=== PATIENT | female | born 1930 | race Hispanic/Latino ===

== ENCOUNTER 2016-08-30 17:05 | Inpatient (IN) | payer MEDICARE, MEDICAID ==
[~2016-08-30] VITALS: Ht 154.9 cm; Wt 54.2 kg
[~2016-08-30 17:05] MED LIST: /AUGM875TA OR; /AUGM875TA PO; /CIPR75TA OR; /DULO30CA OR; /ESOM40CA PO; /INSU7030 SC; /IPRA3SP INH; /MOM400 PO; /NEPHROTA PO; /ONDA4TA PO; /WARF5TA OR; ACET-654 PO; ACET500C OR; ACET650S3 PO; ACET65TA PO; ALB2.5NEB INH; ALBUTEROL INH; ALLO100T PO; ALLO10TA PO; ALLO300T OR; AMLO10TA2 PO; AMLO10TAB OR; AMLO5TAB2 PO; ASPI81CH PO; ASPI81TA PO; ASPI81TA83 OR; ASPI81TA83 PO; ASPI81TA85 PO; ATEN25TA OR; BACITAB PO; BACITAB3 PO; BISAC5TA PO; BISO10TA2 PO; BUPROPION XL PO; CALTRATE 600 + D PO; CARD240T3 OR; CARV3.12 PO; CARV6.25 OR; CEFT250T OR; CIPR250T2 PO; CIPR25SS OR; CLOP75TA2 PO; COLA50CA OR; COLA50CA PO; COLA50CA3 PO; COUM1TAB OR; CRES20TA OR; CRES40TA OR; CYMBALTA PO; DARB100SYR IV; DELTASONE OR; DIOV320T OR; DIOV320T PO; DO NOT TAKE; DRIS1CAP PO; DRIS50002 PO; DUONSOL IN; EMLA2.5C EXT; EPLERENONE PO; FENO145T PO; FENO67CA2 PO; FLAG500T OR; FLAG500T PO; FLEEENE4 PR; FLEX; FLEXERIL; GLIPIZIDE/METFORMIN PO; GLUC10TA3 OR; GLUC1VL SC; GLUC4GMTAB PO; HEPA50VL SC; HYDR-727 PO; HYDR25TA6 OR; HYDR25TA7 OR; IMDU60TA OR; INSUDET SC; INSUH10VL INJ; INSULANT SC; LABE100T2 OR; LABE100T2 PO; LABE200T OR; LASI40TA OR; LEVO25TA2 OR; LEVO25TA2 PO; LEVO25TA5 PO; LEVO25TABR OR; LOVA1CAP16 PO; LOVA1CAP17 PO; LOVAZA PO; LUNESTA PO; Linezolid PO; MAGN500T2 OR; MAGN500T2 PO; MEGE400S9 PO; MIRA3350 PO; MIRALEX PO; MONISTAT; MONISTAT 3; MULTIVIT PO; NAFC2VLAD IV; NASONEX; NASONEX INH; NEBUMIS2 INH; NEPH1CAP4 PO; NEPHTAB PO; NEPRLIQ3 PO; NEUR100C PO; NEXI20CA OR; NORC5TAB PO; NOVOLOG100 MG/ML SC; ONDA1TAB16 PO; OSEL75CA PO; PANT40TA2 PO; PERC5TAB PO; PERC5TAB8 OR; PLAV75TA38 PO; POTA10CA PO; PRAV40TA PO; PRAV40TA2 PO; PRAV80TA2 PO; PRED10TA2 OR; PRED5TAB OR; SENO8.6T9 PO; SLOWTAB OR; TRAN100T OR; TRAZ50TA OR; TRAZ50TA4 PO; TRAZO50TA PO; TRIC145T PO; TRIC145T19 OR; TRIC145T19 PO; TRIGENTA PO; TYLE325T5 PO; VANC10005 INJ; VANC10IN IV; VANC1VLAD IV; VITA100066 PO; XANA0.25 OR; XANA0.25 PO; ZOFR4SOL PO; [UNRECOGNIZED DRUG - OTHER]; norvasc PO
[2016-08-30] MEDS ORDERED: ONDANSETRON 4 MG ORAL DISINTEGRATING TAB (S0181) PO ONE (18:45)
[2016-08-30] MEDS ORDERED: ACETAMINOPHEN TAB 650MG DOSE (2X325MG) PO ONE (18:45)
[2016-08-30 19:00] LABS: ALBUMIN 3.3 GM/DL (3.2-5.2); ALBUMIN/GLOBULIN RATIO 0.85 (1.00-1.93); ALKALINE PHOSPHATASE 55 U/L (45-117); ALT/SGPT 29 U/L (12-78); ANION GAP 11 MEQ/L (8-16); AST/SGOT 50 U/L (15-37); BILIRUBIN,DIRECT < 0.1 MG/DL (0.0-0.2); BILIRUBIN,TOTAL 0.4 MG/DL (0.2-1.0); BLOOD UREA NITROGEN 24 MG/DL (7-18); CALCIUM LEVEL 8.8 MG/DL (8.8-10.2); CARBON DIOXIDE LEVEL 27 MEQ/L (21-32); CHLORIDE LEVEL 103 MEQ/L (98-107); CREATININE FOR GFR 2.41 MG/DL (0.55-1.02); GLOMERULAR FILTRATION RATE 20.4 (>32); GLUCOSE, FASTING 189 MG/DL (83-110); POTASSIUM SERUM 4.4 MEQ/L (3.5-5.1); SODIUM LEVEL 141 MEQ/L (136-145); TOTAL PROTEIN 7.2 GM/DL (6.4-8.2)
[2016-08-30 19:03] LABS: BASO % 0.3 % (0.0-1.0); EOS # 0.1 K/mm3 (0.0-0.50); LARGE UNSTAINED CELL # 0.2 K/mm3 (0.0-0.4); LARGE UNSTAINED CELL % 1.6 % (0.0-4.0); LYMPH # 0.6 K/mm3 (1.5-4.5); LYMPH % 5.6 % (24.0-44.0); MEAN CORPUSCULAR HEMOGLOBIN 34.6 pg (27.0-33.0); MEAN CORPUSCULAR HGB CONC 35.1 g/dl (32.0-36.5); MEAN CORPUSCULAR VOLUME 98.6 fl (80.0-96.0); MONO # 0.5 K/mm3 (0.0-0.8); NEUTROPHILS % 86.5 % (36.0-66.0); PLATELET COUNT, AUTOMATED 211 k/mm3 (150-450); RED CELL DISTRIBUTION WIDTH 15.4 % (11.5-14.5); WHITE BLOOD COUNT 10.4 K/mm3 (4.0-10.0)
--- NOTE | 2016-08-30 19:30 | REPUSA ---
CLINICAL HISTORY: Headaches. TECHNIQUE: Multiple axial CT images were obtained through the brain without IV contrast material. COMMENTS: There is normal configuration of sella turcica. There are no intra or extra-axial collections. There is no mass effect or midline shift. There is no evidence of hematoma formation. No hydrocephalus is p resent. The ventricles are symmetrical. No abnormal calcifications are present. There is diffuse age-appropriate cerebellar and cerebral atrophy with proportionally dilated ventricl es and cortical sulci. There are bilateral confluent periventricular and subcortical white matter hypolucencies compatible w ith severe chronic microvascular disease. Otherwise, no significant focal abnormalities are seen either in the posterior fossa or supratentoria l compartment. IMPRESSION: 1. Severe cerebellar and cerebral atrophy. 2. Severe chronic microvascular disease. 3. No evidence of acute intracranial pathology. Thank you for your kind referral of this patient.
--- NOTE | 2016-08-30 19:33 | REP ---
PORTABLE CHEST: 08/30/2016: Comparison: 03/02/2016, 11/01/2015. Clinical history: Chest pain. Findings: There is an indwelling right jugular dialysis catheter. Tip is in the right atrium. This is unchanged. Lung crespo are adequately inflated without pleural effusion or acute infiltrate. Heart size not enlarged for portable AP technique and this degree of inflation. The aorta is mildly tortuous but normal for age. Airway intact. No acute bony finding. There is no free air under the diaphragm. Impression: 1. Indwelling right jugular dialysis catheter unchanged with cardiomediastinal silhouette, airway and aorta all stable. No edema, effusion or definite infiltrate. Signed by Aguilar Orona MD 08/30/2016 07:52 P
[2016-08-30] MEDS ORDERED: ACETAMINOPHEN 325 MG/10.15 ML UDC PO ONE (19:45)
[2016-08-30] MEDS ORDERED: CARV6.25 PO (20:43)
[2016-08-30] MEDS ORDERED: CICL8SOL3 TOP (20:43)
[2016-08-30] MEDS ORDERED: NYST100024 TOP (20:45)
[2016-08-30] MEDS ORDERED: INSULANT SC (20:46)
[2016-08-31] VITALS (7 sets, daily range): BP systolic 100–146; BP diastolic 50–71; PULSE 69
[2016-08-31] MEDS ORDERED: GLUCOSE 4 GM CHEW TABLET PO PRN (00:15)
[2016-08-31] MEDS ORDERED: GLUCAGON FOR INJ 1 MG VIAL (J1610) SC PRN (00:15)
[2016-08-31] MEDS ORDERED: MEROPENEM INJ 1 GM in D5W MINI-BAG PLUS 100 ML IV SCH (00:15)
[2016-08-31] MEDS ORDERED: ONDANSETRON 4MG/2ML VIAL (J2405) IV PRN (00:15)
[2016-08-31] MEDS ORDERED: VANCOMYCIN HCL 1,000 MG, VIAL MATE ADAPTER 1 EACH in D5W 250 ML IV ONE (00:15)
[2016-08-31] MEDS ORDERED: DEXTROSE 50% 50 ML SYRINGE IV PRN (00:15)
[2016-08-31] MEDS ORDERED: MEROPENEM INJ 500 MG in D5W MINI-BAG PLUS 100 ML IV SCH (01:00)
--- NOTE | 2016-08-31 01:31 | HPEPDOC ---
General Date of Admission Aug 30, 2016 at 22:47 Primary Care Physician: NEHEMIAS LONGORIA DO Attending Physician: FLAQUITA BURGESS MD Chief Complaint The patient is a 85-year-old female admitted with a reason for visit of FEVER. Source: Family, RN notes reviewed, Old records Exam Limitations: Language barrier Timing/Duration: This morning Severity: Moderate Associated Symptoms: Cough, Headaches, Syncope, Weakness History of Present Illness Ms. Tran is an 85-year-old Malagasy female who presents to [facility]'s emergency Department with syncope after dialysis. She is accompanied in the ED by her granddaughter. Patient is Bengali-speaking. Granddaughter provided much of the history. 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 Granddaughter states that patient went to hemodialysis this morning and while undergoing care had a syncopal event while in the chair. Patient did not fall or hit her head. Patient returned home after the conclusion of dialysis at 9 AM and according to the granddaughter was alert and oriented and eating snacks. Sometime later it was noted by a cousin and the patient's daughter that she was "acting different, pale, and didn't make sense". According to the granddaughter her mother had said that she had noted that the patient was breathing more deeply during this event. Granddaughter notes that the symptoms are similar to the symptoms she experienced when she had her stroke in 2013. Patient had an episode of nonbloody vomitus with an associated headache. She also complains of a cough, sore throat, and pain in her ears. She denies nausea, chest pain, visible lesions and/or rashes. Patient describes feeling weak and her granddaughter notes that she does not ambulate and a Carlito lift is used. Granddaughter also notes that patient's fluid intake has increased as well as her urinary output. She also notes that patient is wheezing. She states that her grandmother has also been complaining of left leg pain. Patient does have chronic right hand swelling secondary to residual effects of stroke. Review of systems besides those mentioned above or otherwise negative. Hospitalist service was consulted to admit patient for medical management. Home Medications Scheduled (Aspirin) 81 Mg Chw 81 MG PO DAILY (Reported) Allopurinol (Allopurinol) 100 Mg Tab 100 MG PO DAILY (Reported) Amlodipine Besylate (Amlodipine Besylate) 5 Mg Tab 5 MG PO DAILY (Reported) Carvedilol (Carvedilol) 6.25 Mg Tab 6.25 MG PO BID (Reported) Fenofibrate (Fenofibrate) 145 Mg Tab 145 MG PO QHS (Reported) Gabapentin (Neurontin) 100 Mg Cap 100 MG PO BID (Reported) Insulin Glargine (Lantus) 1 Units/0.01 Ml Susp 10 UNITS SC BID (Reported) Levothyroxine Sodium (Synthroid) 25 Mcg Tab 25 MCG PO QAM (Reported) Nystatin (Nystatin Powder) 100,000 Unit/Gm Pow 1 DOSE TOP DAILY (Reported) APPLY TO BED SORES ON LOWER BACK AND BUTTOCKS [place] 3 Polyunsat Fatty Acids (Lovaza 1 gm) 1 Cap Cap 2 CAP PO BID (Reported) Pantoprazole Sodium (Pantoprazole Sodium) 40 Mg Tab 40 MG PO DAILY (Reported) Pravastatin Sodium (Pravastatin Sodium) 80 Mg Tab 80 MG PO QHS (Reported) Vitamin D (Drisdol) 50,000 Unit Cap 50,000 UNIT PO QWEEK (Reported) THURSDAYS Scheduled PRN (Ciclopirox Nail Lacquer) 8 % Lesley 1 DOSE TOP DAILY PRN PRN NAIL FUNGUS (Reported ) APPLY TO AFFECTED NAIL Allergies Coded Allergies: Codeine (Verified Allergy, Intermediate, HIVES, 09/23/12) Gardners (Verified Allergy, Unknown, 09/23/12) Tetanus Toxoid (Verified Allergy, Unknown, 09/23/12) Past Medical History Medical History 1. End-stage renal disease receiving hemodialysis 2. Diastolic congestive heart failure with an ejection fraction of 65-70% 3. Cerebrovascular accident with persistent right-sided hemiparesis 4. Hypertension 5. Coronary artery disease 6. Diabetes mellitus 7. Dyslipidemia 8. MSSA septicemia secondary to arteriovenous graft infection 9. History of choledocholithiasis 10. Osteoarthritis 11. Depression 12. Gout 13. History of giant cell arteritis 14. 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 [place] No pets Denies environmental exposures Review of Symptoms Constitutional: Reports: Weakness, Denies: Chills, Fever (patient denies subjective fever), Night Sweats Eyes: Denies: Pain, Vision change ENT: Reports: Ear Pain, Head Aches (associated with episode of vomiting), Sore Throat Skin: Denies: Lesions, Rash Pulmonary: Reports: Cough Cardiovascular: Reports: Edema (right hand, chronic), Denies: Chest Pain, Palpitations Gastrointestinal: Reports: Vomiting, Denies: Abdominal Pain, Constipation, Diarrhea, Hematochezia, Melena, Nausea Genitourinary: Reports: Frequency, Denies: Hematuria Hematologic: Denies: Bruising Endocrine: Reports: Polydipsia Musculoskeletal: Reports: Leg Pain (left leg), Denies: Back Pain Neurological: Reports: Weakness Physical Examination General Exam: Positive: Other (patient is sleeping at time of exam) Eye Exam: Positive: Conjunctiva & lids normal, EOMI, PERRLA ENT Exam: Positive: Nares Patent Neck Exam: Positive: Supple, Negative: JVD, Lymphadenopathy, thyromegaly Chest Exam: Positive: Normal air movement, Other (coarse breath sounds throughout) Heart Exam: Positive: Murmurs (grade 2/6 systolic murmur), Tachycardic Telemetry: Positive: Tachycardia Abdomen Exam: Positive: Normal bowel sounds, Soft, Negative: Hepatospenomegaly, Tenderness Extremity Exam: Positive: Edema (right hand), Normal pulses, Negative: Cyanosis, Tenderness Skin Exam: Positive: Nl turgor and temperature, Negative: Lesion, Rash Vital Signs T 99.8 HR 103 RR 20 BP 160/74 O2 98% on 2 L nasal cannula Height (in): 61 Weight (kg): 51.71 BMI (kg): 21.5 Laboratory Data Labs 24H Laboratory Tests 2 08/30/16 18:18: Aspartate Amino Transf (AST/SGOT) 50H, Alanine Aminotransferase (ALT/SGPT) 29, Alkaline Phosphatase 55, Total Bilirubin 0.4, Direct Bilirubin < 0.1, Albumin 3.3, Albumin/Globulin Ratio 0.85L, Anion Gap 11, B-Type Natriuretic Peptide 1700H, White Blood Count 10.4H, Red Blood Count 3.31L, Hemoglobin 11.4L, Hematocrit 32.7L, Mean Corpuscular Volume 98.6H, Mean Corpuscular Hemoglobin 34.6H, Mean Corpuscular Hemoglobin Concent 35.1, Red Cell Distribution Width 15.4H, Platelet Count 211, Neutrophils (%) (Auto) 86.5H, Lymphocytes (%) (Auto) 5.6L, Monocytes (%) (Auto) 5.0, Eosinophils (%) (Auto) 1.0, Basophils (%) (Auto ) 0.3, Neutrophils # (Auto) 9.0H, Lymphocytes # (Auto) 0.6L, Monocytes # (Auto) 0.5, Eosinophils # (Auto) 0.1, Basophils # (Auto) 0.0, Calcium Level 8.8, Creatine Kinase MB 1.2, Creatine Kinase MB Relative Index 1.39, Glomerular Filtration Rate 20.4L, Lactic Acid (Sepsis) 0.8, Large Unclassified Cells # 0.2 , Large Unclassified Cells % 1.6, Lipase 108, Total Creatine Kinase 86, Total Protein 7.2, Troponin I 0.05 08/30/16 20:18: Urine Amorphous Sediment , Urine Appearance CLEAR, Urine Color YELLOW, Urine pH 7.0, Urine Specific [place] 1.013, Urine Protein 3+H, Urine Glucose (UA) 3+H, Urine Ketones NEGATIVE, Urine Urobilinogen 0.2, Urine Bilirubin NEGATIVE, Urine Leukocyte Esterase NEGATIVE, Urine Bacteria (Auto) NEGATIVE, Urine Blood NEGATIVE, Urine Calcium Carbonate Cryst(Auto) , Urine Calcium Oxalate Cryst ( Auto) , Urine Calcium Phosphate [place] (Auto) , Urine Cellular Casts , Urine Cystine Crystals , Urine Granular Casts (Auto) , Urine Hyaline Casts (Auto) 0, Urine Leucine Crystals , Urine Mucus (Auto) SMALL, Urine Nitrite NEGATIVE, Urine Oval Fat Bodies (Auto) , Urine RBC (Auto) 0, Urine Renal Epithelial Cells , Urine Sperm (Auto) , Urine Squamous Epithelial Cells 0, Urine Transitional Epithelial Cells , Urine Trichomonas (Auto) , Urine Triple Phosphate Cryst (Auto ) , Urine Tyrosine Crystals , Urine Uric Acid Crystals (Auto) , Urine WBC (Auto ) 1, Urine Waxy Casts (Auto) , Urine Yeast-Like Cells (Auto) 08/30/16 23:12: Troponin I 0.05 08/30/16 23:52: Bedside Glucose (Misc Panel) 168H CBC/BMP Laboratory Tests 08/30/16 18:18 Red Blood Count 3.31 L, Mean Corpuscular Volume 98.6 H, Mean Corpuscular Hemoglobin 34.6 H, Mean Corpuscular Hemoglobin Concent 35.1, Red Cell Distribution Width 15.4 H, Neutrophils (%) (Auto) 86.5 H, Lymphocytes (%) (Auto ) 5.6 L, Monocytes (%) (Auto) 5.0, Eosinophils (%) (Auto) 1.0, Basophils (%) ( Auto) 0.3, Neutrophils # (Auto) 9.0 H, Lymphocytes # (Auto) 0.6 L, Monocytes # ( Auto) 0.5, Eosinophils # (Auto) 0.1, Basophils # (Auto) 0.0 Microbiology Microbiology 08/30/16 Blood Culture, Received Pending 08/30/16 Blood Culture, Received Pending 08/30/16 Influenza Virus Type A Antigen - Final, Complete 08/30/16 Influenza Virus Type B Antigen - Final, Complete 08/30/16 Respiratory Virus Panel (PCR) (JACK) - Final, Complete 08/30/16 Urine Culture, Received Pending RAD Interpretation STUDY: CXR (right jugular dialysis catheter noted, no edema, effusion, infiltrate) Rad Actions: Report Reviewed, Other Rad Comments: (head CT: No acute intracranial pathology, severe atrophy, severe microvascular disease) Assessment/Plan 85-year-old Malagasy female who presented with syncope demonstrated to have fever, tachycardia, and leukocytosis on presentation. Question possible underlying infectious cause. Problems (1) Syncope Status: Acute Problem Text: Obtain orthostatic vital signs Obtain echocardiogram and EKG secondary to T-wave abnormalities noted on EKG in the ED Trend troponins Obtain MRI of the brain Perform neuro checks every 4 hours (2) Fever Status: Acute Problem Text: Blood and urine cultures are pending Empirically started one-time dose of vancomycin and meropenem Obtain respiratory culture Obtain strep screen (3) Anemia in chronic kidney disease Status: Acute Problem Specific Plan: Consult Specialist Problem Text: Hemoglobin and hematocrit are 11.4 and 32.7, respectively Will monitor with daily labs Nephrology consult Plan / VTE VTE Prophylaxis Ordered?: Yes (heparin) Plan Plan Syncope - Possible causes of syncope could be orthostatic hypotension so orthostatic vital signs will be obtained - Other causes include underlying cardiac problems for which an echo will be performed, troponins will be trended, and EKG will be obtained in the morning - Secondary to patient's history of CVA and MRI of the brain has been ordered and neurochecks will be performed every 4 hours Fever - Patient has been empirically started on one-time dose of vancomycin and meropenem that has been renally adjusted - Blood cultures and urine cultures are pending - Respiratory panel has been ordered secondary to patient's respiratory complaints - Strep screen has been ordered secondary to patient's respiratory complaints - Nephrology has been consulted Nausea and vomiting - Ordered Zofran Patient's chronic medical conditions will be medically managed while she remains hospitalized I have both independently examined this patient as well as reviewed the record. I have discussed in detail with the resident the findings and plan of treatment as documented in the resident's note and discussed with the patient. Disposition Admit to PCU Anticipated hospitalization: 2 nights Diet: Continue Current Activity: Continue Current Medications: Start Antibiotics Diagnostics: Check Labs, Repeat Labs in AM, Obtain Cultures, MRI (brain), EKG, TTE Anticipated Discharge: Home LEXII RIVAS Aug 31, 2016 01:30 FLAQUITA BURGESS MD Sep 15, 2016 13:26
[2016-08-31] MEDS ORDERED: VANCOMYCIN INTERMITTENT/PULSE DOSING BY CLINICAL PHARMACIST PER DOSING PROTOCOL XX SCH (02:00)
[2016-08-31] MEDS ORDERED: SLF 3 ML SYR IV PRN (02:00)
[2016-08-31] MEDS: PRAVASTATIN 20 MG TAB PO SCH ×2 (02:19→21:18)
[2016-08-31] MEDS: GABAPENTIN 100 MG CAP PO SCH ×3 (02:19→21:18)
[2016-08-31] MEDS: CARVedilol 6.25 MG TAB PO SCH ×3 (02:19→21:19)
[2016-08-31] MEDS: FENOFIBRATE 145 MG TAB (TRICOR) PO SCH ×2 (02:19→21:18)
--- NOTE | 2016-08-31 05:09 | PHACANCOPD ---
PHARMACY VANCOMYCIN DOSING Pt Demographics Demographics Patient Age:85 , Weight:51.71 , Gender: female Adjusted Body Weight Date: 08/31/16, Adjusted Body Weight: [49.2) Kg-ACTUAL WT Vancomycin Vancomycin indication: FEVER/SEPSIS Vancomycin Target Ranges: 10-20 mcg/ml Vancomycin Load Y/N: Yes Load Dose Date Time Vancomycin Load Dose: 1 GM Date: 08/31 Time: 0220 Vancomycin Dose Date: 08/31/16. Current Vancomycin Dose: Intermittent Dosing?: Yes Labs Labs Laboratory Tests 08/30/16 18:18 Red Blood Count 3.31 L, Mean Corpuscular Volume 98.6 H, Mean Corpuscular Hemoglobin 34.6 H, Mean Corpuscular Hemoglobin Concent 35.1, Red Cell Distribution Width 15.4 H, Neutrophils (%) (Auto) 86.5 H, Lymphocytes (%) (Auto ) 5.6 L, Monocytes (%) (Auto) 5.0, Eosinophils (%) (Auto) 1.0, Basophils (%) ( Auto) 0.3, Neutrophils # (Auto) 9.0 H, Lymphocytes # (Auto) 0.6 L, Monocytes # ( Auto) 0.5, Eosinophils # (Auto) 0.1, Basophils # (Auto) 0.0 Micro Microbiology 08/30/16 Blood Culture, Received Pending 08/30/16 Blood Culture, Received Pending 08/30/16 Influenza Virus Type A Antigen - Final, Complete 08/30/16 Influenza Virus Type B Antigen - Final, Complete 08/30/16 Respiratory Virus Panel (PCR) (JACK) - Final, Complete 08/30/16 Urine Culture, Received Pending Creatinine Clearance Date:08/31/16. Creatinine Clearance: [13.5]CALCULATED. Pending Labs RANDOM RODERED FOR 08/31 @1200 Assessment and Plan Maintaining Current Dose?: Yes Reason for dose change: No Dose Change Pharmacist Note Pharmacist Note Date: 08/31/16. Pharmacist note:85 YOF Admitted w/fever/possible infectious process : meropenem 500mg iv q12h + Vancomycin per consult: allergies= codeine, strawberries,tetanus toxoid:received vanco 1 gm iv@0220 08/31 w/randm ordered for 1200 today-will dose per intermittent protocol: will continue to follow SCR and levels MAX JOSHI PHARMACY Aug 31, 2016 05:08
[2016-08-31] MEDS: SLF 3 ML SYR IV SCH ×3 (05:36→21:21)
[2016-08-31] MEDS: HEPARIN SOD (PORCINE) 5000 UNITS/ML VIAL SC SCH ×3 (05:36→21:19)
[2016-08-31] MEDS: LEVOTHYROXINE 0.025 MG TAB (25 MCG) PO SCH (05:36)
[2016-08-31 06:27] LABS: CREATININE FOR GFR 2.98 MG/DL (0.55-1.02); GLOMERULAR FILTRATION RATE 15.9 (>32); POTASSIUM SERUM 4.5 MEQ/L (3.5-5.1)
[2016-08-31 06:51] LABS: BASO % 0.3 % (0.0-1.0); EOS # 0.1 K/mm3 (0.0-0.50); EOS % 1.3 % (0.0-3.0); LARGE UNSTAINED CELL # 0.2 K/mm3 (0.0-0.4); LARGE UNSTAINED CELL % 1.7 % (0.0-4.0); LYMPH # 1.1 K/mm3 (1.5-4.5); LYMPH % 10.3 % (24.0-44.0); MEAN CORPUSCULAR HEMOGLOBIN 32.9 pg (27.0-33.0); MEAN CORPUSCULAR HGB CONC 32.4 g/dl (32.0-36.5); MEAN CORPUSCULAR VOLUME 101.5 fl (80.0-96.0); MONO # 0.5 K/mm3 (0.0-0.8); NEUTROPHILS # 8.9 K/mm3 (1.8-7.7); NEUTROPHILS % 81.4 % (36.0-66.0); PLATELET COUNT, AUTOMATED 172 k/mm3 (150-450); RED CELL DISTRIBUTION WIDTH 15.6 % (11.5-14.5); WHITE BLOOD COUNT 10.9 K/mm3 (4.0-10.0)
--- NOTE | 2016-08-31 07:52 | ECGEPIP ---
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
[2016-08-31] MEDS: ALLOPURINOL 100 MG TAB PO SCH (08:36)
[2016-08-31] MEDS: ASPIRIN 81 MG CHEW TABLET PO SCH (08:36)
[2016-08-31] MEDS: PANTOPRAZOLE 40MG TAB (PROTONIX) PO SCH (08:36)
[2016-08-31] MEDS: amLODIPine 5 MG TAB PO SCH (08:37)
[2016-08-31] MEDS: LEVEMIR (INSULIN DETEMIR) 1 UNITS/0.01ML SC SCH ×2 (08:38→21:19)
[2016-08-31] MEDS: HumaLOG INSULIN (NovoLOG) PER UNIT SC SCH ×4 (08:38→20:36)
[2016-08-31 08:44] LABS: ALBUMIN 2.7 GM/DL (3.2-5.2); PHOSPHORUS LEVEL 4.1 MG/DL (2.5-4.9)
[2016-08-31] MEDS: NYSTATIN 100,000 UNITS/GM TOPICAL PWD 15 GM TOP SCH (09:00)
[2016-08-31] MEDS ORDERED: VANCOMYCIN HCL 750 MG, VIAL MATE ADAPTER 1 EACH in D5W 250 ML IV SCH (13:30)
[2016-08-31] MEDS: CHECK TO SEE IF PATIENT IS RECEIVING DIALYSIS TODAY AND REFER TO THE VANCOMYCIN ORDER XX SCH (15:52)
--- NOTE | 2016-08-31 16:14 | REP ---
MR BRAIN WITHOUT CONTRAST: HISTORY: Syncope. COMPARISON: MR 10/18/[address] 08/30/2016. Areas of increased signal intensity on T2 weighted images are present in the left basal ganglia, centrum semiovale, and thalamus. These represent old lacunar infarctions. Areas of increased signal intensity on T2 weighted images are present in the periventricular and subcortical white matter and meena. This represents small vessel ishemic disease. There is no intraparenchymal hemorrhage, acute infarct, mass or midline shift. The ventricular system and cortical sulci are dilated consistent with moderate volume loss. There is no extracerebral collection. The sinuses are clear. IMPRESSION: 1. Old left basal ganglia, centrum semiovale, and thalamic lacunar infarctions. 2. Small vessel ischemic disease. 3. Moderate volume loss. Signed by Wyatt Saunders MD 08/31/2016 04:15 P
--- NOTE | 2016-08-31 16:24 | IPN ---
DATE: 08/31/2016 Overnight she has had a low grade temperature of 100.7 at 1738 hours on 08/30/2016. This morning, patient has no new complaints. Patient's son at the bedside, translating into Malawian. She currently denies nausea, vomiting, fever, or chills, dysuria, urgency, frequency, shortness of breath, chest pain, pressure or tightness. Temperature 97.3, maximum temperature (Tmax) 100.7, pulse 69, respiratory rate 20, blood pressure 134/59, 97% on two liters nasal cannula. Generally, patient is awake, alert, oriented to person, place, and time. She is no respiratory distress. Lungs are diminished with coarse rhonchi. Heart S1, S2, sinus rhythm, tachycardic, 2/6 systolic ejection murmur. Abdomen is soft, nontender, nondistended. Positive bowel sounds. Right central catheter is noted. Extremities chronic bruising, ecchymosis bilateral upper extremities, right hand edema which is chronic, and pitting edema, trace to 1+, in the lower extremities. LABORATORY DATA: White count 10.9, hemoglobin 9.6, hematocrit 29.6, platelet count 172. Sodium 140, potassium 4.5, chloride 102, bicarbonate 29, BUN 31, creatinine 2.98, glucose of 270, lactic acid 0.8, calcium 8, albumin 2.7. Influenza A and B are both negative. Urine culture is pending. Respiratory panel is negative. Blood cultures are pending. IMAGING STUDIES: Chest xray shows indwelling right jugular dialysis catheter, unchanged, no edema, infiltrate, or effusion. ASSESSMENT AND PLAN: This is an 85-year-old female with history of methicillin-sensitive Staphylococcus aureus (MSSA) infection via infected arterial graft, end-stage renal disease on maintenance hemodialysis, diastolic heart failure, ejection fraction (EF) of 65-70%, CVA with right-sided hemiparesis, hypertension, coronary artery disease (CAD), diabetes, dyslipidemia, history of choledocholithiasis, osteoarthritis, depression, gout, giant cell arteritis, iron deficiency anemia, presents to the emergency room, brought in with syncopal episode after dialysis, patient was accompanied by her granddaughter, is Malawian speaking only. CURRENT ISSUES: 1. Syncope. Patient is Carlito lift. Obtain echo. EKG showed nonspecific T wave abnormalities. Cycle cardiac markers. Neurologic checks every 4 hours as needed. 2. Fever. Urine and blood cultures are pending. She has history of methicillin-resistant Staphylococcus aureus (MSSA) bacteremia secondary to infected graft site, possibly Lyme sepsis. Continue on vancomycin and meropenem. Rest of her cultures negative. Chest xray is unremarkable. Await blood culture results and change antibiotics accordingly. 3. Anemia, secondary to chronic kidney disease. Defer to nephrology to transfuse at dialysis. 4. Chronic renal failure, on maintenance hemodialysis. Nephrology has been consulted to manage patient's dialysis needs. 5. Hypertension, stable on Norvasc and Coreg. 6. History of diastolic heart failure, appears to be compensated. Ejection fraction (EF) of 65-70%. 7. History of CVA with persistent right hemiparesis, stable. 8. History of coronary artery disease (CAD). Cycle cardiac markers. 9. Type 2 diabetes. On consistent carbohydrate, renal diet. 10. Dyslipidemia. On chronic fenofibrate.
--- NOTE | 2016-08-31 19:57 | CR ---
DATE OF CONSULTATION: 08/31/2016 REQUESTING PHYSICIAN: Dr. Julian ATTENDING PHYSICIAN: Dr. Nano Aleman REASON FOR CONSULTATION: Assistance in management of end-stage renal disease patient. CHIEF COMPLAINT: Fever and passing out at home. HISTORY OF THE PRESENT ILLNESS: Ms. Tran is an 85-year-old female with a past medical history of end-stage renal disease, on hemodialysis, methicillin-sensitive Staphylococcus aureus (MSSA) bacteremia from arteriovenous (AV) graft infection, cerebrovascular accident with residual right-sided weakness, coronary artery disease, hypertension, who was brought in to the emergency room (ER) last night due to episodes of confusion at home and passing out in dialysis. The patient is Bangladeshi speaking only and history is obtained mostly from her granddaughter. Per granddaughter, the patient underwent hemodialysis this morning with plan for 900 mL removed. However, after removing approximately 750 mL, she began to be more hypotensive. Initially, blood pressure was 170 and slowly dropped down to a systolic of 100. There was a question whether or not the patient had passed out. Because of her hypotension, she actually received 900 mL normal saline in total at dialysis center, and after fluid hydration, her condition reportedly improved. She then went home and was actually alert and oriented and eating without issues. However, some time later, the patient's mentation changed to the point that it was not making any sense to the family. She was more confused, and there was a complaint of headache. She had episode of vomiting as well. No chest pain, palpitations; however, she was noticed to have a fever on admission to the ER with highest 100.7. Per family, since admission, her condition has significantly improved. Nephrology consult is requested to assist with management on this patient with a history of end-stage renal disease, on hemodialysis. She was empirically started on meropenem and vancomycin for her fever. PAST MEDICAL HISTORY: End-stage renal disease, on hemodialysis Saturday, , Saturday. Insulin-dependent diabetes. Cerebrovascular accident with residual right-sided weakness. Coronary artery disease. Hypertension. Hyperlipidemia. MSSA septicemia secondary to AV graft infection. Anemia of chronic kidney disease. Recurrent urinary tract infection. Osteoarthritis. Depression. Hyperlipidemia. History of giant cell arteritis. Cholelithiasis. Diastolic heart failure with ejection fraction (EF) 65-70%. Gout. PAST SURGICAL HISTORY: Right internal jugular catheter placement. AV graft placement with resection due to infection. Cholecystectomy. Bilateral cataract surgery. Endoscopic retrograde cholangiopancreatography (ERCP). ALLERGIES: CODEINE - hives, STRAWBERRY and TETANUS TOXOID. HOME MEDICATIONS: - allopurinol 100 mg by mouth daily - Norvasc 5 mg by mouth daily - aspirin 81 mg by mouth daily - Coreg 6.25 mg by mouth twice a day - ciclopirox topical to nail fungus - fenofibrate 140 mg nightly - Neurontin 100 mg by mouth twice a day - Lantus 10 units subcu twice a day - Synthroid 25 mcg by mouth every morning - Nystatin powder to low back and buttocks - Lovaza two capsules twice a day - Protonix 40 mg daily - Pravachol 80 mg nightly - vitamin D 50,000 units weekly CURRENT INPATIENT MEDICATIONS: - allopurinol 100 mg by mouth daily - Norvasc 5 mg by mouth daily - aspirin 81 mg by mouth daily - Coreg 6.25 mg by mouth twice a day - Tricor 145 mg nightly - gabapentin 100 mg by mouth twice a day - Levemir 10 units twice a day - Synthroid 0.025 mg daily - Nystatin - Protonix by mouth daily - Pravachol - Zofran - heparin 5000 units every 8 hours - insulin sliding scale - meropenem 500 mg twice a day - vancomycin with hemodialysis SOCIAL HISTORY: The patient is an ex-smoker, quit 20 years ago, has a 40 pack-year history. No alcohol. No drug use. No sick contacts. No recent travel. 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 Originally from [place]. No pets at home. She is . No environmental exposure or tuberculosis family is aware of. FAMILY HISTORY: Noncontributory. REVIEW OF SYSTEMS: CONSTITUTIONAL: Positive for fever as mentioned above. No chills, night sweats. Although there is mention of her having more increased fluid intake at home, it is unknown if she gained weight. HEENT: There is report of headache last night. No difficulty with speech and swallow. No epistaxis. There is report of ear pain and sore throat. CARDIOVASCULAR: No chest pain, palpitations. She does have chronic right hand swelling and occasional lower extremity edema. PULMONARY: Positive for dry cough and one episode of shortness of breath last night. No hemoptysis. GASTROINTESTINAL: Positive for one episode of nonbloody emesis but no abdominal pain, constipation, diarrhea, hematochezia, melena. GENITOURINARY: The family reports increased urinary frequency. No hematuria or dysuria. HEMATOLOGY: Positive for anemia of chronic disease. No bruising. No known clotting disorders. ONCOLOGY:No history of malignancy. ENDOCRINE: Positive for diabetes, thyroid disease. NEUROLOGIC: Positive for history of cerebrovascular accident with residual right-sided weakness. PSYCHIATRY: There is a history of depression. MUSCULOSKELETAL: No bone, muscle, joint pain. LYMPHATICS: No lumps, bumps, or swelling anywhere in neck, axilla, or groin. PHYSICAL EXAMINATION: VITAL SIGNS: Blood pressure 125/62, heart rate 76, temperature 98.3. Maximum temperature (T max) last night was 100.7, respiratory rate 20, pulse oximetry 97 % on room air. Intake not documented last night. Output 400 mL. Weight is 51.7 kg. GENERAL: The patient is lying in bed approximately 30 degrees angle, comfortable , in no acute respiratory or psychiatric distress. Bangladeshi speaking only. Family at bedside. HEENT: Extraocular movements intact. Pupils equal and reactive to light. Moist oral mucosa. NECK: Supple. Trachea midline. No visible jugular venous distention (JVD) or lymphadenopathy. CHEST: Symmetric chest rise. No accessory muscle use. Breath sounds are diminished in the lung bases but no rhonchi or wheezing. HEART: Regular sounding. Normal S1 and S2, not tachycardic. Did not appreciate any murmurs, rubs, gallops. ABDOMEN: Soft, nontender, nondistended. Bowel sounds present. No guarding, no rebound. Could not appreciate organomegaly secondary to body habitus. EXTREMITIES: Pedal pulses diminished but present bilaterally. Fingers are not cyanotic. Trace pedal edema. PSYCHIATRIC: Good affect. NEUROLOGIC: Strength is diminished on her right lower extremity compared to left. LABORATORY DATA: WBC 10.9, hemoglobin 9.6, hematocrit 29.6. Decreased from yesterday 11.4. Platelets 172, neutrophils 81.4. Sodium 140, potassium 4.5, chloride 102, carbon dioxide 29, BUN 31, creatinine 2.98, yesterday it was 2.41, glucose 170, calcium 8, phosphorus 4.1. Troponin negative times three. Albumin 2.7. Vancomycin level was 17. UA: 3+ protein, 3+ glucose. Influenza antigen negative, RSV negative. Blood cultures are pending. Urine culture pending. Chest x-ray reports indwelling right jugular dialysis catheter unchanged with cardiomediastinal silhouette, airway and aorta stable. No edema, effusion or definite infiltrate. CT head: Severe cerebellar and cerebral atrophy, severe chronic microvascular disease. No evidence of acute pathology. IMPRESSION AND PLAN: Ms. Tran is an 85-year-old female, past medical history of end-stage renal disease, on hemodialysis, underwent hemodialysis yesterday had hypotension, confusion, later developed fever. 1. Fever. Etiology unclear. She has a history of methicillin-sensitive Staphylococcus aureus (MSSA) in the past from her AV graft infection. So far, viral cultures have been negative. Urinalysis did not show evidence of leukocyte esterase or nitrites. She is currently empirically being treated with vancomycin and meropenem. Blood culture and urine cultures are pending. Will follow up with results. Agree with continuing empiric antibiotic coverage. 2. End-stage renal disease, on hemodialysis. Had hemodialysis yesterday; unfortunately, because of her hypotension, she required 900 mL of fluid administration after 750 mL was removed. Currently, she does not appear to be fluid overloaded. Therefore, we will plan for dialysis again tomorrow, which is her regularly scheduled dialysis day. 3. Hypertension. Blood pressure is improving since admission. Currently is on Norvasc 5 mg by mouth daily, Coreg 6.25 mg by mouth twice a day. Recommend continuing the same for now without change. 4. Anemia in chronic kidney disease. Hemoglobin and hematocrit showed slight decrease compared to yesterday. Followup labs in the morning. No need for transfusion at this time. 5. Gout. Will continue allopurinol. Thank you for allowing us to participate in Ms. Tran' care. We will continue to follow her with you. My preceptor for this patient encounter was Dr. Aleman. The preceptor was physically present in the building during the encounter and was fully available. As needed, all aspects of the patient interview, examination, medical decision making process, and medical care plan development were reviewed and approved by the preceptor. The preceptor is aware and concurs with the plan as stated in the body of this note and will attest to such by his/her cosignature. DAV
[2016-09-01] VITALS: BP 138/61
[2016-09-01 04:00] VITALS: BP 114/57
[2016-09-01 05:44] LABS: MEAN CORPUSCULAR HEMOGLOBIN 34.2 pg (27.0-33.0); MEAN CORPUSCULAR HGB CONC 33.3 g/dl (32.0-36.5); MEAN CORPUSCULAR VOLUME 102.7 fl (80.0-96.0); RED CELL DISTRIBUTION WIDTH 15.6 % (11.5-14.5); WHITE BLOOD COUNT 7.1 K/mm3 (4.0-10.0)
[2016-09-01 05:55] LABS: ALBUMIN 2.4 GM/DL (3.2-5.2); CALCIUM LEVEL 7.7 MG/DL (8.8-10.2); CREATININE FOR GFR 4.12 MG/DL (0.55-1.02); PHOSPHORUS LEVEL 4.5 MG/DL (2.5-4.9); POTASSIUM SERUM 4.6 MEQ/L (3.5-5.1)
[2016-09-01] MEDS ORDERED: MEROPENEM INJ 500 MG in D5W MINI-BAG PLUS 100 ML IV SCH ×2 (06:00→09:00)
[2016-09-01] MEDS: SLF 3 ML SYR IV SCH ×3 (06:40→20:39)
[2016-09-01] MEDS: LEVOTHYROXINE 0.025 MG TAB (25 MCG) PO SCH (06:40)
[2016-09-01] MEDS: CARVedilol 6.25 MG TAB PO SCH ×2 (06:41→20:38)
[2016-09-01] MEDS: HEPARIN SOD (PORCINE) 5000 UNITS/ML VIAL SC SCH ×3 (06:41→20:38)
[2016-09-01] MEDS: ALLOPURINOL 100 MG TAB PO SCH (06:41)
[2016-09-01] MEDS: GABAPENTIN 100 MG CAP PO SCH ×2 (06:41→20:38)
[2016-09-01] MEDS: PANTOPRAZOLE 40MG TAB (PROTONIX) PO SCH (06:42)
[2016-09-01] MEDS: ASPIRIN 81 MG CHEW TABLET PO SCH (06:42)
[2016-09-01] MEDS: amLODIPine 5 MG TAB PO SCH (07:03)
[2016-09-01] MEDS: LEVEMIR (INSULIN DETEMIR) 1 UNITS/0.01ML SC SCH ×2 (07:33→20:39)
[2016-09-01] MEDS: HumaLOG INSULIN (NovoLOG) PER UNIT SC SCH ×4 (07:34→20:39)
[2016-09-01 08:00] VITALS: BP 133/58
--- NOTE | 2016-09-01 08:46 | ECGEPIP ---
Stationary ECG Study [facility] - ED Test Date: 2016-08-30 Pat Name: DONA ZAIDI Department: Room: [place] [address] Gender: F [employer] Par[employer]egal: dax : [phone] Requested By: Arthur Cardozo Order Number: [id number] Reading MD: Deb Dsouza Measurements Intervals [place] Rate: 105 P: 54 TX: 129 QRS: 14 QRSD: 75 T: 203 QT: 364 QTc: 482 Interpretive Statements SINUS TACHYCARDIA ST DEVIATION AND MARKED T-WAVE ABNORMALITY, CONSIDER ANTEROLATERAL ISCHEMIA ST DEVIATION AND MODERATE T-WAVE ABNORMALITY, CONSIDER INFERIOR ISCHEMIA CLINICAL CORRELATION COMPARED 03/02/16 FOR ACUTE ISCHEMIA Electronically Signed On 09-01-2016 8:46:18 EST by Deb Dsouza
[2016-09-01] MEDS: NYSTATIN 100,000 UNITS/GM TOPICAL PWD 15 GM TOP SCH (09:00)
[2016-09-01] MEDS ORDERED: DARBEPOETIN 100 MCG/0.5 ML *DIALYSIS* SYRINGE (J0882) IV SCH (11:15)
[2016-09-01] MEDS ORDERED: HEPARIN 1,000 UNITS/ML 10ML VIAL (FOR RADIOLOGY& DIALYSIS ONLY) IV ONE (11:45)
[2016-09-01 14:00] VITALS: BP 141/65
--- NOTE | 2016-09-01 14:32 | REP ---
REASON: Pyrexia Noncontrast enhanced examination markedly limits the exam. COMPARISON: 08/30/2015. Markedly limited evaluation of the mediastinum and pulmonary colin show no significant changes from the prior exam. Borderline mediastinal lymph nodes are present and hilar adenopathy cannot be ruled out by this limited noncontrast enhanced examination. The tip of a central venous catheter is seen breeching the right atrium. This is essentially unchanged from the prior exam. There are no pleural or pericardial effusions. The osseous structures show no acute changes from the prior exam. Evaluation of the lung crespo show patchy bilateral asymmetric opacities obscured by respiratory motion artifact and seen in a fashion essentially unchanged from the prior exam without definite evidence of a new abnormal opacity. Seen in the posterior segment of the right upper lobe, there is an 8 mm sized irregular nodule which represents a change from the prior exam. The aforementioned opacities could easily obscure other significant nodules. IMPRESSION: 1. New 8 mm sized right upper lobe nodule as described above. According to the revised Fleischner Society criteria, this nodule represents category 4B lesion for which PET/CT is recommended for further evaluation. 2. Chronic fibrotic changes which could obscure additional nodules as described above. 3. Other findings and limitations as described above. Signed by Korey Marshall DO 09/01/2016 04:48 P
--- NOTE | 2016-09-01 14:39 | REP ---
REASON FOR EXAM: Bacteremia and pyrexia. COMPARISON: 07/09/2015 also without contrast: The lack of intravenous contrast significantly decreases the sensitivity of the exam. Limited evaluation of the solid intra-abdominal organs show no gross abnormalities. Limited evaluation of the pancreas and adrenal glands show no gross abnormalities or significant changes from the prior exam. Limited evaluation of the kidneys again shows renovascular calcifications status quo. Heavy calcific atherosclerotic change is seen in the abdominal aorta and common iliac arteries status quo. Limited evaluation of the bowel loops and their mesenteries show no gross abnormalities. No free fluid or free air is seen in the abdomen or pelvis. There is no evidence of an intra-abdominal mass or adenopathy. CT PELVIS: Limited evaluation of the pelvic bowel loops and their mesenteries show no gross abnormalities or significant changes from the prior exam. There is no pelvic mass or adenopathy. There is no free pelvic fluid or air. A large amount of content is seen in the rectosigmoid vault. Bone window technique throughout the exam shows chronic osseous changes status quo. IMPRESSION: Chronic changes as described above without evidence of acute intra-abdominal or intrapelvic disease. Limitations as described above. There is a large amount of content in the rectosigmoid vault which needs to be correlated clinically. Signed by Korey Marshall DO 09/01/2016 04:48 P
[2016-09-01] MEDS: CHECK TO SEE IF PATIENT IS RECEIVING DIALYSIS TODAY AND REFER TO THE VANCOMYCIN ORDER XX SCH (16:39)
[2016-09-01] MEDS: MEROPENEM INJ 500 MG in D5W MINI-BAG PLUS 100 ML IV SCH (18:34)
[2016-09-01] MEDS: PRAVASTATIN 20 MG TAB PO SCH (20:38)
[2016-09-01] MEDS: FENOFIBRATE 145 MG TAB (TRICOR) PO SCH (20:38)
[2016-09-01 22:00] VITALS: BP 151/65
[2016-09-02 02:00] VITALS: BP 162/69
[2016-09-02] MEDS: LEVOTHYROXINE 0.025 MG TAB (25 MCG) PO SCH (05:48)
[2016-09-02] MEDS: HEPARIN SOD (PORCINE) 5000 UNITS/ML VIAL SC SCH ×3 (05:49→21:00)
[2016-09-02] MEDS: SLF 3 ML SYR IV SCH ×3 (05:49→21:02)
[2016-09-02 06:00] VITALS: BP 169/72
--- NOTE | 2016-09-02 07:18 | ECHO ---
DATE OF PROCEDURE: 08/31/2016 REFERRING PHYSICIAN: Dr. Pilar Ham INDICATION: Fever. HEIGHT: 155 cm WEIGHT: 52 kg. MEASUREMENTS: Ventricular septum - 1.15 cm Posterior wall - 1.10 cm Left ventricle diastole - 3.4 cm Left atrium - 3.0 cm LVOT - 1.8 cm Aortic root - 2.8 cm Superior vena cava - 1.1 cm DOPPLER MEASUREMENTS: Aortic valve velocity - 119 cm/s LVOT velocity - 82.7 cm/s LVOT VTI - 19.9 cm Mitral E velocity - 89.8 cm/s Mitral A velocity - 154 cm/s Mitral deceleration time - 211 ms Very mild tricuspid regurgitation. Estimated pulmonary venous systolic pressure 27 mmHg by pulmonary acceleration time method. MITRAL ANNULAR TISSUE DOPPLER: E prime septal - 3.5 cm/s E prime lateral - 3.7 cm/s DESCRIPTION: The rhythm was sinus. Image quality was good. No pericardial effusion. This is a 2D, M-mode, color flow Doppler and pulse wave Doppler examination including mitral annular tissue Doppler. CONCLUSIONS: 1. Normal left ventricle internal dimensions and wall thickness. No regional wall motion abnormalities. Normal LV systolic function. LVEF 60% by visual estimate. 2. Grade 1 LV diastolic dysfunction (impaired relaxation filling pattern). 3. Otherwise normal echocardiogram Doppler. 4. No vegetations identified on any of the cardiac valve.
[2016-09-02 07:28] LABS: MEAN CORPUSCULAR HEMOGLOBIN 33.9 pg (27.0-33.0); MEAN CORPUSCULAR HGB CONC 33.1 g/dl (32.0-36.5); MEAN CORPUSCULAR VOLUME 102.3 fl (80.0-96.0); RED CELL DISTRIBUTION WIDTH 15.6 % (11.5-14.5)
[2016-09-02 07:53] LABS: ALBUMIN 2.3 GM/DL (3.2-5.2); CALCIUM LEVEL 8.1 MG/DL (8.8-10.2); CREATININE FOR GFR 3.28 MG/DL (0.55-1.02); GLOMERULAR FILTRATION RATE 14.3 (>32); PHOSPHORUS LEVEL 4.1 MG/DL (2.5-4.9); POTASSIUM SERUM 4.7 MEQ/L (3.5-5.1)
[2016-09-02] MEDS: LEVEMIR (INSULIN DETEMIR) 1 UNITS/0.01ML SC SCH ×2 (08:47→21:00)
[2016-09-02] MEDS: NYSTATIN 100,000 UNITS/GM TOPICAL PWD 15 GM TOP SCH (08:47)
[2016-09-02] MEDS: ASPIRIN 81 MG CHEW TABLET PO SCH (08:47)
[2016-09-02] MEDS: GABAPENTIN 100 MG CAP PO SCH ×2 (08:47→21:01)
[2016-09-02] MEDS: HumaLOG INSULIN (NovoLOG) PER UNIT SC SCH ×4 (08:47→21:00)
[2016-09-02] MEDS: PANTOPRAZOLE 40MG TAB (PROTONIX) PO SCH (08:48)
[2016-09-02] MEDS: ALLOPURINOL 100 MG TAB PO SCH (08:48)
[2016-09-02] MEDS: amLODIPine 5 MG TAB PO SCH (08:48)
[2016-09-02] MEDS: CARVedilol 6.25 MG TAB PO SCH ×2 (08:48→21:01)
[2016-09-02 10:00] VITALS: BP 137/64
[2016-09-02] MEDS ORDERED: BISACODYL 5 MG TAB PO ONE (10:45)
[2016-09-02] MEDS ORDERED: SENNA 8.6 MG TAB (SENOKOT) PO PRN (11:00)
[2016-09-02] MEDS: ACETAMINOPHEN TAB 650MG DOSE (2X325MG) PO PRN ×2 (12:18→21:00)
--- NOTE | 2016-09-02 12:26 | IPN ---
DATE: 09/01/2016 The patient is seen and examined at the bedside. Chart has been reviewed. She is currently in hemodialysis. Has no complaints of nausea, vomiting, diarrhea, pain, chest pain, shortness of breath, palpitations, or dizziness. She is Cambodian speaking only. PHYSICAL EXAMINATION: VITAL SIGNS: Temperature 98.3, pulse 79, respiratory rate 20, blood pressure 133/58, 98% on 1 liter nasal cannula. GENERAL: The patient is awake, alert, oriented to person. Speaks Cambodian only. No jugular venous distention (JVD). Dry mucous membranes. LUNGS: Diminished with no wheezing, rales or rhonchi. HEART: S1, S2. Sinus rhythm. No tachycardia. ABDOMEN: Soft, nontender, nondistended. Positive bowel sounds. Dialysis catheter noted in right internal jugular vein. EXTREMITIES: Trace edema. LABORATORY DATA: White count 7, hemoglobin 8.6, hematocrit 25, platelet count 146. Sodium , potassium 4.6, chloride 103, bicarbonate 26, BUN 14, creatinine 4, glucose of 250. Microbiology: Urine culture, influenza, respiratory panel, blood cultures are all negative. Chest x-ray with no acute disease. ASSESSMENT AND PLAN: This is an 85-year-old female with a history of methicillin sensitive Staphylococcus aureus (MSSA) infection by infected arterial graft, end stage renal disease on maintenance hemodialysis, diastolic heart failure with ejection fraction of 65 to 70%, CVA with right sided hemiparesis, hypertension, coronary artery disease, diabetes, dyslipidemia, choledocholithiasis, osteoarthritis, depression, arteritis, iron deficiency anemia, who presented to the emergency room with syncopal episode after dialysis, was accompanied by her granddaughter as she is Cambodian speaking only. IMPRESSION: 1. Echo shows nonspecific T wave changes. Telemetry was unremarkable. Cycle cardiac markers, which were unremarkable. MRI of the brain shows chronic changes with small vessel ischemic disease and thalamic lacunar infarct and moderate volume loss. No acute abnormalities. 2. Fever. Urine and blood cultures are negative due to history of methicillin sensitive Staphylococcus aureus (MSSA) bacteremia due to infected graft site. The patient has been placed on broad spectrum antibiotics, vancomycin and meropenem. Chest x-ray is unremarkable. Await finalized cultures before discontinuation of all antibiotics. Monitor sedimentation rate and C-reactive protein every Saturday. 3. Chronic renal failure. Maintenance hemodialysis. Nephrology has been consulted to manage the patient's dialysis needs. 4. Anemia secondary to chronic kidney disease. Defer to nephrology to transfuse if hemoglobin is less than 8 at dialysis. 5. History of diastolic heart failure. Appears to be compensated. Ejection fraction of 65 to 70%. 6. History of CVA with persistent right hemiparesis. 7. History of coronary artery disease. Cycle cardiac markers. 8. Type 2 diabetes. Consistent carbohydrate and renal diet. 9. Dyslipidemia. On chronic fenofibrate.
--- NOTE | 2016-09-02 13:30 | IPN ---
DATE: 09/01/2016 Mrs. Tarn is seen this morning on her bedside during hemodialysis. She was admitted with generalized weakness and high-grade fever. She did have low grade fever again last night. Her granddaughter is present on the bedside and is acting as clinical pharmacy coordinator. The patient denies any chest pain, abdominal pain or shortness of breath. She has no nausea or vomiting. The patient's granddaughter reports that she had good breakfast this morning. PHYSICAL EXAMINATION: Temperature 98.3 degrees Fahrenheit, heart rate 78 per minute and respiratory rate 20 per minute. Blood pressure 133/58 mmHg and oxygen saturation 98%. Head is atraumatic. Ears, nose and throat are unremarkable. Neck is supple and without any jugular venous distention (JVD) or thyroid enlargement. Right-sided internal jugular vein hemodialysis catheter is intact without any signs of bleeding or infection. Heart sounds are regular and lungs clear to auscultation. Abdomen is soft and minimally tender. Bowel sounds are present. Extremities have no cyanosis or clubbing. Skin has no rash or ulcers. Neurologically, she is at her baseline mentation. Today's laboratories show WBC count 7.1, hemoglobin 8.6 and hematocrit 25.7. Platelets 146. Sodium was 139 and potassium 4.6. BUN 49 and creatinine 4.12. PROBLEMS: 1. End-stage renal disease. The patient is currently being dialyzed. This is her regular dialysis treatment, which she is tolerating well. We are not removing any fluid as her volume status is well-compensated. 2. Recurrent fever. The patient remains on meropenem and vancomycin. Her blood and urine cultures have been negative. We will get a CAT scan of her abdomen, pelvis and chest in order to look for a source of infection. 3. Hypertension. Blood pressure is well-controlled, and we will continue with current antihypertensive medications. 4. Anemia. Her anemia is getting worse. We will order Aranesp 100 mcg once a week during dialysis.
[2016-09-02 14:00] VITALS: BP 143/72
[2016-09-02] MEDS: CHECK TO SEE IF PATIENT IS RECEIVING DIALYSIS TODAY AND REFER TO THE VANCOMYCIN ORDER XX SCH (16:19)
[2016-09-02] MEDS: MIRALAX *UNIT DOSE* 17GM PACKET PO SCH (17:21)
[2016-09-02] MEDS: MEROPENEM INJ 500 MG in D5W MINI-BAG PLUS 100 ML IV SCH (17:21)
[2016-09-02] MEDS: PRAVASTATIN 20 MG TAB PO SCH (21:00)
[2016-09-02] MEDS: FENOFIBRATE 145 MG TAB (TRICOR) PO SCH (21:00)
[2016-09-02 22:00] VITALS: BP 166/70
[2016-09-03] MEDS: SLF 3 ML SYR IV SCH ×2 (05:03→14:00)
[2016-09-03] MEDS: HEPARIN SOD (PORCINE) 5000 UNITS/ML VIAL SC SCH ×2 (05:03→13:52)
[2016-09-03] MEDS: LEVOTHYROXINE 0.025 MG TAB (25 MCG) PO SCH (05:03)
[2016-09-03 06:00] VITALS: BP 126/57
[2016-09-03 07:16] LABS: MEAN CORPUSCULAR HEMOGLOBIN 34.3 pg (27.0-33.0); MEAN CORPUSCULAR HGB CONC 33.1 g/dl (32.0-36.5); MEAN CORPUSCULAR VOLUME 103.4 fl (80.0-96.0); RED CELL DISTRIBUTION WIDTH 15.4 % (11.5-14.5); WHITE BLOOD COUNT 4.1 K/mm3 (4.0-10.0)
[2016-09-03 07:27] LABS: ALBUMIN 2.3 GM/DL (3.2-5.2); CALCIUM LEVEL 8.6 MG/DL (8.8-10.2); CREATININE FOR GFR 4.35 MG/DL (0.55-1.02); GLOMERULAR FILTRATION RATE 10.3 (>32); PHOSPHORUS LEVEL 4.2 MG/DL (2.5-4.9); POTASSIUM SERUM 4.5 MEQ/L (3.5-5.1)
[2016-09-03] MEDS: MIRALAX *UNIT DOSE* 17GM PACKET PO SCH (08:53)
[2016-09-03 08:58] VITALS: BP 151/76
[2016-09-03] MEDS: amLODIPine 5 MG TAB PO SCH (08:58)
[2016-09-03] MEDS: ASPIRIN 81 MG CHEW TABLET PO SCH (08:58)
[2016-09-03] MEDS: CARVedilol 6.25 MG TAB PO SCH (08:58)
[2016-09-03] MEDS: GABAPENTIN 100 MG CAP PO SCH (08:59)
[2016-09-03] MEDS: PANTOPRAZOLE 40MG TAB (PROTONIX) PO SCH (08:59)
[2016-09-03] MEDS: LEVEMIR (INSULIN DETEMIR) 1 UNITS/0.01ML SC SCH (09:00)
[2016-09-03] MEDS: NYSTATIN 100,000 UNITS/GM TOPICAL PWD 15 GM TOP SCH (09:00)
[2016-09-03] MEDS: ALLOPURINOL 100 MG TAB PO SCH (09:00)
[2016-09-03] MEDS: HumaLOG INSULIN (NovoLOG) PER UNIT SC SCH ×3 (09:00→17:02)
[2016-09-03] MEDS: ACETAMINOPHEN TAB 650MG DOSE (2X325MG) PO PRN (10:09)
--- NOTE | 2016-09-03 10:33 | IPN ---
DATE: 09/02/2016 Patient is Grenadian speaking only. Family at the bedside is translating. Per nursing, patient has had no issues overnight. She has remained afebrile. No complaints of chills, dysuria, urgency, frequency, cough, shortness of breath. Temperature 97.5, pulse 66, respiratory rate 18, blood pressure 169/72, 92% on 2 liters nasal cannula. Generally, awake, alert, oriented to person and place. Grenadian speaking only. No jugular venous distention. No thyromegaly. No icterus, jaundice. No use of respiratory accessory muscles. Lungs: Diminished breath sounds with crackles bilaterally. Heart: S1, S2. Sinus rhythm. Abdomen: Soft, nontender, nondistended. Extremities: Trace edema. LABORATORY DATA: Pending. ASSESSMENT AND PLAN: This is an 85-year-old female with history of Methicillin-sensitive staphylococcus aureus (MSSA) infection via infected arterial graft, end stage renal disease on maintenance hemodialysis Saturday, , Saturday, diastolic heart failure ejection fraction 65-70%, cerebrovascular accident (CVA) with chronic right sided hemiparesis, hypertension, coronary artery disease (CAD), diabetes, dyslipidemia, choledocholithiasis, osteoarthritis, depression, arteritis, iron deficiency anemia, was brought into the emergency room after a syncopal episode after hemodialysis accompanied by granddaughter and is Grenadian speaking only. Patient with low grade temperature of 100.7 was placed on empiric antibiotics due to prior history of Methicillin-sensitive staphylococcus aureus (MSSA) via infected graft. She had no complaints of chest pain, pressure, tightness, shortness of breath, cough. Denies dysuria, urgency, frequency. Had minimal white count 10.9. Microbiology, urine blood culture, respiratory panel, influenza A and B were all negative. CT chest shows right upper lobe nodule, chronic fibrosis. CT abdomen showed no acute intra-abdominal or intrapelvic disease. EKG showed sinus rhythm with nonspecific ST-T wave changes which is diffuse. MRI of the brain was unremarkable. CURRENT ISSUES: 1. Syncope. Workup is negative so far. Telemetry was unremarkable. Will review echo from previous admission, determine of repeat echo is required. MRI of the brain is unremarkable. Cardiac markers were unremarkable. Neuro checks have been discontinued. 2. Fever, low grade 100.7. Patient has been placed on broad spectrum antibiotics. Cultures have been negative. CT chest and abdomen have been negative. She has been afebrile with minimal increase in white count. Defer to Dr. Candelario. We will continue in the morning regarding any other continuation of empiric antibiotics. 3. Anemia secondary to chronic kidney disease. Defer to nephrology. Transfuse at dialysis once hemoglobin is less than 8. 4. Chronic renal failure on maintenance hemodialysis Saturday, , Saturation. Nephrology has been consulted. 5. Hypertension, stable on Norvasc for Coreg. 6. History of diastolic heart failure. Ejection fraction (EF) 65-70% compensated. 7. History of cerebrovascular accident (CVA) versus right paraparesis, stable. 8. History of coronary artery disease (CAD). Negative troponin. 9. Type 2 diabetes on consistent carbohydrate renal diet. 10. Dyslipidemia on chronic fenofibrate.
--- NOTE | 2016-09-03 11:08 | IPN ---
DATE: 09/02/2016 Mrs. Tran is seen this morning on her bedside. She underwent hemodialysis yesterday which she tolerated reasonably well. She is eating breakfast at the time of my visit today and is feeling good. She has no more fever or chills. CT scan of chest, abdomen and pelvis was done yesterday which did show large amount of stool in her rectosigmoid and a 0.8 cm nodule in her upper lobe right side of chest. There was no other evidence for infection or fluid collection. PHYSICAL EXAMINATION: Temperature 97.5 degrees Fahrenheit, heart rate 66 per minute and respiratory rate 18 per minute. Blood pressure 162/72 mmHg and oxygen saturation 97% on 2 liters oxygen. Head is atraumatic. Ears, nose and throat are unremarkable. Pupils equal and reactive to light and sclera is anicteric. Neck is supple and without jugular venous distention (JVD) or thyroid enlargement. Dialysis catheter in right internal jugular vein is without any signs of infection. Heart sounds are regular and lungs clear to auscultation. Abdomen soft, slightly protuberant, but nontender. Bowel sounds are normal. Extremities have no cyanosis or clubbing. Skin has no rash or ulcers. Neurologically she has right-sided weakness due to prior stroke. She is awake, alert and oriented times three. Today's labs show WBC count 6.0, hemoglobin 8.0 and hematocrit 24.3. Platelets 168. Sodium 139 and potassium 4.7. BUN 31 and creatinine 3.28. Calcium 8.1 and phosphorus 4.0. Albumin 2.3. PROBLEMS: 1. End-stage renal disease. The patient underwent hemodialysis yesterday and her electrolytes are within normal range. Volume status is well-compensated. She will be scheduled for next hemodialysis on Saturday. 2. Recurrent fever and chills. No obvious source of infection so far. Blood and urine cultures have all been negative. She remains on meropenem and vancomycin. I will defer to infectious disease to make a decision about further antibiotic therapy. 3. Constipation. The patient has large amount of stool in her rectosigmoid. We will give her a dose of Dulcolax 5 mg today and repeat if indicated. I will also put her on a daily dose of Senokot. 4. Anemia. The patient was given Aranesp 100 mcg yesterday. We will continue to monitor her anemia. DISPOSITION: At present the patient is still undergoing further investigations and waiting for infectious disease evaluation. We will determine tomorrow about her discharge plans.
[2016-09-03 14:00] VITALS: BP 146/65
--- NOTE | 2016-09-04 05:32 | IPN ---
DATE: 09/03/2016 SUBJECTIVE: This is an 85-year-old female who was seen and examined in [address] [place]. Overnight, no reported acute events. She is anxious to go home. States that she feels fine. No further episodes of fevers. No chills, nausea, vomiting, chest pain, shortness of breath. Family reported one bowel movement, though this is not documented. OBJECTIVE: Vital signs: Blood pressure 151/67, heart rate 74, temperature 97.2, respiration rate 18, pulse oximetry 95% on room air. Intake in the last 24 hours, 1360, output not documented. General: Sitting in bed, comfortable, no acute distress. Ukrainian speaking. Head: Unremarkable. HEENT: Normocephalic, atraumatic. Moist oral mucosa. Neck: Supple. Trachea midline. No jugular venous distention (JVD). Dialysis catheter is in her right neck, clean and dry. Heart: Regular rate and rhythm. S1, S2 present. Lungs: No accessory muscle use, diminished bilaterally with occasional crackle in the bases. Abdomen is soft, nontender, nondistended. Bowel sounds present. No guarding. No rebound. Extremity: No pedal edema. Pedal pulses present bilaterally but diminished. Neurologically, she has chronic right-sided weakness due to prior CVA. Psychiatric: Normal affect. LABORATORY DATA: WBC 4.4, hemoglobin 8.8, hematocrit 26.5, increased from yesterday 8, platelets 170. ESR 128. Sodium 138, potassium 4.5, chloride 103, carbon dioxide 25, BUN 45, creatinine 4.35, CRP 7.51, glucose 214. UA on admission showed 3+ protein, 3+ blood. Group A streptococcus negative. Blood culture negative. CT chest reports a new 8 mm sized right upper lobe nodule, chronic fibrotic changes. CT abdomen and pelvis reports chronic changes without acute intraabdominal or intrapelvic disease. Large amount of content in rectosigmoid. IMPRESSION AND PLAN: Ms. Tran is an 85-year-old female with history of end-stage renal disease on hemodialysis, history of MSSA from AV graft admitted for confusion and fever. 1. Fever, resolved. Etiology unclear. Because of concern for her history of MSSA of her AV graft, she was started empirically with vancomycin and meropenem. So far workup for infectious etiology has been negative and her antibiotics have been discontinued. We also performed CT chest and abdomen and pelvis without evidence for infection. Agree withholding off antibiotic at this time. Currently, there is also plan for evaluation by Dr. Candelario as well. 2. End-stage renal disease on hemodialysis. Underwent dialysis Saturday without complications. Her regular days are Tuesdays, and Saturdays. 3. Hypertension. Blood pressure is reasonable this morning. Continue Norvasc 5 mg daily, Coreg 6.25 mg twice a day. 4. Anemia of chronic disease. Hemoglobin and hematocrit stable. Followup labs. No need for transfusion at this time. 5. Gout. Continue allopurinol. 6. Abnormal CT chest. CT finding from September 01, 2016 reported a new 8 mm nodule in the posterior segment of right upper lobe. She is asymptomatic. Will continue to monitor this for now. Because of her advanced age and comorbidities , she would not likely be a candidate for surgery or radiation, therefore, no further diagnostic testing will be pursued at this time. From a renal standpoint, the patient is amenable to be going home whenever cleared by primary team and Dr. Candelario. My preceptor for this patient encounter was Dr. Patricia Pineda. The preceptor was physically present in the building during the encounter and was fully available. As needed, all aspects of the patient interview, examination, medical decision making process, and medical care plan development were reviewed and approved by the preceptor. The preceptor is aware and concurs with the plan as stated in the body of this note and will attest to such by his/her co-signature. DAV
--- NOTE | 2016-09-04 10:09 | IPN ---
DATE: 09/03/2016 The patient has been afebrile. No complaints of nausea, vomiting, diarrhea, abdominal pain, chest pain, shortness of breath, palpitations, lightheadedness, or dizziness. The patient had no issues overnight, per nursing. Temperature 97.2, pulse 73, respiratory rate 18, blood pressure 126/57, 95% on room air. GENERAL: Awake, alert, oriented. Greenlandic speaking only. HEENT: Pupils are equally round and reactive to light and accommodation. No jugular venous distention (JVD) or thyromegaly. Right dialysis catheter is noted, clean and dry with no tenderness. No erythema around the site. LUNGS: Diminished but clear to auscultation. No wheezing, rales or rhonchi. HEART: S1, S2. Sinus rhythm. ABDOMEN: Soft, nontender, nondistended. Positive bowel sounds. EXTREMITIES: No pitting edema. LABORATORY DATA: White count 4.1, hemoglobin 8.8, hematocrit 26, platelet count 170. Sodium 138, potassium 4.5, chloride 103, bicarbonate 25, BUN 45, creatinine 4.35 , glucose of 214. Microbiology has been reviewed. 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 She is Greenlandic speaking only. She had a low grade temperature of 100.7 and was placed on empiric antibiotics due to prior history of MSSA by infected graft. At that time, the patient had no complaints of chest pain, pressure, tightness, shortness of breath, or cough. Denies dysuria, urgency, or frequency. Had minimal white count of 10.9. Microbiology of urine and blood, respiratory panel, influenza A and B, CT of the chest, abdomen and pelvis were all negative for acute infection. EKG with sinus rhythm with nonspecific ST-T changes. MRI of the brain was unremarkable. CURRENT ISSUES: 1. Syncope. Workup is negative so far. Telemetry is unremarkable. MRI of the brain is unremarkable. The patient's cardiac markers were unremarkable. Neuro checks have been discontinued. No repeat syncopal episodes. 2. Fever of low grade at 100.7. No source at this time. The patient has been on broad spectrum antibiotics, which were all discontinued as all cultures have been negative. CT of the chest, abdomen and pelvis has been unremarkable for acute infection. Consult Dr. Marlena Candealrio for any recommendations. 3. Pulmonary nodule. Outpatient followup with repeat scanning and pulmonary referral. 4. Anemia secondary to chronic renal failure, chronic kidney disease. Defer to nephrology to transfuse at dialysis. 5. Chronic renal failure. Maintenance dialysis. 6. End stage renal disease. Nephrology has been consulted for fluid management. 7. Hypertension. Currently on Norvasc. 8. History of diastolic failure. No decompensation. Managed by nephrology. 9. History of CVA with chronic right hemiparesis, chronic. Carlito lift at home. 10. History of coronary artery disease. Negative troponin. 11. Type 2 diabetes. Consistent carbohydrate and renal diet. Sliding scale with coverage. 12. Dyslipidemia. On chronic fenofibrate. DISPOSITION: The patient may be discharged home today if no other acute infectious process is apparent. Defer to Dr. Candelario regarding whether the patient should be discharged on antibiotic or further workup is required. DAV
--- NOTE | 2016-09-04 10:24 | CR ---
DATE OF CONSULTATION: 09/03/2016 Asked to consult by Dr. Julian for evaluation of fever in a patient who has been on broad-spectrum antibiotics since admission and whether she needs to continue on oral antibiotics upon discharge. HISTORY OF PRESENT ILLNESS: Ms. Tran is an 85-year-old [place] female with a history of end-stage renal disease on hemodialysis through a right hemodialysis catheter. She has had a previous history of MSSA infection of her AV graft on the left arm. The patient had done very well until the day of admission when she went to dialysis. According to her granddaughter, Joselito, she had a syncopal episode at dialysis which was felt to be due to dehydration. She was given some IV fluids and then sent home. At home when she was having dinner she was not feeling well and then she had another episode where she was not clear on her talking, she was confused, and pale. She was a little more tachypneic and she had a fever so the patient was brought to the emergency room. She had an episode of nonbloody vomiting associated with a headache, a cough, sore throat and pain in her ears. The patient currently denies any nausea, vomiting or diarrhea. She denies any chest pain or shortness of breath. No cough. She wants to go home. She is non-ambulatory. She is Carlito lifted at home since her stroke. REVIEW OF SYSTEMS: No cough. No nausea, vomiting, diarrhea. No headache. No chest pain or shortness of breath. She had right-sided hemiparesis, non-ambulatory. PAST MEDICAL HISTORY: End-stage renal disease on hemodialysis through right hemodialysis catheter, diastolic congestive heart failure with EF 65-70%, CVA with right hemiparesis, hypertension, coronary artery disease, diabetes mellitus, dyslipidemia, MSSA septicemia from AV graft infection of the left arm in October 2015, choledocholithiasis, osteoarthritis, depression, gout, giant-cell arteritis, iron deficiency anemia. SOCIAL HISTORY: She is a former smoker. She denies alcohol, drug use. She lives with her daughter. She is a . PHYSICAL EXAMINATION: She is a pleasant, healthy, elderly female, smiling, anxious to go home, in no acute distress. Temperature is 97.7, pulse 68, respirations 14, blood pressure 145/65, oxygen saturation 97% on room air, T-max was 100.7 on admission 08/30/2016, and she has not had a fever since then. Heart normal S1, S2 with a systolic ejection murmur 2/6. Lungs are clear. No wheezes, rales or rhonchi. Diminished at the bases. Abdomen is soft, nontender. No visceromegaly. Right hemodialysis catheter is slightly tender to touch but there is no erythema or purulence. Left AV fistula and graft has no tenderness, no redness. Extremities trace edema bilaterally. Right hemiparesis. Left lower extremity is also weak as well. ALLERGIES: CODEINE, strawberry, TETANUS TOXOID. MEDICATIONS: - Tylenol as needed - Senokot one tablet by mouth twice a day as needed - MiraLax one packet by mouth daily - meropenem 500 mg IV every 24 hours - vancomycin 750 mg IV with hemodialysis - allopurinol 100 mg by mouth daily - amlodipine 5 mg by mouth daily - aspirin 81 mg by mouth daily - Levemir 10 units twice a day - nystatin powder to sores both legs - insulin sliding scale - Zofran as needed - gabapentin 100 mg by mouth twice a day - fenofibrate 145 mg by mouth nightly - Coreg 6.25 mg by mouth twice a day - Pravachol 80 mg by mouth nightly LABORATORY DATA: On admission white count was up to 10.9, has come down to 4.1, hemoglobin 8.8, hematocrit 26.5, platelets 170, ESR is 178, sodium 138, potassium 4.5, chloride 103, bicarbonate 25, BUN 45, creatinine 4.3, glucose 214, calcium 8.6, phosphorus 4.2, CRP 7.51, albumin 2.3. Blood cultures two sets were done on 08/30/2016, no growth after 72 hours. Respiratory panel was negative. Influenza A and B was negative. IMAGING STUDIES; CT of the abdomen and pelvis done on 09/01/2016, showed chronic changes without evidence of acute intra-abdominal or intrapelvic disease. There is large amount of stool in the rectosigmoid. CT chest shows a new 8 mm right-sided right upper lobe nodule that needs to be followed up, but chronic fibrotic changes, no acute findings. IMPRESSION: This is an 85-year-old female who was admitted with fever, chills, headache, cough and what sounded like a syncopal episode during dialysis. The patient has not had anything on cultures, urine, blood, or chest x-ray to suggest any acute bacterial infection. She probably had a viral illness, possibly a gastrointestinal, that was associated with some vomiting but no diarrhea. Could have been an upper respiratory infection as well. At this point I do not see anymore indication to treat her with broad-spectrum antibiotics. PLAN: Discontinue vancomycin. Discontinue meropenem. There is no need to continue antibiotics as an outpatient. The patient could be discharged home today.
--- NOTE | 2016-09-17 07:45 | DSES ---
DATE OF ADMISSION: 08/30/2016 DATE OF DISCHARGE: 09/03/2016 CONSULTANTS: Dr. Marlena Candelario, infectious disease specialist. Grocery Clerk Selling, Dr. Patricia Pineda. PRIMARY DISCHARGE DIAGNOSES: Syncopal episode during hemodialysis most likely secondary to viral illness from gastrointestinal (GI) source and possible upper respiratory infection. End stage renal disease on maintenance hemodialysis. Pulmonary nodule secondary to chronic renal failure. Hypertension. History of diastolic heart failure, compensated. History of cerebrovascular accident (CVA) with chronic right hemiparesis and Carlito lifts at home. History of coronary artery disease (CAD). Type 2 diabetes. Dyslipidemia. DISCHARGE MEDICATIONS: - allopurinol 100 daily - Norvasc 5 daily - aspirin 81 daily - Coreg 6.25 twice daily - fenofibrate 145 daily at bedtime - gabapentin 100 twice daily - Lantus insulin 10 units twice daily - levothyroxine 25 mcg daily - Nystatin topically daily - Sandy 3 Lovaza two cups twice daily - Protonix 40 daily - pravastatin 80 daily at bedtime - vitamin D 50,000 units weekly HOSPITAL COURSE: This is an 85-year-old female, Gloria-Rican Lithuanian speaking only with prior history of Methicillin-sensitive staphylococcus aureus (MSSA) infection, AV graft on maintenance hemodialysis through right hemodialysis catheter, was well until the day of admission after dialysis had a syncopal episode thought to be secondary to dehydration, was given IV fluids and sent home. Patient had an episode of non-bloody vomiting, headaches and cough, sore throat and presented to the emergency room for further evaluation and admission. Due to prior history of Methicillin-sensitive staphylococcus aureus (MSSA) infection, patient was brought in and treated with broad spectrum antibiotics. Blood cultures were obtained which grew no organisms. Urine culture negative. Influenza A and B, respiratory panel were negative. Imaging study included MRI of the brain for syncopal episode which showed old thalamic lacunar infarct. Chest CT and CT abdomen and pelvis showed a new right upper lobe nodule. PET scan recommended for further evaluation. Chronic fibrosis. CT abdomen and pelvis shows chronic changes without evidence of acute intra-abdominal or intrapelvic pathology. Patient had no recurrent fevers. Highest T-max was 100.7 on the day of admission. She remained afebrile on broad spectrum antibiotics, meropenem and vancomycin. No signs of diarrhea. Dr. Marylene Andree was consulted after complete treatment of 5 days of broad spectrum antibiotics. She had no recommendations for outpatient antibiotics as cultures were negative and there were no signs of recurrent fevers. Patient was maintained on maintenance hemodialysis. She developed one episode of thrombocytopenia. Admission platelet count 211 with decrease to 146. HIT was negative. She had good control of her diabetes. Glucose level 151-215. LABS ON DISCHARGE: White count 4.1, hemoglobin 8.8, hematocrit 26.5, platelet count 170. Sodium 138, potassium 4.5, chloride 102, bicarbonate 25, BUN 45, creatinine 4.35, glucose 214. Microbiology: Strep screen was negative. Urine culture negative. Influenza A and B negative. Respiratory viral panel negative. Two sets of blood culture: No growth after [address] abdomen and pelvis: No acute intra-abdominal or pelvic pathology. Chest CT showed a pulmonary nodule 8 mm in the right upper lobe. FOLLOWUP ISSUES: 1. New 8 mm right upper lobe nodule requires PET scan or CT at discharge for further evaluation. TIME SPENT ON DISCHARGE: 30 minutes. DAV
== END 2016-09-03 17:35 | disposition home health service (06) | DRG 865 ==
LOC: M ED 19:14 → M ED INP 22:47 → M PCU 08-31 01:20 → M MS5PR 09-01 11:24
PROVIDERS: ADMIT Internal Medicine; ATTEND General Practice
DX: B34.9 Viral infection, unspecified (principal); N18.6 End stage renal disease; I50.32 Chronic diastolic (congestive) heart failure; I13.2 Hypertensive heart and chronic kidney disease with heart failure and with stage 5 chronic kidney disease, or end stage renal disease; I69.351 Hemiplegia and hemiparesis following cerebral infarction affecting right dominant side; J06.9 Acute upper respiratory infection, unspecified; R55 Syncope and collapse; R91.8 Other nonspecific abnormal finding of lung field; E78.5 Hyperlipidemia, unspecified; E11.9 Type 2 diabetes mellitus without complications; I25.10 Atherosclerotic heart disease of native coronary artery without angina pectoris; Z79.899 Other long term (current) drug therapy; Z79.82 Long term (current) use of aspirin; Z79.4 Long term (current) use of insulin; J84.10 Pulmonary fibrosis, unspecified; D69.6 Thrombocytopenia, unspecified; D63.1 Anemia in chronic kidney disease; M19.90 Unspecified osteoarthritis, unspecified site; Z87.891 Personal history of nicotine dependence; K59.00 Constipation, unspecified; Z88.5 Allergy status to narcotic agent; Z91.018 Allergy to other foods; Z91.040 Latex allergy status

== ENCOUNTER 2016-12-27 16:19 | Emergency (ER) | payer MEDICARE, MEDICAID ==
[~2016-12-27] VITALS: Ht 167.6 cm; Wt 54.0 kg
[~2016-12-27 16:19] MED LIST changes: -ACET-654 PO; +ACET1TAB17 PO; -BACITAB3 PO; +CARV6.25 PO; +CICL8SOL3 TOP; +NORC1TAB4 PO; -NORC5TAB PO; +NYST1POW9 TOP; -ONDA1TAB16 PO; +ONDA8TAB7 PO; +PLAV1TAB2 PO; -PLAV75TA38 PO; +TRAZ50TA11 PO; -TRAZ50TA4 PO; -TRIC145T PO; +TRIC145T22 PO
[2016-12-27] MEDS ORDERED: ASPIRIN 81 MG CHEW TABLET PO ONE (16:30)
[2016-12-27] MEDS ORDERED: LABETALOL HCL 100 MG/20 ML VIAL IV STA (16:39)
--- NOTE | 2016-12-27 16:52 | REP ---
Clinical: Chest pain. Comparison: 08/30/2016. Findings: Double-lumen central venous catheter in the right atrium. Mediastinum and cardiac silhouette are normal. Lung crespo demonstrate chronic interstitial changes without acute consolidation, effusion, or pneumothorax. Skeletal structures demonstrate age-related degenerative change. Impression: Chronic interstitial changes. No acute cardiopulmonary process. Signed by Jewel Patton MD 12/27/2016 04:42 P
[2016-12-27 16:59] VITALS: BP 211/90
[2016-12-27 17:21] LABS: INR 0.85
[2016-12-27 17:33] LABS: ALBUMIN 3.1 GM/DL (3.2-5.2); ALKALINE PHOSPHATASE 90 U/L (45-117); ANION GAP 8 MEQ/L (8-16); BILIRUBIN,DIRECT < 0.1 MG/DL (0.0-0.2); BILIRUBIN,TOTAL 0.4 MG/DL (0.2-1.0); CALCIUM LEVEL 8.4 MG/DL (8.8-10.2); CARBON DIOXIDE LEVEL 28 MEQ/L (21-32); CHLORIDE LEVEL 101 MEQ/L (98-107); CREATININE FOR GFR 2.19 MG/DL (0.55-1.02); GLOMERULAR FILTRATION RATE 22.7 (>32); POTASSIUM SERUM 4.2 MEQ/L (3.5-5.1); SODIUM LEVEL 137 MEQ/L (136-145)
[2016-12-27 17:44] LABS: BASO % 0.6 % (0.0-1.0); EOS # 0.3 K/mm3 (0.0-0.50); EOS % 4.7 % (0.0-3.0); LARGE UNSTAINED CELL # 0.1 K/mm3 (0.0-0.4); LARGE UNSTAINED CELL % 1.7 % (0.0-4.0); LYMPH # 1.8 K/mm3 (1.5-4.5); LYMPH % 24.3 % (24.0-44.0); MEAN CORPUSCULAR HEMOGLOBIN 34.1 pg (27.0-33.0); MEAN CORPUSCULAR HGB CONC 35.4 g/dl (32.0-36.5); MEAN CORPUSCULAR VOLUME 96.4 fl (80.0-96.0); MONO # 0.3 K/mm3 (0.0-0.8); NEUTROPHILS # 4.4 K/mm3 (1.8-7.7); NEUTROPHILS % 64.7 % (36.0-66.0); PLATELET COUNT, AUTOMATED 221 k/mm3 (150-450); RED CELL DISTRIBUTION WIDTH 15.1 % (11.5-14.5); WHITE BLOOD COUNT 6.8 K/mm3 (4.0-10.0)
[2016-12-27 18:18] LABS: ALBUMIN/GLOBULIN RATIO 0.74 (1.00-1.93); BLOOD UREA NITROGEN 26 MG/DL (7-18); TOTAL PROTEIN 7.3 GM/DL (6.4-8.2)
--- NOTE | 2016-12-27 18:22 | REP ---
REASON: Loss of consciousness. COMPARISON: 08/30/2016 There is no change from the prior exam. 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 There is no evidence of an acute intracranial hemorrhagic or nonhemorrhagic event. There is no skull fracture. The imaged paranasal sinuses and mastoid air cells are clear and unchanged. IMPRESSION: Stable chronic changes as described above. Signed by Korey Marshall DO 12/27/2016 07:21 P
[2016-12-27 18:39] LABS: ALT/SGPT 45 U/L (12-78); AST/SGOT 32 U/L (15-37)
[2016-12-27 18:40] LABS: GLUCOSE, FASTING 246 MG/DL (83-110)
[2016-12-27 22:02] VITALS: BP 154/76
--- NOTE | 2016-12-28 20:49 | ECGEPIP ---
Stationary ECG Study [facility] - ED Test Date: 2016-12-27 Pat Name: DONA ZAIDI Department: Room: - Gender: F Bowl Turner: : 1930 Requested By: BERTHA HAAS Order Number: [id number] Reading MD: Deb Dsouza Measurements Intervals [place] Rate: 74 P: 59 [place]: 150 QRS: 34 QRSD: 78 T: 148 QT: 391 QTc: 435 Interpretive Statements SINUS RHYTHM ST DEVIATION AND MODERATE T-WAVE ABNORMALITY, CONSIDER ANTEROLATERAL ISCHEMIA, LESS PRONOUNCED COMPARED 08/31/16 Electronically Signed On 12-28-2016 20:48:31 EDT by Deb Dsouza
== END 2016-12-27 22:14 | disposition home or self-care (01) ==
LOC: M ED 16:19 → EDBD 16:19 → M ED 22:14
DX: R07.89 Other chest pain (principal); F41.9 Anxiety disorder, unspecified; R53.83 Other fatigue; I10 Essential (primary) hypertension; E11.9 Type 2 diabetes mellitus without complications; E78.00 Pure hypercholesterolemia, unspecified; N28.9 Disorder of kidney and ureter, unspecified; Z79.82 Long term (current) use of aspirin; Z79.4 Long term (current) use of insulin; Z79.899 Other long term (current) drug therapy; Z88.5 Allergy status to narcotic agent; Z88.7 Allergy status to serum and vaccine; Z91.018 Allergy to other foods

== ENCOUNTER 2017-04-20 06:47 | Emergency (ER) | payer MEDICARE, MEDICAID ==
[~2017-04-20] VITALS: Ht 165.1 cm; Wt 54.0 kg
[2017-04-20] MEDS ORDERED: ONDANSETRON 4MG/2ML VIAL (J2405) IV ONE (07:15)
[2017-04-20] MEDS ORDERED: MORPHINE 2 MG/ML 1ML SYRINGE IV PRN (07:15)
--- NOTE | 2017-04-20 07:40 | REPUSA ---
CLINICAL HISTORY: Neck pain. TECHNIQUE: Multiple axial images were obtained through the cervical spine. Images were also reconstru cted in coronal and sagittal planes. The study was performed without IV contrast. COMMENTS: There are diffuse spondylotic changes. Findings are demonstrated by disc space narrowing, osteophyte formation and degenerative endplate changes. Facet joint arthropathy. No fracture or dislocation is s een. No aggressive bone lesion is noted. Moderate multilevel degenerative disc disease more prominent from C3-C7 levels. IMPRESSION: 1. No fracture or spondylolisthesis. 2. Straightening of cervical lordosis is seen, suggesting muscular spasm. 3. Multilevel spondylosis. Thank you for your kind referral of this patient.
--- NOTE | 2017-04-20 08:10 | REP ---
Right upper extremity duplex venous ultrasound: History: Pain Findings: The right internal jugular, axillary, brachial, and basilic veins are anechoic and compressible in the left upper extremity. The right distal subclavian and cephalic veins could not be visualized. Color flow imaging is homogeneous. Spectral Doppler interrogation is unremarkable. There is no evidence of right upper extremity venous thrombosis. Impression: Negative right upper extremity duplex venous ultrasound. No evidence of venous thrombosis. The distal subclavian and the right vein could not be visualized. No thrombus is visualized. Signed by Que Barba MD 04/20/2017 08:02 A
--- NOTE | 2017-04-20 08:12 | REP ---
Single view chest. History: Chest pain. Comparison study: December 27, 2016. Findings: There is a right-sided tunnel catheter in place with its tip in the expected location of the right atrium. There are surgical clips in the left axillary soft tissues. The lungs are symmetrically aerated and free of infiltrate. Pleural angles are sharp. Heart is somewhat enlarged. Pulmonary vasculature is not increased. Impression: No acute disease. Signed by Que Barba MD 04/20/2017 08:03 A
--- NOTE | 2017-04-20 08:12 | REP ---
Right shoulder series: Three views. History: Pain. Findings: The right glenohumeral and acromioclavicular joints are normally aligned. No fracture or subluxation is seen. Diffuse osteopenia is noted. Periarticular soft tissues are unremarkable. Impression: No acute abnormality. Signed by Que Barba MD 04/20/2017 08:04 A
--- NOTE | 2017-04-20 08:13 | REP ---
Right humerus: Two views. History: Pain. Findings: Two views of the right humerus demonstrate normal bones, joints, and soft tissues. There is some diffuse osteopenia. Impression: No acute abnormality. Signed by Que Barba MD 04/20/2017 08:04 A
--- NOTE | 2017-04-20 08:16 | REP ---
Right forearm: Two views. History: Pain. Findings: There is some vascular calcification in the radial and ulnar arteries. Two views of the right forearm show otherwise normal bones, joints, and soft tissues. No fracture or subluxation is seen. Impression: Vascular calcification. No acute bony abnormality. Signed by Que Barba MD 04/20/2017 08:08 A
[2017-04-20 08:51] LABS: BASO % 0.2 % (0.0-1.0); EOS # 0.1 10^3/uL (0.0-0.50); EOS % 1.5 % (0.0-3.0); IMMATURE GRANULOCYTE % 0.6 % (0-0); LYMPH # 0.8 10^3/uL (1.5-4.5); LYMPH % 9.5 % (24.0-44.0); MEAN CORPUSCULAR HEMOGLOBIN 32.8 pg (27.0-33.0); MEAN CORPUSCULAR HGB CONC 33.3 g/dl (32.0-36.5); MEAN CORPUSCULAR VOLUME 98.5 fl (80.0-96.0); MONO # 0.6 10^3/uL (0.0-0.8); MONO % 6.9 % (0.0-5.0); NEUTROPHILS # 6.7 10^3/uL (1.8-7.7); NEUTROPHILS % 81.3 % (36.0-66.0); PLATELET COUNT, AUTOMATED 143 10^3/uL (150-450); RED CELL DISTRIBUTION WIDTH 14.7 % (11.5-14.5); WHITE BLOOD COUNT 8.2 10^3/uL (4.0-10.0)
[2017-04-20 08:59] VITALS: BP 218/97
[2017-04-20] MEDS ORDERED: CARVedilol 6.25 MG TAB PO ONE (09:00)
[2017-04-20] MEDS ORDERED: PERCOCET 5MG/325MG TAB PO ONE (09:00)
[2017-04-20 09:18] LABS: ALBUMIN 3.1 GM/DL (3.2-5.2); ALBUMIN/GLOBULIN RATIO 0.84 (1.00-1.93); ALKALINE PHOSPHATASE 58 U/L (45-117); ALT/SGPT 34 U/L (12-78); ANION GAP 12 MEQ/L (8-16); AST/SGOT 40 U/L (7-37); BILIRUBIN,DIRECT 0.1 MG/DL (0.0-0.2); BILIRUBIN,TOTAL 0.3 MG/DL (0.2-1.0); BLOOD UREA NITROGEN 48 MG/DL (7-18); CALCIUM LEVEL 8.7 MG/DL (8.8-10.2); CARBON DIOXIDE LEVEL 23 MEQ/L (21-32); CHLORIDE LEVEL 105 MEQ/L (98-107); CREATININE FOR GFR 3.52 MG/DL (0.55-1.02); GLOMERULAR FILTRATION RATE 13.1 (>32); GLUCOSE, FASTING 188 MG/DL (83-110); POTASSIUM SERUM 4.6 MEQ/L (3.5-5.1); SODIUM LEVEL 140 MEQ/L (136-145); TOTAL PROTEIN 6.8 GM/DL (6.4-8.2)
[2017-04-20 09:29] LABS: INR 1.02
[2017-04-20] MEDS ORDERED: OXYC1TAB23 PO (12:37)
[2017-04-20] MEDS ORDERED: PERC5TAB12 PO (12:39)
[2017-04-20 13:04] VITALS: BP 159/69
--- NOTE | 2017-04-20 18:12 | ECGEPIP ---
Stationary ECG Study [facility] - ED Test Date: 2017-04-20 Pat Name: DONA ZAIDI Department: Room: - Gender: F Doctor'S Assistant: marco a : 1930 Requested By: Arthur Cardozo Order Number: [id number] Reading MD: Arthur Cardozo Measurements Intervals [place] Rate: 82 P: 67 [place]: 144 QRS: 19 QRSD: 82 T: 143 QT: 351 QTc: 412 Interpretive Statements SINUS RHYTHM MODERATE T-WAVE ABNORMALITY, CONSIDER ANTEROLATERAL ISCHEMIA 12/27/16 RATE INCREASED Electronically Signed On 04-20-2017 18:12:11 EDT by Arthur Cardozo
== END 2017-04-20 13:04 | disposition home or self-care (01) ==
LOC: M ED 06:47
DX: M25.511 Pain in right shoulder (principal); M79.601 Pain in right arm; E10.9 Type 1 diabetes mellitus without complications; I11.9 Hypertensive heart disease without heart failure; M06.9 Rheumatoid arthritis, unspecified; N18.6 End stage renal disease; Z99.2 Dependence on renal dialysis; M10.9 Gout, unspecified; Z86.73 Personal history of transient ischemic attack (TIA), and cerebral infarction without residual deficits; Z79.899 Other long term (current) drug therapy; Z79.82 Long term (current) use of aspirin; Z79.4 Long term (current) use of insulin; Z88.5 Allergy status to narcotic agent; Z88.7 Allergy status to serum and vaccine; Z91.018 Allergy to other foods

== ENCOUNTER 2017-12-28 06:40 | Inpatient (IN) | payer MEDICARE, MEDICAID ==
[2017-12-28] MEDS: ONDANSETRON 4MG/2ML VIAL (J2405) IV (07:36)
[2017-12-28] MEDS: MORPHINE 2 MG/ML 1ML SYRINGE (J2270) IV (07:36)
[2017-12-28 07:38] LABS: BASO % 0.3 % (0.0-1.0); EOS # 0.1 10^3/uL (0.0-0.50); EOS % 2.8 % (0.0-3.0); HEMATOCRIT 31.5 % (36.0-47.0); HEMOGLOBIN 10.2 g/dl (12.0-15.5); IMMATURE GRANULOCYTE % 1.4 % (0-3.0); LYMPH # 1.1 10^3/uL (1.5-4.5); LYMPH % 31.5 % (24.0-44.0); MEAN CORPUSCULAR HGB CONC 32.4 g/dl (32.0-36.5); MEAN CORPUSCULAR VOLUME 98.7 fl (80.0-96.0); MONO # 0.3 10^3/uL (0.0-0.8); PLATELET COUNT, AUTOMATED 113 10^3/uL (150-450); RED BLOOD COUNT 3.19 10^6/uL (4.00-5.40); RED CELL DISTRIBUTION WIDTH 16.2 % (11.5-14.5); WHITE BLOOD COUNT 3.6 10^3/uL (4.0-10.0)
[2017-12-28 07:58] LABS: ANION GAP 5 MEQ/L (8-16); BLOOD UREA NITROGEN 39 MG/DL (7-18); C REACTIVE PROTEIN QUANTITATIV 1.23 MG/DL (0.00-0.30); CALCIUM LEVEL 8.4 MG/DL (8.8-10.2); CARBON DIOXIDE LEVEL 27 MEQ/L (21-32); CHLORIDE LEVEL 109 MEQ/L (98-107); CREATININE FOR GFR 3.64 MG/DL (0.55-1.30); GLOMERULAR FILTRATION RATE 12.6 (>32); GLUCOSE, FASTING 153 MG/DL (70-100); POTASSIUM SERUM 4.4 MEQ/L (3.5-5.1); SODIUM LEVEL 141 MEQ/L (136-145)
[2017-12-28 08:02] LABS: ERYTHROCYTE SEDIMENTATION RATE 56 mm/hr (0-42)
[2017-12-28] MEDS: CARVedilol 6.25 MG TAB PO ×2 (09:00→16:43)
[2017-12-28] MEDS: GABAPENTIN 100 MG CAP PO ×2 (09:00→20:37)
[2017-12-28] MEDS: VANCOMYCIN HCL 1,000 MG, VIAL MATE ADAPTER 1 EACH in D5W 250 ML IV (09:10)
[2017-12-28] MEDS ORDERED: GLUCAGON FOR INJ 1 MG VIAL (J1610) SC (10:45)
[2017-12-28] MEDS ORDERED: DEXTROSE 50% 50 ML SYRINGE IV (10:45)
[2017-12-28] MEDS ORDERED: GLUCOSE 4 GM CHEW TABLET PO (10:45)
[2017-12-28] MEDS: HumaLOG INSULIN (NovoLOG) PER UNIT SC ×3 (12:00→20:37)
[2017-12-28] MEDS: NYSTATIN 100,000 UNITS/GM TOPICAL PWD 15 GM TOP (16:40)
[2017-12-28] MEDS: PANTOPRAZOLE 40MG TAB (PROTONIX) PO (16:40)
[2017-12-28] MEDS: ASPIRIN 81 MG CHEW TABLET PO (16:40)
[2017-12-28] MEDS: **hydrALAZINE** 10 MG TAB PO ×2 (16:43→23:17)
[2017-12-28 17:00] LABS: BEDSIDE GLUCOSE 161 MG/DL (83-110)
[2017-12-28] MEDS: MORPHINE 4 MG/ML 1ML VIAL/SYRINGE (J2270) IV (20:13)
[2017-12-28] MEDS: PRAVASTATIN 20 MG TAB PO (20:37)
[2017-12-28] MEDS: FENOFIBRATE 145 MG TAB (TRICOR) PO (20:37)
[2017-12-28 20:38] LABS: BEDSIDE GLUCOSE 183 MG/DL (83-110)
[2017-12-28] MEDS: LEVEMIR (INSULIN DETEMIR) 1 UNITS/0.01ML SC (20:38)
[2017-12-29] MEDS: FUROSEMIDE 40 MG/4 ML VIAL (J1940) IV (00:28)
[2017-12-29] MEDS: LEVOTHYROXINE 25MCG TABLET (0.025MG) PO (05:35)
[2017-12-29] MEDS: **hydrALAZINE** 10 MG TAB PO ×2 (05:35→11:44)
[2017-12-29 05:47] LABS: BASO % 0.4 % (0.0-1.0); EOS # 0.1 10^3/uL (0.0-0.50); EOS % 2.3 % (0.0-3.0); HEMATOCRIT 32.1 % (36.0-47.0); HEMOGLOBIN 10.1 g/dl (12.0-15.5); IMMATURE GRANULOCYTE % 1.1 % (0-3.0); LYMPH # 1.5 10^3/uL (1.5-4.5); LYMPH % 32.1 % (24.0-44.0); MEAN CORPUSCULAR HGB CONC 31.5 g/dl (32.0-36.5); MEAN CORPUSCULAR VOLUME 101.6 fl (80.0-96.0); MONO # 0.4 10^3/uL (0.0-0.8); MONO % 7.9 % (0.0-5.0); NEUTROPHILS # 2.6 10^3/uL (1.8-7.7); NEUTROPHILS % 56.2 % (36.0-66.0); PLATELET COUNT, AUTOMATED 109 10^3/uL (150-450); RED BLOOD COUNT 3.16 10^6/uL (4.00-5.40); RED CELL DISTRIBUTION WIDTH 16.4 % (11.5-14.5); WHITE BLOOD COUNT 4.7 10^3/uL (4.0-10.0)
[2017-12-29 06:00] LABS: ANION GAP 6 MEQ/L (8-16); BLOOD UREA NITROGEN 48 MG/DL (7-18); CALCIUM LEVEL 8.1 MG/DL (8.8-10.2); CARBON DIOXIDE LEVEL 27 MEQ/L (21-32); CHLORIDE LEVEL 111 MEQ/L (98-107); CREATININE FOR GFR 4.26 MG/DL (0.55-1.30); GLOMERULAR FILTRATION RATE 10.5 (>32); GLUCOSE, FASTING 135 MG/DL (70-100); PHOSPHORUS LEVEL 4.1 MG/DL (2.5-4.9); SODIUM LEVEL 144 MEQ/L (136-145)
[2017-12-29 06:03] LABS: POTASSIUM SERUM 5.2 MEQ/L (3.5-5.1)
[2017-12-29] MEDS: ASPIRIN 81 MG CHEW TABLET PO (08:58)
[2017-12-29] MEDS: CARVedilol 6.25 MG TAB PO (09:09)
[2017-12-29] MEDS: PANTOPRAZOLE 40MG TAB (PROTONIX) PO (09:09)
[2017-12-29] MEDS: HumaLOG INSULIN (NovoLOG) PER UNIT SC ×2 (09:09→13:22)
[2017-12-29] MEDS: GABAPENTIN 100 MG CAP PO (09:09)
[2017-12-29] MEDS: LEVEMIR (INSULIN DETEMIR) 1 UNITS/0.01ML SC (09:10)
[2017-12-29] MEDS: NYSTATIN 100,000 UNITS/GM TOPICAL PWD 15 GM TOP (09:11)
[2017-12-29] MEDS: SOD POLYSTYRENE SULFONATE SUSP 15 GM/60 ML UD PO (11:49)
[2017-12-29] MEDS: ALBUTEROL SULFATE 2.5 MG/0.5 ML INH NEB SOLN NEB (12:09)
[2017-12-29 20:11] LABS: BEDSIDE GLUCOSE 176 MG/DL (83-110)
== END 2017-12-29 14:57 | disposition home or self-care (01) | DRG 592 ==
LOC: M ED 06:40 → M ED INP 11:34 → M MSPAV 14:30
DX: L89.611 Pressure ulcer of right heel, stage 1 (principal); N18.6 End stage renal disease; I69.951 Hemiplegia and hemiparesis following unspecified cerebrovascular disease affecting right dominant side; I12.0 Hypertensive chronic kidney disease with stage 5 chronic kidney disease or end stage renal disease; E03.9 Hypothyroidism, unspecified; E78.5 Hyperlipidemia, unspecified; Z79.82 Long term (current) use of aspirin; Z79.899 Other long term (current) drug therapy; Z88.5 Allergy status to narcotic agent; Z88.7 Allergy status to serum and vaccine; Z91.018 Allergy to other foods; Z87.891 Personal history of nicotine dependence; E11.9 Type 2 diabetes mellitus without complications; K21.9 Gastro-esophageal reflux disease without esophagitis; D63.1 Anemia in chronic kidney disease

== ENCOUNTER 2018-03-29 06:10 | Emergency (ER) | payer MEDICARE, MEDICAID ==
[2018-03-29 06:23] LABS: BEDSIDE GLUCOSE 91 MG/DL (83-110)
== END 2018-03-29 07:15 | disposition home or self-care (01) ==
LOC: M ED 06:10
DX: E11.649 Type 2 diabetes mellitus with hypoglycemia without coma (principal); I12.9 Hypertensive chronic kidney disease with stage 1 through stage 4 chronic kidney disease, or unspecified chronic kidney disease; N18.9 Chronic kidney disease, unspecified; Z99.2 Dependence on renal dialysis; K21.9 Gastro-esophageal reflux disease without esophagitis; E78.5 Hyperlipidemia, unspecified; E03.9 Hypothyroidism, unspecified; Z90.49 Acquired absence of other specified parts of digestive tract; Z88.5 Allergy status to narcotic agent; Z88.7 Allergy status to serum and vaccine; Z91.048 Other nonmedicinal substance allergy status; Z79.890 Hormone replacement therapy; Z79.899 Other long term (current) drug therapy
CPT/HCPCS: 99284

== ENCOUNTER 2018-07-12 10:11 | Inpatient (IN) | payer MEDICARE ==
[~2018-07-12] VITALS: Ht 157.5 cm; Wt 51.1 kg
[~2018-07-12 10:11] MED LIST changes: -ACET1TAB17 PO; +ACET1TAB55 PO; -AMLO10TA2 PO; +AMLO10TA5 PO; -AMLO5TAB2 PO; +AMLO5TAB6 PO; +ASPI81CH40 PO; -ASPI81TA PO; -DRIS50002 PO; +DRIS50003 PO; -FENO145T PO; +FENO145T13 PO; +HYDR10TAB PO; +KLOR10TA76 PO; +OXYC1TAB23 PO; -PANT40TA2 PO; +PANT40TA3 PO; +PERC5TAB12 PO; -POTA10CA PO; +TRAZ-160 PO; -TRAZ50TA11 PO
[2018-07-12] MEDS ORDERED: NEPRLIQ3 PO (10:37)
[2018-07-12] MEDS ORDERED: POLY1POW38 PO (10:37)
[2018-07-12] MEDS ORDERED: STOO100C PO (10:37)
[2018-07-12] MEDS ORDERED: ACET1TAB55 PO (10:37)
[2018-07-12] MEDS ORDERED: SODI15SS PO (10:37)
[2018-07-12 11:23] LABS: BASO % 0.3 % (0.0-1.0); EOS # 0.1 10^3/uL (0.0-0.50); HEMATOCRIT 38.4 % (36.0-47.0); HEMOGLOBIN 12.7 g/dl (12.0-15.5); LYMPH # 0.8 10^3/uL (1.5-4.5); LYMPH % 22.1 % (24.0-44.0); MEAN CORPUSCULAR HEMOGLOBIN 30.6 pg (27.0-33.0); MEAN CORPUSCULAR HGB CONC 33.1 g/dl (32.0-36.5); MEAN CORPUSCULAR VOLUME 92.5 fl (80.0-96.0); MONO # 0.2 10^3/uL (0.0-0.8); MONO % 6.8 % (0.0-5.0); NEUTROPHILS # 2.4 10^3/uL (1.8-7.7); RED BLOOD COUNT 4.15 10^6/uL (4.00-5.40); WHITE BLOOD COUNT 3.5 10^3/uL (4.0-10.0)
[2018-07-12 11:25] LABS: INR 0.99; PROTHROMBIN TIME 13.2 SECONDS (12.1-14.4)
[2018-07-12 11:26] LABS: PARTIAL THROMBOPLASTIN TIME 56.1 SECONDS (25.4-37.6)
[2018-07-12 11:32] LABS: CALCIUM LEVEL 8.9 MG/DL (8.8-10.2); CREATININE FOR GFR 2.27 MG/DL (0.55-1.30); GLOMERULAR FILTRATION RATE 21.7 (>32); POTASSIUM SERUM 4.1 MEQ/L (3.5-5.1)
[2018-07-12 12:04] LABS: PLATELET COUNT, AUTOMATED 80 10^3/uL (150-450)
[2018-07-12] MEDS ORDERED: CARVedilol 6.25 MG TAB PO ONE (12:15)
[2018-07-12] MEDS ORDERED: MORPHINE 4 MG/ML 1ML VIAL/SYRINGE (J2270) IV ONE (13:00)
[2018-07-12] MEDS ORDERED: PERCOCET 5MG/325MG TAB PO ONE (13:15)
--- NOTE | 2018-07-12 13:26 | REP ---
RIGHT SHOULDER, COMPLETE: 07/12/2018. Clinical history: Shoulder pain. Comparison: Right shoulder and humerus 04/20/2017. Findings: AC joint shows narrowing some sclerosis with only minimal spurring. No fracture of the clavicle or acromion. Visualized ribs and scapula intact. Humerus shows no subluxation, dislocation from the glenoid. No fracture of the humeral head or avulsion. Some degenerative changes at the inferior aspect of the humeral joint. An indwelling jugular dialysis catheter is seen in part. Visualized ribs without fracture or destructive lesion. Some chronic changes in the lung crespo. Impression: 1. AC and glenohumeral joint with mild arthritic change without visible or displaced fracture, avulsion, subluxation or abnormal soft-tissue calcification. Electronically Signed by Aguilar Orona MD 07/12/2018 02:06 P
--- NOTE | 2018-07-12 13:28 | REP ---
LEFT FOREARM SERIES, COMPLETE: 07/12/2018. Comparison: 04/20/2017. Clinical history: Pain. Findings. Shafts of the radius and ulna are without acute finding. There is no fracture or destructive lesion. Distal radius and ulna and their proximal ends show no fracture, destructive lesion. There are vascular calcifications in the forearm throughout and most prominently in the radial artery. Degenerative changes in carpal and CMC joints. The bones appear osteoporotic. Impression: 1. There is no fracture or destructive lesion, periosteal reaction, abnormal soft-tissue calcification, endosteal scalloping or other acute bony finding. 2. Degenerative changes at the wrist and vascular calcifications in the radial artery. Electronically Signed by Aguilar Orona MD 07/12/2018 02:06 P
--- NOTE | 2018-07-12 13:39 | REP ---
RIGHT HUMERUS: 07/12/2018. Comparison: 04/20/2017. Clinical history: Pain right upper extremity. Findings: The two-view show the shaft of the humerus without fracture. Some scattered lucencies in the shaft of the humerus in its middle one-third region and may reflect some progressive osteoporosis but other possibilities may be considered. There is no fracture, periosteal reaction, endosteal erosion or abnormal soft-tissue calcification. Minor degenerative changes at the shoulder. Elbow grossly intact but limited evaluation. Impression: 1. Some scattered lucencies in the shaft of the humerus in its middle 1/3 that may reflect aggressive osteoporosis or other marrow replacement process. There is no fracture, endosteal scalloping, periosteal reaction or abnormal soft tissue calcifications visible. Electronically Signed by Aguilar Orona MD 07/12/2018 02:06 P
[2018-07-12] MEDS ORDERED: LABETALOL HCL 100 MG/20 ML VIAL IV STA (15:26)
[2018-07-12] MEDS ORDERED: hydrALAZINE INJ 20 MG/ML VIAL IV ONE (15:30)
[2018-07-12] MEDS ORDERED: NYST1POW9 TOP (16:11)
[2018-07-12] MEDS ORDERED: MIRA3350 PO (16:13)
[2018-07-12] MEDS ORDERED: PANT40TA3 PO (16:14)
[2018-07-12] MEDS ORDERED: DOCUSATE SODIUM 100 MG CAP PO PRN (17:45)
--- NOTE | 2018-07-12 18:03 | HPE ---
DATE OF ADMISSION: 07/12/2018 87-year-old female with past medical history of end-stage renal disease on hemodialysis Saturday, , and Saturday, last dialysis today, history of CVA with right hemiparesis, hypertension, diabetes, hypothyroidism, presents to the emergency room from dialysis due to right arm pain. In the emergency room (ER), she had a vascular ultrasound which showed no evidence of deep venous thrombosis (DVT) as well as x-rays of the radius, shoulder, and humerus which showed no evidence of fracture. However, she was noted to have a blood pressure of 245/107. She did complete her entire dialysis before coming to the ER and she did take her Coreg in the morning. In the ER, she was given Lopressor 10 IV push and was given her second Coreg earlier and her blood pressure now is 193/88. She has no chest pain, shortness of breath, no visual disturbance or tinnitus or headache, and she has been taking her medications as prescribed, so, she will be admitted for further management and blood pressure control. Again, past medical history of end-stage renal disease on hemodialysis Saturday, , Saturday, history of hypertension, diabetes, hypothyroidism, history of CVA with right hemiparesis. PAST SURGICAL HISTORY: Bladder surgery and tubal ligation. ALLERGIES: She has drug allergies to CODEINE and TETANUS TOXOID. FAMILY HISTORY: Noncontributory. SOCIAL HISTORY: Patient used to be a pack a day smoker for many years, quit in 1993. Denies alcohol or illicit drugs. MEDICATIONS: She takes at home are as follows: - Tylenol 650 by mouth every 6 hours as needed - aspirin 81 mg orally daily - Coreg 6.25 mg orally twice daily - Colace 100 mg orally twice daily - fenofibrate 145 mg orally at bedtime - gabapentin 100 mg orally twice daily - insulin glargine 24 units subcutaneous twice a day - Synthroid 25 mcg orally in the morning - Nepro with Carbsteady one can by mouth with meals - Lovaza 2 grams by mouth twice a day - pantoprazole 40 mg orally daily - MiraLAX as needed - pravastatin 80 mg orally at bedtime - sodium polystyrene 60 mL as needed - vitamin D 50,000 units orally weekly REVIEW OF SYSTEMS: Negative for all ten major systems except what is mentioned in history of present illness (HPI). Vital signs: Blood pressure 193/88, heart rate is 81, regular, respiratory rate is 20, temperature is 98.4, oxygen saturation is 100% on room air. Head is atraumatic, normocephalic. Neck supple, no jugular venous distention (JVD). Lungs are clear to auscultation. S1, S2 audible, no murmurs appreciated. Abdomen soft, positive bowel sounds. There is no pedal edema, skin intact. Neurologic: On examination, patient awake, alert, oriented times three. LABORATORY DATA: WBC 3.5, hemoglobin 12.7, hematocrit 38.4, platelets are 80,000, sodium 139, potassium 4.1, chloride 102, CO2 26, BUN 20, creatinine 2.27, glucose 154. IMPRESSION: 1. Hypertensive urgency. PLAN: Patient will be admitted to the intensive care unit (ICU). Will continue her Coreg at 6.25 by mouth twice a day and I am going to add IV hydralazine 10 mg every 8 hours. Will have nephrology consulted to help us in tighter control of her blood pressure management in the setting of end-stage renal disease and will continue her other previous medications.
[2018-07-12] MEDS ORDERED: FENOFIBRATE 145 MG TAB (TRICOR) PO SCH (21:00)
[2018-07-12 22:05] VITALS: BP 204/90
[2018-07-12] MEDS ORDERED: GLUCOSE 4 GM CHEW TABLET PO PRN (22:30)
[2018-07-12] MEDS ORDERED: GLUCAGON FOR INJ 1 MG VIAL (J1610) SC PRN (22:30)
[2018-07-12] MEDS: CARVedilol 6.25 MG TAB PO SCH (22:34)
[2018-07-12] MEDS: hydrALAZINE INJ 20 MG/ML VIAL IV PRN (22:35)
[2018-07-12] MEDS: GABAPENTIN 100 MG CAP PO SCH (22:35)
[2018-07-12] MEDS: PRAVASTATIN 20 MG TAB PO SCH (22:35)
[2018-07-12] MEDS: LEVEMIR (INSULIN DETEMIR) 1 UNITS/0.01ML SC SCH (22:52)
[2018-07-12 23:13] VITALS: BP 176/80
[2018-07-12] MEDS ORDERED: NS 500 ML IV ONE (23:45)
[2018-07-12] MEDS ORDERED: ISOVUE-370 76% 100ML VIAL (Q9967) As Ordered ONE (23:54)
[2018-07-13] VITALS (24 sets, daily range): BP systolic 148–192; BP diastolic 56–98; O2SAT 94–98
--- NOTE | 2018-07-13 00:44 | REPVR ---
EXAM: CT Head Without Contrast EXAM DATE/TIME: 07/12/2018 11:56 PM CLINICAL HISTORY: 87 years old, female; Signs and symptoms; Altered mental status/memory loss; Additional info: Neuro deficit, right tongue deviation. TECHNIQUE: Axial computed tomography images of the head/brain without contrast. All CT scans at this facility use at least one of these dose optimization techniques: automated exposure control; mA and/or kV adjustment per patient size (includes targeted exams where dose is matched to clinical indication); or iterative reconstruction. COMPARISON: CT Head without contrast 12/27/2016 5:07 PM FINDINGS: Brain: There is volume loss. There is extensive white matter lucency indicating chronic microvascular disease. There is an old left basal ganglia-martinez radiata infarct. There is no acute infarct. There is no hemorrhage. There are prominent frontal extra-axial fluid spaces probably chronic hygromas unchanged from prior scan. No extra-axial hematoma. Ventricles: Ventricular size is proportionate to cortical atrophy. Bones/joints: Normal. No acute fracture. Sinuses: Normal as visualized. No acute sinusitis. Mastoid air cells: Normal as visualized. No mastoid effusion. Soft tissues: Normal. Vasculature: There are carotid and vertebral artery calcifications. IMPRESSION: Atrophy and chronic microvascular disease with old left basal ganglia infarct. No acute lesion or injury and no change from prior scan. Electronically signed by: Uvaldo Cook On 07/13/2018 00:43:52 AM
[2018-07-13] MEDS ORDERED: ASPIRIN ENTERIC 325 MG TAB PO SCH (01:15)
[2018-07-13] MEDS ORDERED: NS 1,000 ML IV SCH (01:15)
--- NOTE | 2018-07-13 02:38 | REPVR ---
EXAM: CT Angiography Head With Contrast EXAM DATE/TIME: 07/12/2018 12:22 AM CLINICAL HISTORY: 87 years old, female; Signs and symptoms; Speech disturbance; Additional info: Unable to articulate and tongue deviation TECHNIQUE: Axial computed tomographic angiography images of the head with intravenous contrast using CT angiography protocol. All CT scans at this facility use at least one of these dose optimization techniques: automated exposure control; mA and/or kV adjustment per patient size (includes targeted exams where dose is matched to clinical indication); or iterative reconstruction. Coronal and sagittal reformatted images were created and reviewed. MIP reconstructed images were created and reviewed. CONTRAST: 100 ml of iso 370 administered intravenously. COMPARISON: CT Head without contrast 07/12/2018 11:46 PM FINDINGS: Right internal carotid artery: Atherosclerotic calcification of the right carotid siphon. Intracranial segment is patent with no significant stenosis. No aneurysm. Right anterior cerebral artery: Unremarkable. No occlusion or significant stenosis. No aneurysm. Right middle cerebral artery: Beaded appearance to the distal right M1 segment. No occlusion. Severe focal stenosis of the right M1 bifurcation. No aneurysm. Right posterior cerebral artery: Severe focal stenosis of the right P1/P2 junction. Right vertebral artery: Unremarkable. No occlusion or significant stenosis. No aneurysm. Left internal carotid artery: Atherosclerotic calcification of the left carotid siphon. Intracranial segment is patent with no significant stenosis. No aneurysm. Left anterior cerebral artery: Left A1 segment is hypoplastic. Left A2 segment is small in caliber but patent. Focal occlusion of the left A3 segment. Left middle cerebral artery: No occlusion. Left M1 segment is patent. Beaded appearance of the proximal left M2 segments. Left posterior cerebral artery: Unremarkable. No occlusion or significant stenosis. No aneurysm. Left vertebral artery: Moderate to severe stenoses in the distal left vertebral artery. Basilar artery: Unremarkable. No occlusion or significant stenosis. No aneurysm. IMPRESSION: Severe focal stenosis of the right M1 bifurcation. Beaded appearance of the distal right M1 segment and proximal left M2 segments. Suspect atherosclerotic disease. Focal occlusion of the left A3 segment. Moderate to severe stenoses in the distal left vertebral artery. See also recent CT head report. Electronically signed by: Arpit Maldonado On 07/13/2018 02:37:41 AM
--- NOTE | 2018-07-13 02:43 | REPVR ---
EXAM: CT Angiography Neck With Contrast EXAM DATE/TIME: 07/12/2018 12:22 AM CLINICAL HISTORY: 87 years old, female; Signs and symptoms; Speech disturbance; Additional info: Unable to articulate and tongue deviation TECHNIQUE: Axial computed tomographic angiography images of the neck with intravenous contrast using CT angiography protocol. All CT scans at this facility use at least one of these dose optimization techniques: automated exposure control; mA and/or kV adjustment per patient size (includes targeted exams where dose is matched to clinical indication); or iterative reconstruction. Coronal and sagittal reformatted images were created and reviewed. MIP reconstructed images were created and reviewed. CONTRAST: 100 ml of iso 370 administered intravenously. COMPARISON: No relevant prior studies available. FINDINGS: VASCULATURE: Right common carotid artery: Normal. No significant stenosis. No dissection or occlusion. Right internal carotid artery: Moderate atherosclerotic calcification at the origin of the right internal carotid artery. Right external carotid artery: Normal. No occlusion or significant stenosis. Right vertebral artery: Normal. No significant stenosis. No dissection or occlusion. Left common carotid artery: Normal. No significant stenosis. No dissection or occlusion. Left internal carotid artery: Moderate atherosclerotic calcification at the origin of the left internal carotid artery. Less than 50% focal stenosis of the origin of the left ICA. Left external carotid artery: Normal. No occlusion or significant stenosis. Left vertebral artery: Normal. No significant stenosis. No dissection or occlusion. Aorta: Moderate atherosclerotic disease. NECK: Thyroid: 10 mm circumscribed nodule in the left lobe of the thyroid. Bones/joints: Moderate degenerative spine. No acute fracture. Soft tissues: Normal. No significant soft tissue swelling. Lung apices: Groundglass opacities in the visualized lungs. Biapical fibrosis. Bronchial mucous plugging in the upper lobes. Diffuse septal thickening bilaterally. Dental: Patient is edentulous. Lymph node: No lymphadenopathy. Other: Right Port-A-Cath present. IMPRESSION: No stenosis in the right carotid artery. Less than 50% focal stenosis of the origin of the left ICA. Groundglass opacities in the visualized lungs. Pulmonary edema versus pneumonia. Bronchial mucous plugging in the upper lobes. Circumscribed nodule the left lobe of the thyroid. No followup is necessary. Additional findings as described. COMMENT: Consistent with the [employer]'s Incidental Findings Committee Report (J Am Bubba Radiol 2015): Unless the patient has clinical risk factors for thyroid cancer or has suspicious findings characterized in this report, for patients under 35 years old any thyroid nodule less than 1.0 cm, and for patients at least 35 years old any thyroid nodule less than 1.5 cm is highly likely to be benign and does not require follow-up imaging or biopsy. Patients with limited life expectancy and/or comorbidities do not require follow up imaging or biopsy for nodules of any size. Reference per NASCET criteria for degree of stenosis: Mild: <50% stenosis. Moderate: 50-69% stenosis. Severe: 70-94% stenosis. Near occlusion: 95-99% stenosis. Electronically signed by: Arpit Maldonado On 07/13/2018 02:43:02 AM
--- NOTE | 2018-07-13 02:52 | IPNPDOC ---
Date Seen The patient was seen on 07/13/18. Progress Note 0252:I was called at bedside at 10pm for the patient was experiencing aphasia which was witnessed by her granddaughter. The patient is Malay speaking and prior to the episode she was communicating well with her family with not problem. She was originally admitted for high blood pressure and earlier in the evening with a systolic of 204 and she was given hydralazine 10 mg IV. At the time of exam, patient had right tongue deviation, was not communicative but was about to follow command when asked in Malay. She does have the right side hemiparesis which is consistent with her history of CVA in the 2013. Her blood pressure at the time of exam was 176/80 HR: 89. 250 NS bolus was ordered, for we were unsure if the symptoms were exacerbated by the sudden drop in blood pressure and STAT CT head was ordered to rule out hemorrhagic stroke, which was negative. CT head and angio, and MRI brain without contrast were ordered as well but currently pending. Neurology, Dr. Valdivia, was consulted for recommendation. The patient has a absolute contraindication for tPA for her platelet count is <100. He recommended to get a MRI brain, start ASA 325 mg, maintain blood pressure systolic 140-180, continue with pravastatin 80mg qhs. If imaging is positive large vessel occlusion can consider calling [facility] to see if the patient is a candidate for Catheter-Directed Thrombolysis. He will also see the patient while admitted. Also because the patient is dialysis dependent and had to get emergent contrast for imaging will need to call nephrology, who is already consulted about possible dialysis in the AM. Stroke work was ordered: will get echo, cardiac risk profile, baseline coagu lation profile, Neuro check q4h and PT/OT/ST evaluation. Because the patient is having trouble swallowing she will be on NPO diet till speech evaluation and have placed her on 30ss/hr of NS x1L. 0426: CTA Neck Positive for Severe focal stenosis of the right M1 bifurcation. Beaded appearance of the distal right M1 segment and proximal left M2 segments.Suspect atherosclerotic disease. Focal occlusion of the left A3 segment. Moderate to severe stenoses in the distal left vertebral artery. MRI Brain was positive for small acute infarct in the medial left frontal lobe and right radiata. Possible tiny acute infarct in the medial superior left parietal lobe. Dr. Sarbjit Diallo was called to see if the patient was a candidate for Catheter-Directed Thrombolysis because of her Moderate to severe stenoses in the distal left vertebral artery. He recommends dual platelet therapy for 3 months then ASA. Also recommend High intensity statin such as Atorvastatin 80mg or Rosuvastatin 40mg daily. The family were informed for the results and plan. VS, I&O, 24H, Fishbone Vital Signs/I&O Vital Signs Date Time Temp Pulse Resp B/P (MAP) Pulse Ox O2 Delivery O2 Flow Rate FiO2 07/13/18 00:00 97.1 88 22 100 Room Air 07/12/18 22:35 204/90 I&O- Last 24 Hours up to 6 AM 07/13/18 06:00 Intake Total 0 ml Balance 0 ml Laboratory Data 24H LABS Laboratory Tests 2 07/12/18 10:54: Immature Granulocyte % (Auto) 0.8, White Blood Count 3.5L, Red Blood Count 4.15, Hemoglobin 12.7, Hematocrit 38.4, Mean Corpuscular Volume 92.5, Mean Corpuscular Hemoglobin 30.6, Mean Corpuscular Hemoglobin Concent 33.1, Red Cell Distribution Width 16.5H, Platelet Count 80L, Neutrophils (%) (Auto) 68.0H, Lymphocytes (%) (Auto) 22.1L, Monocytes (%) (Auto) 6.8H, Eosinophils (%) (Auto) 2.0, Basophils (%) (Auto) 0.3, Neutrophils # (Auto) 2.4, Lymphocytes # (Auto) 0.8L, Monocytes # (Auto) 0.2, Eosinophils # (Auto) 0.1, Basophils # (Auto) 0.0, Nucleated Red Blo od Cells % (auto) 0.0, Immature Platelet Fraction 8.2, Prothrombin Time 13.2, Prothromb Time International Ratio 0.99, Activated Partial Thromboplast Time 56.1H, Anion Gap 11, Glomerular Filtration Rate 21.7L, Blood Urea Nitrogen 20H, Creatinine 2.27H, Sodium Level 139, Potassium Level 4.1, Chloride Level 102, Carbon Dioxide Level 26, Calcium Level 8.9 07/12/18 22:43: Bedside Glucose (Misc Panel) 166H 07/13/18 00:01: Bedside Glucose (Misc Panel) 161H CBC/BMP Laboratory Tests 1/19/19 10:54 Red Blood Count 4.15, Mean Corpuscular Volume 92.5, Mean Corpuscular Hemoglobin 30.6, Mean Corpuscular Hemoglobin Concent 33.1, Red Cell Distribution Width 16.5 H, Neutrophils (%) (Auto) 68.0 H, Lymphocytes (%) (Auto) 22.1 L, Monocytes (%) (Auto) 6.8 H, Eosinophils (%) (Auto) 2.0, Basophils (%) (Auto) 0.3, Neutrophils # (Auto) 2.4, Lymphocytes # (Auto) 0.8 L, Monocytes # (Auto) 0.2, Eosinophils # (Auto) 0.1, Basophils # (Auto) 0.0, Calcium Level 8.9 GME ATTESTATION GME ATTESTATION My faculty preceptor for this patient encounter was physically present during the encounter and was fully available. All aspects of the patient interview, examination, medical decision making process, and medical care plan development were reviewed and approved by the faculty preceptor. The faculty preceptor is aware and concurs with the plan as stated in the body of this note and will attest to such by his/her cosignature. ALBERTO CISNEROS DO Jul 13, 2018 02:51
--- NOTE | 2018-07-13 03:40 | REPVR ---
EXAM: MR Head Without Contrast EXAM DATE/TIME: 07/13/2018 3:18 AM CLINICAL HISTORY: 87 years old, female; Signs and symptoms; Other: Acute aphasia with RT tongue deviation; Additional info: Acute aphasia with right tongue deviation TECHNIQUE: MR of the head without contrast. COMPARISON: MRI-Brain without Contrast 08/31/2016 2:05 PM FINDINGS: Limitations: Examination is limited by motion artifact. Brain: Small acute infarct in the right radiata. Small acute infarct in the medial left frontal lobe. Possible tiny acute infarct in the medial superior left parietal lobe. Series 301 image 176. Moderate T2-hyperintense changes in the deep white matter which are nonspecific but suspicious for chronic small vessel ischemic disease. Diffuse cerebral atrophy. Chronic infarct in the left martinez radiata. Chronic microhemorrhage in the right lentiform nucleus. Bifrontal hygromas measuring 10 mm thick. No acute intracranial hemorrhage. No acute mass effect. Ventricles: Ventricles are in proportion to the degree of atrophy. Bones/joints: Unremarkable. Soft tissues: Normal. Sinuses: Normal as visualized. No acute sinusitis. Mastoid air cells: Normal as visualized. No mastoid effusion. Orbits: Unremarkable. Other vasculature: Expected flow voids in the cerebral arteries. IMPRESSION: Limited by motion. Small acute infarct in the medial left frontal lobe. Small acute infarct in the right radiata. Possible tiny acute infarct in the medial superior left parietal lobe. Chronic white matter changes as described. Bifrontal hygromas. Unchanged from prior. COMMENT: Verbally reported to Nurse Albert at 07/13/2018 3:37 AM EST who will forward to ALBERTO Dorado Electronically signed by: Arpit Maldonado On 07/13/2018 03:39:49 AM
[2018-07-13] MEDS: hydrALAZINE INJ 20 MG/ML VIAL IV PRN (04:02)
[2018-07-13] MEDS: LEVOTHYROXINE 25MCG TABLET (0.025MG) PO SCH (06:00)
[2018-07-13 06:11] LABS: HEMATOCRIT 34.4 % (36.0-47.0); HEMOGLOBIN 11.3 g/dl (12.0-15.5); MEAN CORPUSCULAR HEMOGLOBIN 30.5 pg (27.0-33.0); MEAN CORPUSCULAR HGB CONC 32.8 g/dl (32.0-36.5); MEAN CORPUSCULAR VOLUME 92.7 fl (80.0-96.0); RED BLOOD COUNT 3.71 10^6/uL (4.00-5.40); WHITE BLOOD COUNT 4.5 10^3/uL (4.0-10.0)
[2018-07-13 06:18] LABS: PLATELET COUNT, AUTOMATED 75 10^3/uL (150-450)
[2018-07-13 06:27] LABS: INR 0.96; PROTHROMBIN TIME 12.9 SECONDS (12.1-14.4)
[2018-07-13 06:35] LABS: CHOLESTEROL RISK RATIO 4.548 (<5); CREATININE FOR GFR 3.14 MG/DL (0.55-1.30); GLOMERULAR FILTRATION RATE 14.9 (>32); MAGNESIUM LEVEL 1.7 MG/DL (1.8-2.4); POTASSIUM SERUM 4.5 MEQ/L (3.5-5.1)
--- NOTE | 2018-07-13 06:42 | REP ---
RIGHT UPPER EXTREMITY DOPPLER VENOUS ULTRASOUND: 07/12/2018. Comparison: 04/20/2017. Clinical history: Right arm pain, evaluate for DVT. Findings: Standard duplex techniques utilized. There is a port catheter seen in the jugular vein, but no thrombus. Bandage subclavian region over the dialysis port obscures observation of the subclavian vein is not visualized on this examination. The axillary and brachial veins show full compressibility, color flow throughout and respiratory variation with augmentation. The cephalic and basilic veins of the superficial venous system were also unremarkable. Impression: 1. No Doppler venous ultrasound evidence of DVT in the right upper extremity. Exam limited by the bandage over the right subclavian region with the subclavian vein not seen. 2. The right jugular vein shows a port catheter within it. 3. Visualized basilic and cephalic superficial veins were also unremarkable. Electronically Signed by Aguilar Orona MD 07/13/2018 09:46 A
[2018-07-13] MEDS: HumaLOG INSULIN (NovoLOG) PER UNIT SC SCH ×3 (07:30→16:33)
--- NOTE | 2018-07-13 07:54 | REP ---
AP PORTABLE CHEST: 07/12/2018. Comparison: 12/29/2017. Clinical history: Hypertension. Possible CHF. On dialysis. Lungs are hypoinflated as on the previous study. CP angles are sharply defined. There is no pleural effusion or lateral pleural thickening visible. Some minor apical scarring is suggested. No pneumothorax. A right jugular dialysis catheter is seen with tip in the right atrium. Heart size unchanged. There is no queenie edema. No abnormal widening the mediastinum. The aorta is tortuous at the arch but without gross aneurysm. Bones demineralized. No free air under the diaphragm. Impression: 1. Hypoinflated chest without gross cardiomegaly, queenie edema, definite effusion or acute infiltrate. 2. Right jugular dialysis catheter unchanged. Bones demineralized. Electronically Signed by Aguilar Orona MD 07/13/2018 09:54 A
[2018-07-13] MEDS: PANTOPRAZOLE 40MG TAB (PROTONIX) PO SCH (08:04)
[2018-07-13] MEDS: LEVEMIR (INSULIN DETEMIR) 1 UNITS/0.01ML SC SCH (08:04)
[2018-07-13] MEDS: GABAPENTIN 100 MG CAP PO SCH ×2 (08:05→21:00)
[2018-07-13] MEDS: HEPARIN SOD (PORCINE) 5000 UNITS/ML VIAL SQ SCH ×2 (08:40→21:33)
[2018-07-13] MEDS ORDERED: ASPIRIN 81 MG CHEW TABLET PO SCH (09:00)
[2018-07-13] MEDS: ASPIRIN 81 MG ENTERIC TAB PO SCH (09:00)
--- NOTE | 2018-07-13 09:25 | ECGEPIP ---
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
[2018-07-13] MEDS ORDERED: ACETAMINOPHEN TAB 650MG DOSE (2X325MG) PO PRN (11:45)
[2018-07-13] MEDS ORDERED: DEXTROSE 50% 50 ML SYRINGE As Ordered ONE (12:14)
[2018-07-13] MEDS ORDERED: DEXTROSE 50% 50 ML SYRINGE IV PRN (12:15)
[2018-07-13] MEDS ORDERED: D5W 1,000 ML IV SCH (12:15)
[2018-07-13] MEDS: CLOPIDOGREL 75 MG TAB PO SCH (13:00)
--- NOTE | 2018-07-13 16:18 | IPNPDOC ---
Text Note Date of Service The patient was seen on 07/13/18. NOTE Subjective: The patient is aphasic this morning. Follows simple commands. Has been having difficulty swallowing Objective: Vitals: (see below) General: No acute distress, laying comfortably in bed. HEENT: Moist mucous membranes. Neck: No JVD or lymphadenopathy Cardiac: RRR, No murmurs Pulm: Clear to auscultation b/l. No wheezing, rhonchi Abd: NT/ND + BS Ext: No edema or cyanosis Neuro: Unable to complete neuro exam as patient has global aphasia, and only following minimal commands. Patient occasionally will left her left upper extremity, however it is not against gravity. Labs (see below) Images: Assessment/Plan 1. 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 Has baseline right-sided hemiparesis status post prior stroke. Discussed with Dr. Martino- additional recommendations for dual antiplatelet therapy for 3 months and then aspirin only, as recommended by Dr. 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 Discussed thrombocytopenia, with recommendations for continuing dual antiplatelet as long as platelets are greater than 50. Patient has no bleeding at this time. Continue statin. Patient's also dysphagia. PT/OT/ST. Had an extensive conversation with the daughter as well as granddaughter given the patient's dismal prognosis, and I have answered all of their questions. 2. Hypertensive urgency secondary to acute CVA. Discussed with Dr. Martino, with recommendations for permissive hypertension for the next 48-72 hours. Goal systolic blood pressure 140-180. 3. End-stage renal disease on hemodialysis. Appreciate nephrology input. 4. Hypertension controlled. Permissive hypertension for now. 5. Diabetes mellitus patient an episode of hypoglycemia this morning. Hold Levemir for now. Sliding scale insulin. 6. Hypothyroidism on Synthroid DVT prophy: SCDs Overall prognosis guarded. Daughter and granddaughter aware. VS,Fishbone, I+O VS, Fishbone, I+O Laboratory Tests 07/13/18 04:30 Red Blood Count 3.71 L, Mean Corpuscular Volume 92.7, Mean Corpuscular Hemoglobin 30.5, Mean Corpuscular Hemoglobin Concent 32.8, Red Cell Distribution Width 16.7 H 07/13/18 05:07 Vital Signs Date Time Temp Pulse Resp B/P (MAP) Pulse Ox O2 Delivery O2 Flow Rate FiO2 07/13/18 12:55 97.8 76 22 158/80 (106) 99 Room Air I&O- Last 24 Hours up to 6 AM 07/13/18 06:00 Intake Total 250 ml Balance 250 ml JACKY LOMBARDO MD Jul 13, 2018 16:18
[2018-07-13] MEDS: DEXTROSE 50% 50 ML SYRINGE IV PRN (20:07)
[2018-07-13] MEDS ORDERED: HumaLOG INSULIN (NovoLOG) PER UNIT SC SCH (21:00)
[2018-07-13] MEDS: PRAVASTATIN 20 MG TAB PO SCH (21:00)
[2018-07-13] MEDS: D10W 1,000 ML IV SCH (22:37)
[2018-07-14] VITALS (27 sets, daily range): BP systolic 132–220; BP diastolic 48–80; O2SAT 96–100
[2018-07-14 05:35] LABS: HEMATOCRIT 31.6 % (36.0-47.0); HEMOGLOBIN 10.1 g/dl (12.0-15.5); MEAN CORPUSCULAR HEMOGLOBIN 30.6 pg (27.0-33.0); MEAN CORPUSCULAR VOLUME 95.8 fl (80.0-96.0); WHITE BLOOD COUNT 3.3 10^3/uL (4.0-10.0)
[2018-07-14 05:36] LABS: PLATELET COUNT, AUTOMATED 67 10^3/uL (150-450)
[2018-07-14 05:45] LABS: CALCIUM LEVEL 7.9 MG/DL (8.8-10.2); CREATININE FOR GFR 4.02 MG/DL (0.55-1.30); GLOMERULAR FILTRATION RATE 11.2 (>32); MAGNESIUM LEVEL 1.8 MG/DL (1.8-2.4); POTASSIUM SERUM 4.3 MEQ/L (3.5-5.1)
[2018-07-14] MEDS: LEVOTHYROXINE 25MCG TABLET (0.025MG) PO SCH (05:49)
[2018-07-14] MEDS: HumaLOG INSULIN (NovoLOG) PER UNIT SC SCH ×3 (06:00→17:52)
[2018-07-14] MEDS: CARVedilol 6.25 MG TAB PO SCH (09:00)
[2018-07-14] MEDS: CARVedilol 12.5 MG TAB PO SCH ×2 (09:00→20:27)
[2018-07-14] MEDS: ASPIRIN 81 MG ENTERIC TAB PO SCH (09:00)
[2018-07-14] MEDS: CLOPIDOGREL 75 MG TAB PO SCH (09:00)
[2018-07-14] MEDS: PANTOPRAZOLE 40MG TAB (PROTONIX) PO SCH (09:00)
[2018-07-14] MEDS: GABAPENTIN 100 MG CAP PO SCH ×2 (09:00→20:00)
--- NOTE | 2018-07-14 11:19 | ECHO ---
DATE OF PROCEDURE: 07/13/2018 REFERRING PHYSICIAN: Dr. Judson Henderson INDICATION: Acute stroke. HEIGHT: 157 cm WEIGHT: 49 kg 2D MEASUREMENTS: Left atrium: 2.6 cm Left atrial volume index: 23 Aortic root: 2.7 cm Ventricular septum: 1.01 cm Posterior wall: 1.24 cm Left ventricle diastole: 3.2 cm Aortic annulus: 1.9 cm Inferior vena cava: 1.4 cm DOPPLER MEASUREMENTS: Aortic valve velocity: 104 cm/s LVOT velocity: 99.0 cm/s LVOT VTI: 23.2 cm Mitral E velocity: 78.1 cm/s Mitral A velocity: 110 cm/s Mitral deceleration time: 356 ms Very mild tricuspid regurgitation. Estimated right ventricle systolic pressure: 29 mmHg assuming a right atrial pressure of 5 mmHg. Pulmonary artery systolic pressure: 25 mmHg. MITRAL ANNULAR TISSUE DOPPLER: E prime septal: 3.8 cm/s E prime lateral: 2.9 cm/s DESCRIPTION: Rhythm was sinus. Image quality was fair. No pericardial effusion. This was a 2D, M-mode, color flow Doppler and pulse wave Doppler examination and included mitral annular tissue Doppler. CONCLUSIONS: 1. Mild concentric left ventricular hypertrophy. Normal regional LV wall motion and wall thickening. Normal left ventricular systolic function. Left ventricle ejection fraction 65% by visual estimate. Grade 1 LV diastolic dysfunction, impaired relaxation filling pattern. 2. Moderate mitral annular calcification. No mitral regurgitation. No mitral stenosis. 3. Mild aortic valve sclerosis. No aortic regurgitation. 4. Otherwise normal appearing echocardiogram Doppler.
[2018-07-14] MEDS ORDERED: HEPARIN 1,000 UNITS/ML 10ML VIAL (FOR RADIOLOGY& DIALYSIS ONLY) XX ONE (12:30)
[2018-07-14] MEDS: hydrALAZINE INJ 20 MG/ML VIAL IV PRN (12:34)
--- NOTE | 2018-07-14 12:36 | CR ---
DATE OF CONSULTATION: 07/13/2018 REFERRING PROVIDER: Dr. Judson Henderson REASON FOR CONSULTATION: Acute stroke. Suha Tran is an 87-year-old female with past medical history significant for prior ischemic stroke resulting in right-sided hemiparesis limiting the patient to a wheelchair with inability to stand or ambulate. The patient has end-stage renal disease, was on hemodialysis. The patient on the evening of 07/12/2018 developed sudden onset of hypertension, which was treated with hydralazine. Soon after that the patient was noted to have difficulty with language function and inability to speak. CT angiogram of the head revealed severe stenosis of the right M1 segment. Radiologist felt that the beaded appearance of the right M1 and proximal left M2 segment were suspicious for atherosclerotic disease. Focal occlusion of the left A3 segment was also noted. Moderate to severe distal left vertebral artery stenosis was noted. The patient did have a head CT, which did not reveal any acute hemorrhage. Dr. Vivek Schaffer of [facility] Stroke Neurology was consulted. He had recommended to dual antiplatelet therapy. The patient overnight remained on aspirin 325 mg. The patient was prior to this new stroke taking only 81 mg daily. MRI of the brain revealed multiple areas of acute ischemic stroke involving the medial left frontal lobe, right martinez radiata, medial superior left parietal lobe. The patient has bifrontal hygromas, which are unchanged. The patient denies having any numbness at this time. She has difficulty with speech. She does completely understand what we are speaking and saying to her. She is able to follow all commands. She understands both [place] and [place]. The patient is mostly [place] speaking. Both her daughter, granddaughter and son-in-law were present at bedside to provide history and translate. The patient complains of mild headache. She has not noted to have any gross ataxia or dysmetria of the left upper or lower extremity. She has reasonable strength involving the left arm and left leg. She has significant weakness involving the right arm and right leg, which is at her baseline. She is unable to repeat. ALLERGIES: CODEINE, TETANUS TOXOID. REVIEW OF SYSTEMS: Unobtainable as the patient is unable to speak. Although, she does complain of headache based on review questions. All other questions, including chest pain, shortness of breath, body pain, numbness, dizziness, vertigo were asked and found to be negative. SOCIAL HISTORY: The patient is a former tobacco user, quit in 1993. She does not use any alcohol or illicit drugs. FAMILY HISTORY: Noncontributory. PAST SURGICAL HISTORY: Bladder surgery, tubal ligation. HOME MEDICATIONS: - Tylenol 650 mg - aspirin 81 mg - Coreg 6.25 mg by mouth twice a day - Colace 100 mg by mouth twice a day - fenofibrate 140 mg by mouth nightly - gabapentin 100 mg by mouth twice a day - insulin glargine 24 units subcu twice a day - Synthroid 25 mcg daily - Nepro and Carb Steady by mouth daily with meals - Lovaza 2 gram by mouth twice a day - pantoprazole 40 mg daily - MiraLAX by mouth as needed - pravastatin 80 mg by mouth nightly - sodium polystyrene 60 mL by mouth as needed - vitamin D 50,000 international units by mouth weekly PHYSICAL EXAMINATION: Blood pressure is 148/72, pulse rate 78, respiratory rate is 20, oxygenation 97% on room air. Temperature is 97.7 degrees Fahrenheit. The patient is oriented to her name and location based on yes and no questions. She cannot speak or repeat. The patient has a dense Broca's aphasia. She can completely understand and follow commands. Pupils are 1.5 mm both postsurgical from prior cataract surgeries. Sensation V1, V2-V3 is intact to light touch. Tongue appears to be midline. Extraocular movements appear to be intact in all directions. Hearing is subjectively equal to finger rub though decreased bilaterally. The patient cannot lift her right arm or right leg well into the air. She has bilateral foot drops due to inability to use her legs and ambulate over the last few years. She has reasonable strength in her left quadriceps, biceps, triceps and deltoid and handgrip. There does not appear to be any gross ataxia or dysmetria of the left upper extremity. Gait deferred. Right upper extremity ataxia, dysmetria could not be assessed. Sensory is intact to light touch in all four extremities. ASSESSMENT: 1. 87-year-old female with new-onset acute ischemic stroke involving multiple areas of the left cerebral hemisphere possible vessel to vessel phenomenon versus cardioembolic. Due to high-grade intracranial stenosis, recommend aspirin 81 mg, plus Plavix 75 mg daily. Continue Pravachol 80 mg daily. Continue with systolic blood pressure goal range 140-180 for the next 48-72 hours. Recommend physical therapy (PT), occupational therapy (OT) and speech evaluation. Due to low platelets, would recommend continued monitoring while on dual antiplatelet therapy. Plavix can lower platelet count further. If platelet count drops below 50,000, discontinue Plavix and continue with only aspirin 325 mg daily. PT, OT evaluation recommended. Continue telemetry monitoring. Obtain echocardiogram. The patient will need dialysis post IV contrast from CTA from prior night. The patient was not a tissue plasminogen activator (tPA) candidate due to having thrombocytopenia at time of acute stroke despite being 2-1/2 hours into the onset of symptoms. The patient was evaluated by Stroke Neurology, Dr. Vivek Schaffer and was deemed not a tPA candidate. Continue supportive care. History obtained from both the patient and the patient's daughter, granddaughter and son-in-law.
--- NOTE | 2018-07-14 15:06 | NUR ---
Pt seen for swallow evaluation d/t CVA/TIA. Pt presets with moderate oral phase dysphagia. Recommend: Puree solids and thin liquids. Upright as possible for all meals. Please be sure that dentures are in and seated well prior to any meal. Meds crushed in puree assist. Addendum: 07/14/18 at 1508 by LEXIE NERI SP Amended: Links added.
--- NOTE | 2018-07-14 16:40 | IPNPDOC ---
Text Note Date of Service The patient was seen on 07/14/18. NOTE Subjective: Pt's mentation and speech are improved today, although she still has dysarthria. Follows simple commands. Has been having difficulty swallowing, although cleared by PT for diet. Objective: Vitals: (see below) General: No acute distress, laying comfortably in bed. HEENT: Moist mucous membranes. Neck: No JVD or lymphadenopathy Cardiac: RRR, No murmurs Pulm: Clear to auscultation b/l. No wheezing, rhonchi Abd: NT/ND + BS Ext: No edema or cyanosis Neuro: Unable to complete neuro exam as patient has aphasia/dysarthria, although it is improving. Following minimal commands. Pt will move left side, although not against gravity. Labs (see below) Images: Assessment/Plan 1. 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 Has baseline right-sided hemiparesis status post prior stroke. Discussed with Dr. Martino- additional recommendations for dual antiplatelet therapy for 3 months and then aspirin only, as recommended by Dr. 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 Discussed thrombocytopenia, with recommendations for continuing dual antiplatelet as long as platelets are greater than 50. Patient has no bleeding at this time. Continue statin. Patient's also dysphagia. PT/OT/ST. Had an extensive conversation with the daughter as well as granddaughter given the patient's dismal prognosis, and I have answered all of their questions. 2. Hypertensive urgency secondary to acute CVA. Discussed with Dr. Martino, with recommendations for permissive hypertension for the next 48-72 hours. Goal systolic blood pressure 140-180. 3. End-stage renal disease on hemodialysis. Appreciate nephrology input. 4. Hypertension controlled. Permissive hypertension for now. 5. Diabetes mellitus. Hold Levemir for now. Sliding scale insulin. 6. Hypothyroidism on Synthroid DVT prophy: SCDs Overall prognosis guarded. Daughter aware - had an extensive conversation with her and answered all of her questions. DNR/DNI VS,Fishbone, I+O VS, Fishbone, I+O Laboratory Tests 07/14/18 05:06 Red Blood Count 3.30 L, Mean Corpuscular Volume 95.8, Mean Corpuscular Hemoglobin 30.6, Mean Corpuscular Hemoglobin Concent 32.0, Red Cell Distribution Width 16.9 H, Calcium Level 7.9 L Vital Signs Date Time Temp Pulse Resp B/P (MAP) Pulse Ox O2 Delivery O2 Flow Rate FiO2 07/14/18 13:48 168/78 (108) 07/14/18 12:00 98.7 78 18 99 Room Air I&O- Last 24 Hours up to 6 AM 07/14/18 06:00 Intake Total 800 ml Balance 800 ml JACKY LOMBARDO MD Jul 14, 2018 16:40
[2018-07-14] MEDS ORDERED: hydrALAZINE INJ 20 MG/ML VIAL IV PRN (16:45)
[2018-07-14] MEDS ORDERED: PILL CRUSHER/CUTTER 1 EACH XX PRN (16:45)
[2018-07-14] MEDS ORDERED: LABETALOL HCL 100 MG/20 ML VIAL IV PRN (18:30)
[2018-07-14] MEDS ORDERED: LABETALOL HCL 100 MG/20 ML VIAL IV ONE (18:30)
[2018-07-14] MEDS ORDERED: CARVedilol 12.5 MG TAB PO STA (19:41)
[2018-07-14] MEDS: NIFEdipine 30 MG XL TAB PO SCH (19:59)
[2018-07-14] MEDS: PRAVASTATIN 20 MG TAB PO SCH (20:00)
--- NOTE | 2018-07-14 20:23 | IPN ---
DATE: 07/14/2018 SUBJECTIVE: Suha is seen and examined this morning on hemodialysis receiving her maintenance treatment. She follows some simple commands, lifts her left arm, and she says a few words in [place]olan. She is still having difficulty with a diet and continues on a D10 infusion. VITAL SIGNS: Temperature 98.7, pulse 78, respiratory rate 18, blood pressure 168/78, saturating 99% on room air. Intake yesterday was 730, dialysis today removed 200 mL. Weight on the bed scale today is 49.4 kg. General: The patient is seen on dialysis receiving her maintenance treatment. She has had difficulty with speech but is able to say some words in [place]olan. She is following commands at the time of my visit. Tongue is midline. She makes eye contact. There is chronic right arm and right leg weakness and foot drop. Cardiac: S1, S2, regular rate and rhythm. Lungs: Symmetric air entry bilaterally. Abdomen is soft. She does not grimace to palpation. The extremities are negative for edema. LABORATORY: Glucose 139, sodium 137, potassium 4.3, lactic 0.8, hemoglobin 10.1. INPATIENT MEDICATIONS: She continues on D10W at 30 mL an hour. Her carvedilol was increased to 12.5 mg by mouth twice a day. She continues on aspirin, Plavix and statin and as needed hydralazine, and she is also noted to be started on Procardia XL 30 mg by mouth daily. PROBLEMS: 1. End-stage renal disease, on hemodialysis on Saturday, , Saturday schedule. Patient was dialyzed this morning as she did have a contrast procedure over the weekend, and she does have residual renal function. She typically does not have fluid removal with dialysis. Her electrolytes and volume status are acceptable, and she tolerated her treatment without issue. 2. Acute CVA involving multiple areas, possibly due to her intracranial stenoses versus of a cardioembolic nature. Patient had an echocardiogram done that showed grade 1 diastolic dysfunction but no comment of any vegetations or thrombus, nor patent foramen ovale (PFO). She is on aspirin, statin, and Plavix and neurology recommendations are noted. 3. Hypertension. Blood pressures are uncontrolled. Neurology has recommended keeping her blood pressure around 140 to 180 for the next 48 hours. Primary team is managing her antihypertensives, and I note that she has been started on beta nika and calcium channel nika, and continues on hydralazine as needed. 4. Hypoglycemia. Patient is having minimal oral intake. I do not want her to get fluid overloaded. I stopped the D5W and switched it to D10W at a lower rate of 30 mL per hour. She continues on frequent fingerstick monitoring and also received a dose of Glucagon. MTDD
[2018-07-14] MEDS: D10W 1,000 ML IV SCH (22:21)
[2018-07-15] VITALS (7 sets, daily range): BP systolic 117–178; BP diastolic 50–76; O2SAT 99
[2018-07-15] MEDS: HumaLOG INSULIN (NovoLOG) PER UNIT SC SCH ×4 (00:14→18:00)
--- NOTE | 2018-07-15 01:27 | CR ---
DATE OF CONSULTATION: 07/14/2018 REQUESTING PHYSICIAN: Dr. Judson Henderson REASON FOR CONSULTATION: Management of end-stage renal disease on hemodialysis in this lady admitted with acute stroke. HISTORY OF PRESENT ILLNESS: The history is obtained from chart review and discussion with family at bedside. The patient is unable to provide any history secondary to clinical condition. Suha is an 87-year-old female with a past medical history of end-stage renal disease on hemodialysis on a Saturday, , and Saturday schedule (her last dialysis treatment was on Saturday), history of a cerebrovascular accident (CVA) in the past with right hemiparesis, history of hypertension, diabetes, hypothyroidism and other comorbid conditions mentioned below. The patient presented to the emergency room (ER) with complaint of right arm pain and in the ER she was significantly hypertensive; blood pressure 245/107 at maximum reading. She was admitted for hypertensive urgency and her blood pressure was brought down from systolic in the 200s down to about 180s to 190s. The patient became aphasic and had some deviation of her tongue. She underwent CT head last night around midnight without any acute findings. She subsequently had a CT angiogram of the neck which demonstrated less than 50% stenosis of the origin of the left internal carotid and she had a brain MRI noncontrast that showed 2 to 3 small acute infarcts. The patient was nothing by mouth. She became hypoglycemic. She was started on a D5W drip. I saw the patient and examined her this morning at the bedside. She was aphasic. She had family present and her daughter has made her DO NOT RESUSCITATE/DO NOT INTUBATE. PAST MEDICAL HISTORY: As mentioned above: 1. End-stage renal disease on hemodialysis Saturday, , and Saturday. 2. A history of hypertension. 3. Diabetes. 4. Hypothyroidism. 5. A history of cerebrovascular accident (CVA) in the past with right hemiparesis. 6. Dyslipidemia. 7. Diabetic neuropathy. 8. Secondary hyperparathyroidism of renal origin. ALLERGIES: CODEINE, STRAWBERRIES, TETANUS TOXOIDS PAST SURGICAL HISTORY: 1. History of right internal jugular tunnel hemodialysis catheter. 2. A history of bladder surgery. 3. A history of tubal ligation. 4. Hx of failed AVF FAMILY HISTORY: No significant family history of end-stage renal disease on dialysis. Her brother has liver cancer. SOCIAL HISTORY: She lives at home. Her daughters take care of her. She is an ex-smoker, no illicit drug or alcohol abuse. REVIEW OF SYSTEMS: Unable to obtain from the patient secondary to clinical condition and aphasia; however, she shakes her head no when I ask her if she is short of breath or experiencing chest pain. HOME MEDICATIONS: - Tylenol as needed - aspirin 81 mg by mouth daily - Coreg 6.25 mg by mouth twice a day - docusate 100 mg by mouth twice a day as needed - fenofibrate 145 mg by mouth at bedtime - gabapentin 100 mg by mouth twice a day - Lantus - Synthroid 25 mcg by mouth every morning - Nepro - nystatin - Lovaza 2 grams by mouth twice a day - Protonix 40 mg by mouth daily - pravastatin 80 mg by mouth at bedtime - vitamin D 50,000 units once weekly PHYSICAL EXAMINATION: VITAL SIGNS: Temperature 97.5, pulse 71, respiratory rate 20, blood pressure 164/68, saturating 97% on room air. GENERAL: The patient is seen lying in bed. An elderly female, frail, but in no acute respiratory distress. Family is present at the bedside. She makes eye contact. NECK: No elevation of the jugular veins. There is a tunnel dialysis catheter present. CARDIAC: Heart sounds are regular, S1, S2. LUNGS: Clear to auscultation with an occasional rhonchus. She is seen on room air. ABDOMEN: The abdomen is soft and nontender. EXTREMITIES: Extremities are negative for edema. NEUROLOGIC: She lifts her left arm on command. LABORATORY DATA: White count 4.5, hemoglobin 11.3. Sodium 138, potassium 4.5, glucose 80. IMAGING: Brain MRI with a small acute infarct in the medial left frontal lobe, small acute infarct in the right radiata and possible small acute infarct in the medial superior left parietal lobe. INPATIENT MEDICATIONS: She is presently receiving: - D5W at 80. I am changing the D5W over to D10W at 40 mL/hr - aspirin 81 mg by mouth daily - Plavix 75 mg by mouth daily - I discontinued her fenofibrate - gabapentin 100 mg by mouth twice a day - heparin 5000 units subcutaneous twice a day - Synthroid 25 mg by mouth every morning - Protonix 40 mg by mouth daily - pravastatin 80 mg by mouth at bedtime PROBLEMS: 1. End-stage renal disease on hemodialysis on a Saturday, , and Saturday schedule. The patient's last dialysis was on Saturday. She had a contrast study last night. Her electrolytes are acceptable (with the exception of hypoglycemia) and her volume status is acceptable as well. She is saturating well on room air. We will dialyze her on Saturday morning. 2. Recurrent hypoglycemia. Blood sugar dipped down again to 40. Long acting insulin should be held. Primary team has her on sliding scale. She is nothing by mouth in view of the acute stroke. Given that she is a dialysis patient I would want to reduce the rate of intravenous (IV) fluid. At present she was ordered for D5W at 80 mL/hr to maintain euglycemia. I have changed that to D10W at 40 mL/hr and she will continue with frequent fingerstick monitoring and has also received a dose of glucagon. 3. Hypertensive urgency secondary to acute cerebrovascular accident (CVA). I recommend to keep her systolic somewhere around 160 at present. 4. Code status: I discussed code status with the daughter who elects to make Suha DO NOT RESUSCITATE/DO NOT INTUBATE at this time. Medical orders for life-sustaining treatment (MOLST) form has been updated. 5. Acute cerebrovascular accident (CVA). MRI noted 2 to 3 acute infarcts. She is aphasic. Presently on aspirin and Plavix and statin with dysphagia receiving dextrose-based intravenous (IV) fluids. MTDD
[2018-07-15] MEDS: LEVOTHYROXINE 25MCG TABLET (0.025MG) PO SCH (06:08)
[2018-07-15 06:16] LABS: HEMATOCRIT 30.6 % (36.0-47.0); HEMOGLOBIN 9.9 g/dl (12.0-15.5); MEAN CORPUSCULAR HEMOGLOBIN 30.9 pg (27.0-33.0); MEAN CORPUSCULAR HGB CONC 32.4 g/dl (32.0-36.5); MEAN CORPUSCULAR VOLUME 95.6 fl (80.0-96.0); WHITE BLOOD COUNT 3.2 10^3/uL (4.0-10.0)
[2018-07-15 06:21] LABS: PLATELET COUNT, AUTOMATED 74 10^3/uL (150-450)
[2018-07-15 06:31] LABS: CALCIUM LEVEL 8.1 MG/DL (8.8-10.2); CREATININE FOR GFR 2.98 MG/DL (0.55-1.30); GLOMERULAR FILTRATION RATE 15.9 (>32); MAGNESIUM LEVEL 1.9 MG/DL (1.8-2.4); POTASSIUM SERUM 4.2 MEQ/L (3.5-5.1)
[2018-07-15] MEDS: CLOPIDOGREL 75 MG TAB PO SCH (09:34)
[2018-07-15] MEDS: CARVedilol 12.5 MG TAB PO SCH ×2 (09:34→20:31)
[2018-07-15] MEDS: PANTOPRAZOLE 40MG TAB (PROTONIX) PO SCH (09:34)
[2018-07-15] MEDS: ASPIRIN 81 MG ENTERIC TAB PO SCH (09:35)
[2018-07-15] MEDS: GABAPENTIN 100 MG CAP PO SCH ×2 (09:35→20:31)
[2018-07-15] MEDS: NIFEdipine 30 MG XL TAB PO SCH (09:35)
--- NOTE | 2018-07-15 13:35 | IPNPDOC ---
Text Note Date of Service The patient was seen on 07/15/18. NOTE Subjective: Mentation improving, however still has expressive aphasia. Strength in the left upper extremity has improved, and now against gravity. Daughter notes that she has baseline weakness in her bilateral lower extremities, she has been bedbound after her last CVA, which left her with right-sided hemiparesis. Objective: Vitals: (see below) General: No acute distress, laying comfortably in bed. HEENT: Moist mucous membranes. Neck: No JVD or lymphadenopathy Cardiac: RRR, No murmurs Pulm: Clear to auscultation b/l. No wheezing, rhonchi Abd: NT/ND + BS Ext: No edema or cyanosis Neuro: Stated she would not like to complete the whole neurologic exam. Has a right facial droop. Left upper extremity 3-4/5. No tongue deviation noted. More alert today. Has dysarthria, and expressive aphasia. Unable to complete the entire neurologic exam. Labs (see below) Images: MRI brain on 07/13/18 IMPRESSION: Limited by motion. Small acute infarct in the medial left frontal lobe. Small acute infarct in the right radiata. Possible tiny acute infarct in the medial superior left parietal lobe. Chronic white matter changes as described. Bifrontal hygromas. Unchanged from prior. Echocardiogram on 07/13/18 CONCLUSIONS: 1. Mild concentric left ventricular hypertrophy. Normal regional LV wall motion and wall thickening. Normal left ventricular systolic function. Left ventricle ejection fraction 65% by visual estimate. Grade 1 LV diastolic dysfunction, impaired relaxation filling pattern. 2. Moderate mitral annular calcification. No mitral regurgitation. No mitral stenosis. 3. Mild aortic valve sclerosis. No aortic regurgitation. 4. Otherwise normal appearing echocardiogram Doppler. Assessment/Plan 1. 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 Has baseline right-sided hemiparesis status post prior stroke. Discussed with Dr. Martino- additional recommendations for dual antiplatelet therapy for 3 months and then aspirin only, as recommended by Dr. 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 Discussed thrombocytopenia, with recommendations for continuing dual antiplatelet as long as platelets are greater than 50. Patient has no bleeding at this time. Continue statin. Patient's also dysphagia. PT/OT/ST. Had an extensive conversation with the daughter as well as granddaughter given the patient's dismal prognosis, although she is starting to gain some strength in the left upper extremity, and is more alert today, and I have answered all of their questions. 2. Hypertensive urgency secondary to acute CVA. Discussed with Dr. Martino, with recommendations for permissive hypertension for the next 24 hours. Goal systolic blood pressure 140-180. 3. End-stage renal disease on hemodialysis. Appreciate nephrology input. 4. Hypertension controlled. Permissive hypertension for now. 5. Diabetes mellitus. Hold Levemir for now. Sliding scale insulin. 6. Hypothyroidism on Synthroid DVT prophy: SCDs Overall prognosis guarded. Daughter aware - had an extensive conversation with her and answered all of her questions. DNR/DNI VS,Fishbone, I+O VS, Fishbone, I+O Laboratory Tests 07/15/18 05:46 Red Blood Count 3.20 L, Mean Corpuscular Volume 95.6, Mean Corpuscular Hemoglobin 30.9, Mean Corpuscular Hemoglobin Concent 32.4, Red Cell Distribution Width 16.7 H, Calcium Level 8.1 L Vital Signs Date Time Temp Pulse Resp B/P (MAP) Pulse Ox O2 Delivery O2 Flow Rate FiO2 07/15/18 12:00 99.3 67 18 160/50 (86) 98 Room Air I&O- Last 24 Hours up to 6 AM 07/15/18 06:00 Intake Total 520 ml Output Total 200 ml Balance 320 ml JACKY LOMBARDO MD Jul 15, 2018 13:35
[2018-07-15] MEDS: PRAVASTATIN 20 MG TAB PO SCH (20:30)
[2018-07-15] MEDS: ACETAMINOPHEN TAB 650MG DOSE (2X325MG) PO PRN (20:31)
--- NOTE | 2018-07-15 21:54 | IPN ---
DATE: 07/15/2018 SUBJECTIVE: Suha is seen and examined this morning at the bedside. She has a lot of family present. She is now taking oral intake, had oatmeal for breakfast this morning, and family reports her speech is improving as well. VITAL SIGNS: Temperature 97.8, pulse 65, respiratory rate 20, blood pressure 164/56, saturating 98% on room air. Intake yesterday was 660, dialysis yesterday removed 200. Weight on the bed scale today is very different from prior and likely inaccurate. General: Elderly female, lying in bed, family present at the bedside. No acute distress. She says a few words in Hungarian. She follows commands and smiles and makes eye contact. She was unable to stick her tongue out for me today. There is chronic right-sided weakness and foot drop. Cardiac: S1, S2, regular rate and rhythm. Lungs: Symmetric coarse air entry bilaterally. Abdomen is soft. There is no tenderness to palpation. The lower extremities are negative for edema. There is a right internal jugular (IJ) tunneled hemodialysis catheter present. LABORATORY: White count 3.2, hemoglobin 9.9, platelets 74. Sodium 139, potassium 4.2, magnesium 1.9. INPATIENT MEDICATIONS: Reviewed by myself. She continues on D10W at 30 mL an hour. She continues on carvedilol, hydralazine, and nifedipine. Remainder of medications are unchanged from prior. PROBLEMS: 1. End-stage renal disease, on hemodialysis. Patient is off of her usual maintenance schedule of Saturday, , Saturday. She will be dialyzed tomorrow. Her volume status and electrolytes are acceptable, and we usually remove no fluid with dialysis for Suha. 2. Acute CVA involving multiple areas. Possibly due to intracranial stenosis versus of a cardioembolic nature. She continues on aspirin, statin, Plavix and neurology followup. Echo showed diastolic dysfunction but no comment on vegetations, thrombus, nor patent foramen ovale (PFO). She is symptomatically improving. Family tells me she had some oatmeal this morning, and she is able to speak a few words in Hungarian. 3. Hypertension. Permissive hypertension as per neurology, goal 140 to 180. Primary team is managing her antihypertensives, and I made no changes. She usually does not have significant fluctuation of blood pressure on hemodialysis as we do not remove any fluid off of her with hemodialysis. 4. Recurrent hypoglycemia. Oral intake is still poor. Continue D10W at 30 mL an hour. I note that the patient is getting short-acting insulin even for blood sugar of 130, and I request the primary team to hold short-acting insulin unless her blood sugar is greater than 180 because she is at risk for recurrent hypoglycemia, and we are continuing her on D10 infusion for that reason.
--- NOTE | 2018-07-15 23:54 | REPVR ---
EXAM: US Right Duplex Upper Extremity Veins, Limited EXAM DATE/TIME: 07/15/2018 11:47 PM CLINICAL HISTORY: 87 years old, female; Signs and symptoms; Edema, localized; Upper extremity, right; Additional info: Increasing swelling and redness R/O dvt TECHNIQUE: Real-time Duplex ultrasound of the Right Upper Extremity with 2-D castillo scale, color Doppler flow and spectral waveform analysis. Limited exam focused on the right upper extremity veins. COMPARISON: US DUPLEX EXT UPPER VEINS UNILATE 07/12/2018 1:50 PM FINDINGS: Right deep veins: The right subclavian vein is not seen due to overlying bandage. Right superficial veins: Unremarkable. Visualized cephalic and basilic veins are patent without thrombus. Soft tissues: Subcutaneous edema is noted in the distal arm. IMPRESSION: 1. Negative right upper extremity venous duplex exam without evidence of deep venous thrombosis. 2. The right subclavian vein is not seen due to an overlying bandage. Electronically signed by: Issa Stearns On 07/15/2018 23:54:14 PM
[2018-07-16] VITALS: BP 112/58
[2018-07-16 04:00] VITALS: BP 114/52
[2018-07-16] MEDS: HumaLOG INSULIN (NovoLOG) PER UNIT SC SCH ×4 (06:00→17:49)
[2018-07-16] MEDS: CLOPIDOGREL 75 MG TAB PO SCH (06:05)
[2018-07-16] MEDS: NIFEdipine 30 MG XL TAB PO SCH (06:07)
[2018-07-16] MEDS: LEVOTHYROXINE 25MCG TABLET (0.025MG) PO SCH (06:08)
[2018-07-16] MEDS: ASPIRIN 81 MG ENTERIC TAB PO SCH (06:08)
[2018-07-16] MEDS: PANTOPRAZOLE 40MG TAB (PROTONIX) PO SCH (06:08)
[2018-07-16] MEDS: GABAPENTIN 100 MG CAP PO SCH ×2 (06:08→20:34)
[2018-07-16] MEDS: CARVedilol 12.5 MG TAB PO SCH (06:09)
[2018-07-16 06:16] LABS: HEMATOCRIT 32.5 % (36.0-47.0); HEMOGLOBIN 10.5 g/dl (12.0-15.5); MEAN CORPUSCULAR HEMOGLOBIN 30.9 pg (27.0-33.0); MEAN CORPUSCULAR HGB CONC 32.3 g/dl (32.0-36.5); MEAN CORPUSCULAR VOLUME 95.6 fl (80.0-96.0); WHITE BLOOD COUNT 3.1 10^3/uL (4.0-10.0)
[2018-07-16 06:24] LABS: PLATELET COUNT, AUTOMATED 80 10^3/uL (150-450)
[2018-07-16 06:44] LABS: CALCIUM LEVEL 8.3 MG/DL (8.8-10.2); CREATININE FOR GFR 3.78 MG/DL (0.55-1.30); GLOMERULAR FILTRATION RATE 12.1 (>32); MAGNESIUM LEVEL 1.8 MG/DL (1.8-2.4); POTASSIUM SERUM 4.8 MEQ/L (3.5-5.1)
[2018-07-16] MEDS: D10W 1,000 ML IV SCH (08:01)
[2018-07-16 08:14] VITALS: BP 128/64
[2018-07-16 12:00] VITALS: BP 165/69
--- NOTE | 2018-07-16 13:20 | IPNPDOC ---
Text Note Date of Service The patient was seen on 07/16/18. NOTE Subjective: No acute changes overnight. Not eating very much. Objective: Vitals: (see below) General: No acute distress, laying comfortably in bed. HEENT: Moist mucous membranes. Neck: No JVD or lymphadenopathy Cardiac: RRR, No murmurs Pulm: Clear to auscultation b/l. No wheezing, rhonchi Abd: NT/ND + BS Ext: No edema or cyanosis Neuro: Stated she would not like to complete the whole neurologic exam. Has a right facial droop. Left upper extremity 3-4/5. No tongue deviation noted. More alert today. Has dysarthria, and expressive aphasia. Unable to complete the entire neurologic exam. Labs (see below) Images: MRI brain on 07/13/18 IMPRESSION: Limited by motion. Small acute infarct in the medial left frontal lobe. Small acute infarct in the right radiata. Possible tiny acute infarct in the medial superior left parietal lobe. Chronic white matter changes as described. Bifrontal hygromas. Unchanged from prior. Echocardiogram on 07/13/18 CONCLUSIONS: 1. Mild concentric left ventricular hypertrophy. Normal regional LV wall motion and wall thickening. Normal left ventricular systolic function. Left ventricle ejection fraction 65% by visual estimate. Grade 1 LV diastolic dysfunction, impaired relaxation filling pattern. 2. Moderate mitral annular calcification. No mitral regurgitation. No mitral stenosis. 3. Mild aortic valve sclerosis. No aortic regurgitation. 4. Otherwise normal appearing echocardiogram Doppler. Assessment/Plan 1. 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 Has baseline right-sided hemiparesis status post prior stroke. Discussed with Dr. Martino- additional recommendations for dual antiplatelet therapy for 3 months and then aspirin only, as recommended by Dr. 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 Discussed thrombocytopenia, with recommendations for continuing dual antiplatelet as long as platelets are greater than 50. Patient has no bleeding at this time. Continue statin. Patient's also dysphagia. PT/OT/ST. Had an extensive conversation with the daughter as well as granddaughter given the patient's dismal prognosis, although she is starting to gain some strength in the left upper extremity, and is more alert today, and I have answered all of their questions. 2. Hypertensive urgency secondary to acute CVA. Discussed with Dr. Martino, with recommendations for permissive hypertension for the next 24 hours. Goal systolic blood pressure 140-180. 3. End-stage renal disease on hemodialysis. Appreciate nephrology input. 4. Hypertension controlled. Permissive hypertension for now. 5. Diabetes mellitus. Hold Levemir for now. Sliding scale insulin. 6. Hypothyroidism on Synthroid 7. Protein-Calorie malnutrition - unable to advancing diet. Dr. Roger consulted for PEG Tube. DVT prophy: SCDs Overall prognosis guarded. Daughter aware - had an extensive conversation with her and answered all of her questions. DNR/DNI VS,Fishbone, I+O VS, Fishbone, I+O Laboratory Tests 07/16/18 05:37 Red Blood Count 3.40 L, Mean Corpuscular Volume 95.6, Mean Corpuscular H emoglobin 30.9, Mean Corpuscular Hemoglobin Concent 32.3, Red Cell Distribution Width 16.7 H, Calcium Level 8.3 L Vital Signs Date Time Temp Pulse Resp B/P (MAP) Pulse Ox O2 Delivery O2 Flow Rate FiO2 07/16/18 12:00 97.6 74 18 165/69 (101) 99 Room Air I&O- Last 24 Hours up to 6 AM 07/16/18 06:00 Intake Total 1020 ml Output Total 0 ml Balance 1020 ml JACKY LOMBARDO MD Jul 16, 2018 13:20
[2018-07-16 16:36] VITALS: BP 162/68
[2018-07-16 20:00] VITALS: BP 190/80
[2018-07-16] MEDS: PRAVASTATIN 20 MG TAB PO SCH (20:34)
[2018-07-16] MEDS: ACETAMINOPHEN TAB 650MG DOSE (2X325MG) PO PRN (20:35)
[2018-07-16] MEDS: CARVedilol 6.25 MG TAB PO SCH (20:35)
--- NOTE | 2018-07-16 22:30 | IPN ---
DATE: 07/16/2018 SUBJECTIVE: Suha is seen and examined this morning at the bedside. Family is present. She is able to say a few words in Iraqi. She has not been eating that well. Family has agreed for a feeding tube placement. She is pending evaluation by surgery. She continues on D10W infusions. She is for dialysis later this afternoon. VITAL SIGNS: Temperature 97.6, pulse 74, respiratory rate 18, blood pressure 165/69, saturating 99% on room air. Intake yesterday was 975, weight on the bed scale today is 67 kg. Her weights are all very different and likely inaccurate. PHYSICAL EXAMINATION: General: Patient is seen lying in bed. Awake, alert, makes eye contact. Comfortable. No acute distress. Tongue is dry. Neck is supple. There is a right IJ PermaCath. Cardiac: S1, S2, regular rate and rhythm. Lungs: Clear to auscultation but air movement is somewhat coarse. Abdomen is soft and nontender. The right upper extremity has some swelling where there is a peripheral IV. 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 The lower extremities are negative for edema. There is bilateral foot drop. There is weakness on the right upper and right lower extremity. LABORATORY: White count 3.1, hemoglobin 10.5, platelets 80. Sodium 134, potassium 4.8, glucose 143. INPATIENT MEDICATIONS: She continues on D10W, dose is reduced to 20 mL an hour. Coreg dose was cut to 6.25 every 12 hours per the primary team. Her insulin was adjusted per the primary team. The remainder of medications are unchanged from prior. PROBLEMS: 1. End-stage renal disease, on hemodialysis. Patient is off of her usual maintenance schedule of Saturday, , Saturday. She is going to be dialyzed this afternoon. She typically does not have any fluid removal with dialysis. 2. Acute CVA involving multiple areas with expressive aphasia and poor oral intake now. She continues on aspirin, statin and Plavix. Neurology followup. Blood pressure control as per neurology and primary team. There is a plan for feeding tube. 3. Recurrent hypoglycemia. Oral intake is still poor. Continue D10W at 20 mL an hour. Blood sugars are acceptable now and she is for eventual feeding tube placement.
[2018-07-17] VITALS (19 sets, daily range): BP systolic 118–178; BP diastolic 42–80
[2018-07-17] MEDS: LEVOTHYROXINE 25MCG TABLET (0.025MG) PO SCH (05:28)
[2018-07-17] MEDS: HumaLOG INSULIN (NovoLOG) PER UNIT SC SCH ×4 (06:00→17:45)
[2018-07-17 06:04] LABS: HEMATOCRIT 27.7 % (36.0-47.0); HEMOGLOBIN 9.3 g/dl (12.0-15.5); MEAN CORPUSCULAR HGB CONC 33.6 g/dl (32.0-36.5); MEAN CORPUSCULAR VOLUME 92.3 fl (80.0-96.0); WHITE BLOOD COUNT 2.7 10^3/uL (4.0-10.0)
[2018-07-17 06:06] LABS: PLATELET COUNT, AUTOMATED 62 10^3/uL (150-450)
[2018-07-17 06:32] LABS: CALCIUM LEVEL 7.8 MG/DL (8.8-10.2); CREATININE FOR GFR 2.59 MG/DL (0.55-1.30); GLOMERULAR FILTRATION RATE 18.7 (>32); MAGNESIUM LEVEL 1.8 MG/DL (1.8-2.4); POTASSIUM SERUM 3.9 MEQ/L (3.5-5.1)
--- NOTE | 2018-07-17 08:44 | IPNPDOC ---
Text Note Date of Service The patient was seen on 07/17/18. NOTE No acute events overnight. NPO since midnight. No changes to H+P. Consent is signed by the DPOA. Plan for EGD with PEG placement around noon today. Ozzie Roger DO VS,Mary, I+O VS, Mary, I+O Laboratory Tests 07/17/18 05:38 Red Blood Count 3.00 L, Mean Corpuscular Volume 92.3, Mean Corpuscular Hemoglobin 31.0, Mean Corpuscular Hemoglobin Concent 33.6, Red Cell Distribution Width 16.1 H, Calcium Level 7.8 L Vital Signs Date Time Temp Pulse Resp B/P (MAP) Pulse Ox O2 Delivery O2 Flow Rate FiO2 07/17/18 08:00 97.7 72 18 152/62 (92) 98 Room Air I&O- Last 24 Hours up to 6 AM 07/17/18 06:00 Intake Total 960 ml Output Total 0 ml Balance 960 ml MOY ROGER DO Jul 17, 2018 08:44
--- NOTE | 2018-07-17 09:51 | CR ---
DATE OF CONSULTATION: 07/17/2018 REASON FOR CONSULTATION: Is percutaneous endoscopic gastrostomy (PEG) tube placement. HISTORY OF PRESENT ILLNESS: The patient is an 87-year-old female with a history of cerebrovascular accident (CVA) in the past, as well as end-stage renal disease, hypertension, diabetes, hypothyroidism, who presented to the emergency room (ER) with hypertension. She was initially admitted for hypertensive urgency. However, during her hospital stay, she developed aphasia, as well as some tongue deviation. She initially had a CT scan that did not really reveal anything. However, a followup brain MRI on the 07/13/2018 did show that she has multiple scattered acute infarcts in the left frontal lobe right radiata and the left parietal lobe. She did have some hemiparesis from her previous stroke, but she was able to tolerate foods, however, with this current CVA, she now is having difficulty swallowing anything solid. She is able to take down some liquids very limited but no solid foods. Therefore, the patient and family have requested a feeding tube placement. Denies any upper abdominal trauma in the past. No upper abdominal surgeries. PAST MEDICAL HISTORY: End-stage renal disease, on hemodialysis Saturday, , Saturday. Hypertension. Diabetes. Hypothyroidism. A previous CVA. PAST SURGICAL HISTORY: Bladder surgery. Tubal ligation. ALLERGIES: CODEINE, TETANUS. FAMILY HISTORY: Noncontributory. SOCIAL HISTORY: Denies current drug, alcohol, tobacco abuse. MEDICATIONS: Please see medical record. REVIEW OF SYSTEMS: Pertinent positives and negatives as stated in the history of present illness (HPI). PHYSICAL EXAMINATION: General: Alert and oriented times three. In no acute distress. Vital signs: Temperature 97.6, pulse 69, respiration 18, blood pressure 136/67, pulse oximetry 97% on room air. HEENT: Pupils equally round and react to light and accommodation. Heart: S1, S2, regular rate and rhythm. Lungs: Clear to auscultation bilaterally. Abdomen: Soft, nontender, nondistended. Extremities: No clubbing, cyanosis, or edema. LABORATORIES: White count 2.7, hemoglobin 9.3, platelets 62. ASSESSMENT AND PLAN: The patient is an 87-year-old female with dysphagia secondary to recent CVA. The recommendation is to proceed with a PEG tube placement. Risks and benefits of the procedure not limited but including bleeding, infection, perforation, damage to surrounding structure, need for further surgery discussed in detail with the patient's family. Informed consent was obtained, and procedure will be planned for this afternoon.
[2018-07-17] MEDS ORDERED: PROPOFOL 200 MG/20 ML VIAL As Ordered ONE (10:57)
[2018-07-17] MEDS ORDERED: fentaNYL 100 MCG/2 ML INJECTION (J3010) As Ordered ONE ×2 (10:57→22:12)
[2018-07-17] MEDS ORDERED: ONDANSETRON 4MG/2ML VIAL (J2405) As Ordered ONE ×2 (12:09→22:12)
[2018-07-17] MEDS ORDERED: LIDOCAINE 2% INJ 100 MG/5 ML SDV (FOR ANES.) As Ordered ONE ×2 (12:09→22:12)
--- NOTE | 2018-07-17 13:07 | IPNPDOC ---
Text Note Date of Service The patient was seen on 07/17/18. NOTE Subjective: Patient plan for PEG tube today. Objective: Vitals: (see below) General: No acute distress, laying comfortably in bed. HEENT: Moist mucous membranes. Neck: No JVD or lymphadenopathy Cardiac: RRR, No murmurs Pulm: Clear to auscultation b/l. No wheezing, rhonchi Abd: NT/ND + BS Ext: No edema or cyanosis Neuro: Stated she would not like to complete the whole neurologic exam. Has a right facial droop. Left upper extremity 3-4/5. No tongue deviation noted. More alert today. Has dysarthria, and expressive aphasia. Unable to complete the entire neurologic exam. Labs (see below) Images: MRI brain on 07/13/18 IMPRESSION: Limited by motion. Small acute infarct in the medial left frontal lobe. Small acute infarct in the right radiata. Possible tiny acute infarct in the medial superior left parietal lobe. Chronic white matter changes as described. Bifrontal hygromas. Unchanged from prior. Echocardiogram on 07/13/18 CONCLUSIONS: 1. Mild concentric left ventricular hypertrophy. Normal regional LV wall motion and wall thickening. Normal left ventricular systolic function. Left ventricle ejection fraction 65% by visual estimate. Grade 1 LV diastolic dysfunction, impaired relaxation filling pattern. 2. Moderate mitral annular calcification. No mitral regurgitation. No mitral stenosis. 3. Mild aortic valve sclerosis. No aortic regurgitation. 4. Otherwise normal appearing echocardiogram Doppler. Assessment/Plan 1. 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 Has baseline right-sided hemiparesis status post prior stroke. Discussed with Dr. Maritno- additional recommendations for dual antiplatelet therapy for 3 months and then aspirin only, as recommended by Dr. 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 Discussed thrombocytopenia, with recommendations for continuing dual antiplatelet as long as platelets are greater than 50. Patient has no bleeding at this time. Continue statin. Patient's also dysphagia. PT/OT/ST. Had an extensive conversation with the daughter as well as granddaughter given the patient's dismal prognosis, although she is starting to gain some strength in the left upper extremity, and is more alert today, and I have answered all of their questions. 2. Hypertensive urgency secondary to acute CVA. Discussed with Dr. Martino, with recommendations for permissive hypertension for the next 24 hours. Goal systolic blood pressure 140-180. 3. End-stage renal disease on hemodialysis. Appreciate nephrology input. 4. Hypertension controlled. Permissive hypertension for now. 5. Diabetes mellitus. Hold Levemir for now. Sliding scale insulin. 6. Hypothyroidism on Synthroid 7. Protein-Calorie malnutrition - unable to advancing diet. Dr. Roger consulted for PEG Tube, scheduled for today. 8. Pancytopenia on a patient with end-stage renal disease. Peripheral smear with no acute findings. Will need close outpatient follow-up with PCP. DVT prophy: SCDs Overall prognosis guarded. Daughter aware - had an extensive conversation with her and answered all of her questions. DNR/DNI VS,Fishbone, I+O VS, Fishbone, I+O Laboratory Tests 07/17/18 05:38 Red Blood Count 3.00 L, Mean Corpuscular Volume 92.3, Mean Corpuscular Hemoglobin 31.0, Mean Corpuscular Hemoglobin Concent 33.6, Red Cell Distribution Width 16.1 H, Calcium Level 7.8 L Vital Signs Date Time Temp Pulse Resp B/P (MAP) Pulse Ox O2 Delivery O2 Flow Rate FiO2 07/17/18 12:48 76 18 170/72 (104) 99 Room Air 07/17/18 12:17 97.4 I&O- Last 24 Hours up to 6 AM 07/17/18 06:00 Intake Total 960 ml Output Total 0 ml Balance 960 ml JACKY LOMBARDO MD Jul 17, 2018 13:07
[2018-07-17] MEDS: D10W 1,000 ML IV SCH ×2 (13:36→21:52)
--- NOTE | 2018-07-17 13:46 | RO ---
DATE OF PROCEDURE: 07/17/2018 PREOPERATIVE DIAGNOSIS: Dysphagia. POSTOPERATIVE DIAGNOSIS: Dysphagia. PROCEDURE: Upper endoscopy with percutaneous endoscopic gastrostomy tube placement. SURGEON: Dr. Lucas Roger ASSOCIATE PROFESSOR OF MUSIC: None. ANESTHESIA: IV sedation with 5 mL of 1% lidocaine local. COMPLICATIONS: None. INDICATIONS FOR PROCEDURE: The patient is an 87-year-old female who presented with a CVA, currently having dysphagia and difficulty and trouble swallowing solid foods. Recommendation was for placement of a percutaneous endoscopic gastrostomy (PEG) tube. Her as well as her family have agreed to this after a discussion of the risks and benefits not limited to, but including bleeding, infection, perforation of the esophagus or the stomach, damage to surrounding structures, and need for further surgery. They signed consent and the procedure was planned. DESCRIPTION OF PROCEDURE: The patient brought back to OPP room 2 after sufficient sedation. The abdominal wall was sterilely prepped and draped with chlorhexidine. Next, the endoscope was passed down through to the stomach. Once the stomach was reached, it was insufflated. I was able to transilluminate and easily identify location of the abdominal wall for placement of the tube. With the tech holding the scope in place, I numbed up the skin and made a 5 mm incision was an 11 blade scalpel and inserted a needle through the abdominal wall into the stomach under direct visualization. The snare was passed through the endoscope, held over top of the needle. The guidewire was passed through the needle and then grabbed with the endoscope and brought out through the mouth. The needle was then removed. The 20-Italian feeding tube was passed over top of the guidewire and brought out through the abdominal wall to about the 2 cm regina. The tube was cut to length. A bumper was placed on the outside. The scope was passed back down through into the stomach to confirm proper positioning and there were no signs of any bleeding. The scope was then removed and dressing was applied to the feeding tube and port was placed on the end of the feeding tube, thus ending procedure. The patient was then awakened from anesthesia and sent to the recovery room in stable condition.
[2018-07-17] MEDS: CARVedilol 6.25 MG TAB PO SCH ×2 (13:47→21:00)
[2018-07-17] MEDS: PANTOPRAZOLE 40MG TAB (PROTONIX) PO SCH (13:47)
[2018-07-17] MEDS: CLOPIDOGREL 75 MG TAB PO SCH (13:47)
[2018-07-17] MEDS: ASPIRIN 81 MG ENTERIC TAB PO SCH (13:48)
[2018-07-17] MEDS: GABAPENTIN 100 MG CAP PO SCH ×2 (13:48→21:00)
[2018-07-17 20:08] LABS: BASO % 0.1 % (0.0-1.0); EOS # 0.1 10^3/uL (0.0-0.50); EOS % 1.6 % (0.0-3.0); HEMATOCRIT 24.5 % (36.0-47.0); HEMOGLOBIN 7.8 g/dl (12.0-15.5); LYMPH # 0.5 10^3/uL (1.5-4.5); LYMPH % 6.9 % (24.0-44.0); MEAN CORPUSCULAR HEMOGLOBIN 30.4 pg (27.0-33.0); MEAN CORPUSCULAR HGB CONC 31.8 g/dl (32.0-36.5); MEAN CORPUSCULAR VOLUME 95.3 fl (80.0-96.0); MONO # 0.5 10^3/uL (0.0-0.8); MONO % 6.5 % (0.0-5.0); NEUTROPHILS # 6.3 10^3/uL (1.8-7.7); NEUTROPHILS % 83.4 % (36.0-66.0); PLATELET COUNT, AUTOMATED 110 10^3/uL (150-450); RED BLOOD COUNT 2.57 10^6/uL (4.00-5.40); WHITE BLOOD COUNT 7.6 10^3/uL (4.0-10.0)
[2018-07-17 20:26] LABS: INR 1.38; PROTHROMBIN TIME 17.2 SECONDS (12.1-14.4)
[2018-07-17 20:29] LABS: CALCIUM LEVEL 7.7 MG/DL (8.8-10.2); CREATININE FOR GFR 3.25 MG/DL (0.55-1.30); GLOMERULAR FILTRATION RATE 14.4 (>32); POTASSIUM SERUM 4.9 MEQ/L (3.5-5.1)
[2018-07-17] MEDS ORDERED: EPINEPHrine 1MG/10ML SYRINGE 1.5IN As Ordered ONE (20:46)
[2018-07-17] MEDS: PRAVASTATIN 20 MG TAB PO SCH (21:00)
[2018-07-17 21:59] LABS: PARTIAL THROMBOPLASTIN TIME > 240.0 SECONDS (25.4-37.6)
[2018-07-17] MEDS ORDERED: ONDANSETRON 4MG/2ML VIAL (J2405) IV PRN (22:00)
[2018-07-17] MEDS ORDERED: LIDOCAINE W/EPINEPHRINE 1% 20ML VIAL As Ordered ONE (22:00)
[2018-07-17] MEDS ORDERED: LR 1,000 ML IV SCH (22:00)
[2018-07-17] MEDS ORDERED: dexameTHASONE 4 MG/ML 1ML VIAL (J1100) As Ordered ONE (22:12)
--- NOTE | 2018-07-17 22:31 | RO ---
DATE OF PROCEDURE: 07/17/2018 PREPROCEDURE DIAGNOSIS: Upper GI bleeding, status post Peg tube placement. POSTOPERATIVE DIAGNOSIS: Bleeding at G tube insertion site (intragastric). OPERATIVE PROCEDURE: Esophagogastroduodenoscopy (EGD). SURGEON: Moe Cox MD BEAD MAKER: ANESTHESIA: General endotracheal anesthesia ESTIMATED BLOOD LOSS: Minimal. FLUIDS: Crystalloid. BRIEF PROCEDURE SUMMARY: The patient had some bleeding at the G tube site externally, but more importantly had some hematemesis and this was at least 300 mL of hematemesis with additional drainage of 300+ mL of dark bloody fluid. This was irrigated copiously but really never cleared up on the floor. Was brought to the operating room and this was irrigated further and it cleared up better when she was down here. An upper scope was inserted down into the oropharynx, down to the esophagus where there was some petechial changes to the esophageal wall, probably from trauma from the G tube insertion, but overall no significant abnormality in the esophagus itself. Down in the stomach there was some minimal areas of gastritis, but these were not actively bleeding and right around the G-tube there was evidence of recent red bleeding. After pulling the G tube tighter up against the abdominal wall the area was irrigated copiously and revealed no active bleeding. Essentially the bleeding was coming around the G-tube site. It did not seem to stop earlier today when I had tightened up the tube. In any case, the stomach was desufflated at this time and after several minutes the area was rechecked and revealed no active bleeding. I placed lidocaine with epinephrine externally after prepping out the area around the G tube insertion site and placed it in the abdominal wall in this area in case some of bleeding was coming from the rectus muscle on this side. In any case there was no active bleeding. No other significant abnormality. The scope was removed in its entirety. The patient tolerated the procedure well was brought to the recovery room hemodynamically stable.
--- NOTE | 2018-07-17 23:08 | IPNPDOC ---
Date Seen The patient was seen on 07/17/18 at 7:20 PM. Progress Note Patient was said to have had copious hematemesis over 300 mils was suctioned from her mouth. Although at time of incidents vital signs were BP 178/75 with pulse 92, and saturation 98, room air. Physical exam: GENERAL APPEARANCE: Elderly woman, lying calmly in bed, not in any apparent distress. She does not appear pale, anicteric and afebrile VITALS: BP 158/62, saturation 99% on RA. HEENT: Atraumatic. Neck: Supple. LUNGS: Clear to auscultation bilaterally. CARDIOVASCULAR: S1 and 2 heard, no murmurs, rubs or gallops. ABDOMEN: Obese, PEG tube in situ, soft, non tender, not distended. MUSCULOSKELETAL: Apparently within normal limits. EXTREMITIES: No pedal edema. NEUROLOGICAL: Awake, alert, oriented 3. PSYCHIATRIC: Normal affect . PLAN -Continue vital signs monitoring. -Labs CBC, chemistry, PT, INR. Follow-up labs hemoglobin every 6 hours 5 times -2 units packed RBC. If hemoglobin is less than 7, I have obtained consent for blood transfusion from next of kin. -Surgery consult to Dr. Cox done. -Patient is being planned for urgent endoscopy by general surgery. -Further management to be per patient's clinical course/patient is DNR/DNI. VS, I&O, 24H, [facility] Vital Signs/I&O Vital Signs Date Time Temp Pulse Resp B/P (MAP) Pulse Ox O2 Delivery O2 Flow Rate FiO2 07/17/18 22:45 98.4 85 20 113/54 (73) 100 Nasal Cannula 3 I&O- Last 24 Hours up to 6 AM 07/17/18 06:00 Intake Total 960 ml Output Total 0 ml Balance 960 ml Laboratory Data 24H LABS Laboratory Tests 2 07/17/18 01:11: Bedside Glucose (Misc Panel) 148H 07/17/18 05:31: Differential Slide Review Report, Peripheral Blood Smear Path Consult PERIPHERAL SMEAR 07/17/18 05:38: Nucleated Red Blood Cells % (auto) 0.0, Immature Platelet Fraction 7.0, Anion Gap 8, Glomerular Filtration Rate 18.7L, Blood Urea Nitrogen 15, Creatinine 2.59H, Sodium Level 136, Potassium Level 3.9, Chloride Level 105, Carbon Dioxide Level 23, Calcium Level 7.8L, Magnesium Level 1.8 07/17/18 08:28: 07/17/18 10:16: Bedside Glucose (Misc Panel) 135H 07/17/18 13:50: Bedside Glucose (Misc Panel) 160H 07/17/18 17:02: Bedside Glucose (Misc Panel) 233H 07/17/18 19:36: Bedside Glucose (Misc Panel) 252H 07/17/18 19:59: Immature Granulocyte % (Auto) 1.5, White Blood Count 7.6, Red Blood Count 2.57L, Hemoglobin 7.8L, Hematocrit 24.5L, Mean Corpuscular Volume 95.3, Mean Corpuscular Hemoglobin 30.4, Mean Corpuscular Hemoglobin Concent 31.8L, Red Cell Distribution Width 16.4H, Platelet Count 110L, Neutrophils (%) (Auto) 83.4H, Lymphocytes (%) (Auto) 6.9L, Monocytes (%) (Auto) 6.5H, Eosinophils (%) (Auto) 1.6, Basophils (%) (Auto) 0.1, Neutrophils # (Auto) 6.3, Lymphocytes # (Auto) 0.5L, Monocytes # (Auto) 0.5, Eosinophils # (Auto) 0.1, Basophils # (Auto) 0.0, Nucleated Red Blood Cells % (auto) 0.0, Prothrombin Time 17.2H, Prothromb Time International Ratio 1.38, Activated Partial Thromboplast Time > 240.0*H, Anion Gap 9, Glomerular Filtration Rate 14.4L, Blood Urea Nitrogen 39#H, Creatinine 3.25H, Sodium Level 137, Potassium Level 4.9#, Chloride Level 104, Carbon Dioxide Level 24, Calcium Level 7.7L 07/17/18 20:14: Bedside Glucose (Misc Panel) 279H CBC/BMP Laboratory Tests 07/17/18 05:38 Red Blood Count 3.00 L, Mean Corpuscular Volume 92.3, Mean Corpuscular Hemoglobin 31.0, Mean Corpuscular Hemoglobin Concent 33.6, Red Cell Distribution Width 16.1 H, Calcium Level 7.8 L 07/17/18 19:59 Red Blood Count 2.57 L, Mean Corpuscular Volume 95.3, Mean Corpuscular Hemoglobin 30.4, Mean Corpuscular Hemoglobin Concent 31.8 L, Red Cell Distribution Width 16.4 H, Calcium Level 7.7 L, Neutrophils (%) (Auto) 83.4 H, Lymphocytes (%) (Auto) 6.9 L, Monocytes (%) (Auto) 6.5 H, Eosinophils (%) (Auto) 1.6, Basophils (%) (Auto) 0.1, Neutrophils # (Auto) 6.3, Lymphocytes # (Auto) 0.5 L, Monocytes # (Auto) 0.5, Eosinophils # (Auto) 0.1, Basophils # (Auto) 0.0 Microbiology Microbiology 07/14/18 Blood Culture - Preliminary, Resulted No Growth after 72 hours. All specime... 07/14/18 Blood Culture - Preliminary, Resulted No Growth after 72 hours. All specime... SABINE BROWN MD Jul 17, 2018 23:08
[2018-07-18] VITALS (11 sets, daily range): BP systolic 118–188; BP diastolic 50–74
[2018-07-18] MEDS: LEVOTHYROXINE 25MCG TABLET (0.025MG) PO SCH (06:00)
[2018-07-18 06:39] LABS: MEAN CORPUSCULAR HEMOGLOBIN 29.6 pg (27.0-33.0); MEAN CORPUSCULAR HGB CONC 33.8 g/dl (32.0-36.5); MEAN CORPUSCULAR VOLUME 87.5 fl (80.0-96.0); WHITE BLOOD COUNT 7.5 10^3/uL (4.0-10.0)
[2018-07-18 07:00] LABS: CREATININE FOR GFR 3.61 MG/DL (0.55-1.30); GLOMERULAR FILTRATION RATE 12.7 (>32); MAGNESIUM LEVEL 1.8 MG/DL (1.8-2.4); POTASSIUM SERUM 4.8 MEQ/L (3.5-5.1)
[2018-07-18 07:05] LABS: PLATELET COUNT, AUTOMATED 74 10^3/uL (150-450)
[2018-07-18 07:06] LABS: HEMOGLOBIN 14.2 g/dl (12.0-15.5)
[2018-07-18] MEDS: HumaLOG INSULIN (NovoLOG) PER UNIT SC SCH ×4 (08:34→17:36)
[2018-07-18] MEDS: CARVedilol 6.25 MG TAB PO SCH ×3 (09:00→21:00)
[2018-07-18] MEDS: GABAPENTIN 100 MG CAP PO SCH ×3 (09:00→21:00)
[2018-07-18] MEDS: PANTOPRAZOLE 40MG TAB (PROTONIX) PO SCH ×2 (09:00→14:04)
[2018-07-18] MEDS: ASPIRIN 81 MG ENTERIC TAB PO SCH ×2 (09:00→14:04)
[2018-07-18] MEDS: CLOPIDOGREL 75 MG TAB PO SCH ×2 (09:00→14:03)
--- NOTE | 2018-07-18 10:16 | IPNPDOC ---
Text Note Date of Service The patient was seen on 07/18/18. NOTE No current complaints. She had some bleeding last night around the PEG tube that was stopped by tightening the bumper, and injecting some lidocaine with epi around it. This was likely due to her blood thinners and low platelets. No more problems with bleeding since last night, and hgb is stable after 2 units PRBCs. VSSAF NAD abd - soft, NT, ND, PEG tube in place without any signs of bleeding. labs - below A) 87y/o female s/p PEG placement P) start tube feeds today plan on starting bolus feeds tomorrow restart blood thinners monitor for continued bleeding will follow as needed Ozzie Roger DO VS,Fishbone, I+O VS, Fishbone, I+O Laboratory Tests 07/17/18 19:59 Red Blood Count 2.57 L, Mean Corpuscular Volume 95.3, Mean Corpuscular Hemoglobin 30.4, Mean Corpuscular Hemoglobin Concent 31.8 L, Red Cell Distribution Width 16.4 H, Neutrophils (%) (Auto) 83.4 H, Lymphocytes (%) (Auto) 6.9 L, Monocytes (%) (Auto) 6.5 H, Eosinophils (%) (Auto) 1.6, Basophils (%) (Auto) 0.1, Neutrophils # (Auto) 6.3, Lymphocytes # (Auto) 0.5 L, Monocytes # (Auto) 0.5, Eosinophils # (Auto) 0.1, Basophils # (Auto) 0.0, Calcium Level 7.7 L 07/18/18 06:15 Red Blood Count 4.80, Mean Corpuscular Volume 87.5, Mean Corpuscular Hemoglobin 29.6, Mean Corpuscular Hemoglobin Concent 33.8, Red Cell Distribution Width 15.9 H, Calcium Level 8.0 L Vital Signs Date Time Temp Pulse Resp B/P (MAP) Pulse Ox O2 Delivery O2 Flow Rate FiO2 07/18/18 09:00 90 142/60 07/18/18 08:00 97.7 18 98 Nasal Cannula 1.0 I&O- Last 24 Hours up to 6 AM 07/18/18 06:00 Intake Total 760 ml Output Total 300 ml Balance 460 ml MOY ROGER DO Jul 18, 2018 10:16
--- NOTE | 2018-07-18 13:30 | IPNPDOC ---
Text Note Date of Service The patient was seen on 07/18/18. NOTE Subjective: Patient had an episode of hematemesis overnight, required 2 units PRBC, and had an endoscopy with notable gastritis and petechiae. She is now hemodynamically stable. Objective: Vitals: (see below) General: No acute distress, laying comfortably in bed. HEENT: Moist mucous membranes. Neck: No JVD or lymphadenopathy Cardiac: RRR, No murmurs Pulm: Clear to auscultation b/l. No wheezing, rhonchi Abd: NT/ND + BS. PEG tube in place with no leak or bleeding. Ext: No edema or cyanosis Neuro: Stated she would not like to complete the whole neurologic exam. Has a right facial droop. Left upper extremity 3-4/5. No tongue deviation noted. More alert today. Has dysarthria, and expressive aphasia. Unable to complete the entire neurologic exam. Labs (see below) Images: MRI brain on 07/13/18 IMPRESSION: Limited by motion. Small acute infarct in the medial left frontal lobe. Small acute infarct in the right radiata. Possible tiny acute infarct in the medial superior left parietal lobe. Chronic white matter changes as described. Bifrontal hygromas. Unchanged from prior. Echocardiogram on 07/13/18 CONCLUSIONS: 1. Mild concentric left ventricular hypertrophy. Normal regional LV wall motion and wall thickening. Normal left ventricular systolic function. Left ventricle ejection fraction 65% by visual estimate. Grade 1 LV diastolic dysfunction, impaired relaxation filling pattern. 2. Moderate mitral annular calcification. No mitral regurgitation. No mitral stenosis. 3. Mild aortic valve sclerosis. No aortic regurgitation. 4. Otherwise normal appearing echocardiogram Doppler. Assessment/Plan 1. 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 Has baseline right-sided hemiparesis status post prior stroke. Dis cussed with Dr. Martino- additional recommendations for dual antiplatelet therapy for 3 months and then aspirin only, as recommended by Dr. 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 Discussed thrombocytopenia, with recommendations for contin uing dual antiplatelet as long as platelets are greater than 50. Patient has no bleeding at this time. Continue statin. Patient's also dysphagia. PT/OT/ST. Had an extensive conversation with the daughter as well as granddaughter given the patient's dismal prognosis, although she is starting to gain some strength in the left upper extremity, and is more alert today, and I have answered all of their questions. 2. Hypertensive urgency secondary to acute CVA. Discussed with Dr. Martino, with recommendations for permissive hypertension for the next 24 hours. Goal systolic blood pressure 140-180. 3. End-stage renal disease on hemodialysis. Appreciate nephrology input. 4. Hypertension controlled. Permissive hypertension for now. 5. Diabetes mellitus. Hold Levemir for now. Sliding scale insulin. 6. Hypothyroidism on Synthroid 7. Protein-Calorie malnutrition - unable to advancing diet. Dr. Roger consulted for PEG Tube, scheduled for today. 8. Pancytopenia on a patient with end-stage renal disease. Peripheral smear with no acute findings. Will need close outpatient follow-up with PCP. 9. Upper GI bleed status post PEG tube. Patient received PRBC. Hemoglobin stable now. Evaluated by Dr. Roger post EGD, with recommendations to restart tube feedings as well as antiplatelet agents aspirin/Plavix. DVT prophy: SCDs Overall prognosis guarded. Daughter aware - had an extensive conversation with her and answered all of her questions. DNR/DNI VS,Fishbone, I+O VS, Fishbone, I+O Laboratory Tests 07/17/18 19:59 Red Blood Count 2.57 L, Mean Corpuscular Volume 95.3, Mean Corpuscular Hemoglobin 30.4, Mean Corpuscular Hemoglobin Concent 31.8 L, Red Cell Distribution Width 16.4 H, Neutrophils (%) (Auto) 83.4 H, Lymphocytes (%) (Auto) 6.9 L, Monocytes (%) (Auto) 6.5 H, Eosinophils (%) (Auto) 1.6, Basophils (%) (Auto) 0.1, Neutrophils # (Auto) 6.3, Lymphocytes # (Auto) 0.5 L, Monocytes # (Auto) 0.5, Eosinophils # (Auto) 0.1, Basophils # (Auto) 0.0, Calcium Level 7.7 L 07/18/18 06:15 Red Blood Count 4.80, Mean Corpuscular Volume 87.5, Mean Corpuscular Hemoglobin 29.6, Mean Corpuscular Hemoglobin Concent 33.8, Red Cell Distribution Width 15.9 H, Calcium Level 8.0 L Vital Signs Date Time Temp Pulse Resp B/P (MAP) Pulse Ox O2 Delivery O2 Flow Rate FiO2 07/18/18 12:00 97.9 88 17 152/70 (97) 100 Nasal Cannula 1.0 I&O- Last 24 Hours up to 6 AM 07/18/18 06:00 Intake Total 760 ml Output Total 300 ml Balance 460 ml JACKY LOMBARDO MD Jul 18, 2018 13:30
[2018-07-18] MEDS: ACETAMINOPHEN TAB 650MG DOSE (2X325MG) PO PRN (14:04)
--- NOTE | 2018-07-18 14:50 | NUR ---
Pt reassessed for diet consistency tolerance. Noted oral residue and anterior spillage of bolus. However, swallow is sometimes slow but present. Please continue with puree solids and thin liquids. Nosey cup presentation for liquids in small amounts. Pt will lose some bolus on the left side but keep spillage wiped and continue with feeding. Pt must be in full upright position for all meals/snacks/meds. Pt may need to have head pillow removed to prevent her head from dropping. Meds crushed in puree assist. Addendum: 07/18/18 at 1457 by LEXIE NERI SP Amended: Links added.
[2018-07-18] MEDS: PRAVASTATIN 20 MG TAB PO SCH (21:00)
[2018-07-18] MEDS ORDERED: ONDANSETRON 4MG/2ML VIAL (J2405) IV PRN (21:30)
--- NOTE | 2018-07-18 21:34 | REPVR ---
EXAM: CT Head Without Contrast EXAM DATE/TIME: 07/18/2018 9:15 PM CLINICAL HISTORY: 87 years old, female; Signs and symptoms; Other: Potential stroke; Additional info: R/O stroke TECHNIQUE: Axial computed tomography images of the head/brain without contrast. All CT scans at this facility use at least one of these dose optimization techniques: automated exposure control; mA and/or kV adjustment per patient size (includes targeted exams where dose is matched to clinical indication); or iterative reconstruction. COMPARISON: CT Head without contrast 07/12/2018 11:46 PM FINDINGS: Brain: There is generalized cortical atrophy. Low density is noted in the periventricular white matter extending into the martinez radiata and the centrum semiovale bilaterally. Subcortical infarct noted in the left external capsule measuring 6.5 mm and unchanged from previous. 8 mm lacunar infarct noted in the medial left frontal lobe anterior to and contiguous with the anterior horn of left lateral ventricle. No mass effect. No acute hemorrhage. Small bilateral subdural hygromas anteriorly. Ventricles: Normal. No ventriculomegaly. Bones/joints: Normal. No acute fracture. Sinuses: Normal as visualized. No acute sinusitis. Mastoid air cells: Normal as visualized. No mastoid effusion. Soft tissues: Normal. IMPRESSION: 1. Subacute lacunar infarct in the left frontal lobe. This was not definitely noted previously although some of the apparent difference may be related to angle of the image acquisition. 2. Atrophy but chronic subdural hygromas. No change. 3. Extensive chronic microvascular ischemic changes in the deep white matter including a lacunar infarct in the left external capsule. Electronically signed by: Virginia Dee On 07/18/2018 21:34:28 PM
[2018-07-18 21:47] LABS: CALCIUM LEVEL 7.6 MG/DL (8.8-10.2); CREATININE FOR GFR 4.22 MG/DL (0.55-1.30); GLOMERULAR FILTRATION RATE 10.6 (>32); POTASSIUM SERUM 4.6 MEQ/L (3.5-5.1); THYROID STIMULATING HORMONE 1.92 uIU/ML (0.358-3.740)
--- NOTE | 2018-07-18 21:56 | REPVR ---
EXAM: XR Chest, 1 View EXAM DATE/TIME: 07/18/2018 8:32 PM CLINICAL HISTORY: 87 years old, female; Signs and symptoms; Other: R/O stroke TECHNIQUE: XR of the chest, 1 view. COMPARISON: CR Chest, 1 view 07/12/2018 4:05 PM FINDINGS: Tubes, catheters and devices: Any dual-lumen large bore right internal jugular venous catheter tip projects in the expected location of the right atrium. External monitoring devices are present. Lungs: Mild interstitial prominence noted diffusely but particularly at the lung bases. Pleural space: Mild biapical pleural thickening noted. There is blunting of the left lateral costophrenic angle. Heart/Mediastinum: Unremarkable. No cardiomegaly. Bones/joints: Unremarkable. Other findings: Surgical clip projects over the left axilla. IMPRESSION: Mild interstitial prominence particularly at the lung bases. This is more conspicuous at the left lung base compared to previous. Electronically signed by: Virginia Dee On 07/18/2018 21:55:35 PM
--- NOTE | 2018-07-18 22:37 | IPNPDOC ---
Date Seen The patient was seen on 07/18/18. 7pm. Progress Note Patient was said to have had a change in mental status, described by grand daughter as difficulty raising her left upper extremity and difficulty with speech. I ordered labs and stat CT Physical exam: GENERAL APPEARANCE: Elderly woman, lying calmly in bed, not in any apparent distress. She does not appear pale, anicteric and afebrile VITALS: BP 148/62. HEENT: Atraumatic. Neck: Supple. LUNGS: Clear to auscultation bilaterally. CARDIOVASCULAR: S1 and 2 heard, no murmurs, rubs or gallops. ABDOMEN: Obese, PEG tube in situ, soft, non tender, not distended. MUSCULOSKELETAL: Apparently within normal limits. EXTREMITIES: No pedal edema. NEUROLOGICAL: Awake, difficulty with speech which is new, right upper extremity weakness 2/5 Labs: sent CT: Small subacute lacunar infarct in the medial left frontal lobe. CXR: Mild interstitial prominence particularly at the lung bases. This is more conspicuous at the left lung base compared to previous. Assessment: CVA PLAN -Continue vital signs monitoring. -Allow permissive hypertension for the next 24 to 48hrs. Use BP medications if systolic BP > 180mmHg -Patient not a candidate for TPA given history of GI bleed yesterday, I will defer re starting Plavix to day team/GI tomorrow. Dr. Camp consulted. Will do MRI/Echocardiogram/ carotid dopplers. -BMP/TSH sent -TEDs for DVT ppx for now until evaluated by day team to when safe to start jhonatan vix -Further management to be per patient's clinical course/patient is DNR/DNI. VS, I&O, 24H, [facility] Vital Signs/I&O Vital Signs Date Time Temp Pulse Resp B/P (MAP) Pulse Ox O2 Delivery O2 Flow Rate FiO2 07/18/18 20:30 99 148/64 (92) 98 Room Air 07/18/18 20:00 98.1 18 I&O- Last 24 Hours up to 6 AM 07/18/18 06:00 Intake Total 760 ml Output Total 300 ml Balance 460 ml Laboratory Data 24H LABS Laboratory Tests 2 07/17/18 23:18: Activated Partial Thromboplast Time 29.3 07/18/18 00:03: Bedside Glucose (Misc Panel) 210H 07/18/18 06:15: Nucleated Red Blood Cells % (auto) 0.0, Immature Platelet Fraction 9.1, Anion Gap 9, Glomerular Filtration Rate 12.7L, Blood Urea Nitrogen 49H, Creatinine 3.61H, Sodium Level 137, Potassium Level 4.8, Chloride Level 107, Carbon Dioxide Level 21, Calcium Level 8.0L, Magnesium Level 1.8 07/18/18 06:18: Bedside Glucose (Misc Panel) 172H 07/18/18 12:05: Bedside Glucose (Misc Panel) 133H 07/18/18 17:08: Bedside Glucose (Misc Panel) 200H 07/18/18 20:51: Bedside Glucose (Misc Panel) 135H 07/18/18 21:04: Anion Gap 12, Glomerular Filtration Rate 10.6L, Blood Urea Nitrogen 55H, Creatinine 4.22H, Sodium Level 142, Potassium Level 4.6, Chloride Level 108H, Carbon Dioxide Level 22, Calcium Level 7.6L, Thyroid Stimulating Hormone (TSH) 1.920 CBC/BMP Laboratory Tests 07/18/18 06:15 Red Blood Count 4.80, Mean Corpuscular Volume 87.5, Mean Corpuscular Hemoglobin 29.6, Mean Corpuscular Hemoglobin Concent 33.8, Red Cell Distribution Width 15.9 H, Calcium Level 8.0 L 07/18/18 13:25 07/18/18 20:14 07/18/18 21:04 Calcium Level 7.6 L Microbiology Microbiology 07/14/18 Blood Culture - Preliminary, Resulted No Growth after 72 hours. All specime... 07/14/18 Blood Culture - Preliminary, Resulted No Growth after 72 hours. All specime... SABINE BROWN MD Jul 18, 2018 22:37
[2018-07-19] VITALS (7 sets, daily range): BP systolic 98–164; BP diastolic 50–70
[2018-07-19] MEDS: LEVOTHYROXINE 25MCG TABLET (0.025MG) PO SCH (05:28)
[2018-07-19 05:36] LABS: HEMATOCRIT 29.6 % (36.0-47.0); HEMOGLOBIN 10.2 g/dl (12.0-15.5); MEAN CORPUSCULAR HEMOGLOBIN 29.9 pg (27.0-33.0); MEAN CORPUSCULAR HGB CONC 34.5 g/dl (32.0-36.5); MEAN CORPUSCULAR VOLUME 86.8 fl (80.0-96.0); RED BLOOD COUNT 3.41 10^6/uL (4.00-5.40); WHITE BLOOD COUNT 7.5 10^3/uL (4.0-10.0)
[2018-07-19 05:38] LABS: PLATELET COUNT, AUTOMATED 64 10^3/uL (150-450)
--- NOTE | 2018-07-19 05:43 | REPVR ---
EXAM: CT Abdomen and Pelvis Without Contrast EXAM DATE/TIME: 07/19/2018 6:00 AM CLINICAL HISTORY: 87 years old, female; Pain and signs and symptoms; Bloating; Abdominal pain; Generalized; Additional info: Abdominal distention TECHNIQUE: Axial computed tomography images of the abdomen and pelvis without contrast. All CT scans at this facility use at least one of these dose optimization techniques: automated exposure control; mA and/or kV adjustment per patient size (includes targeted exams where dose is matched to clinical indication); or iterative reconstruction. Coronal and sagittal reformatted images were created and reviewed. COMPARISON: CT ABD PELVIS W/O CONTRAST 09/01/2016 1:21 PM FINDINGS: Tubes, catheters and devices: G-tube in the stomach. Lower thorax: Bibasilar patchy infiltrates with slight interstitial prominence and minimal fibro-atelectatic change. ABDOMEN: Liver: Normal. No mass. Gallbladder and bile ducts: Absent gallbladder. Pancreas: Normal. No ductal dilation. Spleen: Normal. No splenomegaly. Adrenals: Normal. No mass. Kidneys and ureters: Normal. No hydronephrosis. Stomach and bowel: Normal. No obstruction. No mucosal thickening. Appendix: A normal appendix is seen. PELVIS: Bladder: Unremarkable as visualized. Reproductive: Unremarkable as visualized. ABDOMEN and PELVIS: Intraperitoneal space: Normal. No free air. No significant fluid collection. Bones/joints: No acute fracture. No dislocation. Soft tissues: Unremarkable. Vasculature: There is prominent atherosclerotic calcification of the abdominal aorta with extension into the iliac arteries. Lymph nodes: Normal. No enlarged lymph nodes. IMPRESSION: 1. Bibasilar patchy infiltrates with slight interstitial prominence and minimal fibro-atelectatic change which is increased since 09/01/2016. 2. G-tube in stomach which is new since the prior study. 3. Status post cholecystectomy. Electronically signed by: Issa Stearns On 07/19/2018 05:43:13 AM
[2018-07-19 05:48] LABS: CALCIUM LEVEL 7.7 MG/DL (8.8-10.2); CREATININE FOR GFR 4.61 MG/DL (0.55-1.30); GLOMERULAR FILTRATION RATE 9.6 (>32); MAGNESIUM LEVEL 1.4 MG/DL (1.8-2.4); POTASSIUM SERUM 4.1 MEQ/L (3.5-5.1)
[2018-07-19] MEDS: HumaLOG INSULIN (NovoLOG) PER UNIT SC SCH ×5 (06:00→23:53)
[2018-07-19] MEDS ORDERED: MAG SULF 1GM/100ML (MAG RUN) 1 GM in APPROPRIATE DILUENT 1 EA IV ONE ×2 (06:45→08:30)
[2018-07-19] MEDS: CARVedilol 6.25 MG TAB PO SCH (08:30)
[2018-07-19] MEDS: D10W 1,000 ML IV SCH ×2 (11:24→17:04)
--- NOTE | 2018-07-19 11:48 | REP ---
Clinical: Symptoms related to acute infarction. Technique: Standard noncontrast MRI sequencing of the brain. Findings: High signal intensity foci on diffusion weighted sequence with corresponding decreased signal intensity on ADC mapping appreciated along the left side genu of the corpus callosum just anterior to the anterior horn of the left lateral ventricle as well as within the left external capsule, and small focus in the white matter of the posterior right frontoparietal region suggesting multifocal areas of acute infarction. Diffuse atrophy with periventricular leukomalacia and microvascular ischemic changes are also appreciated. The ventricles are symmetric. There is no evidence for significant vasogenic edema, mass effect or midline shift. No evidence for intraparenchymal hemorrhage or acute extra-axial fluid collection. Impression: Small foci of acute infarction is suggested as described above with the largest area noted in the left genu of the corpus callosum just anterior to the left ventricle. No associated parenchymal hemorrhage, vasogenic edema or mass effect/midline shift. Electronically Signed by Jewel Patton MD 07/19/2018 11:38 A
[2018-07-19] MEDS ORDERED: HEPARIN 1,000 UNITS/ML 10ML VIAL (FOR RADIOLOGY& DIALYSIS ONLY) XX ONE (13:00)
--- NOTE | 2018-07-19 13:20 | IPNPDOC ---
Text Note Date of Service The patient was seen on 07/19/18. NOTE Subjective: No further bleeding overnight, however had AMS. Now has a new CVA. Bled on , received EGD, however continued to receive asa/plavix daily. Not tolerating diet today. Objective: Vitals: (see below) General: No acute distress, laying comfortably in bed. HEENT: Moist mucous membranes. Neck: No JVD or lymphadenopathy Cardiac: RRR, No murmurs Pulm: Clear to auscultation b/l. No wheezing, rhonchi Abd: NT/ND + BS. PEG tube in place with no leak or bleeding. Ext: No edema or cyanosis Neuro:Has a right facial droop. Left upper extremity 3-4/5. No tongue deviation noted. More alert today. Has dysarthria, and expressive aphasia. Unable to complete the entire neurologic exam. Right sided hemiparesis and LLE ext weakness at baseline. Labs (see below) Images: MRI brain on 07/13/18 IMPRESSION: Limited by motion. Small acute infarct in the medial left frontal lobe. Small acute infarct in the right radiata. Possible tiny acute infarct in the medial superior left parietal lobe. Chronic white matter changes as described. Bifrontal hygromas. Unchanged from prior. Echocardiogram on 07/13/18 CONCLUSIONS: 1. Mild concentric left ventricular hypertrophy. Normal regional LV wall motion and wall thickening. Normal left ventricular systolic function. Left ventricle ejection fraction 65% by visual estimate. Grade 1 LV diastolic dysfunction, impaired relaxation filling pattern. 2. Moderate mitral annular calcification. No mitral regurgitation. No mitral stenosis. 3. Mild aortic valve sclerosis. No aortic regurgitation. 4. Otherwise normal appearing echocardiogram Doppler. MRI Brain 07/19/18 Impression: Small foci of acute infarction is suggested as described above with the largest area noted in the left genu of the corpus callosum just anterior to the left ventricle. No associated parenchymal hemorrhage, vasogenic edema or mass effect/midline shift. Assessment/Plan 1. 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 Has baseline right-sided hemiparesis status post prior stroke. Discussed with Dr. Martino- additional recommendations for dual antiplatelet therapy for 3 months and then aspirin only, as recommended by Dr. 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 Discussed thrombocytopenia, with recommendations for continuing dual antiplatelet as long as platelets are greater than 50. Patient has no bleeding at this time. Continue statin. Patient's also dysphagia. PT/OT/ST. 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 Appreciate Dr. Camp's input. Allow for Higher BP 140/90 nursing home given her stenosis. 2. Hypertensive urgency secondary to acute CVA. Discussed with Dr. Martino, with recommendations for permissive hypertension for the next 24 hours. Goal systolic blood pressure 140-180. 3. End-stage renal disease on hemodialysis. Appreciate nephrology input. 4. Hypertension controlled. Permissive hypertension for now. 5. Diabetes mellitus. Hold Levemir for now. Sliding scale insulin. 6. Hypothyroidism on Synthroid 7. Protein-Calorie malnutrition - unable to advancing diet. Dr. Roger consulted for PEG Tube, scheduled for today. 8. Pancytopenia on a patient with end-stage renal disease. Peripheral smear with no acute findings. Will need close outpatient follow-up with PCP. 9. Upper GI bleed status post PEG tube. Patient received PRBC. Hemoglobin stable now. Evaluated by Dr. Roger post EGD, with recommendations to restart tube feedings as well as antiplatelet agents aspirin/Plavix. 10. ? Infiltrate on CT/CXR - high risk for aspiration. Started on Zosyn. Cx pending. DVT prophy: SCDs Overall prognosis guarded. DNR/DNI VS,Fishbone, I+O VS, Fishbone, I+O Laboratory Tests 07/18/18 13:25 07/18/18 20:14 07/18/18 21:04 Calcium Level 7.6 L 07/19/18 05:14 Calcium Level 7.7 L, Red Blood Count 3.41 L, Mean Corpuscular Volume 86.8, Mean Corpuscular Hemoglobin 29.9, Mean Corpuscular Hemoglobin Concent 34.5, Red Cell Distribution Width 16.5 H Vital Signs Date Time Temp Pulse Resp B/P (MAP) Pulse Ox O2 Delivery O2 Flow Rate FiO2 07/19/18 08:30 98/54 07/19/18 08:00 98.6 95 18 96 Nasal Cannula 1.0 I&O- Last 24 Hours up to 6 AM 07/19/18 06:00 Intake Total 745 ml Output Total 0 ml Balance 745 ml JACKY LOMBARDO MD Jul 19, 2018 13:19
--- NOTE | 2018-07-19 15:05 | IPN ---
DATE: 07/19/2018 SUBJECTIVE: Suha is seen and examined this morning at the bedside. She had her percutaneous endoscopic gastrostomy (PEG) tube placed yesterday. Afterward, the nursing staff reported she had hematemesis. She went for endoscopy, which did not show any acute bleed. She was transfused 2 units packed red blood cells. Family is requesting to hold off on dialysis today, and she is starting tube feeds via the PEG tube. VITAL SIGNS: Temperature 97.1, pulse 89, respiratory rate 17, blood pressure 148/70, saturating 98% on 1 liter nasal cannula. Intake yesterday was 820. Emesis was 300 mL. Weight in the bed scale today is 48 kg. GENERAL: Patient is seen lying in bed. No acute distress. Moist mucous membranes. Wearing nasal cannula. No jugular venous distention. There is a right internal jugular (IJ) tunneled dialysis catheter present. CARDIAC: Regular rate and rhythm. PULMONARY: Clear to auscultation bilaterally. No wheezing or rhonchi. ABDOMEN: Soft and nontender. There is a PEG tube in place. EXTREMITIES: Negative for edema. There is foot drop. There is some mild swelling of the right upper extremity. NEUROLOGIC: Expressive aphagia. Only able to say one or two words in [place]. Follows some simple commands. LABORATORY DATA: White count 7.5, hemoglobin 14.2, platelets 74. Sodium 142, potassium 4.6. INPATIENT MEDICATIONS: Reviewed by myself. He continues on D10 infusion at 20 mL an hour. Medications are unchanged from prior. 1. End-stage renal disease, on hemodialysis on a Saturday, , Saturday maintenance schedule. She is presently off of her usual schedule. I was going to dialyze her today, but her family requests to hold off on dialysis given the events of the past 24 hours with PEG tube placement, hematemesis, endoscopy. I agreed to hold off and dialyze her tomorrow. She will receive heparin-free dialysis in view of the above issues. Her electrolytes and volume status are otherwise acceptable. 2. Acute cerebrovascular accident (CVA) involving multiple areas of expressive aphagia and poor oral intake. She continues on aspirin, statin, Plavix with neurology followup. Blood pressure is acceptably controlled. She is status post PEG tube and is starting her tube feedings today. I feel that once she is on tube feeds, the D10W infusion can be stopped. 3. Recurrent hypoglycemia in his patient with history of diabetes. Her long-acting insulin is held. She is on sliding scale with generous holding parameters, because she has had recurrent hypoglycemia. She is on D10W infusion. Once she is on tube feeds, her D10W can likely be stopped. 4. Gastrointestinal (GI) bleed after PEG placement. She received 2 units packed red blood cells. She had an endoscopy, and plan is to start feeds and continue with complete blood count (CBC) monitoring. No heparin with dialysis. She does continue on aspirin and Plavix in view of the recent CVA.
[2018-07-19] MEDS: ASPIRIN 81 MG ENTERIC TAB PO SCH (16:20)
[2018-07-19] MEDS: PANTOPRAZOLE 40MG TAB (PROTONIX) PO SCH (17:03)
[2018-07-19] MEDS: GABAPENTIN 100 MG CAP PO SCH ×2 (17:03→20:07)
[2018-07-19] MEDS: CLOPIDOGREL 75 MG TAB PO SCH (17:04)
[2018-07-19] MEDS: PIPERACILLIN/TAZOBACTAM SOD 2.25 GM in D5W MINI-BAG PLUS 50 ML IV SCH (17:04)
[2018-07-19] MEDS: CARVedilol 3.125 MG TAB PO SCH (20:07)
[2018-07-19] MEDS: PRAVASTATIN 20 MG TAB PO SCH (20:07)
--- NOTE | 2018-07-19 21:03 | IPN ---
DATE: 07/19/2018 Mrs. Tran is seen this morning on her bedside. Her family is present in the room. The patient had a gastrostomy (G) tube placed for feeding, however, did have vomiting, due to which currently her feeding is on hold, and she is receiving intravenous (IV) fluid. She had another MRI done this morning due to possibility of a new stroke, and it did show a small stroke. She also had CT scan of abdomen and pelvis done due to recurrent vomiting, which did not show any intestinal obstruction. In the meantime, the patient remains unresponsive and without any acute distress at present. She is due for dialysis this afternoon. Temperature is 98 degrees Fahrenheit, heart rate 80 per minute, respiratory rate 20 per minute, blood pressure 100/50 mm of mercury, and oxygen saturation 98% on 1 liter oxygen. Head is atraumatic. Neck is supple and without jugular venous distention (JVD) or thyroid enlargement. Heart sounds are irregular in rhythm and lungs with diminished breath sounds and poor inspiratory effort. Abdomen is soft, and a G tube is present in place. Extremities have no cyanosis or clubbing. Neurologically, she is unresponsive. She does have prior strokes and hemiplegia. Today's labs show WBC count 7.5, hemoglobin 10.2 and hematocrit 29.6. Platelets 64,000. Sodium 137, potassium 4.1, CO2 of 18, BUN 64, and creatinine 4.61. A C-reactive protein is 30.4. Calcium is 7.7 and magnesium 1.4. PROBLEMS: 1. End-stage renal disease. The patient is due for dialysis today, and we are planning to dialyze her this afternoon. She will be dialyzed for 3 hours only. Her volume status is well compensated. We will not remove any fluid. 2. Metabolic acidosis is mild metabolic acidosis related to end-stage renal disease. She is going to be dialyzed this afternoon, and this will correct her acidosis. 3. Anemia and gastrointestinal (GI) bleed. She had transfusions following drop in her hematocrit to 24.5 a couple of days ago. She does have further decrease compared with last evening, and we will continue to monitor closely. She is not receiving any anticoagulation. 4. Altered mentation with new stroke. She seems to have new stroke on MRI. She has prior strokes and has been dependent on her family for care. We will discuss with the family about their wishes for continuation of care. 5. Hypertension. She does have history of hypertension; however, now her blood pressure is somewhat low. We will continue to monitor closely and adjust medications if needed. She is not receiving any antihypertensive medications other than low-dose carvedilol. 6. Nutrition. Currently, her tube feeding is on hold due to recurrent vomiting and will consider to restart at a lower rate if tolerated.
--- NOTE | 2018-07-19 22:10 | CR ---
DATE OF CONSULTATION: 07/19/2018 REFERRING PHYSICIAN: Dr. Judson Henderson REASON FOR CONSULTATION: Sudden onset slurred speech and left arm weakness. 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 The patient is on hemodialysis for end-stage renal disease. The patient was admitted to [facility] last week when she developed sudden onset of hypertension and language difficulty. She was found to have left frontal, left parietal and right coronary ischemic strokes. She was also found to have multivessel moderate to severe stenosis right middle cerebral artery, left middle cerebral artery, left anterior cerebral artery, left vertebral artery stenosis. [facility]roke [facility] was consulted who recommended dual antiplatelet therapy and the patient has been on aspirin and Plavix. The patient had a percutaneous endoscopic gastrostomy (PEG) tube placed on 07/17/2018 and developed hematemesis. Her aspirin and Plavix were continued throughout the procedure. I was called by the overnight hospitalist last night around 10:00 p.m. that the patient had slurred speech and new onset left arm weakness and CT scan of head showed subacute left frontal ischemic stroke. The patient was not a candidate for TPA due to multiple reasons, including recent strokes, hematemesis and placement of PEG tube. The stroke was already showing up on CT scan of her head. According to the patient's family, she developed headache, nausea, vomiting around 9:30 p.m.. According to granddaughter, her tongue was sticking out on the right side of her mouth instead of the usual left side of her mouth. This patient today feels better and back to her baseline. She denies any headache, neck or back pain. She denies any dysphagia, dysarthria, diplopia or urinary incontinence. DIAGNOSTIC STUDIES: Her MRI scan of brain this morning showed a new left genu internal capsule ischemic stroke in addition to her last weeks left frontal, left parietal and right coronary artery ischemic strokes. CT angiography of head showed multivessel intracranial stenosis as described above. PAST MEDICAL HISTORY: Ischemic strokes, hypertension, end-stage renal disease on hemodialysis, acid reflux, dyslipidemia. FAMILY HISTORY: Noncontributory. PAST MEDICAL HISTORY: Bladder surgery, tubal ligation. SOCIAL HISTORY: She quit smoking in 1993. She denies alcohol or illicit drugs. ALLERGIES: CODEINE, TETANUS STATUS. REVIEW OF SYSTEMS: All systems were reviewed with the patient's family and were found to be noncontributory except as mentioned in history present illness. PHYSICAL EXAMINATION: Temperature 98.6, pulse 95, respiratory 18, blood pressure 98/54. Heart: Regular rate and rhythm. Lungs: Clear to auscultation. Abdomen: Soft, nontender, nondistended. Extremities: No pedal edema. No musculoskeletal abnormalities. SKin: No rash. Neurologic: No signs of meningeal irritation. The patient is hard of hearing. She only speaks Chinese. Family helped as an paraprofessional interpreter. She is able to say a few words without difficulty. Family is able to understand her Chinese. Extraocular muscles are intact. No facial weakness. Tongue and uvula are midline. She has right hemiplegia. Left arm strength is 4+/5. She is unable to move her left lower extremity as well. Deep tendon flexes deep tendon flexes are 2+ throughout. Plantars are upgoing. Cerebellar, sensory and gait testing could not be performed. ASSESSMENT: 1. Multiple bilateral acute ischemic strokes in right coronary artery, left frontal, left parietal and left internal capsule strokes. 2. Multivessel intracranial stenosis. 3. 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 4. PEG tube placement with episode of hematemesis. 5. End-stage renal disease on hemodialysis. PLAN: 1. Keep blood pressure around 140/90 or above, but below 180/100. 2. Decrease carvedilol to 3.125 mg by mouth twice a day. 3. Continue aspirin 81 mg by mouth daily and Plavix 75 mg by mouth daily. 4. Pravastatin 80 mg by mouth daily. 5. Physical and occupational therapy.
[2018-07-20 02:00] VITALS: BP 140/46
[2018-07-20] MEDS: PIPERACILLIN/TAZOBACTAM SOD 2.25 GM in D5W MINI-BAG PLUS 50 ML IV SCH ×2 (03:10→15:30)
[2018-07-20 06:00] VITALS: BP 130/48
[2018-07-20 06:26] LABS: HEMATOCRIT 27.8 % (36.0-47.0); HEMOGLOBIN 9.4 g/dl (12.0-15.5); MEAN CORPUSCULAR HEMOGLOBIN 29.7 pg (27.0-33.0); MEAN CORPUSCULAR HGB CONC 33.8 g/dl (32.0-36.5); MEAN CORPUSCULAR VOLUME 87.7 fl (80.0-96.0); RED BLOOD COUNT 3.17 10^6/uL (4.00-5.40); WHITE BLOOD COUNT 7.6 10^3/uL (4.0-10.0)
[2018-07-20 06:30] LABS: PLATELET COUNT, AUTOMATED 61 10^3/uL (150-450)
[2018-07-20] MEDS: HumaLOG INSULIN (NovoLOG) PER UNIT SC SCH ×3 (06:38→18:14)
[2018-07-20] MEDS: LEVOTHYROXINE 25MCG TABLET (0.025MG) PO SCH (06:38)
[2018-07-20 06:44] LABS: CALCIUM LEVEL 8.2 MG/DL (8.8-10.2); CREATININE FOR GFR 3.21 MG/DL (0.55-1.30); GLOMERULAR FILTRATION RATE 14.6 (>32); MAGNESIUM LEVEL 1.9 MG/DL (1.8-2.4); POTASSIUM SERUM 3.6 MEQ/L (3.5-5.1)
[2018-07-20] MEDS: ASPIRIN 81 MG ENTERIC TAB PO SCH (09:00)
[2018-07-20] MEDS: GABAPENTIN 100 MG CAP PO SCH ×2 (09:45→20:12)
[2018-07-20] MEDS: CLOPIDOGREL 75 MG TAB PO SCH (09:45)
[2018-07-20] MEDS: PANTOPRAZOLE 40MG TAB (PROTONIX) PO SCH (09:46)
[2018-07-20] MEDS: CARVedilol 3.125 MG TAB PO SCH ×2 (09:46→20:12)
[2018-07-20 10:00] VITALS: BP 150/70
--- NOTE | 2018-07-20 12:20 | IPNPDOC ---
Text Note Date of Service The patient was seen on 07/20/18. NOTE Subjective: No further bleeding overnight. On TF. Objective: Vitals: (see below) General: No acute distress, laying comfortably in bed. HEENT: Moist mucous membranes. Neck: No JVD or lymphadenopathy Cardiac: RRR, No murmurs Pulm: Clear to auscultation b/l. No wheezing, rhonchi Abd: NT/ND + BS. PEG tube in place with no leak or bleeding. Ext: No edema or cyanosis Neuro:Has a right facial droop. Left upper extremity 3-4/5. No tongue deviation noted. More alert today. Has dysarthria, and expressive aphasia. Unable to complete the entire neurologic exam. Right sided hemiparesis and LLE ext weakness at baseline. Labs (see below) Images: MRI brain on 07/13/18 IMPRESSION: Limited by motion. Small acute infarct in the medial left frontal lobe. Small acute infarct in the right radiata. Possible tiny acute infarct in the medial superior left parietal lobe. Chronic white matter changes as described. Bifrontal hygromas. Unchanged from prior. Echocardiogram on 07/13/18 CONCLUSIONS: 1. Mild concentric left ventricular hypertrophy. Normal regional LV wall motion and wall thickening. Normal left ventricular systolic function. Left ventricle ejection fraction 65% by visual estimate. Grade 1 LV diastolic dysfunction, impaired relaxation filling pattern. 2. Moderate mitral annular calcification. No mitral regurgitation. No mitral stenosis. 3. Mild aortic valve sclerosis. No aortic regurgitation. 4. Otherwise normal appearing echocardiogram Doppler. MRI Brain 07/19/18 Impression: Small foci of acute infarction is suggested as described above with the largest area noted in the left genu of the corpus callosum just anterior to the left ventricle. No associated parenchymal hemorrhage, vasogenic edema or mass effect/midline shift. Assessment/Plan 1. 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 Has baseline right-sided hemiparesis status post prior stroke. Discussed with Dr. Martino- additional recommendations for dual antiplatelet therapy for 3 months and then aspirin only, as recommended by Dr. 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 Discussed thrombocytopenia, with recommendations for continuing dual antiplatelet as long as platelets are greater than 50. Patient has no bleeding at this time. Continue statin. Patient's also dysphagia. PT/ OT/ST. 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 Appreciate Dr. Camp's input. Allow for Higher BP 140/90 termination clerk given her stenosis. 2. Hypertensive urgency secondary to acute CVA. Discussed with Dr. Martino, with recommendations for permissive hypertension for the next 24 hours. Goal systolic blood pressure 140-180. 3. End-stage renal disease on hemodialysis. Appreciate nephrology input. 4. Hypertension controlled. Permissive hypertension for now. 5. Diabetes mellitus. Hold Levemir for now. Sliding scale insulin. 6. Hypothyroidism on Synthroid 7. Protein-Calorie malnutrition - unable to advancing diet. Dr. Roger consulted for PEG Tube, scheduled for today. 8. Pancytopenia on a patient with end-stage renal disease. Peripheral smear with no acute findings. Will need close outpatient follow-up with PCP. 9. Upper GI bleed status post PEG tube. Patient received PRBC. Hemoglobin stable now. Evaluated by Dr. Roger post EGD, with recommendations to restart tube feedings as well as antiplatelet agents aspirin/Plavix. 10. Infiltrate on CT/CXR - high risk for aspiration. Started on Zosyn. Bld cx with GNR bacteremia. Improving. DVT prophy: SCDs Overall prognosis guarded. DNR/DNI VS,Fishbone, I+O VS, Fishbone, I+O Laboratory Tests 07/20/18 05:32 Red Blood Count 3.17 L, Mean Corpuscular Volume 87.7, Mean Corpuscular Hemoglobin 29.7, Mean Corpuscular Hemoglobin Concent 33.8, Red Cell Distribution Width 16.1 H, Calcium Level 8.2 L Vital Signs Date Time Temp Pulse Resp B/P (MAP) Pulse Ox O2 Delivery O2 Flow Rate FiO2 07/20/18 09:46 83 141/50 07/20/18 06:00 97.2 20 99 Nasal Cannula 2.0 I&O- Last 24 Hours up to 6 AM 07/20/18 06:00 Intake Total 530 ml Output Total 250 ml Balance 280 ml JACKY LOMBARDO MD Jul 20, 2018 12:20
--- NOTE | 2018-07-20 12:52 | IPN ---
DATE: 07/20/2018 Mrs. Tran is seen this morning on her bedside. She is resting comfortably at present, and her daughter is present in the room. The patient was dialyzed yesterday afternoon, which she tolerated very well. She has now started to receive G-tube feeding at 30 mL per hour, which she has tolerated. We usually do not remove any fluid during dialysis due to recurrent hypotension. The patient herself has been chronically minimally to noncommunicative due to prior strokes. She also speaks only [place]. Her daughter reports that she was awake earlier and watched TV and did talk to her. PHYSICAL EXAMINATION: Temperature 98.3 degrees Fahrenheit, heart rate 82 per minute and respiratory rate 20 per minute. Blood pressure 150/70 mmHg and oxygen saturation 99% on 2 liters of oxygen. Her head is atraumatic. She has a dialysis catheter in place without any signs of infection. Heart sounds are regular and lungs with poor inspiratory effort and decreased breath sounds. Abdomen is soft and G-tube is in place. Bowel sounds are present. Extremities: Have no cyanosis or clubbing. Neurologically, she has chronic hemiplegia and is minimally communicative due to old and new strokes. Today's labs show WBC count 7.6, hemoglobin 9.4 and hematocrit 27.8. Platelets 61,000. Sodium 135, potassium 3.6, CO2 26, BUN 37 and creatinine 3.21. PROBLEM #1: End-stage renal disease. The patient has been dialysis dependent, and she was dialyzed yesterday. Volume status is reasonable, and her next dialysis will be scheduled for Saturday. PROBLEM #2: Hypertension. Blood pressure seems to be doing very well. We do not remove any fluid during dialysis. She will be maintained on current medications and monitored closely. PROBLEM #3: Peripheral vascular disease and history of strokes. The patient is unable to swallow and had a G-tube placed. She is now tolerating her tube feeding reasonably well, and I am going to stop her IV D10W. PROBLEM #4: Gastrointestinal (GI) bleed and acute blood loss anemia. She had acute GI bleed, which improved following transfusion. However, her hematocrit is gradually decreasing again. We will need to continue monitoring as she might need further transfusion.
[2018-07-20 14:00] VITALS: BP 142/68
[2018-07-20 18:00] VITALS: BP 152/58
[2018-07-20] MEDS ORDERED: ASPIRIN 81 MG CHEW TABLET PEG ONE (18:15)
[2018-07-20 20:08] VITALS: BP 162/60
[2018-07-20] MEDS: PRAVASTATIN 20 MG TAB PO SCH (20:33)
[2018-07-21] MEDS: HumaLOG INSULIN (NovoLOG) PER UNIT SC SCH ×4 (00:02→17:48)
[2018-07-21 02:00] VITALS: BP 152/48
[2018-07-21] MEDS: PIPERACILLIN/TAZOBACTAM SOD 2.25 GM in D5W MINI-BAG PLUS 50 ML IV SCH ×2 (03:11→14:20)
[2018-07-21 06:00] VITALS: BP 148/50
[2018-07-21] MEDS: LEVOTHYROXINE 25MCG TABLET (0.025MG) PO SCH (06:05)
[2018-07-21] MEDS: ASPIRIN 81 MG CHEW TABLET PEG SCH (08:43)
[2018-07-21] MEDS: CLOPIDOGREL 75 MG TAB PO SCH (08:43)
[2018-07-21] MEDS: GABAPENTIN 100 MG CAP PO SCH ×2 (08:44→21:25)
[2018-07-21] MEDS: CARVedilol 3.125 MG TAB PO SCH ×2 (08:45→21:25)
[2018-07-21 10:00] VITALS: BP 132/48
[2018-07-21 10:11] LABS: HEMATOCRIT 27.1 % (36.0-47.0); HEMOGLOBIN 9.2 g/dl (12.0-15.5); MEAN CORPUSCULAR HGB CONC 33.9 g/dl (32.0-36.5); MEAN CORPUSCULAR VOLUME 88.3 fl (80.0-96.0); RED BLOOD COUNT 3.07 10^6/uL (4.00-5.40); WHITE BLOOD COUNT 6.3 10^3/uL (4.0-10.0)
[2018-07-21 10:16] LABS: PLATELET COUNT, AUTOMATED 70 10^3/uL (150-450)
[2018-07-21] MEDS: PANTOPRAZOLE 40MG INJ (PROTONIX) (C9113) IV SCH (10:37)
[2018-07-21 10:41] LABS: C REACTIVE PROTEIN QUANTITATIV 23.6 MG/DL (0.00-0.30); CALCIUM LEVEL 7.8 MG/DL (8.8-10.2); CREATININE FOR GFR 3.89 MG/DL (0.55-1.30); GLOMERULAR FILTRATION RATE 11.7 (>32); POTASSIUM SERUM 3.9 MEQ/L (3.5-5.1)
[2018-07-21] MEDS ORDERED: DARBEPOETIN 100 MCG/0.5 ML *DIALYSIS* SYRINGE (J0882) IV SCH (13:00)
--- NOTE | 2018-07-21 13:36 | IPNPDOC ---
Text Note Date of Service The patient was seen on 07/21/18. NOTE Subjective: Pt has been drowsy this am, however following commands. Objective: Vitals: (see below) General: No acute distress, laying comfortably in bed. HEENT: Moist mucous membranes. Neck: No JVD or lymphadenopathy Cardiac: RRR, No murmurs Pulm: Clear to auscultation b/l. No wheezing, rhonchi Abd: NT/ND + BS. PEG tube in place with no leak or bleeding. Ext: No edema or cyanosis Neuro:Has a right facial droop. Left upper extremity 3-4/5. No tongue deviation noted. More alert today. Has dysarthria, and expressive aphasia which has been stable. Unable to complete the entire neurologic exam. Right sided hemiparesis and LLE ext weakness at baseline. Labs (see below) Images: MRI brain on 07/13/18 IMPRESSION: Limited by motion. Small acute infarct in the medial left frontal lobe. Small acute infarct in the right radiata. Possible tiny acute infarct in the medial superior left parietal lobe. Chronic white matter changes as described. Bifrontal hygromas. Unchanged from prior. Echocardiogram on 07/13/18 CONCLUSIONS: 1. Mild concentric left ventricular hypertrophy. Normal regional LV wall motion and wall thickening. Normal left ventricular systolic function. Left ventricle ejection fraction 65% by visual estimate. Grade 1 LV diastolic dysfunction, impaired relaxation filling pattern. 2. Moderate mitral annular calcification. No mitral regurgitation. No mitral stenosis. 3. Mild aortic valve sclerosis. No aortic regurgitation. 4. Otherwise normal appearing echocardiogram Doppler. MRI Brain 07/19/18 Impression: Small foci of acute infarction is suggested as described above with the largest area noted in the left genu of the corpus callosum just anterior to the left ventricle. No associated parenchymal hemorrhage, vasogenic edema or mass effect/midline shift. Assessment/Plan 1. 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 Has baseline right-sided hemiparesis status post prior stroke. Discussed with Dr. Martino- additional recommendations for dual antiplatelet therapy for 3 months and then aspirin only, as recommended by Dr. 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 Discussed thrombocytopenia, with recommendations for continuing dual antiplatelet as long as platelets are greater than 50. Patient has no bleeding at this time. Continue statin. Patient's also dysphagia. PT/OT/ST. 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 Appreciate Dr. Camp's input. Allow for Higher BP 140/90 chcf given her stenosis. 2. Hypertensive urgency secondary to acute CVA. Discussed with Dr. Martino, with recommendations for permissive hypertension for the next 24 hours. Goal systolic blood pressure 140-180. 3. End-stage renal disease on hemodialysis. Appreciate nephrology input. 4. Hypertension controlled. Permissive hypertension for now. 5. Diabetes mellitus. Hold Levemir for now. Sliding scale insulin. 6. Hypothyroidism on Synthroid 7. Protein-Calorie malnutrition - unable to advancing diet. Dr. Roger consulted for PEG Tube, scheduled for today. 8. Pancytopenia on a patient with end-stage renal disease. Peripheral smear with no acute findings. Will need close outpatient follow-up with PCP. 9. Upper GI bleed status post PEG tube. Patient received PRBC. Hemoglobin stable now. Evaluated by Dr. Roger post EGD, with recommendations to restart tube fe edings as well as antiplatelet agents aspirin/Plavix. 10. GNR Bacteremia - Infiltrate on CT/CXR - high risk for aspiration. Started on Zosyn. Repeat Bld cx pending. Improving. CRP improving. DVT prophy: SCDs Overall prognosis guarded. DNR/DNI VS,Fishbone, I+O VS, Fishbone, I+O Laboratory Tests 07/21/18 09:52 Red Blood Count 3.07 L, Mean Corpuscular Volume 88.3, Mean Corpuscular Hemoglobin 30.0, Mean Corpuscular Hemoglobin Concent 33.9, Red Cell Distribution Width 15.5 H, Calcium Level 7.8 L Vital Signs Date Time Temp Pulse Resp B/P (MAP) Pulse Ox O2 Delivery O2 Flow Rate FiO2 07/21/18 10:00 98.2 73 18 132/48 (76) 100 Nasal Cannula 2.0 I&O- Last 24 Hours up to 6 AM 07/21/18 06:00 Intake Total 660 ml Balance 660 ml JACKY LOMBARDO MD Jul 21, 2018 13:36
--- NOTE | 2018-07-21 13:37 | IPN ---
DATE OF VISIT: 07/21/2018 Mrs. Marc marks is seen this morning on her bedside. She remains poorly responsive and her daughter is quite concerned. Nursing staff reports that this morning she was able to follow couple of simple commands when she opened her eyes and also squeezed hand of the nursing staff. Right now she is sleeping and not responding at all. She is receiving tube feeding via her gastrostomy (G) tube and her intravenous IV fluid has been stopped. Her blood sugar this morning was 215. On physical exam, temperature 98.2 degrees Fahrenheit, heart rate 73 per minute and respiratory rate 18 per minute. Blood pressure 132/48 mmHg and oxygen saturation 100% on 2 liters oxygen. Her head is atraumatic. She has a right-sided internal jugular vein hemodialysis catheter in place. Neck veins are not abnormally distended. Heart sounds are irregular in rhythm and lungs have poor inspiratory effort. Abdomen soft and a G-tube is in place. Bowel sounds are present. Extremities have no cyanosis or clubbing. She has edema of right upper extremity. 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 Neurologically, she remains unresponsive at this time. Today's labs show sodium 133, potassium 3.9, CO2 27, BUN 45 and creatinine 3.89. Glucose 206 and a C-reactive protein is 23.6. WBC count is 6.3, hemoglobin 9.2 and hematocrit 27. PROBLEMS: 1. End-stage renal disease. Patient was last dialyzed on Saturday and we will plan to dialyze her tomorrow. There was a confusion earlier when her family said that she was dialyzed on Saturday. I have confirmed and in fact she was dialyzed on Saturday and her regular dialysis will remain on Saturday, and Saturday. Her electrolytes are stable and volume status is well-compensated so there is no emergent need for dialysis today. 2. Hypertension. She did have some fluctuations in blood pressure however, mostly it is reasonably well-controlled. No changes are being made today. 3. Anemia. At present, her anemia is stable and she will receive Aranesp once a week during dialysis. There is no emergent indication for a transfusion. She did have gastrointestinal (GI) bleed and required transfusion earlier. 4. Altered mentation with recent stroke. Patient had another stroke, which is most likely the reason for her altered mentation. I have reassured the family that at this point we will just continue with supportive care and monitor. She is likely to improve over next couple of days.
[2018-07-21 14:00] VITALS: BP 177/76
[2018-07-21 18:00] VITALS: BP 168/76
[2018-07-21] MEDS: PRAVASTATIN 20 MG TAB PO SCH (21:25)
[2018-07-21 22:00] VITALS: BP 181/78
[2018-07-22] VITALS (7 sets, daily range): BP systolic 152–206; BP diastolic 60–78
[2018-07-22] MEDS: HumaLOG INSULIN (NovoLOG) PER UNIT SC SCH ×4 (00:19→17:58)
[2018-07-22] MEDS: PIPERACILLIN/TAZOBACTAM SOD 2.25 GM in D5W MINI-BAG PLUS 50 ML IV SCH ×2 (03:41→14:40)
[2018-07-22] MEDS: GABAPENTIN 100 MG CAP PO SCH ×2 (06:06→20:34)
[2018-07-22] MEDS: ASPIRIN 81 MG CHEW TABLET PEG SCH (06:06)
[2018-07-22] MEDS: CLOPIDOGREL 75 MG TAB PO SCH (06:06)
[2018-07-22] MEDS: PANTOPRAZOLE 40MG INJ (PROTONIX) (C9113) IV SCH (06:06)
[2018-07-22] MEDS: LEVOTHYROXINE 25MCG TABLET (0.025MG) PO SCH (06:07)
[2018-07-22] MEDS: CARVedilol 3.125 MG TAB PO SCH ×2 (06:08→20:35)
[2018-07-22 06:16] LABS: BASO % 0.2 % (0.0-1.0); EOS % 0.6 % (0.0-3.0); HEMATOCRIT 24.6 % (36.0-47.0); HEMOGLOBIN 8.5 g/dl (12.0-15.5); LYMPH # 0.5 10^3/uL (1.5-4.5); LYMPH % 9.8 % (24.0-44.0); MEAN CORPUSCULAR HEMOGLOBIN 29.6 pg (27.0-33.0); MEAN CORPUSCULAR HGB CONC 34.6 g/dl (32.0-36.5); MEAN CORPUSCULAR VOLUME 85.7 fl (80.0-96.0); MONO # 0.7 10^3/uL (0.0-0.8); MONO % 12.8 % (0.0-5.0); NEUTROPHILS % 75.3 % (36.0-66.0); RED BLOOD COUNT 2.87 10^6/uL (4.00-5.40); WHITE BLOOD COUNT 5.3 10^3/uL (4.0-10.0)
[2018-07-22 06:22] LABS: PLATELET COUNT, AUTOMATED 66 10^3/uL (150-450)
[2018-07-22 06:36] LABS: CREATININE FOR GFR 4.34 MG/DL (0.55-1.30); GLOMERULAR FILTRATION RATE 10.3 (>32); POTASSIUM SERUM 3.8 MEQ/L (3.5-5.1)
[2018-07-22] MEDS ORDERED: DOCUSATE SOD LIQ 100MG/10ML UDC GT PRN (10:15)
[2018-07-22] MEDS ORDERED: HEPARIN 1,000 UNITS/ML 10ML VIAL (FOR RADIOLOGY& DIALYSIS ONLY) XX ONE (11:00)
[2018-07-22] MEDS ORDERED: hydrALAZINE INJ 20 MG/ML VIAL IV ONE (15:45)
[2018-07-22] MEDS ORDERED: **hydrALAZINE** 10 MG TAB PO ONE (16:00)
[2018-07-22] MEDS ORDERED: **hydrALAZINE** 10 MG TAB PO PRN (17:45)
--- NOTE | 2018-07-22 18:26 | IPN ---
DATE: 07/22/2018 Patient seen and examined. Patient nonverbal. Follows commands minimally, but alert. Quite lethargic. VITAL SIGNS: Temperature 97.8, pulse 88, respirations 19, blood pressure 156/71, pulse oximetry 93% on room air. LABS: WBC 5.3, hemoglobin and hematocrit 8.5 over 24/6, platelets 66. Chemistry: Sodium 132, potassium 3.8, chloride 98, bicarbonate 25, BUN 47, creatinine 4.34. PHYSICAL EXAMINATION: Patient comfortable. In no acute distress. HEENT: Moist mucous membranes. NECK: Supple. No jugular venous distention (JVD). CARDIAC: Regular S1, S2. PULMONARY: Bilateral clear. ABDOMEN: Soft, nontender. PEG tube in place. No leakage or bleeding. EXTREMITIES: No clubbing, cyanosis or edema. NEUROLOGICAL: Right-sided facial droop. Left upper extremity 3/5 strength. Dysarthria. Having trouble expressing herself. Right-sided hemiparesis. Left lower extremity weak at baseline at 4 out of 5. ASSESSMENT: This is an 87-year-old female patient with underlying medical history of end-stage renal disease, on dialysis Saturday, , Saturday. History of multiple cerebrovascular accident (CVA), right sided hemiparesis, bed bound, hypertension, diabetes, hypothyroidism admitted with hypertensive urgency, found to have recurrent stroke. PROBLEMS: 1. Acute CVA. Likely embolic given multiple regions. Global aphasia, left-sided weakness that is new. Baseline hemophoresis with prior stroke. Neurology consulted. Patient already on dual antiplatelets. Therapy for three months, then aspirin only as recommended by neurology at [facility] with moderate to severe stenosis of distal left vertebral artery and also thrombocytopenia. Monitor platelet level. No active bleeding. Continue statin. Physical therapy (PT)/occupational therapy (OT), speech and swallow. Patient has a PEG tube. Continue PEG feeding. 2. Hypertensive urgency. Likely secondary to acute CVA. Patient also end-stage renal disease. Goal systolic blood pressure 140 to 180. Continue blood pressure medication as ordered. 3. End-stage renal disease. Nephrology consulted. Continue dialysis. 4. Hypertension. Continue blood pressure medication. Adjust as needed. 5. Diabetes mellitus. Sliding scale insulin. Tube feeding. Followup finger sticks. 6. Hypothyroidism. Continue Synthroid. 7. Protein calorie malnutrition. Tube feeding as ordered. 8. Pancytopenia with end-stage renal disease. Peripheral smear appreciated. Outpatient followup. 9. Upper GI bleed. Status post PEG in the setting of thrombocytopenia. Monitor hemoglobin and hematocrit. Transfuse as needed. Patient on dual antiplatelets. 10. E. coli bacteremia. Possible source include lung versus urine. Infectious disease consulted. Further antibiotic adjustment as per infectious disease. Patient currently on Zosyn. Repeat culture has been negative. 11. Deep venous thrombosis (DVT) prophylaxis. TEDs and sequentials. DISPOSITION: Patient likely going home with 24/7 care. DO NOT RESUSCITATE (DNR), DO NOT INTUBATE (DNI). Poor custodial prognosis.
[2018-07-22] MEDS: PRAVASTATIN 20 MG TAB PO SCH (20:34)
[2018-07-23] MEDS: HumaLOG INSULIN (NovoLOG) PER UNIT SC SCH ×4 (00:32→17:46)
[2018-07-23] MEDS: **hydrALAZINE** 10 MG TAB PO SCH ×3 (00:33→12:57)
[2018-07-23 02:00] VITALS: BP 162/68
[2018-07-23] MEDS: PIPERACILLIN/TAZOBACTAM SOD 2.25 GM in D5W MINI-BAG PLUS 50 ML IV SCH ×2 (03:38→15:59)
[2018-07-23 06:00] VITALS: BP 168/70
[2018-07-23] MEDS: LEVOTHYROXINE 25MCG TABLET (0.025MG) PO SCH (06:14)
[2018-07-23 06:23] LABS: BASO % 0.5 % (0.0-1.0); EOS % 0.8 % (0.0-3.0); HEMATOCRIT 25.3 % (36.0-47.0); HEMOGLOBIN 8.4 g/dl (12.0-15.5); LYMPH # 0.5 10^3/uL (1.5-4.5); LYMPH % 11.6 % (24.0-44.0); MEAN CORPUSCULAR HEMOGLOBIN 29.4 pg (27.0-33.0); MEAN CORPUSCULAR HGB CONC 33.2 g/dl (32.0-36.5); MEAN CORPUSCULAR VOLUME 88.5 fl (80.0-96.0); MONO # 0.7 10^3/uL (0.0-0.8); MONO % 16.8 % (0.0-5.0); NEUTROPHILS # 2.6 10^3/uL (1.8-7.7); NEUTROPHILS % 67.2 % (36.0-66.0); PLATELET COUNT, AUTOMATED 61 10^3/uL (150-450); RED BLOOD COUNT 2.86 10^6/uL (4.00-5.40); WHITE BLOOD COUNT 3.9 10^3/uL (4.0-10.0)
--- NOTE | 2018-07-23 06:34 | IPN ---
DATE OF VISIT: 07/22/2018 Mrs. Tran is seen this morning on her bedside during hemodialysis. The patient is awake today and able to respond. She has been unresponsive for the last few days since she had a new stroke. She is receiving feeding through her G-tube and there is no vomiting reported. She did have initially vomiting and also had GI bleed. She has no dyspnea, chest pain, fever or chills. On physical examination, temperature 97.8 degrees Fahrenheit, heart rate 88 per minute and respiratory rate 18 per minute. Blood pressure 156/70 mmHg and oxygen saturation 93% on room air. She has some facial swelling, but jugular venous distention (JVD) is difficult to be assessed. She has a Perma-Cath in place in right internal jugular vein. Heart sounds are regular and lungs sound clear to auscultation. Abdomen: Soft and nontender with a G-tube in place. Extremities have no cyanosis or clubbing. She does have edema on both forearms and hands. Neurologically, she is awake today and responds by nodding her head or smiling. She is trying to talk, but still very weak. Today's labs show WBC count 5.3, hemoglobin 8.5 and hematocrit 24.6. Sodium 132, potassium 3.8, CO2 25, BUN 57 and creatinine 4.34. PROBLEMS: 1. End-stage renal disease. The patient is being dialyzed and she is tolerating her dialysis treatment very well. We are trying to remove 1 liter of fluid as tolerated. Historically, we have not removed any fluid from her in dialysis as she gets very hypotensive and at times passes out. Her family is very concerned, but I have explained to them that she has become volume overloaded and needs to have some fluid removed with caution. We are going to use ultrafiltration profile #6. We will remove fluid for only a small period of time and then not remove and keep alternating. This way she will have very low risk for hypotension. 2. Hyponatremia. She does have mild hyponatremia related to end-stage renal disease and tube feeds. It is likely to improve with dialysis and fluid removal today. 3. Anemia. Her anemia is gradually worsening and probably she still has some low grade GI bleed. Other possibility is that she is hemodiluted due to volume overload. CBC will be checked again tomorrow. We are removing 1 liter of fluid and see how she does. There is no emergent need for a transfusion at this point. 4. Hypertension. Blood pressure seems to be relatively stable. However, she does have history of high blood pressure during or after dialysis. We will continue to monitor closely and adjust her antihypertensives as needed. 5. Altered mentation. The patient has multiple strokes and she had another stroke recently which caused altered mentation and she seems to be now gradually improving.
[2018-07-23 06:36] LABS: C REACTIVE PROTEIN QUANTITATIV 15.5 MG/DL (0.00-0.30); CALCIUM LEVEL 7.9 MG/DL (8.8-10.2); CREATININE FOR GFR 2.93 MG/DL (0.55-1.30); GLOMERULAR FILTRATION RATE 16.2 (>32); POTASSIUM SERUM 3.4 MEQ/L (3.5-5.1)
[2018-07-23] MEDS ORDERED: POTASSIUM CHLORIDE 10 MEQ SR TABLET PO ONE (09:00)
[2018-07-23] MEDS: GABAPENTIN 100 MG CAP PO SCH ×2 (09:55→21:23)
[2018-07-23] MEDS: ASPIRIN 81 MG CHEW TABLET PEG SCH (09:55)
[2018-07-23] MEDS: PANTOPRAZOLE 40MG INJ (PROTONIX) (C9113) IV SCH (09:55)
[2018-07-23] MEDS: CARVedilol 3.125 MG TAB PO SCH ×2 (09:55→21:23)
[2018-07-23] MEDS: CLOPIDOGREL 75 MG TAB PO SCH (09:55)
[2018-07-23 10:00] VITALS: BP 180/63
[2018-07-23 14:00] VITALS: BP 183/65
--- NOTE | 2018-07-23 15:16 | IPNPDOC ---
Text Note Date of Service The patient was seen on 07/23/18. NOTE Patient seen and examined. Patient nonverbal. Follows commands minimally, but alert. PHYSICAL EXAMINATION: Patient comfortable. In no acute distress. HEENT: Moist mucous membranes. NECK: Supple. No jugular venous distention (JVD). CARDIAC: Regular S1, S2. PULMONARY: Bilateral clear. ABDOMEN: Soft, nontender. PEG tube in place. No leakage or bleeding. EXTREMITIES: No clubbing, cyanosis or edema. NEUROLOGICAL: Right-sided facial droop. Left upper extremity 3/5 strength. Dysarthria. Having trouble expressing herself. Right-sided hemiparesis. Left lower extremity weak at baseline at 3 out of 5. ASSESSMENT: This is an 87-year-old female patient with underlying medical history of end-stage renal disease, on dialysis Saturday, , Saturday. History of multiple cerebrovascular accident (CVA), right sided hemiparesis, bed bound, hypertension, diabetes, hypothyroidism admitted with hypertensive urgency, found to have recurrent stroke. PROBLEMS: 1. Acute CVA. Likely embolic given multiple regions. Global aphasia, left-sided weakness that is new. Baseline right hemophoresis with prior stroke. Neurology consulted. Patient already on dual antiplatelets. Therapy for three months, then aspirin only as recommended by neurology at [facility] with moderate to severe stenosis of distal left vertebral artery and also thrombocytopenia. Monitor platelet level. No active bleeding. Continue statin. Physical therapy (PT)/occupational therapy (OT), speech and swallow. Patient has a PEG tube. Continue PEG feeding. 2. Hypertensive urgency. Likely secondary to acute CVA. Patient also end-stage renal disease. Goal systolic blood pressure 140 to 180. Continue blood pressure medication as ordered. 3. End-stage renal disease. Nephrology consulted. Continue dialysis. 4. Hypertension. Continue blood pressure medication. Adjust as needed. 5. Diabetes mellitus. basal bolus insulin Tube feeding. Followup finger sticks. 6. Hypothyroidism. Continue Synthroid. 7. Protein calorie malnutrition. Tube feeding as ordered. 8. Pancytopenia with end-stage renal disease. Peripheral smear appreciated. Outpatient followup. 9. Upper GI bleed. Status post PEG in the setting of thrombocytopenia. Monitor hemoglobin and hematocrit. Transfuse as needed. Patient on dual antiplatelets. 10. E. coli bacteremia. Possible source include lung versus urine. Infectious disease consulted. Further antibiotic adjustment as per infectious disease. Patient currently on Zosyn. Repeat culture has been negative. 11. Deep venous thrombosis (DVT) prophylaxis. TEDs and sequentials, in the setting of GI bleed DISPOSITION: Patient likely going home with 24/7 care. DO NOT RESUSCITATE (DNR), DO NOT INTUBATE (DNI). Poor jail prognosis. VS,Fishbone, I+O VS, Fishbone, I+O Laboratory Tests 07/23/18 05:48 Red Blood Count 2.86 L, Mean Corpuscular Volume 88.5, Mean Corpuscular Hemoglobin 29.4, Mean Corpuscular Hemoglobin Concent 33.2, Red Cell Distribution Width 15.0 H, Neutrophils (%) (Auto) 67.2 H, Lymphocytes (%) (Auto) 11.6 L, Mo nocytes (%) (Auto) 16.8 H, Eosinophils (%) (Auto) 0.8, Basophils (%) (Auto) 0.5, Neutrophils # (Auto) 2.6, Lymphocytes # (Auto) 0.5 L, Monocytes # (Auto) 0.7, Eosinophils # (Auto) 0.0, Basophils # (Auto) 0.0, Calcium Level 7.9 L Vital Signs Date Time Temp Pulse Resp B/P (MAP) Pulse Ox O2 Delivery O2 Flow Rate FiO2 07/23/18 12:57 180/63 07/23/18 10:00 98.6 81 17 96 07/23/18 06:00 Room Air 07/21/18 14:00 I&O- Last 24 Hours up to 6 AM 07/23/18 06:00 Intake Total 520 ml Output Total 1000 ml Balance -480 ml GEETA ELLSWORTH MD Jul 23, 2018 15:16
--- NOTE | 2018-07-23 16:46 | CR ---
DATE OF CONSULTATION: 07/22/2018 I was asked to consult Mrs. Tran for evaluation of E-coli bacteremia. HISTORY OF PRESENT ILLNESS: Mrs. Tran is as an 87-year-old female who was admitted on July 12 with a stroke and hypertensive crisis. Her blood pressure was 245/107. She had expressive aphagia. She denied any chest pain, shortness of breath, visual problems. When in the hospital she had a temperature of 100 on July 19 and two sets of blood cultures were ordered one out of two was positive for E-coli the patient was started on Zosyn. Urine culture was not obtained. Repeat blood cultures on July 21 two sets were negative. The patient has a hemodialysis catheter. She did not have a Fraser catheter during her hospitalization. She does complain of some dysuria. The patient is Turkish-speaking but her granddaughters are at the bedside for translation. PAST MEDICAL HISTORY: Significant for end-stage renal disease on hemodialysis Saturday, , Saturday. History of CVA with right hemiparesis, hypertension, diabetes, hypothyroidism. PAST SURGICAL HISTORY: Bladder surgery, tubal ligation. ALLERGIES: Codeine, tetanus, toxoid. FAMILY HISTORY: Did not obtain. SOCIAL HISTORY: The patient was a smoker a pack of cigarettes a day quit in 1993. Does not use drugs or alcohol. She is originally from [place]. Her whole family immigrated. She lives with her daughter and granddaughter. MEDICATIONS: Colace 100 mg by mouth twice a day, Aranesp 100 mg IV with hemodialysis, aspirin 81 mg daily, Protonix 40 mg IV daily, Coreg 3.125 mg by mouth twice a day, Zosyn 2.25 IV every 12 hours started on July 19, Zofran 4 mg IV every 6 hours as needed, Plavix 75 mg daily by mouth daily, Levothyroxine 25 mg by mouth daily, gabapentin 100 mg by mouth twice a day, gabapentin 100 mg by mouth twice a day, Pravachol 80 mg by mouth at bedtime, Tylenol as needed. LABORATORY DATA: White count 5.3, hemoglobin 8.5, hematocrit 24.6, platelets 66. She has a low white count usually between 3.1 and 6.3. Platelets range between 60 and 80. Chemistry: sodium 132, potassium 3.8, chloride 98, bicarb 25, BUN 57, creatinine 4.34, glucose 232, calcium 8, blood cultures July 14 two sets were negative. 07/19/18 1 out of 2 had E. Coli. 07/21/2018 two sets were negative. IMAGING STUDIES: Brain MRI done on July 19 shows small focus of acute infarction in the left corpus callosum anterior to the left ventricle. No parenchymal hemorrhage diffuse atrophy. CT abdomen and pelvis done on July 19 show bibasilar patchy infiltrates with slight interstitial prominence. G tube in the stomach status post cholecystectomy. The patient G tube was placed this admission as she failed swallowing evaluation. Chest x-ray Done on 07/18 showed mild interstitial prominence at the lung bases, more on the left than the right. PHYSICAL EXAMINATION: Elderly female in no acute distress. Has difficulty with some expressive aphagia although she is able to get some words out today. Vitals: Temperature is 98.9, pulse 88, respirations 16, blood pressure 170/78, O2 sat 95% on room air. Heart: Normal S1-S2 with systolic ejection murmur 2/6 heard at the left upper sternal border. Right upper chest has a hemodialysis catheter. No erythema. Lungs have few crackles at both bases. Abdomen: Soft, nontender. No visceromegaly. G tube in place with some bloody drainage around it but no evidence of infection. Extremities: No clubbing, cyanosis or edema. She has a foot drop on the left side. She has right hemiparesis. IMPRESSION: This is an 88-year-old female who was admitted with a stroke developed the E-coli bacteremia with a low grade fever. Sources of infection could be from her hemodialysis catheter with transient bacteremia versus a urinary tract infection with transient bacteremia. The patient unlikely that this is aspiration pneumonia with E-coli bacteremia. She does not have a lobar pneumonia. She has just interstitial prominence suggestive of fluid overload. PLAN The patient has clinically improved with IV Zosyn but this could be de- escalated to IV cefazolin for a narrow spectrum antibiotic. I would suggest obtaining a UA, urine culture as well. Since I am not sure if bacteremia source is from the line or urinary source, I would rather treat her with an IV antibiotic while she is in the hospital in case this is HD line infection, she could be DC on Cefazolin dosed as 2/2/3 gm on Hemodialysis days MTDD
[2018-07-23] MEDS: **hydrALAZINE HCL** 25 MG TAB PO SCH (17:47)
--- NOTE | 2018-07-23 20:04 | IPN ---
DATE: 10/21/2018 Mrs. Tran was seen this morning on her bedside. Her granddaughter is present in the room on bedside. The patient is awake and able to respond and answers simple questions. She continues to receive her tube feeding and free water via G-tube. PHYSICAL EXAMINATION: Temperature 98.6 degrees Fahrenheit, heart rate 80 per minute and respiratory rate 17 per minute. Blood pressure 160/70 mmHg and oxygen saturation 96%. Face is mildly swollen. Neck veins are only minimally distended. She has a dialysis catheter in her internal jugular vein. Heart: Sounds are irregular in rhythm and lungs with poor inspiratory effort. Abdomen is soft and bowel sounds are present. G-tube is in place. No cyanosis or clubbing. Both her upper extremities have about 1+ edema. Neurologically she is awake and responds to questions but does have left-sided hemiparesis. Today's labs show WBC count 3.9, hemoglobin 8.4 and hematocrit 25.3. Sodium 138, potassium 3.4, CO2 29, BUN 35 and creatinine 2.9. Glucose 333 and calcium 7.9. C-reactive protein is down to 15.5 today. PROBLEMS: 1. End-stage renal disease. The patient is dialyzed regularly on Saturday, and Saturday schedule. Her last dialysis was yesterday and we will plan to dialyze her again tomorrow. 2. Hypertension. Blood pressure has been somewhat high and historically she runs high blood pressures. I feel that it is partly related to hypervolemia. We will try to remove at least 1 liter of fluid with her dialysis tomorrow. Will continue with current antihypertensive meds and make adjustments as needed. 3. Anemia. No significant change since yesterday, though she did have GI bleed. We will continue to monitor and consider transfusion if needed. 4. Nutrition. The patient is currently receiving feedings via G-tube at 35 mL per hour. I would discussed with hospitalist service to see if she needs increased feeds. 5. Altered mentation with recurrent stroke. She has prior history of stroke and had another new stroke now. Her mentation has improved significantly over last few days. She remains totally dependent on her family for care. DISPOSITION: The patient is likely to be ready for discharge by Saturday. All arrangements are being made for her to have 24-hour care at home.
[2018-07-23] MEDS ORDERED: LEVEMIR (INSULIN DETEMIR) 1 UNITS/0.01ML SC SCH (21:00)
[2018-07-23] MEDS: PRAVASTATIN 20 MG TAB PO SCH (21:23)
[2018-07-23 22:00] VITALS: BP 170/68
[2018-07-24] MEDS: **hydrALAZINE HCL** 25 MG TAB PO SCH ×4 (00:27→17:46)
[2018-07-24] MEDS: HumaLOG INSULIN (NovoLOG) PER UNIT SC SCH ×4 (00:27→17:45)
[2018-07-24 02:00] VITALS: BP 170/74
[2018-07-24 06:00] VITALS: BP 198/60
[2018-07-24] MEDS: PANTOPRAZOLE 40MG INJ (PROTONIX) (C9113) IV SCH (06:07)
[2018-07-24] MEDS: ASPIRIN 81 MG CHEW TABLET PEG SCH (06:08)
[2018-07-24] MEDS: GABAPENTIN 100 MG CAP PO SCH ×2 (06:08→20:38)
[2018-07-24] MEDS: CLOPIDOGREL 75 MG TAB PO SCH (06:09)
[2018-07-24] MEDS: CARVedilol 3.125 MG TAB PO SCH (06:09)
[2018-07-24] MEDS: LEVOTHYROXINE 25MCG TABLET (0.025MG) PO SCH (06:09)
[2018-07-24 06:45] LABS: HEMATOCRIT 27.5 % (36.0-47.0); HEMOGLOBIN 9.2 g/dl (12.0-15.5); MEAN CORPUSCULAR HEMOGLOBIN 29.9 pg (27.0-33.0); MEAN CORPUSCULAR HGB CONC 33.5 g/dl (32.0-36.5); MEAN CORPUSCULAR VOLUME 89.3 fl (80.0-96.0); RED BLOOD COUNT 3.08 10^6/uL (4.00-5.40); WHITE BLOOD COUNT 3.8 10^3/uL (4.0-10.0)
[2018-07-24 06:49] LABS: PLATELET COUNT, AUTOMATED 78 10^3/uL (150-450)
[2018-07-24 07:10] LABS: C REACTIVE PROTEIN QUANTITATIV 8.69 MG/DL (0.00-0.30); CREATININE FOR GFR 3.63 MG/DL (0.55-1.30); GLOMERULAR FILTRATION RATE 12.6 (>32); POTASSIUM SERUM 4.4 MEQ/L (3.5-5.1)
[2018-07-24 08:06] LABS: EOSINOPHILS 1 % (0-5); LYMPHOCYTES 28 % (16-52); MONOCYTES 3 % (0-8); NEUTROPHILS 67 % (35-75)
[2018-07-24 08:13] LABS: ANISOCYTOSIS 1+; PLATELET ESTIMATE DECREASED (NORMAL)
[2018-07-24] MEDS ORDERED: HEPARIN 1,000 UNITS/ML 10ML VIAL (FOR RADIOLOGY& DIALYSIS ONLY) XX ONE (11:45)
[2018-07-24] MEDS: CARVedilol 6.25 MG TAB PO SCH ×2 (12:37→20:39)
[2018-07-24 14:00] VITALS: BP 145/70
--- NOTE | 2018-07-24 16:02 | IPNPDOC ---
Text Note Date of Service The patient was seen on 07/24/18. NOTE Patient seen and examined. Patient nonverbal. Follows commands minimally, but alert. Denied pain. Seen in HD unit. PHYSICAL EXAMINATION: Patient comfortable. In no acute distress. HEENT: Moist mucous membranes. NECK: Supple. No jugular venous distention (JVD). CARDIAC: Regular S1, S2. PULMONARY: Bilateral clear. ABDOMEN: Soft, nontender. PEG tube in place. No leakage or bleeding. EXTREMITIES: No clubbing, cyanosis or edema. NEUROLOGICAL: Right-sided facial droop. Left upper extremity 3/5 strength. Dysarthria. Having trouble expressing herself. Right-sided hemiparesis at b aseline. Left lower extremity weak at 3 out of 5. ASSESSMENT: This is an 87-year-old female patient with underlying medical history of end-stage renal disease, on dialysis Saturday, , Saturday. History of multiple cerebrovascular accident (CVA), right sided hemiparesis, bed bound, hypertension, diabetes, hypothyroidism admitted with hypertensive urgency, found to have recurrent stroke. PROBLEMS: 1. Acute CVA. Likely embolic given multiple regions. Global aphasia, left-sided weakness that is new. Baseline right hemophoresis with prior stroke. Neurology consulted. Patient already on dual antiplatelets. 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 Monitor platelet level. No active bleeding. Continue statin. Physical therapy (PT)/occupational therapy (OT), speech and swallow. Patient has a PEG tube. Continue PEG feeding. 2. Hypertensive urgency. Likely secondary to acute CVA. Patient also end-stage renal disease. Goal systolic blood pressure 140 to 180. Continue blood pressure medication as ordered. 3. End-stage renal disease. Nephrology consulted. Continue dialysis. 4. Hypertension. Continue blood pressure medication. Adjust as needed. 5. Diabetes mellitus. basal bolus insulin Tube feeding. Followup finger sticks. 6. Hypothyroidism. Continue Synthroid. 7. Protein calorie malnutrition. Tube feeding as ordered. 8. Pancytopenia with end-stage renal disease. Peripheral smear appreciated. Outpatient followup. 9. Upper GI bleed. Status post PEG in the setting of thrombocytopenia. Monitor hemoglobin and hematocrit. Transfuse as needed. Patient on dual antiplatelets. 10. E. coli bacteremia. Possible source include lung versus urine. Infectious disease consulted. Further antibiotic adjustment as per infectious disease. Patient currently on Zosyn. Repeat culture has been negative. 11. Deep venous thrombosis (DVT) prophylaxis. TEDs and sequentials, in the setting of GI bleed DISPOSITION: Patient likely going home with 24/7 care. DO NOT RESUSCITATE (DNR), DO NOT INTUBATE (DNI). Poor jail prognosis. DC pending home equipment Patient needed hospital bed because required head of the bed to be elevated more than 30 degree due to aspiration risk on Tube feeding, and bed bound due to CVA needed frequent body repositioning to prevent decub ulcers. VS,Fishbone, I+O VS, Fishbone, I+O Laboratory Tests 07/24/18 06:18 Red Blood Count 3.08 L, Mean Corpuscular Volume 89.3, Mean Corpuscular Hemoglobin 29.9, Mean Corpuscular Hemoglobin Concent 33.5, Red Cell Distribution Width 15.1 H, Calcium Level 8.0 L Vital Signs Date Time Temp Pulse Resp B/P (MAP) Pulse Ox O2 Delivery O2 Flow Rate FiO2 07/24/18 14:00 98.1 87 20 145/70 (95) 96 07/23/18 06:00 Room Air 07/21/18 14:00 I&O- Last 24 Hours up to 6 AM 07/24/18 06:00 Intake Total 1040 ml Output Total 0 ml Balance 1040 ml GEETA ELLSWORTH MD Jul 24, 2018 16:02
--- NOTE | 2018-07-24 17:46 | IPN ---
DATE: 07/24/2018 SUBJECTIVE Patient seen at bedside. She is accompanied by her two granddaughters and her daughter. She is [place]-speaking only, however, her granddaughters are able to translate for her. They report that she has been afebrile overnight. She denies any coughing, sputum production, fevers, chills, diarrhea, nausea, vomiting, or abdominal pain. The granddaughter states that the patient does urinate, and overnight has some burning with urination. Straight catheterization ordered yesterday has not been done. OBJECTIVE Vitals: Temperature 98.1, pulse 87, respiratory rate 20, blood pressure 145/70, pulse ox is 96% on room air. General: Elderly female in no acute distress. She has difficulty with expressive aphasia but is able to get out some words though she is very soft spoken. Heart: Regular rate and rhythm. No gallops or rubs. However, a systolic ejection murmur about 2/6 is heard at the left upper sternal border. Chest: Hemodialysis catheter is in place in the right upper chest without erythema or exudate. Lungs: Clear to auscultation at the apices with slightly diminished breath sounds at the bases. Slight crackles at the bases, no rhonchi or wheezes. Abdomen: Soft, nontender, no distension. G tube is in place. There is no bloody drainage, erythema or signs of infection around the G tube insertion point. Extremities: No clubbing, cyanosis or edema. Neuro: Foot drop is noted on the left side, right hemiparesis is noted as well. She is alert and answers questions. LABORATORY DATA CBC: WBC 2.8. Hemoglobin 9.2, hematocrit 27.5, platelets 78. Chemistry: Sodium 138, potassium 4.4, chloride 105, carbon dioxide 26, BUN 67, creatinine 3.63, fasting glucose 324, calcium 8.0, magnesium 2.0. CRP 8.69. Micro: Repeat blood cultures done 07/21/2018 are showing no growth at 72 hours. IMPRESSION This is an 88-year-old female who was admitted with stroke, developed E-coli bacteremia and a low grade fever. Source of his infection possibly from hemodialysis catheter was transient bacteremia versus a UTI with transient bacteremia. We have asked the nursing staff to use a straight cath as the granddaughter does state that she does urinate. We will get a UA with reflex to urine culture if it is abnormal as well. She is currently on cefazolin 2 grams every 24 hours IV which is appropriate. Currently on Day #7 of antibiotic therapy. My faculty preceptor for this patient encounter was physically present during the encounter and was fully available. All aspects of the patient interview, examination, medical decision making process, and medical care plan development were reviewed and approved by the faculty preceptor. The faculty preceptor is aware and concurs with the plan as stated in the body of this note and will attest to such by his/her co-signature. DAV
[2018-07-24 18:00] VITALS: BP 160/74
--- NOTE | 2018-07-24 18:19 | IPN ---
DATE: 07/24/2018 Ms. Tran is seen this morning during hemodialysis. Her daughter is present on the bedside. The patient is awake and responds to questions appropriately. She is still very weak and unable to move due to recurrent strokes. She is receiving feeding via her gastrostomy (G) tube. She has no fever or chills. She did have some edema on upper extremities and face, which improved with fluid removal during last dialysis. We will plan to remove another liter. PHYSICAL EXAMINATION: Temperature is 98.1 degrees Fahrenheit, heart rate 76 per minute, respiratory rate 20 per minute. Blood pressure was 180/60 at the start dialysis, however, has come down to 145/70 mm of mercury. Her facial swelling is still present but improved. Neck veins are only minimally distended. Dialysis catheter in right internal jugular vein is intact. Heart sounds are regular and lungs with moderate bilateral air entry. She has poor inspiratory effort. Abdomen is soft and a G tube is in place. Bowel sounds are present. Extremities have no cyanosis or clubbing. Bilateral upper extremity edema has improved significantly. Today's labs show WBC count 3.8, hemoglobin 9.2, hematocrit 27.5, platelets 78,000. Sodium 138, potassium 4.4, CO2 of 26, BUN 57, creatinine 3.63, glucose 324, and calcium 8.0. A C-reactive protein is down to 8.69. PROBLEMS: 1. End-stage renal disease. The patient is being dialyzed, and she is tolerating her dialysis very well. Dialysis catheter is working. 2. Hypervolemia/edema. Volume status is improving, and we are removing 1 liter of fluid today. She tolerated fluid removal well last time on Saturday, and 1 liter is being removed with caution today. 3. Hypokalemia. Her potassium level has corrected with supplement yesterday. We are dialyzing her with 3.0 mEq potassium bath. 4. Anemia. Slight improvement in anemia is also noted. At this point, we will continue to treat her with Aranesp 100 mcg once a week. There is no active bleeding noticed. 5. Nutrition. The patient is tolerating her tube feeding and will continue with the same. DISPOSITION: From a renal standpoint, the patient seems to be ready for discharge to home on July 25.
[2018-07-24] MEDS: LEVEMIR (INSULIN DETEMIR) 1 UNITS/0.01ML SC SCH (20:38)
[2018-07-24] MEDS: PRAVASTATIN 20 MG TAB PO SCH (20:39)
[2018-07-24 22:00] VITALS: BP 174/80
[2018-07-25] MEDS: HumaLOG INSULIN (NovoLOG) PER UNIT SC SCH ×4 (00:11→17:17)
[2018-07-25] MEDS: **hydrALAZINE HCL** 25 MG TAB PO SCH ×3 (00:12→11:33)
[2018-07-25 06:00] VITALS: BP 153/80
[2018-07-25] MEDS: LEVOTHYROXINE 25MCG TABLET (0.025MG) PO SCH (06:26)
[2018-07-25 06:46] LABS: HEMATOCRIT 25.4 % (36.0-47.0); HEMOGLOBIN 8.7 g/dl (12.0-15.5); MEAN CORPUSCULAR HEMOGLOBIN 29.5 pg (27.0-33.0); MEAN CORPUSCULAR HGB CONC 34.3 g/dl (32.0-36.5); MEAN CORPUSCULAR VOLUME 86.1 fl (80.0-96.0); RED BLOOD COUNT 2.95 10^6/uL (4.00-5.40); WHITE BLOOD COUNT 5.2 10^3/uL (4.0-10.0)
[2018-07-25 06:55] LABS: PLATELET COUNT, AUTOMATED 92 10^3/uL (150-450)
[2018-07-25 07:13] LABS: C REACTIVE PROTEIN QUANTITATIV 7.22 MG/DL (0.00-0.30); CALCIUM LEVEL 8.4 MG/DL (8.8-10.2); CREATININE FOR GFR 2.68 MG/DL (0.55-1.30); GLOMERULAR FILTRATION RATE 17.9 (>32); MAGNESIUM LEVEL 1.9 MG/DL (1.8-2.4); POTASSIUM SERUM 3.3 MEQ/L (3.5-5.1)
[2018-07-25 07:17] LABS: EOSINOPHILS 2 % (0-5); LYMPHOCYTES 15 % (16-52); MONOCYTES 6 % (0-8); NEUTROPHILS 76 % (35-75); PLATELET ESTIMATE DECREASED (NORMAL)
[2018-07-25] MEDS: CLOPIDOGREL 75 MG TAB PO SCH (09:20)
[2018-07-25] MEDS: GABAPENTIN 100 MG CAP PO SCH ×2 (09:20→20:56)
[2018-07-25] MEDS: ASPIRIN 81 MG CHEW TABLET PEG SCH (09:20)
[2018-07-25] MEDS: PANTOPRAZOLE 40MG INJ (PROTONIX) (C9113) IV SCH (09:20)
[2018-07-25] MEDS: CARVedilol 6.25 MG TAB PO SCH ×2 (09:22→20:58)
[2018-07-25 10:30] VITALS: BP 105/54
--- NOTE | 2018-07-25 14:26 | IPN ---
DATE OF VISIT: 07/25/2018 Mrs. Tran is seen this morning on her bedside. Her son is present in the room and her granddaughter is also here. The patient was dialyzed yesterday and one liter of fluid was removed again without any difficulty. She is not in any distress. She is able to answer simple questions. She continues to receive her nutrition via G-tube. PHYSICAL EXAMINATION: Temperature 97.8 degrees Fahrenheit, heart rate 77 per minute and respiratory rate 18 per minute. Blood pressure 105/54 mmHg and oxygen saturation 97%. Head is atraumatic. Neck is supple and without jugular venous distention (JVD) or thyroid enlargement. Heart sounds are irregular in rhythm. Lungs sound clear to auscultation. Abdomen is soft and nontender with G-tube in place. Bowel sounds are normal. Extremities have no cyanosis or clubbing. Her bilateral hand edema has improved significantly. Today's labs show a WBC count of 5.2, hemoglobin 8.7 and hematocrit 25.4. Platelets 92,000. Sodium 138, potassium 3.3, CO2 29, BUN 42 and creatinine 2.68. PROBLEMS: 1. End-stage renal disease. The patient is regularly dialyzed on Saturday, and Saturday schedule. She was dialyzed yesterday and we will plan to dialyze her again tomorrow. 2. Hypervolemia and edema. Volume status seems reasonably well-compensated. We removed one liter of dialysis with each dialysis last two times. We will see if she can tolerate at least a half of liter of fluid removal tomorrow. 3. Hypokalemia. This is related to her tube feeding and dialysis. Her potassium can be replaced or we can use high potassium bath depending upon her labs tomorrow morning. It is likely to correct by itself anyway as she is receiving her tube feeding. 4. Hypertension. Blood pressure is well-controlled and in fact somewhat on the low side today. We will need to monitor closely and make adjustments in her medications if needed. She is receiving hydralazine 25 mg every 6 hours and we may have to hold her dose prior to dialysis. 5. Anemia. Her anemia is gradually worsening and she may still have low GI bleed. I discussed this with Dr. Barclay. We will continue to monitor her CBC and consider transfusing if her hemoglobin goes below 8.0. 6. E. Coli bacteremia. The patient remains on antibiotics and is being followed by infectious disease. DISPOSITION: The patient is not quite ready for discharge as yet. My recommendation would be to complete her antibiotic therapy before discharging as it will be very difficult to give her antibiotic during dialysis as the patient does not like to stay in dialysis for too long.
[2018-07-25 14:42] VITALS: BP 178/54
--- NOTE | 2018-07-25 17:25 | IPNPDOC ---
Text Note Date of Service The patient was seen on 07/25/18. NOTE Patient seen and examined. Patient minimum verbal. Follows commands minimally, but alert. Denied pain. PHYSICAL EXAMINATION: Patient comfortable. In no acute distress. HEENT: Moist mucous membranes. NECK: Supple. No jugular venous distention (JVD). CARDIAC: Regular S1, S2. PULMONARY: Bilateral clear. ABDOMEN: Soft, nontender. PEG tube in place. No leakage or active bleeding. EXTREMITIES: No clubbing, cyanosis or edema. NEUROLOGICAL: Right-sided facial droop. Left upper extremity 3/5 strength. Dysarthria. Having trouble expressing herself. Right-sided hemiparesis at baseli ne. Left lower extremity weak at 3 out of 5. ASSESSMENT: This is an 87-year-old female patient with underlying medical history of end-stage renal disease, on dialysis Saturday, , Saturday. History of multiple cerebrovascular accident (CVA), right sided hemiparesis, bed bound, hypertension, diabetes, hypothyroidism admitted with hypertensive urgency, found to have recurrent stroke. PROBLEMS: 1. Acute CVA. Likely embolic given multiple regions. Global aphasia, left-sided weakness that is new. Baseline right hemophoresis with prior stroke. Neurology consulted. Patient already on dual antiplatelets. 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 Monitor platelet level. No active bleeding. Continue statin. Physical therapy (PT)/occupational therapy (OT), speech and swallow. Patient has a PEG tube. Continue PEG feeding. need feeding supplies 2. Hypertensive urgency. Likely secondary to acute CVA. Patient also end-stage renal disease. Goal systolic blood pressure 140 to 180. Continue blood pressure medication as ordered. 3. End-stage renal disease. Nephrology consulted. Continue dialysis. 4. Hypertension. Continue blood pressure medication. Adjust as needed. 5. Diabetes mellitus. basal bolus insulin Tube feeding. Followup finger sticks. 6. Hypothyroidism. Continue Synthroid. 7. Protein calorie malnutrition. Tube feeding as ordered. 8. Pancytopenia with end-stage renal disease. Peripheral smear appreciated. Outpatient followup. 9. Upper GI bleed. Status post PEG in the setting of thrombocytopenia. Monitor hemoglobin and hematocrit. Transfuse as needed. Patient on dual antiplatelets. 10. E. coli bacteremia. Possible source include lung versus urine. Infectious disease consulted. Repeat culture has been negative. on Ancef, end day 08/03 11. Deep venous thrombosis (DVT) prophylaxis. TEDs and sequentials, in the setting of GI bleed DISPOSITION: Patient likely going home with 24/7 care. DO NOT RESUSCITATE (DNR), DO NOT INTUBATE (DNI). Poor jail prognosis. DC pending home equipment VS,Fishbone, I+O VS, Fishbone, I+O Laboratory Tests 07/25/18 06:11 Red Blood Count 2.95 L, Mean Corpuscular Volume 86.1, Mean Corpuscular Hemoglobin 29.5, Mean Corpuscular Hemoglobin Concent 34.3, Red Cell Distribution Width 15.1 H, Calcium Level 8.4 L Vital Signs Date Time Temp Pulse Resp B/P (MAP) Pulse Ox O2 Delivery O2 Flow Rate FiO2 07/25/18 14:42 178/54 (95) 07/25/18 14:00 95.7 79 20 97 07/23/18 06:00 Room Air 07/21/18 14:00 I&O- Last 24 Hours up to 6 AM 07/25/18 06:00 Intake Total 420 ml Output Total 1200 ml Balance -780 ml GEETA ELLSWORTH MD Jul 25, 2018 17:25
[2018-07-25 18:00] VITALS: BP 150/58
--- NOTE | 2018-07-25 18:21 | IPN ---
DATE: 07/25/2018 SUBJECTIVE: The patient is seen at bedside today. She is accompanied by her granddaughter who speaks Bel[place]ian as the patient is only Tuvaluan speaking. She denies any pain anywhere. She denies any fevers or chills overnight. She denies any nausea or vomiting, or diarrhea. OBJECTIVE: Vitals: Afebrile overnight, temperature 97.8, pulse 77, respiratory rate 18, blood pressure 105/54, pulse ox is 97% on room air. General: Elderly female in no acute distress, difficulty with speaking however, is able to say SI or NO to questions. She is also very soft spoken Heart: Regular rate and rhythm. No gallops or rubs. However, systolic ejection murmur about 2/6 is heard in the left upper sternal border. Chest: Hemodialysis catheter is in place in the right upper chest without erythema or exudate or signs of infection. Lungs: Clear to auscultation at the apices with slightly diminished breath sounds at the bases. No rhonchi or rales, wheezes, but there are some small crackles at the bases as well. Abdomen: Soft, nontender. No distension. Feeding tube is in place. There is no bloody drainage, erythema or signs of infection around the feeding tube insertion point. Extremities: No clubbing, cyanosis or edema. Neuro: Foot drop as noted on the left right hemiparesis is noted as well. She is alert and answers questions. LABORATORY DATA: CBC: WBC 5.2, hemoglobin 8.7, hematocrit 25.4, platelets 92. Chemistry: Sodium 138, potassium 3.3, chloride 102, carbon dioxide 29, BUN 42, creatinine 2.68, fasting glucose 248, calcium 8.4, magnesium 1.9, C-reactive protein 7.22. Urinalysis: Clear yellow urine with pH of 6 positive for 2+ protein and 3+ glucose, negative for leukocyte esterase. Urine WBCs were urine bacteria. IMPRESSION: This is in 88-year-old female who was admitted with a stroke developed E-coli bacteremia and a low grade fever. The source of her infection was thought to be possibly from her hemodialysis catheter with a transient bacteria versus a UTI with transient bacteremia. Her urinalysis was unremarkable but I think that is to be expected since she has already finished 7 days of antibiotic therapy. She does not have any pain around her catheter site. Due to her bacteremia with the dialysis catheter in place antibiotic therapy should continue for 14 days from the first negative blood culture, so end date of the cephazolin therapy should be 08/03/2018. This was discussed with Dr. Barclay and the hospitalist service. My faculty preceptor for this patient encounter was physically present during the encounter and was fully available. All aspects of the patient interview, examination, medical decision making process, and medical care plan development were reviewed and approved by the faculty preceptor. The faculty preceptor is aware and concurs with the plan as stated in the body of this note and will attest to such by his/her cosignature.
[2018-07-25] MEDS: PRAVASTATIN 20 MG TAB PO SCH (20:56)
[2018-07-25] MEDS: LEVEMIR (INSULIN DETEMIR) 1 UNITS/0.01ML SC SCH (20:59)
[2018-07-25 22:00] VITALS: BP 182/72
[2018-07-26] MEDS: HumaLOG INSULIN (NovoLOG) PER UNIT SC SCH ×5 (00:11→23:48)
[2018-07-26 02:00] VITALS: BP 162/74
[2018-07-26] MEDS: ASPIRIN 81 MG CHEW TABLET PEG SCH (05:55)
[2018-07-26] MEDS: CLOPIDOGREL 75 MG TAB PO SCH (05:55)
[2018-07-26] MEDS: PANTOPRAZOLE 40MG INJ (PROTONIX) (C9113) IV SCH (05:55)
[2018-07-26] MEDS: LEVOTHYROXINE 25MCG TABLET (0.025MG) PO SCH (05:55)
[2018-07-26] MEDS: GABAPENTIN 100 MG CAP PO SCH ×2 (05:56→21:07)
[2018-07-26] MEDS: CARVedilol 6.25 MG TAB PO SCH ×2 (05:56→21:08)
[2018-07-26 06:00] VITALS: BP 134/80
[2018-07-26 06:09] LABS: HEMATOCRIT 24.1 % (36.0-47.0); HEMOGLOBIN 8.2 g/dl (12.0-15.5); MEAN CORPUSCULAR HEMOGLOBIN 29.9 pg (27.0-33.0); RED BLOOD COUNT 2.74 10^6/uL (4.00-5.40); WHITE BLOOD COUNT 5.3 10^3/uL (4.0-10.0)
[2018-07-26 06:11] LABS: PLATELET COUNT, AUTOMATED 86 10^3/uL (150-450)
[2018-07-26 06:32] LABS: C REACTIVE PROTEIN QUANTITATIV 5.56 MG/DL (0.00-0.30); CALCIUM LEVEL 7.9 MG/DL (8.8-10.2); CREATININE FOR GFR 3.53 MG/DL (0.55-1.30); GLOMERULAR FILTRATION RATE 13.1 (>32); MAGNESIUM LEVEL 2.1 MG/DL (1.8-2.4); POTASSIUM SERUM 3.3 MEQ/L (3.5-5.1)
[2018-07-26 06:45] LABS: ATYPICAL LYMPH 1 % (0-5); BASOPHILS 1 % (0-4); EOSINOPHILS 1 % (0-5); LYMPHOCYTES 17 % (16-52); MONOCYTES 14 % (0-8); MYELOCYTES 1 % (0-0); NEUTROPHILS 63 % (35-75)
[2018-07-26 06:47] LABS: PLATELET ESTIMATE DECREASED (NORMAL)
[2018-07-26] MEDS ORDERED: HEPARIN 1,000 UNITS/ML 10ML VIAL (FOR RADIOLOGY& DIALYSIS ONLY) XX ONE (12:00)
--- NOTE | 2018-07-26 13:51 | IPNPDOC ---
Text Note Date of Service The patient was seen on 07/26/18. NOTE Patient seen and examined. Patient minimum verbal. Follows commands, alert. Denied pain. PHYSICAL EXAMINATION: Patient comfortable. In no acute distress. HEENT: Moist mucous membranes. NECK: Supple. No jugular venous distention (JVD). CARDIAC: Regular S1, S2. PULMONARY: Bilateral clear. ABDOMEN: Soft, nontender. PEG tube in place. No leakage or active bleeding. EXTREMITIES: No clubbing, cyanosis or edema. NEUROLOGICAL: Right-sided facial droop. Left upper extremity 3/5 strength. Dysarthria. Having trouble expressing herself. Right-sided hemiparesis at baseline. Left lower extremity weak at 3 out of 5. ASSESSMENT: This is an 87-year-old female patient with underlying medical history of end-stage renal disease, on dialysis Saturday, , Saturday. History of multiple cerebrovascular accident (CVA), right sided hemiparesis, bed bound, hypertension, diabetes, hypothyroidism admitted with hypertensive urgency, found to have recurrent stroke. PROBLEMS: 1. Acute CVA. Likely embolic given multiple regions. Global aphasia, left-sided weakness that is new. Baseline right hemophoresis with prior stroke. Neurology consulted. Patient already on dual antiplatelets. Therapy for three months, then aspirin only as recommended by neurology at [facility]. 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 Monitor platelet level. No active bleeding. Continue statin. Physical therapy (PT)/occupational therapy (OT), speech and swallow. Patient has a PEG tube. Continue PEG feeding. need feeding supplies 2. Hypertensive urgency. Likely secondary to acute CVA. Patient also end-stage renal disease. Goal systolic blood pressure 140 to 180. Continue blood pressure medication as ordered. 3. End-stage renal disease. Nephrology consulted. Continue dialysis. 4. Hypertension. Continue blood pressure medication. Adjust as needed. 5. Diabetes mellitus. basal bolus insulin Tube feeding. Followup finger sticks. 6. Hypothyroidism. Continue Synthroid. 7. Protein calorie malnutrition. Tube feeding as ordered. 8. Pancytopenia with end-stage renal disease. Peripheral smear appreciated. Outpatient followup. 9. Upper GI bleed. Status post PEG in the setting of thrombocytopenia. Monitor hemoglobin and hematocrit. Transfuse as needed. Patient on dual antiplatelets. 10. E. coli bacteremia. Possible source include lung versus urine. Infectious disease consulted. Repeat culture has been negative. on Ancef, end day 08/03 11. Deep venous thrombosis (DVT) prophylaxis. TEDs and sequentials, in the setting of GI bleed DISPOSITION: Patient likely going home with 24/7 care. DO NOT RESUSCITATE (DNR), DO NOT INTUBATE (DNI). Poor [facility] prognosis. DC pending home equipment and completion of antibiotics VS,Fishbone, I+O VS, Fishbone, I+O Laboratory Tests 07/26/18 05:41 Red Blood Count 2.74 L, Mean Corpuscular Volume 88.0, Mean Corpuscular Hemoglobin 29.9, Mean Corpuscular Hemoglobin Concent 34.0, Red Cell Distribution Width 14.8 H, Calcium Level 7.9 L Vital Signs Date Time Temp Pulse Resp B/P (MAP) Pulse Ox O2 Delivery O2 Flow Rate FiO2 07/26/18 06:00 98.1 97 18 134/80 (98) 100 07/23/18 06:00 Room Air 07/21/18 14:00 I&O- Last 24 Hours up to 6 AM 07/26/18 06:00 Intake Total 980 ml Output Total 0 ml Balance 980 ml GEETA ELLSWORTH MD Jul 26, 2018 13:51
[2018-07-26 14:00] VITALS: BP 158/52
[2018-07-26] MEDS: LEVEMIR (INSULIN DETEMIR) 1 UNITS/0.01ML SC SCH (21:07)
[2018-07-26] MEDS: PRAVASTATIN 20 MG TAB PO SCH (21:08)
[2018-07-26 22:00] VITALS: BP 158/64
[2018-07-27] MEDS: LEVOTHYROXINE 25MCG TABLET (0.025MG) PO SCH (05:53)
[2018-07-27] MEDS: HumaLOG INSULIN (NovoLOG) PER UNIT SC SCH ×3 (05:53→18:00)
[2018-07-27 06:00] VITALS: BP 162/68
[2018-07-27 06:24] LABS: BASO % 0.5 % (0.0-1.0); EOS % 0.7 % (0.0-3.0); HEMATOCRIT 22.8 % (36.0-47.0); HEMOGLOBIN 7.7 g/dl (12.0-15.5); LYMPH # 0.9 10^3/uL (1.5-4.5); LYMPH % 14.7 % (24.0-44.0); MEAN CORPUSCULAR HGB CONC 33.8 g/dl (32.0-36.5); MEAN CORPUSCULAR VOLUME 88.7 fl (80.0-96.0); MONO # 0.8 10^3/uL (0.0-0.8); NEUTROPHILS % 66.9 % (36.0-66.0); RED BLOOD COUNT 2.57 10^6/uL (4.00-5.40); WHITE BLOOD COUNT 5.9 10^3/uL (4.0-10.0)
[2018-07-27 06:26] LABS: PLATELET COUNT, AUTOMATED 90 10^3/uL (150-450)
[2018-07-27 06:32] LABS: C REACTIVE PROTEIN QUANTITATIV 5.67 MG/DL (0.00-0.30); CREATININE FOR GFR 2.45 MG/DL (0.55-1.30); GLOMERULAR FILTRATION RATE 19.9 (>32); POTASSIUM SERUM 3.6 MEQ/L (3.5-5.1)
--- NOTE | 2018-07-27 10:57 | IPN ---
DATE: 07/26/2018 SUBJECTIVE: Patient was seen and examined at the bedside this morning during hemodialysis. She is tolerating hemodialysis procedure well. She is minimally verbal. Her daughter was also present at the bedside. OBJECTIVE: VITAL SIGNS: Temperature 98.1 degrees Fahrenheit, blood pressure 134/80, pulse 97, respiratory rate 18, saturating 100% on room air. Intake and urine output recorded as 100 mL. Weight on the bed scale is not available. PHYSICAL EXAMINATION: GENERAL: Patient is awake, nonverbal laying in bed getting hemodialysis done. HEAD/NECK: Pupils equal, round, and reactive to light. Mucous membranes are moist. Neck is supple. There is no jugular venous distention (JVD). She has a right internal jugular (IJ) tunnel hemodialysis catheter. CARDIOVASCULAR: S1, S2. Regular rate. No murmur, rub or gallop. RESPIRATORY: Chest is clear to auscultation bilaterally. Bilaterally good air entry. No rale or rhonchi. ABDOMEN: Soft, positive bowel sounds. Nontender. No organomegaly. MUSCULOSKELETAL: No clubbing or cyanosis. SALESPERSON DRIVER: Patient is paraplegic. Bilateral lower extremities have 1/5 power and the right upper extremity has 1/5 power. Left upper extremity has 3/5 power. Patient is unable to communicate. LAB REVIEW: CBC showed WBC 5.3, hemoglobin 8.2, platelets 86. BMP shows sodium 138, potassium 3.3, chloride 102, bicarbonate 27, BUN 60, creatinine 3.5, calcium 7.9, magnesium 2.1. Microbiology: Repeat blood cultures sent on 07/21/2018 are negative so far. CURRENT INPATIENT MEDICATIONS: Patient's medications are all reviewed by me. She continues to be on IV cefazolin. Hydralazine has been stopped. No other change in the medications today as compared to with yesterday. ASSESSMENT/PLAN: 1. End-stage renal disease: Patient is being dialyzed according to her regular Saturday, , Saturday schedule. Ultrafiltration goal will be 0.5 kg to 1 kg as tolerated by her blood pressure. 2. Volume overload and edema: It is being optimized with hemodialysis now. I tried to remove 1 kg in the morning but the blood pressure dropped. No the ultrafiltration goal is 500 mL. 3. Hypokalemia: Patient is being dialyzed with 4K bath. Potassium level is expected to improve. 4. Hypertension: Continue current dose of carvedilol, hydralazine has been stopped. 5. Anemia secondary to end-stage renal disease. Hemoglobin is 8.2 which is low. Continue current dose of Aranesp 100 mcg IV with hemodialysis. Transfuse as needed for hemoglobin below 8. 6. E Coli bacteremia: Patient is on IV Ancef. The rest if the management is as per infectious disease (ID) recommendations. 7. Protein calorie malnutrition: Patient is currently on by mouth feeds at this point. 8. Acute cerebrovascular accident (CVA): Patient is on aspirin and Plavix. Continue the statin. The rest of the management is as per neurology recommendations. 9. Disposition: Patient overall has a poor prognosis, however, she gets very good care from her family members. She is DO NOT RESUSCITATE and DO NOT INTUBATE at this point.
[2018-07-27] MEDS: PANTOPRAZOLE 40MG INJ (PROTONIX) (C9113) IV SCH (11:03)
[2018-07-27] MEDS: CLOPIDOGREL 75 MG TAB PO SCH (11:03)
[2018-07-27] MEDS: ASPIRIN 81 MG CHEW TABLET PEG SCH (11:03)
[2018-07-27] MEDS: CARVedilol 6.25 MG TAB PO SCH ×2 (11:03→21:16)
[2018-07-27] MEDS: GABAPENTIN 100 MG CAP PO SCH ×2 (11:03→21:16)
[2018-07-27 14:00] VITALS: BP 158/60
[2018-07-27] MEDS: PRAVASTATIN 20 MG TAB PO SCH (21:14)
[2018-07-27] MEDS: LEVEMIR (INSULIN DETEMIR) 1 UNITS/0.01ML SC SCH (21:17)
[2018-07-27 22:00] VITALS: BP 173/82
[2018-07-28] MEDS: HumaLOG INSULIN (NovoLOG) PER UNIT SC SCH ×4 (00:15→18:10)
[2018-07-28] MEDS: LEVOTHYROXINE 25MCG TABLET (0.025MG) PO SCH (05:55)
[2018-07-28 06:00] VITALS: BP 183/84
[2018-07-28 06:46] LABS: BASO % 0.6 % (0.0-1.0); EOS # 0.1 10^3/uL (0.0-0.50); HEMATOCRIT 25.3 % (36.0-47.0); HEMOGLOBIN 8.5 g/dl (12.0-15.5); LYMPH # 0.6 10^3/uL (1.5-4.5); LYMPH % 12.5 % (24.0-44.0); MEAN CORPUSCULAR HEMOGLOBIN 28.7 pg (27.0-33.0); MEAN CORPUSCULAR HGB CONC 33.6 g/dl (32.0-36.5); MEAN CORPUSCULAR VOLUME 85.5 fl (80.0-96.0); MONO # 0.8 10^3/uL (0.0-0.8); MONO % 15.7 % (0.0-5.0); NEUTROPHILS # 3.4 10^3/uL (1.8-7.7); NEUTROPHILS % 68.2 % (36.0-66.0); RED BLOOD COUNT 2.96 10^6/uL (4.00-5.40)
[2018-07-28 06:48] LABS: PLATELET COUNT, AUTOMATED 77 10^3/uL (150-450)
[2018-07-28 07:16] LABS: C REACTIVE PROTEIN QUANTITATIV 4.3 MG/DL (0.00-0.30); CALCIUM LEVEL 8.3 MG/DL (8.8-10.2); CREATININE FOR GFR 3.22 MG/DL (0.55-1.30); GLOMERULAR FILTRATION RATE 14.5 (>32); MAGNESIUM LEVEL 1.9 MG/DL (1.8-2.4); POTASSIUM SERUM 3.4 MEQ/L (3.5-5.1)
--- NOTE | 2018-07-28 08:03 | IPN ---
DATE: 07/27/2018 Patient was seen and examined. Very poor historian, minimally verbal. Denies any pain. Follows simple commands. VITAL SIGNS: Temperature 97, pulse 84, respirations 19, blood pressure 158/60, pulse oximetry 97% on room air. LABORATORIES: WBC 5.9, hemoglobin and hematocrit 7.7/28.8, platelets 90. Chemistry: Sodium 139, potassium 3.6, chloride 103, bicarbonate 27, BUN 40, creatinine 2.45. PHYSICAL EXAMINATION: GENERAL: Patient is comfortable. In no acute distress. HEENT: Moist mucous membranes. NECK: Supple. CARDIAC: Regular S1, S2. PULMONARY: Bilaterally clear. ABDOMEN: Soft. Percutaneous endoscopic gastrostomy (PEG) tube in place. No significant bleeding. EXTREMITIES: No clubbing, cyanosis or edema. NEUROLOGICAL: Right-sided facial droop. Right upper extremity 3/5 strength. Dysarthria. Having trouble expressing herself. Right-sided hemiparesis at baseline. Left upper and lower extremities 3 out of 5. ASSESSMENT: This is an 87-year-old female patient with underlying medical history of end-stage renal disease, on dialysis Saturday, , Saturday, multiple cerebrovascular accident (CVA) with right sided hemiparesis and new left sided weakness, currently bed bound, hypertension, diabetes, hypothyroidism, who was admitted with hypertensive urgency, found to have recurrent stroke. Currently was PEG feeding. PROBLEMS: 1. Acute stroke, likely embolic given multiple regions. Global aphasia, left-sided weakness that is new, baseline right sided hemiparesis due to prior stroke. Neurology consulted. Patient already on dual antiplatelets. Was previously evaluated at [facility]. Recommended dual antiplatelet for at least 3 months and possibly switching to aspirin only, as per neurology at [facility]. 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 Monitor for platelet level. No active bleeding. Continue statin. Physical therapy (PT) and occupational therapy (OT) and speech and swallow. PEG tube feeding at this time. marquetry worker is working on getting supplies, including Kangaroo pump at home. 2. Hypertensive urgency. Likely secondary to acute CVA and end stage renal disease. The patient's blood pressure has been tenuous. The patient could be hypotensive during dialysis and hypertension when off dialysis. Continue current medications as ordered. The patient currently is on Coreg only. Hydralazine has been stopped by nephrology. Further recommendations as per nephrology. 3. Diabetes mellitus. Basal bolus insulin. Tube feedings and follow fingersticks. 4. Hypothyroidism. Continue Synthroid. 5. Protein calorie malnutrition. Tube feeding as ordered. 6. Pancytopenia with end-stage renal disease. Peripheral smear appreciated. Outpatient followup. 9. Upper GI bleed. Status post PEG placement in the setting of thrombocytopenia. On dual antiplatelets. Monitor hemoglobin and hematocrit. Transfuse as needed. 10. Escherichia (E) coli bacteremia. Possible urine source. Infectious disease consulted. Given patient with a tunneled dialysis catheter, recommend Ancef end day 08/03/2018 as per infectious disease. 11. Deep venous thrombosis (DVT) prophylaxis. TEDs and sequentials in the setting of gastrointestinal bleed. DISPOSITION: The patient is a DO NOT RESUSCITATE (DNR), DO NOT INTUBATE (DNI). Will be discharging home after completion of the antibiotics with 24/7 care. Poor long-term prognosis. Case discussed with infectious disease and nephrology.
[2018-07-28] MEDS: GABAPENTIN 100 MG CAP PO SCH ×2 (09:47→20:32)
[2018-07-28] MEDS: CLOPIDOGREL 75 MG TAB PO SCH (09:47)
[2018-07-28] MEDS: ASPIRIN 81 MG CHEW TABLET PEG SCH (09:47)
[2018-07-28] MEDS: PANTOPRAZOLE 40MG INJ (PROTONIX) (C9113) IV SCH (09:48)
[2018-07-28] MEDS: CARVedilol 6.25 MG TAB PO SCH ×2 (09:52→20:32)
--- NOTE | 2018-07-28 10:00 | NUR ---
Bedside swallow eval for appropriate diet following feeding tube placement was conducted. Based on the results of the assessment ST recommends a thin liquid PO diet for pleasure feeds as desired w/family assisting and feeding tube as primary source of nutrition. ST will continue dysphagia therapy to assure safest feeding strategies are being implemented during PO intake. Addendum: 07/28/18 at 1003 by DEL MUÑOZ Amended: Links added.
[2018-07-28 13:30] VITALS: BP 180/68
[2018-07-28 14:00] VITALS: BP 148/54
--- NOTE | 2018-07-28 14:03 | IPN ---
DATE: 07/27/2018 SUBJECTIVE: Patient was seen and examined at the bedside this morning. The patient is afebrile. She is hemodynamically stable. She is awake and able to answer a few questions. She is getting tube feeds at this point. She was dialyzed yesterday and 500 mL of fluid was removed. There was a drop in her hemoglobin today. SHe is going to get packed red blood cell transfusion. OBJECTIVE: VITAL SIGNS: Temperature is 97 degrees Fahrenheit, blood pressure 158/60, pulse is 64, respiratory rate of 19, saturating 97%. Intake and output: Ultrafiltration with hemodialysis was 500 mL yesterday. Weight on the bed scale is not available. PHYSICAL EXAMINATION: GENERAL: Patient is awake, alert, able to answer a few questions. Lying in bed. HEAD/NECK: Pupils equal, round, and reactive to light. Mucous membranes are moist. Neck is supple. There is no jugular venous distention (JVD). She has a right internal jugular (IJ) tunnel hemodialysis catheter. CARDIOVASCULAR: S1, S2. Regular rate. No murmur, rub or gallop. Trace edema of the bilateral lower extremities. RESPIRATORY: Chest is clear to auscultation bilaterally. Bilateral equal air entry. No rale or rhonchi. ABDOMEN: Soft, positive bowel sounds. She has a percutaneous endoscopic gastrostomy (PEG) tube in the epigastrium. MUSCULOSKELETAL: No clubbing or cyanosis. 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 She cannot move her right upper extremity, she only moves her left upper extremity. LAB REVIEW: CBC showed WBC 5.9, hemoglobin 7.7, platelets 90. BMP showed sodium 139, potassium 3.6, chloride 103, bicarbonate 27, BUN 40, creatinine 2.4. CURRENT INPATIENT MEDICATIONS: Patient continues to be on IV cefazolin. No change in the medications today as compared to yesterday. ASSESSMENT/PLAN: 1. End-stage renal disease. Patient's regular dialysis days are Saturday, , Saturday. She was dialyzed yesterday. Next hemodialysis will be on 07/29/2018. 2. Hypertension. Blood pressure is optimized. Continue current dose of carvedilol. The patient tends to have low blood pressure during dialysis. No further escalation of antihypertensive regimen. 3. Anemia secondary to end-stage renal disease and recent gastrointestinal bleed. The patient's hemoglobin has dropped again. She is going to get 1 unit of packed red blood cell transfusion. Continue Aranesp with hemodialysis as well. 4. Escherichia (E) coli bacteremia. Continue IV Ancef. Dose and duration of antibiotics is as per infectious disease. 5. Protein calorie malnutrition: Patient is getting Nepro tube feeds via the PEG tube. She is unable to swallow at this point.
--- NOTE | 2018-07-28 18:15 | IPNPDOC ---
Text Note Date of Service The patient was seen on 07/28/18. NOTE Patient was seen and examined. Very poor historian. Denies any pain. Follows simple commands. PHYSICAL EXAMINATION: GENERAL: Patient is comfortable. In no acute distress. HEENT: Moist mucous membranes. NECK: Supple. CARDIAC: Regular S1, S2. PULMONARY: Bilaterally clear. ABDOMEN: Soft. Percutaneous endoscopic gastrostomy (PEG) tube in place. No significant bleeding. EXTREMITIES: No clubbing, cyanosis or edema. NEUROLOGICAL: Right-sided facial droop. Right upper extremity 3/5 strength. Dysarthria. Having trouble expressing herself. Right-sided hemiparesis at baseline. Left upper and lower extremities 3 out of 5. ASSESSMENT: This is an 87-year-old female patient with underlying medical history of end-stage renal disease, on dialysis Saturday, , Saturday, multiple cerebrovascular accident (CVA) with right sided hemiparesis and new left sided weakness, currently bed bound, hypertension, diabetes, hypothyroidism, who was admitted with hypertensive urgency, found to have recurrent stroke. Currently was PEG feeding. PROBLEMS: 1. Acute stroke, likely embolic given multiple regions. Global aphasia, left-sided weakness that is new, baseline right sided hemiparesis due to prior stroke. Neurology consulted. Patient already on dual antiplatelets. Was previously evaluated at [facility]. Recommended dual antiplatelet for at least 3 months and possibly switching to aspirin only, as per neurology at [facility]. 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 Monitor for platelet level. No active bleeding. Continue statin. Physical therapy (PT) and occupational therapy (OT) and speech and swallow. PEG tube feeding at this time. tanyard worker is working on getting supplies, including Kangaroo pump at home. 2. Hypertensive urgency. Likely secondary to acute CVA and end stage renal disease. The patient's blood pressure has been tenuous. Continue current medications as ordered. The patient currently is on Coreg only. Hydralazine has been stopped by nephrology. Further recommendations as per nephrology. 3. Diabetes mellitus. Basal bolus insulin. Tube feedings and follow fingersticks. 4. Hypothyroidism. Continue Synthroid. 5. Protein calorie malnutrition. Tube feeding as ordered. tube feeding is the sole source of calorie for the patient 6. Pancytopenia with end-stage renal disease. Peripheral smear appreciated. Outpatient followup. 9. Upper GI bleed. Status post PEG placement in the setting of thrombocytopenia. On dual antiplatelets. Monitor hemoglobin and hematocrit. Transfuse as needed. 10. Escherichia (E) coli bacteremia. Possible urine source. Infectious disease consulted. Given patient with a tunneled dialysis catheter, recommend Ancef end day 08/03/2018 as per infectious disease. 11. Deep venous thrombosis (DVT) prophylaxis. TEDs and sequentials in the setting of gastrointestinal bleed. DISPOSITION: The patient is a DO NOT RESUSCITATE (DNR), DO NOT INTUBATE (DNI). Will be discharging home after completion of the antibiotics 08/03 with / care. Poor long-term prognosis. Case discussed with infectious disease and nephrolog y. Mary WHITTAKER, I+O Mary WHITTAKER I+O Laboratory Tests 07/28/18 06:01 Red Blood Count 2.96 L, Mean Corpuscular Volume 85.5, Mean Corpuscular Hemoglobin 28.7, Mean Corpuscular Hemoglobin Concent 33.6, Red Cell Distribution Width 14.8 H, Neutrophils (%) (Auto) 68.2 H, Lymphocytes (%) (Auto) 12.5 L, Monocytes (%) (Auto) 15.7 H, Eosinophils (%) (Auto) 1.0, Basophils (%) (Auto) 0.6, Neutrophils # (Auto) 3.4, Lymphocytes # (Auto) 0.6 L, Monocytes # (Auto) 0 .8, Eosinophils # (Auto) 0.1, Basophils # (Auto) 0.0, Calcium Level 8.3 L Vital Signs Date Time Temp Pulse Resp B/P (MAP) Pulse Ox O2 Delivery O2 Flow Rate FiO2 07/28/18 14:00 98.9 83 20 148/54 (85) 98 07/23/18 06:00 Room Air I&O- Last 24 Hours up to 6 AM 07/28/18 06:00 Intake Total 1700 ml Balance 1700 ml GEETA ELLSWORTH MD Jul 28, 2018 18:15
[2018-07-28] MEDS: PRAVASTATIN 20 MG TAB PO SCH (20:32)
[2018-07-28] MEDS: LEVEMIR (INSULIN DETEMIR) 1 UNITS/0.01ML SC SCH (20:33)
[2018-07-28 22:00] VITALS: BP 182/64
[2018-07-29] MEDS: HumaLOG INSULIN (NovoLOG) PER UNIT SC SCH ×5 (00:39→23:28)
[2018-07-29 06:00] VITALS: BP 140/75
[2018-07-29] MEDS: ASPIRIN 81 MG CHEW TABLET PEG SCH (06:29)
[2018-07-29] MEDS: CLOPIDOGREL 75 MG TAB PO SCH (06:29)
[2018-07-29] MEDS: LEVOTHYROXINE 25MCG TABLET (0.025MG) PO SCH (06:29)
[2018-07-29] MEDS: GABAPENTIN 100 MG CAP PO SCH ×2 (06:29→21:38)
[2018-07-29] MEDS: CARVedilol 6.25 MG TAB PO SCH ×2 (06:30→21:51)
[2018-07-29] MEDS: PANTOPRAZOLE 40MG INJ (PROTONIX) (C9113) IV SCH (06:30)
--- NOTE | 2018-07-29 08:14 | IPN ---
DATE OF SERVICE: 07/28/2018 SUBJECTIVE: Patient was seen and examined at the bedside today morning. Her daughter was also present at the bedside. She is afebrile, hemodynamically stable. She was given one unit of packed red blood cell (PRBC) transfusion. There is slight improvement in the hemoglobin today as compared with yesterday. OBJECTIVE: VITAL SIGNS: Temperature is 98.9 degrees Fahrenheit, blood pressure 148/54, pulse is 83, respiratory rate of 20, saturating 98% on room air. INTAKE AND OUTPUT: There is no urine output recorded. Weight on the bed scale is not available at this point. PHYSICAL EXAMINATION: GENERAL: Patient is awake and alert, answer a few questions. She speaks Chinese and her daughters translate for her. HEAD/NECK: Pupils equally round and reactive to light. Mucous membranes are moist. Neck is supple. She has a right internal jugular (IJ) tunnel hemodialysis catheter. CARDIOVASCULAR: S1, S2. Regular rate. No murmur, rub or gallop. Trace edema of the bilateral lower extremities. RESPIRATORY: Chest is clear to auscultation bilaterally. Bilateral equal air entry. No rales or rhonchi. ABDOMEN: Soft, positive bowel sounds. She has a percutaneous endoscopic gastrostomy (PEG) tube in the epigastrium. MUSCULOSKELETAL: No clubbing or cyanosis. She does not move bilateral lower extremities or right upper extremity. CENTRAL NERVOUS SYSTEM (SECONDARY TEACHER): Patient has had multiple strokes. She is paraplegic from waist below. She moves her left upper extremity. No power in the right upper extremity. LAB REVIEW: CBC showed a WBC 5, hemoglobin 8.5, platelets 77. BMP showed sodium 138, potassium 3.4, chloride 102, bicarbonate 29, BUN 56, creatinine 3.2. CURRENT INPATIENT MEDICATIONS: Patient's medications were all reviewed by me. Thee is no change in the medications today as compared with yesterday. ASSESSMENT/PLAN: 1. End-stage renal disease. Patient's regular dialysis days are Saturday, , Saturday. She will be dialyzed tomorrow as per her regular schedule. 2. Hypertension. She has labile blood pressures. Continue current dose of carvedilol. No need of escalation of antihypertensive regimen. The patient tends to drop her blood pressures during dialysis. 3. Anemia secondary to end-stage renal disease and recent gastrointestinal bleeding. Hemoglobin was low yesterday. She was given one unit of PRBC transfusion. She is also receiving Aranesp during hemodialysis. 4. Escherichia (E) coli bacteremia. The patient is on IV Ancef. Infectious disease is already on board. 5. Protein calorie malnutrition. Patient is getting tube feeds. She was also started on clear liquid diet today. 6. Hypokalemia. The patient will be dialyzed with 4K bath. No need of potassium administration at this time. MTDD
[2018-07-29 08:57] LABS: BASO % 0.2 % (0.0-1.0); EOS # 0.1 10^3/uL (0.0-0.50); EOS % 1.4 % (0.0-3.0); HEMATOCRIT 22.1 % (36.0-47.0); HEMOGLOBIN 7.6 g/dl (12.0-15.5); LYMPH # 0.6 10^3/uL (1.5-4.5); LYMPH % 14.2 % (24.0-44.0); MEAN CORPUSCULAR HEMOGLOBIN 29.8 pg (27.0-33.0); MEAN CORPUSCULAR HGB CONC 34.4 g/dl (32.0-36.5); MEAN CORPUSCULAR VOLUME 86.7 fl (80.0-96.0); MONO # 0.8 10^3/uL (0.0-0.8); MONO % 17.9 % (0.0-5.0); NEUTROPHILS # 2.8 10^3/uL (1.8-7.7); NEUTROPHILS % 64.4 % (36.0-66.0); RED BLOOD COUNT 2.55 10^6/uL (4.00-5.40); WHITE BLOOD COUNT 4.3 10^3/uL (4.0-10.0)
[2018-07-29 08:59] LABS: PLATELET COUNT, AUTOMATED 75 10^3/uL (150-450)
[2018-07-29 09:22] LABS: ALBUMIN 1.6 GM/DL (3.2-5.2); CALCIUM LEVEL 7.9 MG/DL (8.8-10.2); CREATININE FOR GFR 3.71 MG/DL (0.55-1.30); GLOMERULAR FILTRATION RATE 12.3 (>32); PHOSPHORUS LEVEL 2.1 MG/DL (2.5-4.9); POTASSIUM SERUM 3.3 MEQ/L (3.5-5.1)
[2018-07-29] MEDS ORDERED: HEPARIN 1,000 UNITS/ML 10ML VIAL (FOR RADIOLOGY& DIALYSIS ONLY) XX ONE (10:45)
--- NOTE | 2018-07-29 10:48 | IPNPDOC ---
Text Note Date of Service The patient was seen on 07/29/18. NOTE Subjective: Pt feels well. Denies CP/SOB/palpitations. On HD. Objective: Vitals: (see below) General: No acute distress, laying comfortably in bed. HEENT: Moist mucous membranes. Neck: No JVD or lymphadenopathy Cardiac: RRR, No murmurs Pulm: Clear to auscultation b/l. No wheezing, rhonchi Abd: NT/ND + BS. PEG tube in place with no leak or bleeding. Ext: No edema or cyanosis Neuro:Has a right facial droop. Left upper extremity 3-4/5. No tongue deviation noted. More alert today. Has dysarthria, and expressive aphasia which has been stable. Unable to complete the entire neurologic exam. Right sided hemiparesis and LLE ext weakness at baseline. Labs (see below) Images: MRI brain on 07/13/18 IMPRESSION: Limited by motion. Small acute infarct in the medial left frontal lobe. Small acute infarct in the right radiata. Possible tiny acute infarct in the medial superior left parietal lobe. Chronic white matter changes as described. Bifrontal hygromas. Unchanged from prior. Echocardiogram on 07/13/18 CONCLUSIONS: 1. Mild concentric left ventricular hypertrophy. Normal regional LV wall motion and wall thickening. Normal left ventricular systolic function. Left ventricle ejection fraction 65% by visual estimate. Grade 1 LV diastolic dysfunction, impaired relaxation filling pattern. 2. Moderate mitral annular calcification. No mitral regurgitation. No mitral stenosis. 3. Mild aortic valve sclerosis. No aortic regurgitation. 4. Otherwise normal appearing echocardiogram Doppler. MRI Brain 07/19/18 Impression: Small foci of acute infarction is suggested as described above with the largest area noted in the left genu of the corpus callosum just anterior to the left ventricle. No associated parenchymal hemorrhage, vasogenic edema or mass effect/midline shift. Assessment/Plan 1. 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 Has baseline right-sided hemiparesis status post prior stroke. Discussed with Dr. Martino- additional recommendations for dual antiplatelet therapy for 3 months and then aspirin only, as recommended by Dr. 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 Discussed thrombocytopenia, with recommendations for continuing dual antiplatelet as long as platelets are greater than 50. Patient has no bleeding at this time. Continue statin. Patient's also dysphagia. PT/OT/ST. 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 Appreciate Dr. Camp's input. Allow for Higher BP 140/90 correction given her stenosis. 2. Hypertensive urgency secondary to acute CVA. Discussed with Dr. Martino, with recommendations for permissive hypertension for the next 24 hours. Goal systolic blood pressure 140-180. 3. End-stage renal disease on hemodialysis. Appreciate nephrology input. 4. Hypertension controlled. Permissive hypertension for now. 5. Diabetes mellitus. Hold Levemir for now. Sliding scale insulin. 6. Hypothyroidism on Synthroid 7. Protein-Calorie malnutrition - unable to advancing diet. Dr. Roger consulted for PEG Tube, scheduled for today. 8. Pancytopenia on a patient with end-stage renal disease. Peripheral smear with no acute findings. Will need close outpatient follow-up with PCP. 9. Upper GI bleed status post PEG tube. Patient received PRBC. Hemoglobin stable now. Evaluated by Dr. Roger post EGD, with recommendations to restart tube feedings as well as antiplatelet agents aspirin/Plavix. 10. E. Coli Bacteremia - On Abx until 08/03. Appreciate Dr. Candelario's input. Repeat Bld cx negative. Improving. CRP improving. DVT prophy: SCDs Overall prognosis guarded. DNR/DNI Pending Abx completion on 08/03. CM Working on Kangaroo pump. VS,Fishbone, I+O VS, Fishbone, I+O Laboratory Tests 07/29/18 08:43 Red Blood Count 2.55 L, Mean Corpuscular Volume 86.7, Mean Corpuscular Hemoglobin 29.8, Mean Corpuscular Hemoglobin Concent 34.4, Red Cell Distribution Width 14.7 H, Neutrophils (%) (Auto) 64.4, Lymphocytes (%) (Auto) 14.2 L, Monocytes (%) (Auto) 17.9 H, Eosinophils (%) (Auto) 1.4, Basophils (%) (Auto) 0.2, Neutrophils # (Auto) 2.8, Lymphocytes # (Auto) 0.6 L, Monocytes # (Auto) 0.8, Eosinophils # (Auto) 0.1, Basophils # (Auto) 0.0, Anion Gap 10 Vital Signs Date Time Temp Pulse Resp B/P (MAP) Pulse Ox O2 Delivery O2 Flow Rate FiO2 07/29/18 06:30 83 140/74 07/29/18 06:00 96.4 17 96 07/23/18 06:00 Room Air I&O- Last 24 Hours up to 6 AM 07/29/18 06:00 Intake Total 1440 ml Balance 1440 ml JACKY LOMBARDO MD Jul 29, 2018 10:48
[2018-07-29] MEDS ORDERED: POTASSIUM CHLORIDE 10% LIQ 20 MEQ/15 ML UDC FT ONE (13:00)
[2018-07-29 14:30] VITALS: BP 160/80
[2018-07-29] MEDS: NYSTATIN 500,000 U/5 ML SUSP UDC PO SCH ×3 (14:52→21:38)
[2018-07-29] MEDS: ACETAMINOPHEN TAB 650MG DOSE (2X325MG) PO PRN ×2 (14:52→21:50)
--- NOTE | 2018-07-29 16:51 | IPN ---
DATE: 07/29/2018 Mrs. Tran is not very verbal today. She had been complaining of some sore throat and tongue pain. She would not stick her tongue out to examine. She has been a little more congested. She has been drinking some clear liquids and had some coughing spells after. No fever or chills. No nausea, vomiting, diarrhea. Also she gets tube fed. Temperature is 90.5, pulse 83, respirations 21, blood pressure 160/80, oxygen saturation 98%. HEART: Normal S1, S2, regular. No murmurs. LUNGS: Clear. No wheezes or rales. There is expiratory rhonchi. ABDOMEN: Soft, nontender. Gastrostomy (G) tube in place. No redness. EXTREMITIES: Trace edema. OROPHARYNX: I tried to examine her tongue. She could stick only half her tongue out. There were no obvious lesions. IMPRESSION: 1. Escherichia (E) coli bacteremia on July 19. The patient on intravenous (IV) cefazolin 2 grams every 24 hours. She is currently day #10 of IV antibiotics out of 14 for E. coli bacteremia, probably from hemodialysis catheter. Urinalysis was negative. 2. Anemia. The patient requiring a blood transfusion today. 3. Tongue pain. The patient was started on nystatin. I am not sure if she has thrush or not. 4. History of stroke. The patient seems to be aspirating on clear liquids, according to family. PLAN: Continue IV cefazolin. This could be given after hemodialysis at a dose of 2 grams after hemodialysis. She has four more days left of therapy. Would re-consult speech therapy while patient is drinking clear liquids to make sure she is not aspirating. Infectious disease signing off.
[2018-07-29] MEDS: PRAVASTATIN 20 MG TAB PO SCH (21:38)
[2018-07-29] MEDS: LEVEMIR (INSULIN DETEMIR) 1 UNITS/0.01ML SC SCH (21:45)
[2018-07-29 22:05] VITALS: BP 210/58
[2018-07-29 23:00] VITALS: BP 178/58
[2018-07-30 06:00] VITALS: BP 178/54
[2018-07-30] MEDS: LEVOTHYROXINE 25MCG TABLET (0.025MG) PO SCH (06:10)
[2018-07-30] MEDS: HumaLOG INSULIN (NovoLOG) PER UNIT SC SCH ×3 (06:14→18:44)
--- NOTE | 2018-07-30 07:14 | IPN ---
DATE OF SERVICE: 07/29/2018 SUBJECTIVE: Patient was seen and examined at the bedside today morning during hemodialysis procedure. She is tolerating the hemodialysis procedure well. The patient is complaining that she has pain in the mouth and she has difficulty swallowing. OBJECTIVE: VITAL SIGNS: Temperature is 96.4 degrees Fahrenheit, blood pressure 140/74, pulse is 83, respiratory rate of 17, saturating 96% on room air. INTAKE AND OUTPUT: Urine output is not recorded. Weight on the bed scale is 50.5 kg. PHYSICAL EXAMINATION: GENERAL: Patient is awake and alert, oriented times two, laying in bed, answer a few questions through her daughter who is the switchboard and control room operator. The patient herself speaks Citizen Of [place]. HEAD/NECK EXAM: Patient has oral thrush. Mucous membranes are otherwise moist. Neck is supple. She has a right internal jugular (IJ) tunnel hemodialysis catheter which is being used for dialysis. CARDIOVASCULAR: S1 and S2. Regular rate. No murmur, rub or gallop. Trace edema of the bilateral lower extremities. RESPIRATORY: Chest is clear to auscultation bilaterally. Bilateral equal air entry. No rales or rhonchi. ABDOMEN: Soft, positive bowel sounds. Percutaneous endoscopic gastrostomy (PEG) tube in the epigastrium. MUSCULOSKELETAL: No clubbing or cyanosis. Pulses 2+. 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 She only moves her left upper extremity. LAB REVIEW: CBC showed a WBC of 4.3, hemoglobin 7.6, platelets are 75. BMP showed sodium 138, potassium 3.3, chloride 101, bicarbonate 27, BUN 67, creatinine 3.7. Calcium 7.9. Phosphorus 2.1. CURRENT INPATIENT MEDICATIONS: Patient's medications were all reviewed by me. She continues to be on IV cefazolin. There is no other change in the medications today as compared with yesterday. ASSESSMENT/PLAN: 1. End-stage renal disease on hemodialysis. Patient is being dialyzed today according to her Saturday, , Saturday schedule. I will try to remove 500 mL of fluid as tolerated by her blood pressure. 2. Hypokalemia. The patient is dialyzed with 3K bath. However, because of persistent low potassium level, I have given her a dose of potassium chloride 20 mEq via the PEG tube as well. 3. Anemia secondary to end-stage renal disease and recent gastrointestinal bleeding. Hemoglobin is suboptimal. The patient will be given one unit of PRBC transfusion during hemodialysis. 4. Escherichia (E) coli bacteremia. The patient is on IV Ancef. 5. Oral thrush. Patient has been started on Nystatin swish and swallow. 6. Protein calorie malnutrition. Patient is getting tube feeds and she has been started on liquid diet as well. MTDD
[2018-07-30] MEDS: NYSTATIN 500,000 U/5 ML SUSP UDC PO SCH ×4 (09:26→20:40)
[2018-07-30] MEDS: ASPIRIN 81 MG CHEW TABLET PEG SCH (09:26)
[2018-07-30] MEDS: PANTOPRAZOLE 40MG INJ (PROTONIX) (C9113) IV SCH ×2 (09:26→20:41)
[2018-07-30] MEDS: GABAPENTIN 100 MG CAP PO SCH ×2 (09:27→20:39)
[2018-07-30] MEDS: CLOPIDOGREL 75 MG TAB PO SCH (09:27)
[2018-07-30] MEDS: CARVedilol 6.25 MG TAB PO SCH ×2 (09:27→20:40)
[2018-07-30 10:34] VITALS: BP 170/70
[2018-07-30] MEDS ORDERED: amLODIPine 5 MG TAB PO ONE ×2 (12:00→20:30)
--- NOTE | 2018-07-30 12:37 | REP ---
PORTABLE CHEST: AP portable view of the chest is performed. Comparison 12/29/2017. There is mild patchy infiltrate in the left lung base. There is no definite infiltrate on the right. Heart appears mildly enlarged. Mediastinal silhouette is unchanged. Right central venous catheter is seen with the tip in the right atrium. Electronically Signed by Lucas Cervantes MD 07/30/2018 01:33 P
[2018-07-30] MEDS: guaiFENesin SYRUP 200 MG/10 ML UDC PEG PRN (13:16)
[2018-07-30 14:00] VITALS: BP 200/58
--- NOTE | 2018-07-30 14:33 | IPNPDOC ---
Text Note Date of Service The patient was seen on 07/30/18. NOTE Subjective: Patient denies any complaints. Feels well. Has a nonproductive cough, which is intermittent. Objective: Vitals: (see below) General: No acute distress, laying comfortably in bed. HEENT: Moist mucous membranes. Neck: No JVD or lymphadenopathy Cardiac: RRR, No murmurs Pulm: Clear to auscultation b/l. No wheezing, rhonchi Abd: NT/ND + BS. PEG tube in place with no leak or bleeding. Ext: No edema or cyanosis Neuro:Has a right facial droop. Left upper extremity 3-4/5. No tongue deviation noted. More alert today. Has dysarthria, and expressive aphasia which has been stable. Unable to complete the entire neurologic exam. Right sided hemiparesis and LLE ext weakness at baseline. Labs (see below) Images: MRI brain on 07/13/18 IMPRESSION: Limited by motion. Small acute infarct in the medial left frontal lobe. Small acute infarct in the right radiata. Possible tiny acute infarct in the medial superior left parietal lobe. Chronic white matter changes as described. Bifrontal hygromas. Unchanged from prior. Echocardiogram on 07/13/18 CONCLUSIONS: 1. Mild concentric left ventricular hypertrophy. Normal regional LV wall motion and wall thickening. Normal left ventricular systolic function. Left ventricle ejection fraction 65% by visual estimate. Grade 1 LV diastolic dysfunction, impaired relaxation filling pattern. 2. Moderate mitral annular calcification. No mitral regurgitation. No mitral stenosis. 3. Mild aortic valve sclerosis. No aortic regurgitation. 4. Otherwise normal appearing echocardiogram Doppler. MRI Brain 07/19/18 Impression: Small foci of acute infarction is suggested as described above with the largest area noted in the left genu of the corpus callosum just anterior to the left ventricle. No associated parenchymal hemorrhage, vasogenic edema or mass effect/midline shift. Assessment/Plan 1. 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 Has baseline right-sided hemiparesis status post prior stroke. Discussed with Dr. Martino- additional recommendations for dual antiplatelet therapy for 3 months and then aspirin only, as recommended by Dr. 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 Discussed thrombocytopenia, with recommendations for continuing dual antiplatelet as long as platelets are greater than 50. Patient has no bleeding at this time. Continue statin. Patient's also dysphagia. PT/OT/ST. 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 Appreciate Dr. Camp's input. Allow for Higher BP 140/90 terminal worker given her stenosis. 2. Hypertensive urgency secondary to acute CVA. Discussed with Dr. Martino, with recommendations for permissive hypertension for the next 24 hours. Goal systolic blood pressure 140-180. 3. End-stage renal disease on hemodialysis. Appreciate nephrology input. 4. Hypertension controlled. Permissive hypertension for now. 5. Diabetes mellitus. Hold Levemir for now. Sliding scale insulin. 6. Hypothyroidism on Synthroid 7. Protein-Calorie malnutrition - unable to advancing diet. Dr. Roger consulted for PEG Tube, scheduled for today. 8. Pancytopenia on a patient with end-stage renal disease. Peripheral smear with no acute findings. Will need close outpatient follow-up with PCP. 9. Upper GI bleed status post PEG tube. Patient received PRBC. Hemoglobin stable now. Evaluated by Dr. Roger post EGD, with recommendations to restart tube feedings as well as antiplatelet agents aspirin/Plavix. 10. E. Coli Bacteremia - On Abx until 08/03. Appreciate Dr. Candelario's input. Repeat Bld cx negative. Improving. CRP improving. 11. Infiltrate at the left lung base on chest x-ray 07/30/18. Patient is currently on cefazolin which we'll continue. No leukocytosis. Robitussin ordered. Sputum culture. DVT prophy: SCDs Overall prognosis guarded. DNR/DNI Pending Abx completion on 08/03. CM Working on Kangaroo pump. VS,Fishbone, I+O VS, Fishbone, I+O Vital Signs Date Time Temp Pulse Resp B/P (MAP) Pulse Ox O2 Delivery O2 Flow Rate FiO2 07/30/18 13:16 72 162/58 07/30/18 06:00 97.5 23 96 I&O- Last 24 Hours up to 6 AM 07/30/18 06:00 Intake Total 875 ml Output Total 500 ml Balance 375 ml JACKY LOMBARDO MD Jul 30, 2018 14:33
[2018-07-30] MEDS ORDERED: **hydrALAZINE** 10 MG TAB PEG PRN (15:00)
[2018-07-30 19:04] LABS: HEMATOCRIT 30.4 % (36.0-47.0); MEAN CORPUSCULAR HEMOGLOBIN 29.8 pg (27.0-33.0); MEAN CORPUSCULAR HGB CONC 33.6 g/dl (32.0-36.5); MEAN CORPUSCULAR VOLUME 88.9 fl (80.0-96.0); RED BLOOD COUNT 3.42 10^6/uL (4.00-5.40); WHITE BLOOD COUNT 3.8 10^3/uL (4.0-10.0)
[2018-07-30 19:06] LABS: HEMOGLOBIN 10.2 g/dl (12.0-15.5); PLATELET COUNT, AUTOMATED 67 10^3/uL (150-450)
[2018-07-30] MEDS: PRAVASTATIN 20 MG TAB PO SCH (20:39)
[2018-07-30] MEDS: LEVEMIR (INSULIN DETEMIR) 1 UNITS/0.01ML SC SCH (20:41)
[2018-07-30 22:00] VITALS: BP 186/72
[2018-07-31 00:15] VITALS: BP 178/72
[2018-07-31 00:30] LABS: HEMOGLOBIN 10.1 g/dl (12.0-15.5); MEAN CORPUSCULAR HEMOGLOBIN 29.5 pg (27.0-33.0); MEAN CORPUSCULAR HGB CONC 33.7 g/dl (32.0-36.5); MEAN CORPUSCULAR VOLUME 87.7 fl (80.0-96.0); RED BLOOD COUNT 3.42 10^6/uL (4.00-5.40); WHITE BLOOD COUNT 4.6 10^3/uL (4.0-10.0)
[2018-07-31 00:31] LABS: PLATELET COUNT, AUTOMATED 65 10^3/uL (150-450)
[2018-07-31] MEDS: HumaLOG INSULIN (NovoLOG) PER UNIT SC SCH ×5 (00:37→23:16)
[2018-07-31 06:00] VITALS: BP 192/68
[2018-07-31] MEDS: LEVOTHYROXINE 25MCG TABLET (0.025MG) PO SCH (06:03)
[2018-07-31] MEDS: ASPIRIN 81 MG CHEW TABLET PEG SCH (06:56)
[2018-07-31] MEDS: CLOPIDOGREL 75 MG TAB PO SCH (06:57)
[2018-07-31] MEDS: CARVedilol 6.25 MG TAB PO SCH ×2 (06:57→21:49)
[2018-07-31] MEDS: NYSTATIN 500,000 U/5 ML SUSP UDC PO SCH ×4 (06:58→21:49)
[2018-07-31] MEDS: GABAPENTIN 100 MG CAP PO SCH ×2 (06:58→21:49)
[2018-07-31] MEDS: PANTOPRAZOLE 40MG INJ (PROTONIX) (C9113) IV SCH ×2 (07:00→21:50)
[2018-07-31] MEDS ORDERED: **hydrALAZINE** 50 MG TAB PEG ONE (07:45)
[2018-07-31 08:19] LABS: HEMATOCRIT 30.7 % (36.0-47.0); HEMOGLOBIN 10.3 g/dl (12.0-15.5); MEAN CORPUSCULAR HEMOGLOBIN 29.7 pg (27.0-33.0); MEAN CORPUSCULAR HGB CONC 33.6 g/dl (32.0-36.5); MEAN CORPUSCULAR VOLUME 88.5 fl (80.0-96.0); RED BLOOD COUNT 3.47 10^6/uL (4.00-5.40); WHITE BLOOD COUNT 3.6 10^3/uL (4.0-10.0)
[2018-07-31 08:21] LABS: PLATELET COUNT, AUTOMATED 71 10^3/uL (150-450)
[2018-07-31 08:39] LABS: CALCIUM LEVEL 8.5 MG/DL (8.8-10.2); CREATININE FOR GFR 3.41 MG/DL (0.55-1.30); GLOMERULAR FILTRATION RATE 13.6 (>32); POTASSIUM SERUM 3.5 MEQ/L (3.5-5.1)
[2018-07-31] MEDS ORDERED: amLODIPine 5 MG TAB PO SCH (09:00)
--- NOTE | 2018-07-31 09:47 | IPN ---
DATE OF SERVICE: 07/30/2018 SUBJECTIVE: Patient was seen and examined at the bedside today morning. She was dialyzed yesterday. 500 mL of fluid was removed. Her family is complaining of facial puffiness. Patient continues to be on tube feeds at 35 mL/hr. She reports that her oral pain and thrush is improving with Nystatin. OBJECTIVE: Vital signs: Temperature is 98.7 degrees Fahrenheit, blood pressure 162/58, pulse is 72, respiratory rate of 16, saturating 97% on room air. Intake and output: Urine output is not recorded. Fluid removal with hemodialysis was 500 mL yesterday. Weight on the bed scale is 50.2 kg. PHYSICAL EXAMINATION: General: Patient is awake, alert, oriented times one, lying in bed, no apparent distress. Head and neck exam: Patient has facial edema. Mucous membranes are moist. Oral thrush is improving. Neck is supple, she has a right IJ tunnel hemodialysis catheter. Cardiovascular: S1, S2. Regular rate. No murmur, rub or gallop. 1+ edema of the lower extremity. Respiratory: Chest is clear to auscultation bilaterally. Bilateral equal air entry. No rales or rhonchi. Abdomen is soft, positive bowel sounds. Percutaneous endoscopic gastrostomy tube in the epigastrium which is being used for tube feeds. Musculoskeletal: No clubbing or cyanosis. Central nervous system: She is paraplegic from waist below. She also has right upper extremity paralysis. She only moves left upper extremity. LAB REVIEW: CBC showed WBC of 3.8, hemoglobin 10.2, platelets are 67. BMP showed sodium 138, potassium 3.3, chloride 101, bicarbonate 27, BUN 67, creatinine is 3.7. IMAGING: Chest x-ray was done which showed mildly patchy infiltrate in the right lung base. CURRENT INPATIENT MEDICATIONS: Patient's medications were all reviewed by me. She was given amlodipine 5 mg by mouth times one dose. She is also on carvedilol 6.25 mg by mouth twice a day. She has been started on hydralazine 10 mg via percutaneous endoscopic gastrostomy three times a day. ASSESSMENT AND PLAN: 1. End stage renal disease on hemodialysis. Patient's regular dialysis days are Saturday, , Saturday. She will be dialyzed tomorrow as per her regular schedule. I will try to remove more than 1 liter of fluid is she tolerates because now she is getting fluid with tube feeds. 2. Hypertension. Most likely the cause of her hypertension is extra fluid that she is receiving with the tube feeds. I see the primary team has given her an extra dose of amlodipine and started her on hydralazine. Continue current dose of Coreg. I will hold the hydralazine dose tomorrow morning along with amlodipine so that I can remove more fluid during hemodialysis. 3. E. Coli bacteremia. Patient continues to be on Ancef 2 grams IV every 24. 4. Oral thrush. Patient continues to be on Nystatin. Oral thrush is improving. 5. Protein calorie malnutrition. Patient is getting tube feeds. She is also getting some liquid diet as well.
[2018-07-31] MEDS ORDERED: HEPARIN 1,000 UNITS/ML 10ML VIAL (FOR RADIOLOGY& DIALYSIS ONLY) XX ONE (10:30)
[2018-07-31 11:40] VITALS: BP 208/88
[2018-07-31] MEDS: amLODIPine 10 MG TAB PO SCH (12:38)
[2018-07-31 14:03] VITALS: BP 168/64
--- NOTE | 2018-07-31 14:05 | IPNPDOC ---
Text Note Date of Service The patient was seen on 07/31/18. NOTE Subjective: Patient appears comfortable. Has a productive cough. Tolerating di alysis. Objective: Vitals: (see below) General: No acute distress, laying comfortably in bed. HEENT: Moist mucous membranes. Neck: No JVD or lymphadenopathy Cardiac: RRR, No murmurs Pulm: Diminished breath sounds at the bases B/l. No wheezing, rhonchi Abd: NT/ND + BS. PEG tube in place with no leak or bleeding. Ext: No edema or cyanosis Neuro:Has a right facial droop. Left upper extremity 3-4/5. No tongue deviation noted. More alert today. Has dysarthria, and expressive aphasia which has been stable. Unable to complete the entire neurologic exam. Right sided hemiparesis and LLE ext weakness at baseline. Labs (see below) Images: MRI brain on 07/13/18 IMPRESSION: Limited by motion. Small acute infarct in the medial left frontal lobe. Small acute infarct in the right radiata. Possible tiny acute infarct in the medial superior left parietal lobe. Chronic white matter changes as described. Bifrontal hygromas. Unchanged from prior. Echocardiogram on 07/13/18 CONCLUSIONS: 1. Mild concentric left ventricular hypertrophy. Normal regional LV wall motion and wall thickening. Normal left ventricular systolic function. Left ventricle ejection fraction 65% by visual estimate. Grade 1 LV diastolic dysfunction, impaired relaxation filling pattern. 2. Moderate mitral annular calcification. No mitral regurgitation. No mitral stenosis. 3. Mild aortic valve sclerosis. No aortic regurgitation. 4. Otherwise normal appearing echocardiogram Doppler. MRI Brain 07/19/18 Impression: Small foci of acute infarction is suggested as described above with the largest area noted in the left genu of the corpus callosum just anterior to the left ventricle. No associated parenchymal hemorrhage, vasogenic edema or mass effect/midline shift. Chest x-ray on 07/30/18 There is mild patchy infiltrate in the left lung base. There is no definite infiltrate on the right. Heart appears mildly enlarged. Mediastinal silhouette is unchanged. Right central venous catheter is seen with the tip in the right atrium. Assessment/Plan 1. 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 Has baseline right-sided hemiparesis status post prior stroke. Discussed with Dr. Martino- additional recommendations for dual antiplatelet therapy for 3 months and then aspirin only, as recommended by Dr. 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 Discussed thrombocytopenia, with recommendations for continuing dual antiplatelet as long as platelets are greater than 50. Patient has no bleeding at this time. Continue statin. Patient's also dysphagia. PT/OT/ST. 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 Appreciate Dr. Camp's input. Allow for Higher BP 140/90 long term care phlebotomist given her stenosis. 2. Hypertensive urgency - On amlodipine as well as hydralazine, with dosages uptitrated. 3. End-stage renal disease on hemodialysis. Appreciate nephrology input. 4. Hypertension controlled. Permissive hypertension for now. 5. Diabetes mellitus. Hold Levemir for now. Sliding scale insulin. 6. Hypothyroidism on Synthroid 7. Protein-Calorie malnutrition - unable to advancing diet. Dr. Roger consulted for PEG Tube, scheduled for today. 8. Pancytopenia on a patient with end-stage renal disease. Peripheral smear with no acute findings. Will need close outpatient follow-up with PCP. 9. Upper GI bleed status post PEG tube. Patient received PRBC. Hemoglobin stable now. Evaluated by Dr. Roger post EGD, with recommendations to restart tube feedings as well as antiplatelet agents aspirin/Plavix. 10. E. Coli Bacteremia - On Abx until 08/03. Appreciate Dr. Candelario's input. Repeat Bld cx negative. Improving. CRP improving. 11. Infiltrate at the left lung base on chest x-ray 07/30/18. Patient is currently on cefazolin which we'll continue. No leukocytosis. Afebrile. Robitussin ordered. Sputum culture. Will defer Abx to Dr. Candelario. DVT prophy: SCDs Overall prognosis guarded. DNR/DNI Pending Abx completion on 08/03. CM Working on Kangaroo pump. VS,Fishbone, I+O VS, Fishbone, I+O Laboratory Tests 07/30/18 18:49 Red Blood Count 3.42 L, Mean Corpuscular Volume 88.9, Mean Corpuscular Hemoglobin 29.8, Mean Corpuscular Hemoglobin Concent 33.6, Red Cell Distribution Width 14.3 07/31/18 00:03 Red Blood Count 3.42 L, Mean Corpuscular Volume 87.7, Mean Corpuscular Hemoglobin 29.5, Mean Corpuscular Hemoglobin Concent 33.7, Red Cell Distribution Width 14.5 07/31/18 08:00 Red Blood Count 3.47 L, Mean Corpuscular Volume 88.5, Mean Corpuscular Hemoglobin 29.7, Mean Corpuscular Hemoglobin Concent 33.6, Red Cell Distribution Width 14.4, Calcium Level 8.5 L Vital Signs Date Time Temp Pulse Resp B/P (MAP) Pulse Ox O2 Delivery O2 Flow Rate FiO2 07/31/18 12:38 97 178/72 07/31/18 11:40 97.9 22 07/31/18 06:00 94 I&O- Last 24 Hours up to 6 AM 07/31/18 06:00 Intake Total 593 ml Output Total 0 ml Balance 593 ml JACKY LOMBARDO MD Jul 31, 2018 14:05
[2018-07-31] MEDS: **hydrALAZINE HCL** 25 MG TAB PEG PRN ×2 (14:14→18:42)
[2018-07-31 18:00] VITALS: BP 164/69
[2018-07-31] MEDS: guaiFENesin SYRUP 200 MG/10 ML UDC PEG PRN (18:43)
[2018-07-31] MEDS: ACETAMINOPHEN TAB 650MG DOSE (2X325MG) PO PRN (18:43)
[2018-07-31] MEDS: PRAVASTATIN 20 MG TAB PO SCH (21:49)
[2018-07-31] MEDS: LEVEMIR (INSULIN DETEMIR) 1 UNITS/0.01ML SC SCH (21:49)
[2018-07-31 22:00] VITALS: BP 173/74
[2018-07-31] MEDS ORDERED: SODIUM CHLORIDE HYPERTONIC 3% 15ML NEB SOL INH ONE (22:30)
[2018-08-01 06:00] VITALS: BP 166/68
[2018-08-01 06:04] LABS: BASO % 0.6 % (0.0-1.0); EOS % 1.1 % (0.0-3.0); HEMATOCRIT 28.5 % (36.0-47.0); HEMOGLOBIN 9.8 g/dl (12.0-15.5); LYMPH # 0.3 10^3/uL (1.5-4.5); LYMPH % 9.1 % (24.0-44.0); MEAN CORPUSCULAR HEMOGLOBIN 29.9 pg (27.0-33.0); MEAN CORPUSCULAR HGB CONC 34.4 g/dl (32.0-36.5); MEAN CORPUSCULAR VOLUME 86.9 fl (80.0-96.0); MONO # 0.5 10^3/uL (0.0-0.8); NEUTROPHILS # 2.6 10^3/uL (1.8-7.7); NEUTROPHILS % 70.9 % (36.0-66.0); RED BLOOD COUNT 3.28 10^6/uL (4.00-5.40); WHITE BLOOD COUNT 3.6 10^3/uL (4.0-10.0)
[2018-08-01 06:05] LABS: PLATELET COUNT, AUTOMATED 74 10^3/uL (150-450)
[2018-08-01] MEDS: HumaLOG INSULIN (NovoLOG) PER UNIT SC SCH ×3 (06:07→18:38)
[2018-08-01] MEDS: LEVOTHYROXINE 25MCG TABLET (0.025MG) PO SCH (06:07)
[2018-08-01 06:20] LABS: CALCIUM LEVEL 8.4 MG/DL (8.8-10.2); CREATININE FOR GFR 2.79 MG/DL (0.55-1.30); GLOMERULAR FILTRATION RATE 17.1 (>32); POTASSIUM SERUM 3.6 MEQ/L (3.5-5.1)
--- NOTE | 2018-08-01 07:00 | IPN ---
DATE OF SERVICE: 07/31/2018 SUBJECTIVE: Patient was seen and examined at the bedside today morning during hemodialysis procedure. She was tolerating the hemodialysis procedure well. Last 24 hour events were noted. The patient's blood pressures were really elevated last night. She was started on amlodipine and hydralazine. The patient continues to be on tube feeds, and because of that her blood pressures are high. She denies any active complaints at this time. OBJECTIVE: VITAL SIGNS: Temperature is 98 degrees Fahrenheit, blood pressure 208/88, pulse is 97, respiratory rate of 22, saturating 94% on room air. INTAKE AND OUTPUT: Urine output is not recorded. Weight on the bed scale was 50.2 kg yesterday. PHYSICAL EXAMINATION: GENERAL: Patient is awake, alert, oriented times one, getting hemodialysis done. HEAD AND NECK EXAM: She has facial edema. Mucous membranes are moist. Neck is supple. She has a right IJ tunneled hemodialysis catheter, which is being used for dialysis. CARDIOVASCULAR: S1, S2. Regular rate. 1+ edema of bilateral lower extremities. RESPIRATORY: Chest is clear to auscultation bilaterally. Bilateral equal air entry. No rales or rhonchi. ABDOMEN: Soft, positive bowel sounds. PEG tube is being used for tube feeds. MUSCULOSKELETAL: No clubbing or cyanosis. CENTRAL NERVOUS SYSTEM: She is paraplegic. Bilateral lower extremities have 0/5 power. Right upper extremity has 0/5 power as well. She only moves left upper extremity. LAB REVIEW: CBC showed a WBC of 3.5, hemoglobin 10.3, platelets are 71. BMP showed sodium 137, potassium 3.5, chloride 105, bicarbonate 24, BUN 51, creatinine is 3.4. CURRENT INPATIENT MEDICATIONS: The patient's medications were all reviewed by me. She has been started on amlodipine 10 mg daily now. She is also on Coreg 6.25 mg by mouth twice a day, and she is also on hydralazine 25 every 3 hours as needed SBP more than 160. ASSESSMENT/PLAN: 1. End stage renal disease on hemodialysis. Patient is being dialyzed today according to her regular Saturday, , Saturday schedule. Because of the high blood pressure, I will try to remove at least 1 liter of fluid during dialysis. Generally, at outpatient dialysis she does not get any fluid removed. 2. Hypertension. Blood pressure is uncontrolled. It is secondary to persistent tube feeds. She is getting fluid at 35 mL an hour which has increased her blood pressure. I will try to remove more and more fluid during dialysis now if she tolerates. Continue the current regimen of Coreg, hydralazine and amlodipine as per primary team. 3. E. Coli bacteremia. Patient is currently on IV Ancef every 24 hours. Duration is as per infectious disease. 4. Protein calorie malnutrition. As mentioned above, patient is getting tube feeds at 35 mL an hour. Oral liquid diet has been stopped now.
[2018-08-01] MEDS: **hydrALAZINE HCL** 25 MG TAB PEG PRN (07:21)
[2018-08-01] MEDS: ASPIRIN 81 MG CHEW TABLET PEG SCH (08:54)
[2018-08-01] MEDS: PANTOPRAZOLE 40MG INJ (PROTONIX) (C9113) IV SCH ×2 (08:54→21:46)
[2018-08-01] MEDS: CLOPIDOGREL 75 MG TAB PO SCH (08:54)
[2018-08-01] MEDS: amLODIPine 10 MG TAB PO SCH (08:57)
[2018-08-01] MEDS: CARVedilol 6.25 MG TAB PO SCH ×2 (08:58→21:45)
[2018-08-01] MEDS: GABAPENTIN 100 MG CAP PO SCH ×2 (08:58→21:45)
[2018-08-01] MEDS: **hydrALAZINE HCL** 25 MG TAB PEG SCH ×3 (08:59→21:45)
[2018-08-01] MEDS: guaiFENesin SYRUP 200 MG/10 ML UDC PEG SCH ×3 (09:00→18:38)
[2018-08-01] MEDS: NYSTATIN 500,000 U/5 ML SUSP UDC PO SCH ×4 (09:00→21:46)
[2018-08-01 10:00] VITALS: BP 152/60
[2018-08-01] MEDS: IPRATROPIUM 0.5MG/ALBUTEROL 2.5MG INH SOL UD 3ML (DUONEB)(J7620) NEB SCH ×2 (12:11→21:18)
[2018-08-01 14:00] VITALS: BP 174/64
[2018-08-01] MEDS: ACETAMINOPHEN TAB 650MG DOSE (2X325MG) PO PRN (14:49)
--- NOTE | 2018-08-01 15:33 | IPNPDOC ---
Text Note Date of Service The patient was seen on 08/01/18. NOTE Subjective: No acute changes overnight. Has sputum production that being suct ioned. Appears comfortable. Objective: Vitals: (see below) General: No acute distress, laying comfortably in bed. HEENT: Moist mucous membranes. Neck: No JVD or lymphadenopathy Cardiac: RRR, No murmurs Pulm: Diminished breath sounds at the bases B/l. No wheezing. + rhonchi Abd: NT/ND + BS. PEG tube in place with no leak or bleeding. Ext: No edema or cyanosis Neuro:Has a right facial droop. Left upper extremity 3-4/5. No tongue deviation noted. More alert today. Has dysarthria, and expressive aphasia which has been stable. Unable to complete the entire neurologic exam. Right sided hemiparesis and LLE ext weakness at baseline. Labs (see below) Images: MRI brain on 07/13/18 IMPRESSION: Limited by motion. Small acute infarct in the medial left frontal lobe. Small acute infarct in the right radiata. Possible tiny acute infarct in the medial superior left parietal lobe. Chronic white matter changes as described. Bifrontal hygromas. Unchanged from prior. Echocardiogram on 07/13/18 CONCLUSIONS: 1. Mild concentric left ventricular hypertrophy. Normal regional LV wall motion and wall thickening. Normal left ventricular systolic function. Left ventricle ejection fraction 65% by visual estimate. Grade 1 LV diastolic dysfunction, impaired relaxation filling pattern. 2. Moderate mitral annular calcification. No mitral regurgitation. No mitral stenosis. 3. Mild aortic valve sclerosis. No aortic regurgitation. 4. Otherwise normal appearing echocardiogram Doppler. MRI Brain 07/19/18 Impression: Small foci of acute infarction is suggested as described above with the largest area noted in the left genu of the corpus callosum just anterior to the left ventricle. No associated parenchymal hemorrhage, vasogenic edema or mass effect/midline shift. Chest x-ray on 07/30/18 There is mild patchy infiltrate in the left lung base. There is no definite infiltrate on the right. Heart appears mildly enlarged. Mediastinal silhouette is unchanged. Right central venous catheter is seen with the tip in the right atrium. Assessment/Plan 1. 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 Has baseline right-sided hemiparesis status post prior stroke. Discussed with Dr. Martino- additional recommendations for dual antiplatelet therapy for 3 months and then aspirin only, as recommended by Dr. 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 Discussed thrombocytopenia, with recommendations for continuing dual antiplatelet as long as platelets are greater than 50. Patient has no bleeding at this time. Continue statin. Patient's also dysphagia. PT/OT/ST. 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 Appreciate Dr. Camp's input. Allow for Higher BP 140/90 half-way given her stenosis. 2. Hypertensive urgency - On amlodipine as well as hydralazine, with dosages uptitrated. 3. End-stage renal disease on hemodialysis. Appreciate nephrology input. 4. Hypertension controlled. Permissive hypertension for now. 5. Diabetes mellitus. Hold Levemir for now. Sliding scale insulin. 6. Hypothyroidism on Synthroid 7. Protein-Calorie malnutrition -status post PEG Tube. On tube feeds. 8. Pancytopenia on a patient with end-stage renal disease. Peripheral smear with no acute findings. Will need close outpatient follow-up with PCP. 9. Upper GI bleed status post PEG tube. Patient received PRBC. Hemoglobin stable now. Evaluated by Dr. Roger post EGD, with recommendations to restart tube feedings as well as antiplatelet agents aspirin/Plavix. 10. E. Coli Bacteremia - On Abx until 08/03. Appreciate Dr. Candelario's input. Repeat Bld cx negative. Improving. CRP improving. 11. Infiltrate at the left lung base on chest x-ray 07/30/18. Patient is currently on cefazolin which we'll continue. No leukocytosis. Afebrile. Robitussin ordered. Sputum culture. Will defer Abx to Dr. Candelario. DVT prophy: SCDs Overall prognosis guarded. DNR/DNI Pending Abx completion on 08/03. CM Working on Kangaroo pump. Anticipate discharg e on Saturday. VS,Fishbone, I+O VS, Fishbone, I+O Laboratory Tests 08/01/18 05:40 Red Blood Count 3.28 L, Mean Corpuscular Volume 86.9, Mean Corpuscular Hemo globin 29.9, Mean Corpuscular Hemoglobin Concent 34.4, Red Cell Distribution Width 14.3, Neutrophils (%) (Auto) 70.9 H, Lymphocytes (%) (Auto) 9.1 L, Monocytes (%) (Auto) 15.0 H, Eosinophils (%) (Auto) 1.1, Basophils (%) (Auto) 0.6, Neutrophils # (Auto) 2.6, Lymphocytes # (Auto) 0.3 L, Monocytes # (Auto) 0.5, Eosinophils # (Auto) 0.0, Basophils # (Auto) 0.0, Calcium Level 8.4 L Vital Signs Date Time Temp Pulse Resp B/P (MAP) Pulse Ox O2 Delivery O2 Flow Rate FiO2 08/01/18 14:00 99.4 97 20 174/64 (100) 94 I&O- Last 24 Hours up to 6 AM 08/01/18 06:00 Intake Total 100 ml Output Total 1002 ml Balance -902 ml JACKY LOMBARDO MD Aug 01, 2018 15:33
[2018-08-01 18:00] VITALS: BP 146/59
[2018-08-01] MEDS: PRAVASTATIN 20 MG TAB PO SCH (21:44)
[2018-08-01] MEDS: LEVEMIR (INSULIN DETEMIR) 1 UNITS/0.01ML SC SCH (21:46)
[2018-08-01 22:00] VITALS: BP 150/62
[2018-08-02] MEDS: guaiFENesin SYRUP 200 MG/10 ML UDC PEG SCH ×4 (00:37→17:36)
[2018-08-02] MEDS: HumaLOG INSULIN (NovoLOG) PER UNIT SC SCH ×4 (00:37→17:37)
[2018-08-02 02:00] VITALS: BP 154/67
[2018-08-02] MEDS: IPRATROPIUM 0.5MG/ALBUTEROL 2.5MG INH SOL UD 3ML (DUONEB)(J7620) NEB SCH ×4 (02:00→19:46)
[2018-08-02 06:00] VITALS: BP 148/48
[2018-08-02 06:26] LABS: BASO % 0.3 % (0.0-1.0); EOS % 0.5 % (0.0-3.0); LYMPH # 0.5 10^3/uL (1.5-4.5); MEAN CORPUSCULAR HEMOGLOBIN 29.7 pg (27.0-33.0); MEAN CORPUSCULAR HGB CONC 33.3 g/dl (32.0-36.5); MEAN CORPUSCULAR VOLUME 89.2 fl (80.0-96.0); MONO # 0.5 10^3/uL (0.0-0.8); MONO % 11.7 % (0.0-5.0); NEUTROPHILS # 2.9 10^3/uL (1.8-7.7); NEUTROPHILS % 74.5 % (36.0-66.0); RED BLOOD COUNT 2.69 10^6/uL (4.00-5.40); WHITE BLOOD COUNT 3.8 10^3/uL (4.0-10.0)
[2018-08-02 06:34] LABS: PLATELET COUNT, AUTOMATED 63 10^3/uL (150-450)
[2018-08-02 06:45] LABS: CALCIUM LEVEL 8.1 MG/DL (8.8-10.2); CREATININE FOR GFR 3.82 MG/DL (0.55-1.30); GLOMERULAR FILTRATION RATE 11.9 (>32); POTASSIUM SERUM 3.8 MEQ/L (3.5-5.1)
[2018-08-02] MEDS: CLOPIDOGREL 75 MG TAB PO SCH (06:53)
[2018-08-02] MEDS: LEVOTHYROXINE 25MCG TABLET (0.025MG) PO SCH (06:53)
[2018-08-02] MEDS: GABAPENTIN 100 MG CAP PO SCH ×2 (06:54→22:00)
[2018-08-02] MEDS: CARVedilol 6.25 MG TAB PO SCH ×2 (06:54→21:59)
[2018-08-02] MEDS: NYSTATIN 500,000 U/5 ML SUSP UDC PO SCH ×4 (06:54→21:59)
[2018-08-02] MEDS: ASPIRIN 81 MG CHEW TABLET PEG SCH (06:54)
[2018-08-02] MEDS: PANTOPRAZOLE 40MG INJ (PROTONIX) (C9113) IV SCH ×2 (06:55→21:59)
[2018-08-02] MEDS: amLODIPine 10 MG TAB PO SCH (06:55)
[2018-08-02] MEDS: **hydrALAZINE HCL** 25 MG TAB PEG SCH (06:57)
--- NOTE | 2018-08-02 07:36 | IPN ---
DATE OF SERVICE: 08/01/2018 SUBJECTIVE: Patient was seen and examined at the bedside today morning. She was in mild respiratory distress. She was having a lot of upper airway secretions. She was dialyzed yesterday. She tolerated the hemodialysis procedure well. 1 liter of fluid was removed, which she tolerated as well. OBJECTIVE: VITAL SIGNS: Temperature is 98.4 degrees Fahrenheit, blood pressure 152/60, pulse is 92, respiratory rate of 20, saturating 95% on room air. INTAKE AND OUTPUT: Urine output is not recorded. Ultrafiltration with hemodialysis was 1 liter yesterday. Weight on the bed scale is not available. PHYSICAL EXAMINATION: GENERAL: Patient is awake and alert, oriented times one, laying in bed, in no apparent distress. She is having a lot of upper airway secretions. HEAD/NECK EXAM: Patient has facial puffiness. Mucous membranes are moist. Right internal jugular (IJ) tunnel hemodialysis catheter. CARDIOVASCULAR: S1 and S2. No edema of the bilateral lower extremities. RESPIRATORY: Chest is clear to auscultation bilaterally, but patient has a lot of upper airway secretions. ABDOMEN: Soft, positive bowel sounds. Percutaneous endoscopic gastrostomy (PEG) tube in the epigastrium which is being used for feeding. MUSCULOSKELETAL: No clubbing or cyanosis. Pulses are 2+. 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 She has right upper extremity paralysis as well. She moves her left upper extremity. LAB REVIEW: CBC showed a WBC of 3.6, hemoglobin 9.8, platelets are 74. BMP showed sodium 136, potassium 3.6, chloride 101, bicarbonate 28, BUN 39, creatinine 2.7. CURRENT INPATIENT MEDICATIONS: Patient's medications were all reviewed by me. There is no change in the medications today as compared with yesterday apart from the change in her hydralazine dose 50 mg via PEG twice a day. ASSESSMENT/PLAN: 1. End-stage renal disease on hemodialysis. Patient was dialyzed according to her Saturday, , Saturday schedule yesterday, 1 liter of fluid was removed. The patient is getting round the clock tube feeds. I will try to remove more fluid during dialysis tomorrow morning. 2. Hypertension. Blood pressures are elevated. Continue current dose of carvedilol and amlodipine 10 mg daily. Hydralazine dose has already been increased by the primary team to 50 mg twice a day. Optimization of fluid status would also help improve her blood pressure. The patient generally tends to have low blood pressures as outpatient and she just takes Coreg. 3. Escherichia (E) coli bacteremia. The patient is currently on IV Ancef. Duration of treatment is as per infectious disease. 5. Protein calorie malnutrition. Patient is getting tube feed at 35 mL/hr via the PEG tube. MTDD
[2018-08-02] MEDS ORDERED: HEPARIN 1,000 UNITS/ML 10ML VIAL (FOR RADIOLOGY& DIALYSIS ONLY) XX ONE (10:45)
--- NOTE | 2018-08-02 11:40 | IPNPDOC ---
Text Note Date of Service The patient was seen on 08/02/18. NOTE Subjective: Pt with sputum production. Appears comfortable. Objective: Vitals: (see below) General: No acute distress, laying comfortably in bed. HEENT: Moist mucous membranes. Neck: No JVD or lymphadenopathy Cardiac: RRR, No murmurs Pulm: Diminished breath sounds at the bases B/l. No wheezing. + rhonchi Abd: NT/ND + BS. PEG tube in place with no leak or bleeding. Ext: No edema or cyanosis Neuro:Has a right facial droop. Left upper extremity 3-4/5. No tongue deviation noted. More alert today. Has dysarthria, and expressive aphasia which has been stable. Unable to complete the entire neurologic exam. Right sided hemiparesis and LLE ext weakness at baseline. Labs (see below) Images: MRI brain on 07/13/18 IMPRESSION: Limited by motion. Small acute infarct in the medial left frontal lobe. Small acute infarct in the right radiata. Possible tiny acute infarct in the medial superior left parietal lobe. Chronic white matter changes as described. Bifrontal hygromas. Unchanged from prior. Echocardiogram on 07/13/18 CONCLUSIONS: 1. Mild concentric left ventricular hypertrophy. Normal regional LV wall motion and wall thickening. Normal left ventricular systolic function. Left ventricle ejection fraction 65% by visual estimate. Grade 1 LV diastolic dysfunction, impaired relaxation filling pattern. 2. Moderate mitral annular calcification. No mitral regurgitation. No mitral stenosis. 3. Mild aortic valve sclerosis. No aortic regurgitation. 4. Otherwise normal appearing echocardiogram Doppler. MRI Brain 07/19/18 Impression: Small foci of acute infarction is suggested as described above with the largest area noted in the left genu of the corpus callosum just anterior to the left ventricle. No associated parenchymal hemorrhage, vasogenic edema or mass effect/midline shift. Chest x-ray on 07/30/18 There is mild patchy infiltrate in the left lung base. There is no definite infiltrate on the right. Heart appears mildly enlarged. Mediastinal silhouette is unchanged. Right central venous catheter is seen with the tip in the right atrium. Assessment/Plan 1. 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 Has baseline right-sided hemiparesis status post prior stroke. Discussed with Dr. Martino- additional recommendations for dual antiplatelet therapy for 3 months and then aspirin only, as recommended by Dr. 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 Discussed thrombocytopenia, with recommendations for continuing dual antiplatelet as long as platelets are greater than 50. Patient has no bleeding at this time. Continue statin. Patient's also dysphagia. PT/OT/ST. 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 Appreciate Dr. Camp's input. Allow for Higher BP 140/90 custodial given her stenosis. 2. Hypertensive urgency - On amlodipine as well as hydralazine, with dosages uptitrated. 3. End-stage renal disease on hemodialysis. Appreciate nephrology input. 4. Hypertension controlled. Permissive hypertension for now. 5. Diabetes mellitus. Hold Levemir for now. Sliding scale insulin. 6. Hypothyroidism on Synthroid 7. Protein-Calorie malnutrition -status post PEG Tube. On tube feeds. 8. Pancytopenia on a patient with end-stage renal disease. Peripheral smear with no acute findings. Will need close outpatient follow-up with PCP. 9. Upper GI bleed status post PEG tube. Patient received PRBC. Hemoglobin stable now. Evaluated by Dr. Roger post EGD, with recommendations to restart tube feedings as well as antiplatelet agents aspirin/Plavix. 10. E. Coli Bacteremia - On Abx until 08/03. Appreciate Dr. Candelario's input. Repeat Bld cx negative. Improving. CRP improving. 11. Infiltrate at the left lung base on chest x-ray 07/30/18. Patient is currently on cefazolin which we'll continue. No leukocytosis. Afebrile. Robitussin ordered. Sputum culture. Will defer Abx to Dr. Candelario. CT Chest pending. DVT prophy: SCDs Overall prognosis guarded. DNR/DNI Pending Abx completion on 08/03. CM Working on Kangaroo pump. VS,Fishbone, I+O VS, Fishbone, I+O Laboratory Tests 08/02/18 05:46 Red Blood Count 2.69 L, Mean Corpuscular Volume 89.2, Mean Corpuscular Hemoglobin 29.7, Mean Corpuscular Hemoglobin Concent 33.3, Red Cell Distribution Width 14.5, Neutrophils (%) (Auto) 74.5 H, Lymphocytes (%) (Auto) 12.0 L, Monocytes (%) (Auto) 11.7 H, Eosinophils (%) (Auto) 0.5, Basophils (%) (Auto) 0.3, Neutrophils # (Auto) 2.9, Lymphocytes # (Auto) 0.5 L, Monocytes # (Auto) 0.5, Eosinophils # (Auto) 0.0, Basophils # (Auto) 0.0, Calcium Level 8.1 L Vital Signs Date Time Temp Pulse Resp B/P (MAP) Pulse Ox O2 Delivery O2 Flow Rate FiO2 08/02/18 06:54 92 148/48 08/02/18 06:00 97.1 24 92 I&O- Last 24 Hours up to 6 AM 08/02/18 06:00 Intake Total 840 ml Output Total 0 ml Balance 840 ml JACKY LOMBARDO MD Aug 02, 2018 11:40
[2018-08-02 14:31] VITALS: BP 160/50
[2018-08-02] MEDS: ACETAMINOPHEN TAB 650MG DOSE (2X325MG) PO PRN ×2 (15:06→22:23)
[2018-08-02 17:13] LABS: BASO % 0.4 % (0.0-1.0); EOS % 0.7 % (0.0-3.0); HEMATOCRIT 24.1 % (36.0-47.0); LYMPH # 0.4 10^3/uL (1.5-4.5); LYMPH % 9.5 % (24.0-44.0); MEAN CORPUSCULAR HEMOGLOBIN 29.6 pg (27.0-33.0); MEAN CORPUSCULAR HGB CONC 33.2 g/dl (32.0-36.5); MEAN CORPUSCULAR VOLUME 89.3 fl (80.0-96.0); MONO # 0.4 10^3/uL (0.0-0.8); MONO % 9.1 % (0.0-5.0); NEUTROPHILS # 3.6 10^3/uL (1.8-7.7); NEUTROPHILS % 78.8 % (36.0-66.0); WHITE BLOOD COUNT 4.5 10^3/uL (4.0-10.0)
[2018-08-02 17:29] LABS: PLATELET COUNT, AUTOMATED 57 10^3/uL (150-450)
[2018-08-02] MEDS: PIPERACILLIN/TAZOBACTAM SOD 2.25 GM in D5W MINI-BAG PLUS 50 ML IV SCH (17:36)
[2018-08-02 22:00] VITALS: BP 137/75
[2018-08-02] MEDS: PRAVASTATIN 20 MG TAB PO SCH (22:00)
[2018-08-02] MEDS: LEVEMIR (INSULIN DETEMIR) 1 UNITS/0.01ML SC SCH (22:00)
[2018-08-03] MEDS: guaiFENesin SYRUP 200 MG/10 ML UDC PEG SCH ×4 (00:23→17:31)
[2018-08-03] MEDS: HumaLOG INSULIN (NovoLOG) PER UNIT SC SCH ×4 (00:23→17:32)
[2018-08-03 02:00] VITALS: BP 127/70
[2018-08-03] MEDS: IPRATROPIUM 0.5MG/ALBUTEROL 2.5MG INH SOL UD 3ML (DUONEB)(J7620) NEB SCH ×5 (02:00→23:15)
[2018-08-03 06:00] VITALS: BP 144/87
[2018-08-03] MEDS: LEVOTHYROXINE 25MCG TABLET (0.025MG) PO SCH (06:20)
[2018-08-03] MEDS: PIPERACILLIN/TAZOBACTAM SOD 2.25 GM in D5W MINI-BAG PLUS 50 ML IV SCH ×2 (06:21→17:31)
[2018-08-03 06:34] LABS: BASO % 0.2 % (0.0-1.0); EOS % 0.7 % (0.0-3.0); HEMATOCRIT 23.7 % (36.0-47.0); HEMOGLOBIN 7.7 g/dl (12.0-15.5); LYMPH # 0.4 10^3/uL (1.5-4.5); LYMPH % 7.3 % (24.0-44.0); MEAN CORPUSCULAR HEMOGLOBIN 29.6 pg (27.0-33.0); MEAN CORPUSCULAR HGB CONC 32.5 g/dl (32.0-36.5); MEAN CORPUSCULAR VOLUME 91.2 fl (80.0-96.0); MONO # 0.6 10^3/uL (0.0-0.8); MONO % 9.7 % (0.0-5.0); NEUTROPHILS # 4.6 10^3/uL (1.8-7.7); WHITE BLOOD COUNT 5.8 10^3/uL (4.0-10.0)
[2018-08-03 06:39] LABS: PLATELET COUNT, AUTOMATED 59 10^3/uL (150-450)
[2018-08-03 06:50] LABS: CALCIUM LEVEL 8.3 MG/DL (8.8-10.2); CREATININE FOR GFR 3.04 MG/DL (0.55-1.30); GLOMERULAR FILTRATION RATE 15.5 (>32); MAGNESIUM LEVEL 1.9 MG/DL (1.8-2.4); POTASSIUM SERUM 4.3 MEQ/L (3.5-5.1)
[2018-08-03 08:05] LABS: C REACTIVE PROTEIN QUANTITATIV 11.7 MG/DL (0.00-0.30)
--- NOTE | 2018-08-03 09:01 | REP ---
CT CHEST WITHOUT IV CONTRAST: CT chest performed without IV contrast compared to a prior study of 09/01/2016. Diffuse pleural and parenchymal fibrotic changes are seen throughout the right lung and left upper lobe unchanged. There is new patchy consolidative infiltrate with air bronchograms in the left lower lobe posteriorly with a small left pleural effusion. Heart is slightly enlarged. There is mild subcarinal adenopathy which may be reactive, 1.4 cm in short axis. Otherwise there are mediastinal lymph nodes present measuring up to 10 mm in short axis. There are moderate atherosclerotic calcifications of the thoracic aorta without aneurysm. There is no pericardial effusion. IMPRESSION: Left lower lobe infiltrate with small left pleural effusion. Subcarinal adenopathy 1.4 cm in short axis may be reactive in nature. Electronically Signed by Lucas Cervantes MD 08/03/2018 06:43 P
[2018-08-03] MEDS: NYSTATIN 500,000 U/5 ML SUSP UDC PO SCH ×4 (09:22→21:40)
[2018-08-03] MEDS: PANTOPRAZOLE 40MG INJ (PROTONIX) (C9113) IV SCH ×2 (09:22→21:40)
[2018-08-03] MEDS: CLOPIDOGREL 75 MG TAB PO SCH (09:23)
[2018-08-03] MEDS: amLODIPine 10 MG TAB PO SCH (09:23)
[2018-08-03] MEDS: GABAPENTIN 100 MG CAP PO SCH ×2 (09:23→21:39)
[2018-08-03] MEDS: CARVedilol 6.25 MG TAB PO SCH ×2 (09:23→21:39)
[2018-08-03] MEDS: ASPIRIN 81 MG CHEW TABLET PEG SCH (09:23)
[2018-08-03] MEDS: methylPREDNISolone INJ 40 MG/1 ML VIAL (J2920) IV SCH ×2 (09:50→21:39)
[2018-08-03 10:00] VITALS: BP 154/67
--- NOTE | 2018-08-03 10:36 | IPNPDOC ---
Text Note Date of Service The patient was seen on 08/03/18. NOTE Subjective: Pt with difficulty clearing secretions. Family aware of increased risk of aspiration. They are not feeding patient PO. Objective: Vitals: (see below) General: No acute distress, laying comfortably in bed. HEENT: Moist mucous membranes. Neck: No JVD or lymphadenopathy Cardiac: RRR, No murmurs Pulm: Diminished breath sounds at the bases B/l. Mild exp wheezing. + rhonchi Abd: NT/ND + BS. PEG tube in place with no leak or bleeding. Ext: No edema or cyanosis Neuro:Has a right facial droop. Left upper extremity 3-4/5. No tongue deviation noted. More alert today. Has dysarthria, and expressive aphasia which has been stable. Unable to complete the entire neurologic exam. Right sided hemiparesis and LLE ext weakness at baseline. Labs (see below) Images: MRI brain on 07/13/18 IMPRESSION: Limited by motion. Small acute infarct in the medial left frontal lobe. Small acute infarct in the right radiata. Possible tiny acute infarct in the medial superior left parietal lobe. Chronic white matter changes as described. Bifrontal hygromas. Unchanged from prior. Echocardiogram on 07/13/18 CONCLUSIONS: 1. Mild concentric left ventricular hypertrophy. Normal regional LV wall motion and wall thickening. Normal left ventricular systolic function. Left ventricle ejection fraction 65% by visual estimate. Grade 1 LV diastolic dysfunction, impaired relaxation filling pattern. 2. Moderate mitral annular calcification. No mitral regurgitation. No mitral stenosis. 3. Mild aortic valve sclerosis. No aortic regurgitation. 4. Otherwise normal appearing echocardiogram Doppler. MRI Brain 07/19/18 Impression: Small foci of acute infarction is suggested as described above with the largest area noted in the left genu of the corpus callosum just anterior to the left ventricle. No associated parenchymal hemorrhage, vasogenic edema or mass effect/midline shift. Chest x-ray on 07/30/18 There is mild patchy infiltrate in the left lung base. There is no definite infiltrate on the right. Heart appears mildly enlarged. Mediastinal silhouette is unchanged. Right central venous catheter is seen with the tip in the right atrium. Assessment/Plan 1. 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 Has baseline right-sided hemiparesis status post prior stroke. Discussed with Dr. Martino- additional recommendations for dual antiplatelet therapy for 3 months and then aspirin only, as recommended by Dr. 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 Discussed thrombocytopenia, with recommendations for continuing dual antiplatelet as long as platelets are greater than 50. Patient has no bleeding at this time. Continue statin. Patient's also dysphagia. PT/OT/ST. 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 Appreciate Dr. Camp's input. 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 2. Hypertensive urgency - On amlodipine as well as hydralazine, with dosages uptitrated. 3. End-stage renal disease on hemodialysis. Appreciate nephrology input. 4. Hypertension controlled. Permissive hypertension for now. 5. Diabetes mellitus. Hold Levemir for now. Sliding scale insulin. 6. Hypothyroidism on Synthroid 7. Protein-Calorie malnutrition -status post PEG Tube. On tube feeds. 8. Pancytopenia on a patient with end-stage renal disease. Peripheral smear with no acute findings. Will need close outpatient follow-up with PCP. 9. s/p Upper GI bleed status post PEG tube. Patient received PRBC. Hemoglobin stable now. Evaluated by Dr. Roger post EGD, with recommendations to restart tube feedings as well as antiplatelet agents aspirin/Plavix. 10. E. Coli Bacteremia - On Abx until 08/03. Appreciate Dr. Candelario's input. Repeat Bld cx negative. Improving. CRP improving. 11. Infiltrate at the left lung base on chest x-ray 07/30/18. Cefazolin changed to Zosyn. CRP elevated. Afebrile. Sputum culture. Will defer Abx to Dr. Candelario. CT Chest (see above). Chest PT by Resp. Guaifenesin increased. Low dose steroids. Complicating care. 12. Chronic anemia - multifactorial- receiving 1U PRBC today. DVT prophy: SCDs Overall prognosis guarded. DNR/DNI Pending Abx completion on 08/03. CM Working on Kangaroo pump. VS,Fishbone, I+O VS, Fishbone, I+O Laboratory Tests 08/02/18 16:36 Red Blood Count 2.70 L, Mean Corpuscular Volume 89.3, Mean Corpuscular Hemoglobin 29.6, Mean Corpuscular Hemoglobin Concent 33.2, Red Cell Distribution Width 14.6 H, Neutrophils (%) (Auto) 78.8 H, Lymphocytes (%) (Auto) 9.5 L, Monocytes (%) (Auto) 9.1 H, Eosinophils (%) (Auto) 0.7, Basophils (%) (Auto) 0.4, Neutrophils # (Auto) 3.6, Lymphocytes # (Auto) 0.4 L, Monocytes # (Auto) 0.4, Eosinophils # (Auto) 0.0, Basophils # (Auto) 0.0 08/03/18 06:08 Red Blood Count 2.60 L, Mean Corpuscular Volume 91.2, Mean Corpuscular Hemoglobin 29.6, Mean Corpuscular Hemoglobin Concent 32.5, Red Cell Distribution Width 14.8 H, Neutrophils (%) (Auto) 80.0 H, Lymphocytes (%) (Auto) 7.3 L, Monocytes (%) (Auto) 9.7 H, Eosinophils (%) (Auto) 0.7, Basophils (%) (Auto) 0.2, Neutrophils # (Auto) 4.6, Lymphocytes # (Auto) 0.4 L, Monocytes # (Auto) 0.6, Eosinophils # (Auto) 0.0, Basophils # (Auto) 0.0, Calcium Level 8.3 L Vital Signs Date Time Temp Pulse Resp B/P (MAP) Pulse Ox O2 Delivery O2 Flow Rate FiO2 08/03/18 09:23 90 144/87 08/03/18 06:00 97.3 24 96 1.0 I&O- Last 24 Hours up to 6 AM 08/03/18 06:00 Intake Total 110 ml Output Total 250 ml Balance -140 ml JACKY LOMBARDO MD Aug 03, 2018 10:36
[2018-08-03 14:00] VITALS: BP 150/65
--- NOTE | 2018-08-03 20:24 | IPN ---
DATE: 08/02/2018 SUBJECTIVE: Patient was seen and examined at the bedside this morning during hemodialysis procedure. The patient was being dialyzed. She is still in mild respiratory distress. She continues to be on tube feeds. We are trying to remove the fluid during dialysis; however, her blood pressure drops during dialysis. OBJECTIVE: VITAL SIGNS: Temperature is 97.1 degrees Fahrenheit, blood pressure 148/48, pulse is 92, respiratory rate of 24, saturating 92% on nasal cannula. INTAKE AND OUTPUT: There is no urine output recorded. Weight on the bed scale is not available. PHYSICAL EXAMINATION: GENERAL: Patient is awake getting hemodialysis done. Minimally verbal. Having upper airway secretions and mild respiratory distress. HEAD/NECK EXAM: Pupils are equal, round and reactive to light. Mucous membranes are moist. Neck is supple. She has a right internal jugular (IJ) tunnel hemodialysis catheter. CARDIOVASCULAR: S1 and S2. No edema of the bilateral lower extremities. RESPIRATORY: Decreased breath sounds at the bases. A lot of upper airway secretions and sounds. Mild crepitations at the left base as well. ABDOMEN: Soft, positive bowel sounds. Percutaneous endoscopic gastrostomy (PEG) tube in the epigastrium which is being used for feeding. MUSCULOSKELETAL: No clubbing or cyanosis. Pulses are 2+. 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 She has right upper extremity paralysis as well. She just moves her left upper arm. LABORATORY REVIEW: Complete blood count (CBC) showed a WBC of 3.8, hemoglobin 8, platelets are 63. Basic metabolic panel (BMP) showed sodium 135, potassium 3.8, chloride 101, bicarbonate 26, BUN 68, creatinine 3.8. CURRENT INPATIENT MEDICATIONS: Patient's medications were all reviewed by me. She continues to be on IV cefazolin. I have stopped her hydralazine because the patient was not receiving it and family was refusing. She continues to be on Coreg and amlodipine. No other change in the medications today as compared to yesterday. ASSESSMENT/PLAN: 1. End-stage renal disease on hemodialysis. Patient is being dialyzed according to her Saturday, , Saturday schedule. I am trying to remove fluid but every time we try to do ultrafiltration her blood pressure drops. 2. Hypertension. The patient's blood pressures was elevated yesterday. She is currently on Coreg and amlodipine. Hydralazine is being stopped because the patient is not requiring it and too much drop in the blood pressure during dialysis does not let us remove more fluid. 3. Escherichia (E) coli bacteremia. The patient is already on IV Ancef. Duration of treatment is as per infectious disease. 4. Protein calorie malnutrition. Patient is unable to take feed orally. She is currently on tube feeds at 35 mL/hr. 5. Respiratory distress and upper airway secretions. I suspect the patient is aspirating some of the tube feeds. I have ordered a CAT scan of the chest without contrast to be done after dialysis today.
[2018-08-03] MEDS: PRAVASTATIN 20 MG TAB PO SCH (21:39)
[2018-08-03] MEDS: LEVEMIR (INSULIN DETEMIR) 1 UNITS/0.01ML SC SCH (21:40)
[2018-08-03 22:00] VITALS: BP 142/48
[2018-08-04] MEDS: guaiFENesin SYRUP 200 MG/10 ML UDC PEG SCH ×4 (00:09→18:08)
[2018-08-04] MEDS: HumaLOG INSULIN (NovoLOG) PER UNIT SC SCH ×4 (00:09→18:00)
[2018-08-04 02:00] VITALS: BP 140/48
[2018-08-04] MEDS: IPRATROPIUM 0.5MG/ALBUTEROL 2.5MG INH SOL UD 3ML (DUONEB)(J7620) NEB SCH ×5 (03:46→20:44)
[2018-08-04 06:00] VITALS: BP 150/44
[2018-08-04 06:25] LABS: HEMATOCRIT 20.6 % (36.0-47.0); HEMOGLOBIN 6.8 g/dl (12.0-15.5); MEAN CORPUSCULAR VOLUME 90.7 fl (80.0-96.0); RED BLOOD COUNT 2.27 10^6/uL (4.00-5.40); WHITE BLOOD COUNT 3.6 10^3/uL (4.0-10.0)
[2018-08-04 06:26] LABS: PLATELET COUNT, AUTOMATED 48 10^3/uL (150-450)
[2018-08-04] MEDS: PIPERACILLIN/TAZOBACTAM SOD 2.25 GM in D5W MINI-BAG PLUS 50 ML IV SCH ×2 (06:34→18:08)
[2018-08-04] MEDS: CLOPIDOGREL 75 MG TAB PO SCH (06:35)
[2018-08-04] MEDS: LEVOTHYROXINE 25MCG TABLET (0.025MG) PO SCH (06:35)
[2018-08-04 06:36] LABS: C REACTIVE PROTEIN QUANTITATIV 11.4 MG/DL (0.00-0.30); CALCIUM LEVEL 8.2 MG/DL (8.8-10.2); CREATININE FOR GFR 4.33 MG/DL (0.55-1.30); GLOMERULAR FILTRATION RATE 10.3 (>32); MAGNESIUM LEVEL 2.4 MG/DL (1.8-2.4); POTASSIUM SERUM 4.7 MEQ/L (3.5-5.1)
[2018-08-04] MEDS: CARVedilol 6.25 MG TAB PO SCH ×2 (06:36→21:13)
[2018-08-04] MEDS: GABAPENTIN 100 MG CAP PO SCH ×2 (06:36→21:13)
[2018-08-04] MEDS: NYSTATIN 500,000 U/5 ML SUSP UDC PO SCH ×4 (06:36→21:13)
[2018-08-04] MEDS: ASPIRIN 81 MG CHEW TABLET PEG SCH (06:36)
[2018-08-04] MEDS: amLODIPine 10 MG TAB PO SCH (06:37)
[2018-08-04] MEDS: PANTOPRAZOLE 40MG INJ (PROTONIX) (C9113) IV SCH ×2 (06:37→21:11)
[2018-08-04] MEDS: methylPREDNISolone INJ 40 MG/1 ML VIAL (J2920) IV SCH ×2 (06:37→21:17)
[2018-08-04 07:14] LABS: LYMPHOCYTES 10 % (16-52); MONOCYTES 3 % (0-8); NEUTROPHILS 87 % (35-75); PLATELET ESTIMATE MARKED DECREASE (NORMAL)
[2018-08-04] MEDS: LEVEMIR (INSULIN DETEMIR) 1 UNITS/0.01ML SC SCH ×2 (08:33→21:12)
[2018-08-04] MEDS ORDERED: HEPARIN 1,000 UNITS/ML 10ML VIAL (FOR RADIOLOGY& DIALYSIS ONLY) XX ONE (12:15)
[2018-08-04 14:00] VITALS: BP 174/72
--- NOTE | 2018-08-04 14:15 | IPNPDOC ---
Text Note Date of Service The patient was seen on 08/04/18. NOTE Subjective:Pt is more awake and alert today. Talking to family members. Respi ratory status improved. Objective: Vitals: (see below) General: No acute distress, laying comfortably in bed. HEENT: Moist mucous membranes. Neck: No JVD or lymphadenopathy Cardiac: RRR, No murmurs Pulm: Diminished breath sounds at the bases B/l. No rhonchi/wheezing. Improved. Abd: NT/ND + BS. PEG tube in place with no leak or bleeding. Ext: No edema or cyanosis Neuro:Has a right facial droop. Left upper extremity 3-4/5. No tongue deviation noted. More alert today. Has dysarthria, and expressive aphasia which has been stable. Unable to complete the entire neurologic exam. Right sided hemiparesis and LLE ext weakness at baseline. Labs (see below) Images: MRI brain on 07/13/18 IMPRESSION: Limited by motion. Small acute infarct in the medial left frontal lobe. Small acute infarct in the right radiata. Possible tiny acute infarct in the medial superior left parietal lobe. Chronic white matter changes as described. Bifrontal hygromas. Unchanged from prior. Echocardiogram on 07/13/18 CONCLUSIONS: 1. Mild concentric left ventricular hypertrophy. Normal regional LV wall motion and wall thickening. Normal left ventricular systolic function. Left ventricle ejection fraction 65% by visual estimate. Grade 1 LV diastolic dysfunction, impaired relaxation filling pattern. 2. Moderate mitral annular calcification. No mitral regurgitation. No mitral stenosis. 3. Mild aortic valve sclerosis. No aortic regurgitation. 4. Otherwise normal appearing echocardiogram Doppler. MRI Brain 07/19/18 Impression: Small foci of acute infarction is suggested as described above with the largest area noted in the left genu of the corpus callosum just anterior to the left ventricle. No associated parenchymal hemorrhage, vasogenic edema or mass effect/midline shift. Chest x-ray on 07/30/18 There is mild patchy infiltrate in the left lung base. There is no definite infiltrate on the right. Heart appears mildly enlarged. Mediastinal silhouette is unchanged. Right central venous catheter is seen with the tip in the right atrium. Assessment/Plan 1. 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 Has baseline right-sided hemiparesis status post prior stroke. Discussed with Dr. Martino- additional recommendations for dual antiplatelet therapy for 3 months and then aspirin only, as recommended by Dr. 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 Discussed thrombocytopenia, with recommendations for continuing dual antiplatelet as long as platelets are greater than 50. Patient has no bleeding at this time. Continue statin. Patient's also dysphagia. PT/OT/ST. 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 Appreciate Dr. Camp's input. Allow for Higher BP 140/90 shelter given her stenosis. 2. Hypertensive urgency - On amlodipine as well as hydralazine, with dosages uptitrated. 3. End-stage renal disease on hemodialysis. Appreciate nephrology input. 4. Hypertension controlled. Permissive hypertension for now. 5. Diabetes mellitus. Hold Levemir for now. Sliding scale insulin. 6. Hypothyroidism on Synthroid 7. Protein-Calorie malnutrition -status post PEG Tube. On tube feeds. 8. Pancytopenia on a patient with end-stage renal disease. Peripheral smear with no acute findings. Will need close outpatient follow-up with PCP. 9. s/p Upper GI bleed status post PEG tube. Patient received PRBC. Hemoglobin stable now. Evaluated by Dr. Roger post EGD, with recommendations to restart tube feedings as well as antiplatelet agents aspirin/Plavix. 10. E. Coli Bacteremia - On Abx until 08/03. Appreciate Dr. Candelario's input. Repeat Bld cx negative. Improving. CRP improving. 11. Infiltrate at the left lung base on chest x-ray 07/30/18. Cefazolin changed to Zosyn. CRP elevated. Afebrile. Sputum culture. Will defer Abx to Dr. Candelario. CT Chest (see above). Chest PT by Resp. Guaifenesin increased. Low dose steroids. Complicating care. 12. Acute on Chronic anemia - multifactorial- receiving 2U PRBC today with HD. DVT prophy: SCDs Overall prognosis guarded. DNR/DNI VS,Fishbone, I+O VS, Fishbone, I+O Laboratory Tests 08/04/18 05:52 Red Blood Count 2.27 L, Mean Corpuscular Volume 90.7, Mean Corpuscular Hemoglobin 30.0, Mean Corpuscular Hemoglobin Concent 33.0, Red Cell Distribution Width 14.7 H 08/04/18 05:55 Calcium Level 8.2 L Vital Signs Date Time Temp Pulse Resp B/P (MAP) Pulse Ox O2 Delivery O2 Flow Rate FiO2 08/04/18 06:36 78 150/44 08/04/18 06:00 97.3 20 98 1.0 I&O- Last 24 Hours up to 6 AM 08/04/18 06:00 Intake Total 1400 ml Output Total 0 ml Balance 1400 ml JACKY LOMBARDO MD Aug 04, 2018 14:15
--- NOTE | 2018-08-04 20:51 | IPN ---
DATE: 08/04/2018 SUBJECTIVE: Suha is seen and examined this morning in the dialysis unit. She is receiving off schedule dialysis today because her anemia has worsened over the past 2 days. Hemoglobin was down to 6.8 this morning, and she is receiving two units of packed red blood cells with dialysis today. Her percutaneous endoscopic gastrostomy (PEG) feeds are held by the primary team for concern of possible aspiration. She is tolerating her treatment without issue. Vital signs: Temperature 97.3, pulse 78, respiratory rate 20, blood pressure 150/44, saturating 98% on one liter nasal cannula. Intake yesterday was 880, goal dialysis removal today is 1000 mL. Weight on the bed scale today is not recorded. General: The patient is seen on dialysis receiving her maintenance treatment, lying in bed, makes eye contact with me but does not speak. Extraocular muscles are intact. Tongue is moist. Nasal cannula is in place. Neck is supple. The right internal jugular (IJ) tunneled dialysis catheter is in use. Cardiac: Regular rate and rhythm. Lungs show diminished breath sounds at the bases. Occasional rhonchus. There is no accessory muscle use. The upper extremities are both mildly swollen. There is also some facial puffiness. The abdomen is soft and nontender. There is a PEG tube in place. The lower extremities are negative for edema. She has a foot drop. LABORATORY: White count 3.6, hemoglobin 6.8, platelets 48. Sodium 133, potassium 4.7, CRP 11.4. INPATIENT MEDICATIONS: Reviewed by myself. Insulin was adjusted per the primary team. Remainder of medications are unchanged from prior. PROBLEMS: 1. End-stage renal disease, on hemodialysis. She is usually on a Saturday, , Saturday schedule. However, I wanted to give her an extra dialysis treatment today as she needs blood products and also there is edema apparent on exam, mostly in the upper extremities and facial puffiness. We are removing one liter of fluid today and giving two units of packed red blood cells. I will reevaluate her for another treatment on Saturday. 2. Status post upper gastrointestinal (GI) bleed after PEG tube placement, now with ongoing decreasing hemoglobin and hematocrit. Hemoglobin 6.8 today. She is also thrombocytopenic. She is receiving two units of packed red blood cells with dialysis. She also continues on Aranesp. Given her acute CVA, she is on dual antiplatelet, aspirin and Plavix. However, the decreasing hemoglobin and the worsening thrombocytopenia are worrisome. Defer continuation or discontinuation of antiplatelets to primary team and neurology. 3. Hypertension. Blood pressures are acceptable. She is tolerating fluid removal on dialysis. I am making no changes to her antihypertensives today. Systolic 140s to 150s is pretty reasonable for her. 4. Infiltrate at the left lung base. She is continuing to require some supplemental oxygen. PEG tube feeds are being held for a day per primary team. Her CRP remains elevated. Infectious disease is following.
[2018-08-04] MEDS: PRAVASTATIN 20 MG TAB PO SCH (21:13)
--- NOTE | 2018-08-04 21:33 | IPN ---
DATE: 08/03/2018 SUBJECTIVE: Suha is seen and examined this morning at the bedside. She was sleeping. She aroused but history could not be obtained from her. Granddaughter at the bedside denied any acute issues. Vital signs: Temperature 97.5, pulse 90, respiratory rate 18, blood pressure 150/65, saturating 98% on 1 liter nasal cannula. Intake yesterday was not fully recorded. Dialysis yesterday removed 250 mL. Weight in the bed scale today is not recorded. General: Patient is seen lying in bed, elderly female, no acute distress, sleepy but arousable to verbal and tactile stimulus. Moist mucous membranes. Nasal cannula is in place. Jugular veins are not elevated. There is a tunneled hemodialysis catheter present in the right internal jugular (IJ). Cardiac: Regular rate and rhythm. Pulmonary: Shows scattered rhonchus and diminished breath sounds at the bases. Abdomen: Soft and there are bowel sounds and a percutaneous endoscopic gastrostomy (PEG) tube in place. Extremities are negative for edema or cyanosis. She does not move the lower extremities. Skin: Normal turgor and temperature and no edema in the legs. LABORATORY DATA: White count 5.8, hemoglobin 7.7, platelets 59, sodium 135, potassium 4.3, bicarbonate 28, BUN 52, CRP 11. Chest CT 08/02/2018, left lower lobe infiltrate with small left pleural effusion. INPATIENT MEDICATIONS: Patient continues on renally dosed Zosyn and Solu-Medrol 20 mg IV every 12 hours. Remainder of medications are unchanged from prior. PROBLEMS: 1. End-stage renal disease on hemodialysis on a Saturday, , Saturday schedule. Patient was dialyzed yesterday with minimal fluid removed. I plan to dialyze her again tomorrow to give 2 units of packed red blood cells with dialysis given her worsening anemia and hemoglobin down to 7.7. Prior to this admission with multiple acute strokes, the patient previously did not have much fluid removal on dialysis. 2. Left lower lung probable pneumonia. CT chest noted. Patient is now on renally dosed Zosyn. She is on supplemental oxygen and family states they do not have oxygen setup at home. There is no leukocytosis. She remains afebrile with the exception of one reading of 100.4 last night. Sputum culture is pending and C-reactive protein (CRP) is noted to rise. Infectious diseases is following her. 3. Hypertension. Blood pressures are acceptable at present and no change is being made to her current medications. 4. Recurrent anemia related to her chronic renal failure and she did have gastrointestinal (GI) bleed earlier on this admission. She continues on Aranesp and I have ordered her for two units packed red blood cells (PRBC) with dialysis tomorrow.
[2018-08-04 22:00] VITALS: BP 180/60
[2018-08-05] MEDS: guaiFENesin SYRUP 200 MG/10 ML UDC PEG SCH ×4 (00:02→18:04)
[2018-08-05] MEDS: DEXTROSE 50% 50 ML SYRINGE IV PRN (00:03)
[2018-08-05] MEDS: IPRATROPIUM 0.5MG/ALBUTEROL 2.5MG INH SOL UD 3ML (DUONEB)(J7620) NEB SCH ×6 (04:00→20:23)
[2018-08-05] MEDS ORDERED: DEXTROSE 50% 50 ML SYRINGE IV STA (04:49)
[2018-08-05] MEDS: PIPERACILLIN/TAZOBACTAM SOD 2.25 GM in D5W MINI-BAG PLUS 50 ML IV SCH ×2 (05:30→18:05)
[2018-08-05] MEDS: LEVOTHYROXINE 25MCG TABLET (0.025MG) PO SCH (05:30)
[2018-08-05] MEDS: HumaLOG INSULIN (NovoLOG) PER UNIT SC SCH ×4 (05:39→18:05)
[2018-08-05 06:00] VITALS: BP 178/70
[2018-08-05 07:00] LABS: BASO % 0.2 % (0.0-1.0); EOS % 0.2 % (0.0-3.0); HEMATOCRIT 33.4 % (36.0-47.0); LYMPH # 0.6 10^3/uL (1.5-4.5); LYMPH % 15.8 % (24.0-44.0); MEAN CORPUSCULAR HEMOGLOBIN 28.8 pg (27.0-33.0); MEAN CORPUSCULAR HGB CONC 33.8 g/dl (32.0-36.5); MEAN CORPUSCULAR VOLUME 85.2 fl (80.0-96.0); MONO # 0.5 10^3/uL (0.0-0.8); MONO % 12.1 % (0.0-5.0); NEUTROPHILS # 2.9 10^3/uL (1.8-7.7); NEUTROPHILS % 71.2 % (36.0-66.0); RED BLOOD COUNT 3.92 10^6/uL (4.00-5.40); WHITE BLOOD COUNT 4.1 10^3/uL (4.0-10.0)
[2018-08-05 07:02] LABS: PLATELET COUNT, AUTOMATED 44 10^3/uL (150-450)
[2018-08-05 07:03] LABS: HEMOGLOBIN 11.3 g/dl (12.0-15.5)
[2018-08-05 07:28] LABS: C REACTIVE PROTEIN QUANTITATIV 4.95 MG/DL (0.00-0.30); CALCIUM LEVEL 7.4 MG/DL (8.8-10.2); GLOMERULAR FILTRATION RATE 15.8 (>32); MAGNESIUM LEVEL 1.9 MG/DL (1.8-2.4); POTASSIUM SERUM 3.4 MEQ/L (3.5-5.1)
[2018-08-05] MEDS: LEVEMIR (INSULIN DETEMIR) 1 UNITS/0.01ML SC SCH ×2 (09:00→21:10)
[2018-08-05] MEDS: NYSTATIN 500,000 U/5 ML SUSP UDC PO SCH (09:00)
[2018-08-05] MEDS: ASPIRIN 81 MG CHEW TABLET PEG SCH (10:13)
[2018-08-05] MEDS: CARVedilol 6.25 MG TAB PO SCH ×2 (10:14→21:06)
[2018-08-05] MEDS: amLODIPine 10 MG TAB PO SCH (10:15)
[2018-08-05] MEDS: CLOPIDOGREL 75 MG TAB PO SCH (10:15)
[2018-08-05] MEDS: GABAPENTIN 100 MG CAP PO SCH ×2 (10:15→21:05)
[2018-08-05] MEDS: PANTOPRAZOLE 40MG INJ (PROTONIX) (C9113) IV SCH ×2 (10:16→21:06)
[2018-08-05] MEDS: methylPREDNISolone INJ 40 MG/1 ML VIAL (J2920) IV SCH (10:16)
--- NOTE | 2018-08-05 16:14 | IPN ---
DATE: 08/04/2018 Mrs. Tran seems to be doing better today. She has a minimal cough. Oxygen saturation is good, but she is wearing oxygen at 1 liter, even though her oxygen saturations are 98%. Minimal cough. No fever or chills. She was switched to intravenous (IV) Zosyn on August 02. PHYSICAL EXAMINATION: T Temperature is 98.5, pulse 85, respirations 24, blood pressure 174/72, oxygens saturation 98% on 1 meter nasal cannula. HEART: Normal S1, S2. No murmurs. LUNGS: Diminished breath sounds at the bases. ABDOMEN: Soft, nontender. No hepatosplenomegaly. Gastrostomy (G) tube in place. EXTREMITIES: No edema. IMPRESSION: 1. Aspiration pneumonia, on intravenous (IV) Zosyn, day #3, doing well. 2. History of Escherichia (E) coli bacteremia. Finished 14 days of IV antibiotic. Probably was related to hemodialysis catheter infection. 3. End-stage renal disease on hemodialysis. LABORATORY DATA: White count 3.6, hemoglobin 6.8, hematocrit 20.6, platelets 48, status post 2 units of packed red blood cells. Sodium 133, potassium 4.7, chloride 98, bicarbonate 28, BUN 74, creatinine 4.3, glucose 324, calcium 8.2, CRP 11.4. PLAN: Continue IV Zosyn. If the patient is ready for discharge, she could be discharged home on oral moxifloxacin 400 mg daily to cover for aspiration pneumonia. Otherwise, can continue IV Zosyn for 7 days.
[2018-08-05 18:25] VITALS: BP 138/82
--- NOTE | 2018-08-05 20:05 | IPN ---
DATE: 08/05/2018 Patient currently undergoing dialysis and is comfortable. Patient is a very poor historian. Minimal verbal due to stroke. VITAL SIGNS: Temperature 98.7, pulse 91, respirations 20, blood pressure 138/82, pulse ox 98% on 1 liter nasal cannula. LABORATORY: WBC 4.1, hemoglobin and hematocrit 11.3/33.4, platelets 44. Chemistry: Sodium 138, potassium 3.4, chloride 101, bicarbonate 30, BUN 44, creatinine 3, c-reactive protein 4.95. PHYSICAL EXAMINATION: GENERAL: Patient comfortable in no acute distress. HEENT: Moist mucous membranes. NECK: Supple. CARDIAC: Regular rate and rhythm. Normal S1, S2. PULMONARY: No wheezes, rales or rhonchi. Bilateral clear. ABDOMEN: Soft, nontender. Percutaneous endoscopic gastrostomy tube is in place. EXTREMITIES: No clubbing, cyanosis or edema. NEUROLOGIC: Right sided facial droop. Left upper extremity 4/5 strength. Dysarthria, expressive aphasia, right sided hemiparesis, left lower extremity weakness at baseline. ASSESSMENT AND PLAN: This is a 87-year-old female patient with underlying medical history of end-stage renal disease on dialysis Saturday, , Saturday, multiple CVA's with right sided hemiparesis with left sided weakness as well. Currently bed bound and also history of hypertension, diabetes, hypothyroidism, initially admitted with hypertensive urgency, found to have recurrent stroke, currently with percutaneous endoscopic gastrostomy feeding. PROBLEMS: 1. 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 Neurology was consulted. Recommendation of total 3 month of antiplatelets and then switch to aspirin only as recommended by Dr. Schafefr of [facility]. 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 Recommend antiplatelet. We will monitor platelets. Will monitor for signs of bleeding. Continue statin. PT/OT speech and swallow. Monitor blood pressure. 2. Hypertensive urgency. Patient currently on Norvasc, Coreg. Will monitor blood pressure. 3. Pneumonia, possible aspiration. Continue with antibiotics. Will finish a course likely switch from Zosyn to Augmentin. Followup c-reactive protein. 4. End-stage renal disease. Nephrology consulted. Continue dialysis. 5. Diabetes mellitus with hypoglycemia due to temporary holding tube feeding. Continue basal bolus insulin. Adjust as needed. 6. Coli bacteremia. Patient was treated. 7. Hypothyroidism. Continue Synthroid. 8. Protein calorie malnutrition. Percutaneous endoscopic gastrostomy feeding. 9. Pancytopenia. Peripheral smear appreciated. Outpatient workup recommended. 10. Upper GI bleed, status-post percutaneous endoscopic gastrostomy tube. Will monitor. Patient was transfused, evaluated by Dr. Roger post EGD. We will monitor hemoglobin and hematocrit and transfuse if needed. 11. E. Coli bacteremia. Complete antibiotic course as recommended by infection disease. 12. Acute on chronic anemia, multifactorial. Patient was transfused. 13. DVT prophylaxis. TEDs and sequential. Avoid anticoagulation given thrombocytopenia. Monitor TEDs and sequentials. DISPOSITION: Likely discharge by Saturday.
[2018-08-05] MEDS: PRAVASTATIN 20 MG TAB PO SCH (21:05)
[2018-08-05 22:00] VITALS: BP 128/72
[2018-08-06] MEDS: HumaLOG INSULIN (NovoLOG) PER UNIT SC SCH ×4 (00:41→17:11)
[2018-08-06] MEDS: guaiFENesin SYRUP 200 MG/10 ML UDC PEG SCH ×3 (00:41→13:32)
[2018-08-06] MEDS: IPRATROPIUM 0.5MG/ALBUTEROL 2.5MG INH SOL UD 3ML (DUONEB)(J7620) NEB SCH ×6 (03:07→20:23)
[2018-08-06 06:00] VITALS: BP 124/72
[2018-08-06] MEDS: PIPERACILLIN/TAZOBACTAM SOD 2.25 GM in D5W MINI-BAG PLUS 50 ML IV SCH (06:29)
[2018-08-06] MEDS: LEVOTHYROXINE 25MCG TABLET (0.025MG) PO SCH (06:30)
[2018-08-06 07:31] LABS: C REACTIVE PROTEIN QUANTITATIV 5.3 MG/DL (0.00-0.30); CALCIUM LEVEL 7.8 MG/DL (8.8-10.2); CREATININE FOR GFR 3.8 MG/DL (0.55-1.30); MAGNESIUM LEVEL 2.1 MG/DL (1.8-2.4)
[2018-08-06 08:37] LABS: BASO % 0.4 % (0.0-1.0); EOS % 0.2 % (0.0-3.0); HEMOGLOBIN 10.6 g/dl (12.0-15.5); LYMPH # 1.1 10^3/uL (1.5-4.5); LYMPH % 21.6 % (24.0-44.0); MEAN CORPUSCULAR HGB CONC 34.2 g/dl (32.0-36.5); MEAN CORPUSCULAR VOLUME 84.9 fl (80.0-96.0); MONO # 0.5 10^3/uL (0.0-0.8); MONO % 10.6 % (0.0-5.0); NEUTROPHILS # 3.1 10^3/uL (1.8-7.7); NEUTROPHILS % 63.9 % (36.0-66.0); RED BLOOD COUNT 3.65 10^6/uL (4.00-5.40); WHITE BLOOD COUNT 4.9 10^3/uL (4.0-10.0)
[2018-08-06 08:38] LABS: PLATELET COUNT, AUTOMATED 46 10^3/uL (150-450)
[2018-08-06] MEDS: ASPIRIN 81 MG CHEW TABLET PEG SCH (09:54)
[2018-08-06] MEDS: predniSONE 10 MG TAB PEG SCH (09:54)
[2018-08-06] MEDS: CARVedilol 6.25 MG TAB PO SCH ×2 (09:55→21:31)
[2018-08-06] MEDS: CLOPIDOGREL 75 MG TAB PO SCH (09:55)
[2018-08-06] MEDS: amLODIPine 10 MG TAB PO SCH (09:55)
[2018-08-06] MEDS: GABAPENTIN 100 MG CAP PO SCH ×2 (09:55→21:31)
[2018-08-06] MEDS: LEVEMIR (INSULIN DETEMIR) 1 UNITS/0.01ML SC SCH ×2 (09:56→21:32)
[2018-08-06] MEDS: PANTOPRAZOLE 40MG INJ (PROTONIX) (C9113) IV SCH ×2 (09:57→21:32)
[2018-08-06 14:00] VITALS: BP 170/76
--- NOTE | 2018-08-06 16:01 | IPN ---
DATE OF SERVICE: 08/05/2018 SUBJECTIVE: Suha is seen and examined this morning at the bedside. She looks short of breath at rest. When her granddaughter translates, Suha does say that she feels more short of breath than usual. She tolerated dialysis yesterday with 1 liter of fluid removed and she is agreeable to go for an extra dialysis session today. Temperature 97.1, pulse 72, respiratory rate 20, blood pressure 178/70, saturating 99% on 1 liter nasal cannula. Intake yesterday was 1190. Dialysis yesterday removed 1000. Net positive 190 mL. Weight on the bed scale today is 50.6 kg. General: Patient is seen lying in bed, awake, alert, makes eye contact; has some mildly increased work of breathing at rest and is mildly tachypneic. Tongue is dry. Nasal cannula is in place. There is a tunneled hemodialysis catheter present in the right internal jugular (IJ). Cardiac: Regular rate and rhythm. Pulmonary: Shows scattered rhonchus and diminished breath sounds at the bases. Abdomen is soft. There is a percutaneous endoscopic gastrostomy (PEG) tube in place with feeds ongoing. The right upper extremity shows edema. The remainder of extremities are negative for edema. Neurologic: Patient follows some simple commands and is able to communicate with her family in her [place]. LABS: White count 4.1, hemoglobin 11.3, platelets 44. Sodium 138, potassium 3.4. INPATIENT MEDICATIONS: Patient continues on renally dosed Zosyn. She got an amp of D50 this morning for hypoglycemia. Remainder of medications are unchanged from prior. PROBLEMS: 1. End-stage renal disease, on hemodialysis on Saturday, , Saturday schedule. The patient was dialyzed yesterday, which was an extra treatment for administration of blood products and also to remove fluid. She is going to be dialyzed again this afternoon with goal fluid removal of 1 liter as tolerated by her hemodynamics. Prior to this admission, the patient did not previously have any fluid removal with her hemodialysis sessions. 2. Shortness of breath. The patient continues to require a small amount of supplemental oxygen, but she visibly looks to have increased work of breathing at the time of my visit today, and the patient noted the same in her [place]. Her most recent CT chest showed new patchy consolidative infiltrates in the left lower lobe (concern for possible pneumonia). She also has some facial puffiness and upper extremity edema on exam. I think she would benefit with some volume removal. We were able to remove 1 liter with dialysis yesterday, and we will try remove another liter with dialysis today as tolerated by her hemodynamics. 3. Hypertension. Blood pressures have been elevated this morning systolic 170s-180s, but I will use that to our benefit and try to remove further fluid with her hemodialysis session this afternoon. Hypervolemia may be causing some hypertension. 4. Recurrent anemia related to her chronic renal failure and she did have gastrointestinal (GI) bleed earlier on this admission. She continues on weekly Aranesp. She received 2 units of packed red blood cells with dialysis yesterday. She is also significantly thrombocytopenic. Her platelet count has been less than 50 the past 2 days and downtrending. She did have recent multiple acute strokes and is on aspirin and Plavix in view of the same. However, this complicates her anemia. She possibly has some oozing from the PEG placement site. Will defer continuation or discontinuation of antiplatelets to primary team.
[2018-08-06] MEDS ORDERED: guaiFENesin SYRUP 200 MG/10 ML UDC PEG PRN (17:15)
[2018-08-06 18:30] LABS: CLOSTRIDIUM DIFFICILE PCR POSITIVE (NEGATIVE)
--- NOTE | 2018-08-06 19:58 | IPNPDOC ---
Text Note Date of Service The patient was seen on 08/06/18. NOTE Patient comfortable, in not acute distress. Patient is a very poor historian. Minimal verbal due to stroke. Family reported diarrhea PHYSICAL EXAMINATION: GENERAL: Patient comfortable in no acute distress. HEENT: Moist mucous membranes. NECK: Supple. CARDIAC: Regular rate and rhythm. Normal S1, S2. PULMONARY: No wheezes, rales or rhonchi. Bilateral clear. ABDOMEN: Soft, nontender. Percutaneous endoscopic gastrostomy tube is in place. EXTREMITIES: No clubbing, cyanosis or edema. NEUROLOGIC: Right sided facial droop. Left upper extremity 4/5 strength. Dysarthria, expressive aphasia, right sided hemiparesis, left lower extremity weakness at baseline. ASSESSMENT AND PLAN: This is a 87-year-old female patient with underlying medical history of end- stage renal disease on dialysis Saturday, , Saturday, multiple CVA's with right sided hemiparesis with left sided weakness as well. Currently bed bound and also history of hypertension, diabetes, hypothyroidism, initially admitted with hypertensive urgency, found to have recurrent stroke, currently with percutaneous endoscopic gastrostomy feeding. PROBLEMS: 1. 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 Neurology was consulted. Recommendation of total 3 month of dual antiplatelets and then switch to aspirin only as recommended by Dr. Schaffer of [facility]. 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 We will monitor platelets. Will monitor for signs of bleeding. Continue statin. PT/OT speech and swallow. Monitor blood pressure. Peg feeding 2. Hypertensive urgency. Patient currently on Norvasc, Coreg. Will monitor blood pressure. 3. Pneumonia, possible aspiration. swtich to Augmentin. Followup c-reactive protein. 4. C diff collitis- vanco PO 5. End-stage renal disease. Nephrology consulted. Continue dialysis. 6. Diabetes mellitus with hypoglycemia due to temporary holding tube feeding. Continue basal bolus insulin. Adjust as needed. tube feeding 7. E Coli bacteremia. Patient was treated. 8. Hypothyroidism. Continue Synthroid. 9. Protein calorie malnutrition. Percutaneous endoscopic gastrostomy feeding. 10. Pancytopenia. Peripheral smear appreciated. Outpatient workup recommended. 11. Upper GI bleed, status-post percutaneous endoscopic gastrostomy tube. Will monitor. Patient was transfused, evaluated by Dr. Roger post EGD. We will monitor hemoglobin and hematocrit and transfuse if needed. currently stable 12. E. Coli bacteremia. Complete antibiotic course as recommended by infection disease. 13. Acute on chronic anemia, multifactorial. Patient was transfused. 14. DVT prophylaxis. TEDs and sequential. Avoid anticoagulation given thrombocytopenia. Monitor TEDs and sequentials. DISPOSITION: Likely discharge by Saturday. VS,Fishbone, I+O VS, Fishbone, I+O Laboratory Tests 08/06/18 06:52 Calcium Level 7.8 L 08/06/18 08:01 Red Blood Count 3.65 L, Mean Corpuscular Volume 84.9, Mean Corpuscular Hemoglobin 29.0, Mean Corpuscular Hemoglobin Concent 34.2, Red Cell Distribution Width 14.5, Neutrophils (%) (Auto) 63.9, Lymphocytes (%) (Auto) 21.6 L, Monocytes (%) (Auto) 10.6 H, Eosinophils (%) (Auto) 0.2, Basophils (%) (Auto) 0.4, Neutrophils # (Auto) 3.1, Lymphocytes # (Auto) 1.1 L, Monocytes # (Auto) 0.5, Eosinophils # (Auto) 0.0, Basophils # (Auto) 0.0 Vital Signs Date Time Temp Pulse Resp B/P (MAP) Pulse Ox O2 Delivery O2 Flow Rate FiO2 08/06/18 14:00 97.6 88 22 170/76 (107) 91 08/05/18 18:25 1.0 I&O- Last 24 Hours up to 6 AM 08/06/18 05:59 Intake Total 975 ml Output Total 1000 ml Balance -25 ml GEETA ELLSWORTH MD Aug 06, 2018 19:58
[2018-08-06] MEDS: AUGMENTIN 500 MG TAB PO SCH (21:30)
[2018-08-06] MEDS: PRAVASTATIN 20 MG TAB PO SCH (21:30)
[2018-08-06] MEDS: VANCOMYCIN ORAL SOL 250MG/5ML ORAL SYRINGE FT SCH (21:31)
[2018-08-06 22:00] VITALS: BP 150/85
[2018-08-07] MEDS: VANCOMYCIN ORAL SOL 250MG/5ML ORAL SYRINGE FT SCH ×5 (00:39→23:49)
[2018-08-07] MEDS: HumaLOG INSULIN (NovoLOG) PER UNIT SC SCH ×5 (00:40→23:49)
[2018-08-07] MEDS: IPRATROPIUM 0.5MG/ALBUTEROL 2.5MG INH SOL UD 3ML (DUONEB)(J7620) NEB SCH ×7 (04:00→23:25)
[2018-08-07 06:00] VITALS: BP 135/80
[2018-08-07] MEDS: LEVOTHYROXINE 25MCG TABLET (0.025MG) PO SCH (06:23)
[2018-08-07] MEDS: ASPIRIN 81 MG CHEW TABLET PEG SCH (06:24)
[2018-08-07] MEDS: CLOPIDOGREL 75 MG TAB PO SCH (06:25)
[2018-08-07] MEDS: GABAPENTIN 100 MG CAP PO SCH ×2 (06:25→22:03)
[2018-08-07] MEDS: CARVedilol 6.25 MG TAB PO SCH ×2 (06:25→22:04)
[2018-08-07] MEDS: amLODIPine 10 MG TAB PO SCH (06:26)
[2018-08-07] MEDS: predniSONE 10 MG TAB PEG SCH (06:33)
[2018-08-07] MEDS: PANTOPRAZOLE 40MG INJ (PROTONIX) (C9113) IV SCH ×2 (06:33→22:04)
[2018-08-07 09:19] LABS: BASO % 0.3 % (0.0-1.0); EOS % 0.1 % (0.0-3.0); HEMATOCRIT 31.3 % (36.0-47.0); HEMOGLOBIN 10.9 g/dl (12.0-15.5); LYMPH # 0.5 10^3/uL (1.5-4.5); LYMPH % 7.2 % (24.0-44.0); MEAN CORPUSCULAR HEMOGLOBIN 29.8 pg (27.0-33.0); MEAN CORPUSCULAR HGB CONC 34.8 g/dl (32.0-36.5); MEAN CORPUSCULAR VOLUME 85.5 fl (80.0-96.0); MONO # 0.4 10^3/uL (0.0-0.8); MONO % 5.3 % (0.0-5.0); NEUTROPHILS # 5.8 10^3/uL (1.8-7.7); NEUTROPHILS % 84.1 % (36.0-66.0); RED BLOOD COUNT 3.66 10^6/uL (4.00-5.40); WHITE BLOOD COUNT 6.9 10^3/uL (4.0-10.0)
[2018-08-07 09:21] LABS: PLATELET COUNT, AUTOMATED 56 10^3/uL (150-450)
[2018-08-07 09:42] LABS: ALBUMIN 1.9 GM/DL (3.2-5.2); C REACTIVE PROTEIN QUANTITATIV 5.54 MG/DL (0.00-0.30); CALCIUM LEVEL 7.5 MG/DL (8.8-10.2); CREATININE FOR GFR 4.57 MG/DL (0.55-1.30); GLOMERULAR FILTRATION RATE 9.7 (>32); MAGNESIUM LEVEL 2.3 MG/DL (1.8-2.4); POTASSIUM SERUM 3.5 MEQ/L (3.5-5.1)
[2018-08-07] MEDS ORDERED: HEPARIN 1,000 UNITS/ML 10ML VIAL (FOR RADIOLOGY& DIALYSIS ONLY) XX ONE (12:00)
[2018-08-07] MEDS: LEVEMIR (INSULIN DETEMIR) 1 UNITS/0.01ML SC SCH ×2 (12:39→22:04)
[2018-08-07 13:07] VITALS: BP 150/86
[2018-08-07 14:00] VITALS: BP 148/80
[2018-08-07] MEDS ORDERED: VANC125C2 PEG ×2 (16:55→18:04)
--- NOTE | 2018-08-07 19:53 | IPNPDOC ---
Text Note Date of Service The patient was seen on 08/07/18. NOTE Patient comfortable, in not acute distress. Patient is a very poor historian. Minimal verbal due to stroke. Family reported improved diarrhea PHYSICAL EXAMINATION: GENERAL: Patient comfortable in no acute distress. HEENT: Moist mucous membranes. NECK: Supple. CARDIAC: Regular rate and rhythm. Normal S1, S2. PULMONARY: No wheezes, rales or rhonchi. Bilateral clear. ABDOMEN: Soft, nontender. Percutaneous endoscopic gastrostomy tube is in place. EXTREMITIES: No clubbing, cyanosis or edema. NEUROLOGIC: Right sided facial droop. Left upper extremity 4/5 strength. Dysarthria, expressive aphasia, right sided hemiparesis, left lower extremity weakness at baseline. ASSESSMENT AND PLAN: This is a 87-year-old female patient with underlying medical history of end- stage renal disease on dialysis Saturday, , Saturday, multiple CVA's with right sided hemiparesis with left sided weakness as well. Currently bed bound and also history of hypertension, diabetes, hypothyroidism, initially admitted with hypertensive urgency, found to have recurrent stroke, currently with perc utaneous endoscopic gastrostomy feeding. PROBLEMS: 1. 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 Neurology was consulted. Recommendation of total 3 month of dual antiplatelets and then switch to aspirin only as recommended by Dr. Schaffer of [facility]. 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 We will monitor platelets. Will monitor for signs of bleeding. Continue statin. PT/OT speech and swallow. Monitor blood pressure. Peg feeding 2. Hypertensive urgency. Patient currently on Norvasc, Coreg. Will monitor blood pressure. 3. Pneumonia, possible aspiration. swtich to Augmentin. Followup c-reactive protein. 4. C diff collitis- vanco PO 10 days 5. End-stage renal disease. Nephrology consulted. Continue dialysis. 6. Diabetes mellitus Continue basal bolus insulin. Adjust as needed. tube feeding 7. E Coli bacteremia. Patient was treated. 8. Hypothyroidism. Continue Synthroid. 9. Protein calorie malnutrition. Percutaneous endoscopic gastrostomy feeding. 10. Pancytopenia. Peripheral smear appreciated. Outpatient workup recommended. 11. Upper GI bleed, status-post percutaneous endoscopic gastrostomy tube. Will monitor. Patient was transfused, evaluated by Dr. Roger post EGD. We will monitor hemoglobin and hematocrit and transfuse if needed. currently stable 12. E. Coli bacteremia. Complete antibiotic course as recommended by infection disease. 13. Acute on chronic anemia, multifactorial. Patient was transfused. 14. DVT prophylaxis. TEDs and sequential. Avoid anticoagulation given thrombocytopenia. Monitor TEDs and sequentials. DISPOSITION: Likely discharge by Saturday. VS,Fishbone, I+O VS, Fishbone, I+O Laboratory Tests 08/07/18 08:45 Red Blood Count 3.66 L, Mean Corpuscular Volume 85.5, Mean Corpuscular Hemoglobin 29.8, Mean Corpuscular Hemoglobin Concent 34.8, Red Cell Distribution Width 14.3, Neutrophils (%) (Auto) 84.1 H, Lymphocytes (%) (Auto) 7.2 L, Monocytes (%) (Auto) 5.3 H, Eosinophils (%) (Auto) 0.1, Basophils (%) (Auto) 0.3, Neutrophils # (Auto) 5.8, Lymphocytes # (Auto) 0.5 L, Monocytes # (Auto) 0.4, Eosinophils # (Auto) 0.0, Basophils # (Auto) 0.0, Calcium Level 7.5 L Vital Signs Date Time Temp Pulse Resp B/P (MAP) Pulse Ox O2 Delivery O2 Flow Rate FiO2 08/07/18 14:00 98.2 84 20 148/80 (102) 91 08/05/18 18:25 1.0 I&O- Last 24 Hours up to 6 AM 08/07/18 06:00 Intake Total 840 ml Output Total 0 ml Balance 840 ml GEETA ELLSWORTH MD Aug 07, 2018 19:53
[2018-08-07 22:00] VITALS: BP 140/70
[2018-08-07] MEDS: PRAVASTATIN 20 MG TAB PO SCH (22:03)
[2018-08-07] MEDS: AUGMENTIN 500 MG TAB PO SCH (22:04)
[2018-08-08] MEDS: IPRATROPIUM 0.5MG/ALBUTEROL 2.5MG INH SOL UD 3ML (DUONEB)(J7620) NEB SCH ×6 (03:01→23:54)
[2018-08-08 05:46] LABS: HEMATOCRIT 33.3 % (36.0-47.0); HEMOGLOBIN 11.3 g/dl (12.0-15.5); MEAN CORPUSCULAR HEMOGLOBIN 29.1 pg (27.0-33.0); MEAN CORPUSCULAR HGB CONC 33.9 g/dl (32.0-36.5); MEAN CORPUSCULAR VOLUME 85.8 fl (80.0-96.0); RED BLOOD COUNT 3.88 10^6/uL (4.00-5.40); WHITE BLOOD COUNT 5.2 10^3/uL (4.0-10.0)
[2018-08-08 05:49] LABS: PLATELET COUNT, AUTOMATED 67 10^3/uL (150-450)
[2018-08-08] MEDS: VANCOMYCIN ORAL SOL 250MG/5ML ORAL SYRINGE FT SCH ×3 (05:57→17:56)
[2018-08-08] MEDS: LEVOTHYROXINE 25MCG TABLET (0.025MG) PO SCH (05:58)
[2018-08-08 06:00] VITALS: BP 135/70
[2018-08-08 06:00] LABS: C REACTIVE PROTEIN QUANTITATIV 4.22 MG/DL (0.00-0.30); CALCIUM LEVEL 8.5 MG/DL (8.8-10.2); CREATININE FOR GFR 3.17 MG/DL (0.55-1.30); GLOMERULAR FILTRATION RATE 14.8 (>32); MAGNESIUM LEVEL 2.1 MG/DL (1.8-2.4); POTASSIUM SERUM 3.5 MEQ/L (3.5-5.1)
[2018-08-08] MEDS: HumaLOG INSULIN (NovoLOG) PER UNIT SC SCH ×3 (06:00→17:57)
[2018-08-08] MEDS ORDERED: POTASSIUM CHLORIDE 10 MEQ SR TABLET PO ONE (07:45)
[2018-08-08] MEDS: ASPIRIN 81 MG CHEW TABLET PEG SCH (09:09)
[2018-08-08] MEDS: predniSONE 10 MG TAB PEG SCH (09:09)
[2018-08-08] MEDS: GABAPENTIN 100 MG CAP PO SCH ×2 (09:09→22:13)
[2018-08-08] MEDS: CLOPIDOGREL 75 MG TAB PO SCH (09:09)
[2018-08-08] MEDS: PANTOPRAZOLE 40MG INJ (PROTONIX) (C9113) IV SCH ×2 (09:10→22:14)
[2018-08-08] MEDS: LEVEMIR (INSULIN DETEMIR) 1 UNITS/0.01ML SC SCH ×2 (09:10→22:14)
[2018-08-08] MEDS: amLODIPine 10 MG TAB PO SCH (09:11)
[2018-08-08] MEDS: CARVedilol 6.25 MG TAB PO SCH ×2 (09:11→22:13)
[2018-08-08] MEDS ORDERED: POTASSIUM CHLORIDE 10% LIQ 20 MEQ/15 ML UDC PO ONE (09:30)
[2018-08-08] MEDS ORDERED: AMLO10TA5 PEG (12:34)
[2018-08-08] MEDS ORDERED: FENO145T13 PEG (12:34)
[2018-08-08] MEDS ORDERED: CLOP75TA2 PO (12:34)
[2018-08-08] MEDS ORDERED: PANT40TA3 PEG (12:34)
[2018-08-08] MEDS ORDERED: ACET1TAB55 PEG (12:34)
[2018-08-08] MEDS ORDERED: CARV6.25 PEG (12:34)
[2018-08-08] MEDS ORDERED: LEVO25TA5 PEG (12:34)
[2018-08-08] MEDS ORDERED: NEUR100C PEG (12:34)
[2018-08-08] MEDS ORDERED: ASPI81CH PEG (12:34)
[2018-08-08] MEDS ORDERED: STOO100C PEG (12:34)
[2018-08-08] MEDS ORDERED: DRIS50003 PEG (12:34)
[2018-08-08] MEDS ORDERED: PRAV1TAB39 PEG (12:36)
[2018-08-08] MEDS ORDERED: INSULANT SC (12:37)
--- NOTE | 2018-08-08 15:36 | IPN ---
DATE: 08/06/2018 SUBJECTIVE: Suha is seen and examined this morning at the bedside. She denies any acute complaints. Her granddaughter reports diarrheal episodes. She has been weaned off of nasal cannula, is now on room air. Tolerated dialysis yesterday with 1 liter of fluid removed. Vital signs: Temperature 98.4, pulse 89, respiratory rate 20, blood pressure 124/72, saturating 94% on room air. Intake yesterday 725, dialysis yesterday removed 1000 mL. Weight in the bed scale today is 51.1 kg. General: Patient is seen lying in bed, awake and alert, answers questions in her [place] sh[place] Bengali but gives short answers. Extraocular muscles are intact. The tongue is moist. There is a tunneled hemodialysis catheter present in the right. Neck is supple. Cardiac: S1, S2, regular rate and rhythm. Lungs: There is mild tachypnea. She appears to have some increased work of breathing, but she denies the same. Abdomen: Soft and nontender. There is a percutaneous endoscopic gastrostomy (PEG) tube in place. The extremities are negative for edema. There is muscle wasting prominent in the lower extremities. The right upper extremity shows edema. Neurologic: Expressive aphasia. Right side facial droop. Moves her left arm on command. LABORATORY DATA: White count 4.9, hemoglobin 10.6, platelets 46, sodium 132, potassium 4.0. Clostridium (C) difficile PCR positive. INPATIENT MEDICATIONS: Her Zosyn has been stopped. She is on Augmentin per the primary team and also noted to be started on vancomycin 125 mg every 6 hours via feeding tube and also on prednisone 30 mg daily. Her remainder of medications are unchanged from prior. PROBLEMS: 1. End-stage renal disease on hemodialysis on Saturday, , Saturday maintenance schedule. Patient will be dialyzed tomorrow. I will increase the goal fluid removal to 1500 mL as tolerated by her hemodynamics. Prior to this admission, patient did not have fluid removal with her chronic dialysis sessions but now she has been getting percutaneous endoscopic gastrostomy (PEG) feeds and there is hypervolemia on exam mostly noticeable in the upper extremities. She has been tolerating fluid removal without issue. 2. Shortness of breath. Looks to be improving. She was dialyzed on Saturday and Saturday with 1 liter removed with each treatment. She is off of supplemental oxygen. She will be dialyzed again tomorrow with goal fluid removal of 1500 mL as tolerated. There is likely aspiration pneumonia as well contributing to the shortness of breath. I note she is on Augmentin now per the primary team. Her C-reactive protein (CRP) overall has down trended. 3. Clostridium (C) difficile colitis. Patient is now started on oral vancomycin. 4. Upper gastrointestinal (GI) bleed and recent recurrent anemia after percutaneous endoscopic gastrostomy (PEG) placement. She received a total of 6 units of packed red blood cells on this admission. Hemoglobin has been stable for the past 2 days. Platelet count remains less than 50. Her recent strokes necessitate continuation of dual anti-platelets. Continue to monitor hemoglobin and hematocrit and transfuse as needed. She also continues on Aranesp. 5. Hyponatremia, mild. It is secondary to chronic renal failure and likely some hypervolemia and should improve with dialysis and fluid removal.
--- NOTE | 2018-08-08 17:08 | IPN ---
DATE: 08/07/2018 SUBJECTIVE: Patient seen and examined this morning in the hemodialysis unit receiving her maintenance treatment with increased treatment time of 3 hours and with a goal fluid removal of 1.5 liters, which she is tolerating well. Family reports her diarrhea has improved since she has been started on vancomycin. VITAL SIGNS: Temperature 98.4, pulse 84, respiratory rate 20, blood pressure 135/80, saturating 91-95% on room air. Intake yesterday was 1170. Goal fluid removal with dialysis today is 1500 mL. Weight in the bed scale today is not recorded. GENERAL: Suha is seen on dialysis. Family is present at the bedside. She has minimal verbalization due to stroke. Extraocular muscles are intact. She makes eye contact. Tongue is dry. NECK: Supple. Tunneled hemodialysis catheter in the right chest wall is in use. CARDIAC: S1, S2. Regular rate and rhythm. LUNGS: Bilateral air entry. Diminished at the base, otherwise clear. ABDOMEN: Soft and nontender. The percutaneous endoscopic gastrostomy (PEG) tube is in place. EXTREMITIES: Show muscle wasting and no clubbing, cyanosis, or edema (the right upper extremity has mild edema). NEUROLOGIC: Expressive aphasia. Right-sided facial droop. Moves her left arm on command. LABORATORY DATA: Sodium 134, potassium 3.5, bicarbonate 26, albumin 1.9. Hemoglobin 10.9, platelets 56. INPATIENT MEDICATIONS: Reviewed by myself and no change from prior. PROBLEMS: 1. End-stage renal disease, on hemodialysis on Saturday, , Saturday schedule. Patient's treatment time I have increased to 3 hours now that we are regularly removing fluid with her hemodialysis treatment. Goal fluid removal today is 1.5 liters, which she is tolerating. Her total intake from the PEG tube is 1040 mL in 24 hours, and I discussed with the family that she will have to have increased treatment time for adequate fluid removal in the outpatient setting. 2. Clostridium (C) difficile colitis, symptomatically improving on oral vancomycin. 3. Protein calorie malnutrition. Albumin of 1.9. Patient continues on Nepro tube feeds. 4. Hypertension. Blood pressures have been acceptable. She was initially hypertensive prior to dialysis this morning; however, with fluid removal her blood pressures improved nicely. No change is being made to her antihypertensive regimen today. She continues on amlodipine, carvedilol. 5. Recurrent anemia related to chronic renal failure and gastrointestinal (GI) bleed earlier on this admission. She continues on weekly Aranesp. There is also chronic thrombocytopenia. She continues on dual-antiplatelet therapy in view of the recent stroke. Her hemoglobin has been stable the past 3 days and at target. 6. 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 She will continue on dual-antiplatelets for 3 months as per neurology recommendations. Due is PEG-feed dependent now. Family inquires regarding the feasibility of home hemodialysis. I advised them that this conversation can happen in the outpatient setting when Suha is more stable.
[2018-08-08 18:00] VITALS: BP 162/58
--- NOTE | 2018-08-08 19:32 | IPNPDOC ---
Text Note Date of Service The patient was seen on 08/08/18. NOTE Patient comfortable, in not acute distress. Patient is a very poor historian. Minimal verbal due to stroke. Family reported improved diarrhea PHYSICAL EXAMINATION: GENERAL: Patient comfortable in no acute distress. HEENT: Moist mucous membranes. NECK: Supple. CARDIAC: Regular rate and rhythm. Normal S1, S2. PULMONARY: No wheezes, rales or rhonchi. Bilateral clear. ABDOMEN: Soft, nontender. Percutaneous endoscopic gastrostomy tube is in place. EXTREMITIES: No clubbing, cyanosis or edema. NEUROLOGIC: Right sided facial droop. Left upper extremity 4/5 strength. Dysarthria, expressive aphasia, right sided hemiparesis, left lower extremity weakness at baseline. ASSESSMENT AND PLAN: This is a 87-year-old female patient with underlying medical history of end- stage renal disease on dialysis Saturday, , Saturday, multiple CVA's with right sided hemiparesis with left sided weakness as well. Currently bed bound and also history of hypertension, diabetes, hypothyroidism, initially admitted with hypertensive urgency, found to have recurrent stroke, currently with perc utaneous endoscopic gastrostomy feeding. PROBLEMS: 1. 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 Neurology was consulted. Recommendation of total 3 month of dual antiplatelets and then switch to aspirin only as recommended by Dr. Schaffer of [facility]. 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 We will monitor platelets. Will monitor for signs of bleeding. Continue statin. PT/OT speech and swallow. Monitor blood pressure. Peg feeding 2. Hypertensive urgency. Patient currently on Norvasc, Coreg. Will monitor blood pressure. 3. Pneumonia, possible aspiration. swtich to Augmentin. Followup c-reactive protein. 4. C diff collitis- vanco PO 10 days 5. End-stage renal disease. Nephrology consulted. Continue dialysis. 6. Diabetes mellitus Continue basal bolus insulin. Adjust as needed. tube feeding 7. E Coli bacteremia. Patient was treated. 8. Hypothyroidism. Continue Synthroid. 9. Protein calorie malnutrition. Percutaneous endoscopic gastrostomy feeding. 10. Pancytopenia. Peripheral smear appreciated. Outpatient workup recommended. 11. Upper GI bleed, status-post percutaneous endoscopic gastrostomy tube. Will monitor. Patient was transfused, evaluated by Dr. Roger post EGD. We will monitor hemoglobin and hematocrit and transfuse if needed. currently stable 12. E. Coli bacteremia. Complete antibiotic course as recommended by infection disease. 13. Acute on chronic anemia, multifactorial. Patient was transfused. 14. DVT prophylaxis. TEDs and sequential. Avoid anticoagulation given thrombocytopenia. Monitor TEDs and sequentials. DISPOSITION: dc delayed 07/26 to transportation. anticipated DC Saturday VS,Fishbone, I+O VS, Fishbone, I+O Laboratory Tests 08/08/18 05:08 Red Blood Count 3.88 L, Mean Corpuscular Volume 85.8, Mean Corpuscular Hemoglobin 29.1, Mean Corpuscular Hemoglobin Concent 33.9, Red Cell Distribution Width 14.4, Calcium Level 8.5 L Vital Signs Date Time Temp Pulse Resp B/P (MAP) Pulse Ox O2 Delivery O2 Flow Rate FiO2 08/08/18 09:11 71 120/68 08/08/18 06:00 97.3 20 95 08/05/18 18:25 1.0 I&O- Last 24 Hours up to 6 AM 08/08/18 06:00 Intake Total 450 ml Output Total 1200 ml Balance -750 ml GEETA ELLSWORTH MD Aug 08, 2018 19:32
[2018-08-08 22:00] VITALS: BP 170/64
[2018-08-08] MEDS: PRAVASTATIN 20 MG TAB PO SCH (22:12)
[2018-08-08] MEDS: AUGMENTIN 500 MG TAB PO SCH (22:12)
[2018-08-09] MEDS: VANCOMYCIN ORAL SOL 250MG/5ML ORAL SYRINGE FT SCH ×4 (00:03→18:07)
[2018-08-09] MEDS: HumaLOG INSULIN (NovoLOG) PER UNIT SC SCH ×4 (00:04→18:07)
[2018-08-09] MEDS: IPRATROPIUM 0.5MG/ALBUTEROL 2.5MG INH SOL UD 3ML (DUONEB)(J7620) NEB SCH ×2 (03:57→07:37)
[2018-08-09 06:00] VITALS: BP 180/70
[2018-08-09] MEDS: amLODIPine 10 MG TAB PO SCH ×2 (06:19→08:19)
[2018-08-09] MEDS: ASPIRIN 81 MG CHEW TABLET PEG SCH (06:19)
[2018-08-09] MEDS: CLOPIDOGREL 75 MG TAB PO SCH (06:19)
[2018-08-09] MEDS: LEVOTHYROXINE 25MCG TABLET (0.025MG) PO SCH (06:19)
[2018-08-09] MEDS: CARVedilol 6.25 MG TAB PO SCH ×2 (06:20→21:28)
[2018-08-09] MEDS: GABAPENTIN 100 MG CAP PO SCH ×2 (06:20→21:28)
[2018-08-09] MEDS: PANTOPRAZOLE 40MG INJ (PROTONIX) (C9113) IV SCH ×2 (06:22→21:26)
[2018-08-09] MEDS: LEVEMIR (INSULIN DETEMIR) 1 UNITS/0.01ML SC SCH ×2 (08:19→21:27)
[2018-08-09 09:11] LABS: HEMATOCRIT 27.5 % (36.0-47.0); MEAN CORPUSCULAR HEMOGLOBIN 29.2 pg (27.0-33.0); MEAN CORPUSCULAR HGB CONC 33.1 g/dl (32.0-36.5); MEAN CORPUSCULAR VOLUME 88.1 fl (80.0-96.0); RED BLOOD COUNT 3.12 10^6/uL (4.00-5.40)
[2018-08-09 09:12] LABS: PLATELET COUNT, AUTOMATED 67 10^3/uL (150-450)
[2018-08-09 09:13] LABS: HEMOGLOBIN 9.1 g/dl (12.0-15.5)
[2018-08-09 09:49] LABS: C REACTIVE PROTEIN QUANTITATIV 2.62 MG/DL (0.00-0.30); CALCIUM LEVEL 7.7 MG/DL (8.8-10.2); CREATININE FOR GFR 3.86 MG/DL (0.55-1.30); GLOMERULAR FILTRATION RATE 11.8 (>32); MAGNESIUM LEVEL 1.9 MG/DL (1.8-2.4); POTASSIUM SERUM 4.3 MEQ/L (3.5-5.1)
[2018-08-09] MEDS ORDERED: HEPARIN 1,000 UNITS/ML 10ML VIAL (FOR RADIOLOGY& DIALYSIS ONLY) XX ONE (11:00)
[2018-08-09] MEDS: predniSONE 20 MG TAB PEG SCH (13:44)
[2018-08-09 14:00] VITALS: BP 160/64
--- NOTE | 2018-08-09 14:24 | IPN ---
DATE: 08/09/2018 Mrs. Tran is seen this morning during hemodialysis on her bedside. Her daughter is present on the bedside. The patient is responsive and able to answer simple questions. Her blood pressure has been somewhat high prior to dialysis; however, it is now down to 130s. The patient's family clearly understands that she needs to have fluid removed during each dialysis due to tube feeding and hypervolemia. The patient herself has no complaints. PHYSICAL EXAMINATION: Temperature 97.4 degrees Fahrenheit, heart rate 87 per minute and respiratory rate 20 per minute. Blood pressure was 170/64 mmHg at the start of dialysis and now it is down to 132/60 mmHg. Her head is atraumatic. Neck is supple and JVD is not significantly elevated. She has a PermaCath in right internal jugular vein. Heart sounds are irregular in rhythm and lungs sound clear to auscultation with poor inspiratory effort. Abdomen is soft and a G-tube is present. Tube feeding is in progress. Extremities have no cyanosis or clubbing. Neurologically she has significant neurological deficits due to multiple strokes. She is minimally communicative. Today's labs show WBC count 4.0, hemoglobin 9.1 and hematocrit 27.5. Platelets are 67,000. Sodium is 134, potassium 4.3, CO2 26, BUN 69 and creatinine 3.86. C-reactive protein has come down to 2.6. PROBLEMS: 1. End-stage renal disease. The patient is being dialyzed and she is tolerating dialysis very well. 2. Anemia. Her anemia has slightly worsened once again. She does have history of GI bleed during this admission. However, there has been fluctuation in her hemoglobin and hematocrit. At this point, we will continue to monitor and CBC should be checked again tomorrow morning. 3. Hyponatremia. She has mild hyponatremia which is stable and does not need any intervention. 4. Nutrition. She is receiving tube feeds and is tolerating it well. She seems reasonably well-nourished with current feeding rate. 5. Hypertension. Her blood pressure historically has been on the high side. She also has history of severe hypotension during dialysis. We are trying to remove only about 1.2 liters of fluid today. Her blood pressure is already down to 130s and will continue to watch closely. DISPOSITION: Dr. Barclay is planning to discharge her tomorrow. It remains to be seen how she is and if she is medically stable then she is okay for discharge from a renal standpoint.
--- NOTE | 2018-08-09 18:48 | IPNPDOC ---
Text Note Date of Service The patient was seen on 08/09/18. NOTE Patient comfortable, in not acute distress. Patient is a very poor historian. Minimal verbal due to stroke. Family reported improved diarrhea PHYSICAL EXAMINATION: GENERAL: Patient comfortable in no acute distress. HEENT: Moist mucous membranes. NECK: Supple. CARDIAC: Regular rate and rhythm. Normal S1, S2. PULMONARY: No wheezes, rales or rhonchi. Bilateral clear. ABDOMEN: Soft, nontender. Percutaneous endoscopic gastrostomy tube is in place. EXTREMITIES: No clubbing, cyanosis or edema. NEUROLOGIC: Right sided facial droop. Left upper extremity 4/5 strength. Dysarthria, expressive aphasia, right sided hemiparesis, left lower extremity weakness at baseline. ASSESSMENT AND PLAN: This is a 87-year-old female patient with underlying medical history of end- stage renal disease on dialysis Saturday, , Saturday, multiple CVA's with right sided hemiparesis with left sided weakness as well. Currently bed bound and also history of hypertension, diabetes, hypothyroidism, initially admitted with hypertensive urgency, found to have recurrent stroke, currently with perc utaneous endoscopic gastrostomy feeding. PROBLEMS: 1. 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 Neurology was consulted. Recommendation of total 3 month of dual antiplatelets and then switch to aspirin only as recommended by Dr. Schaffer of [facility]. 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 We will monitor platelets. Will monitor for signs of bleeding. Continue statin. PT/OT speech and swallow. Monitor blood pressure. Peg feeding 2. Hypertensive urgency. Patient currently on Norvasc, Coreg. Will monitor blood pressure. 3. Pneumonia, possible aspiration. swtich to Augmentin. Followup c-reactive protein. 4. C diff collitis- vanco PO 10 days 5. End-stage renal disease. Nephrology consulted. Continue dialysis. 6. Diabetes mellitus Continue basal bolus insulin. Adjust as needed. tube feeding 7. E Coli bacteremia. Patient was treated. 8. Hypothyroidism. Continue Synthroid. 9. Protein calorie malnutrition. Percutaneous endoscopic gastrostomy feeding. 10. Pancytopenia. Peripheral smear appreciated. Outpatient workup recommended. 11. Upper GI bleed, status-post percutaneous endoscopic gastrostomy tube. Will monitor. Patient was transfused, evaluated by Dr. Roger post EGD. We will monitor hemoglobin and hematocrit and transfuse if needed. currently stable 12. E. Coli bacteremia. Complete antibiotic course as recommended by infection disease. 13. Acute on chronic anemia, multifactorial. Patient was transfused. 14. DVT prophylaxis. TEDs and sequential. Avoid anticoagulation given thrombocytopenia. Monitor TEDs and sequentials. DISPOSITION: dc delayed 07/26 to transportation. anticipated DC tomorrow VS,Fishbone, I+O VS, Fishbone, I+O Laboratory Tests 08/09/18 08:53 Red Blood Count 3.12 L, Mean Corpuscular Volume 88.1, Mean Corpuscular Hemoglobin 29.2, Mean Corpuscular Hemoglobin Concent 33.1, Red Cell Distribution Width 14.3, Calcium Level 7.7 L Vital Signs Date Time Temp Pulse Resp B/P (MAP) Pulse Ox O2 Delivery O2 Flow Rate FiO2 08/09/18 14:00 97.2 92 24 160/64 (96) 96 08/05/18 18:25 1.0 I&O- Last 24 Hours up to 6 AM 08/09/18 06:00 Intake Total 0 ml Balance 0 ml GEETA ELLSWORTH MD Aug 09, 2018 18:48
[2018-08-09] MEDS: PRAVASTATIN 20 MG TAB PO SCH (21:27)
[2018-08-09] MEDS: AUGMENTIN 500 MG TAB PO SCH (21:28)
[2018-08-09 22:00] VITALS: BP 178/72
[2018-08-10] MEDS: VANCOMYCIN ORAL SOL 250MG/5ML ORAL SYRINGE FT SCH ×2 (00:52→06:18)
[2018-08-10] MEDS: HumaLOG INSULIN (NovoLOG) PER UNIT SC SCH ×2 (00:53→06:00)
[2018-08-10 06:00] VITALS: BP 178/54
[2018-08-10] MEDS: LEVOTHYROXINE 25MCG TABLET (0.025MG) PO SCH (06:18)
[2018-08-10 07:01] LABS: HEMATOCRIT 31.3 % (36.0-47.0); HEMOGLOBIN 10.6 g/dl (12.0-15.5); MEAN CORPUSCULAR HEMOGLOBIN 28.9 pg (27.0-33.0); MEAN CORPUSCULAR HGB CONC 33.9 g/dl (32.0-36.5); MEAN CORPUSCULAR VOLUME 85.3 fl (80.0-96.0); RED BLOOD COUNT 3.67 10^6/uL (4.00-5.40); WHITE BLOOD COUNT 4.2 10^3/uL (4.0-10.0)
[2018-08-10 07:05] LABS: PLATELET COUNT, AUTOMATED 74 10^3/uL (150-450)
[2018-08-10 07:14] LABS: C REACTIVE PROTEIN QUANTITATIV 1.88 MG/DL (0.00-0.30); CALCIUM LEVEL 8.5 MG/DL (8.8-10.2); CREATININE FOR GFR 2.67 MG/DL (0.55-1.30); MAGNESIUM LEVEL 2.1 MG/DL (1.8-2.4); POTASSIUM SERUM 4.5 MEQ/L (3.5-5.1)
[2018-08-10] MEDS: ASPIRIN 81 MG CHEW TABLET PEG SCH (09:35)
[2018-08-10] MEDS: LEVEMIR (INSULIN DETEMIR) 1 UNITS/0.01ML SC SCH (09:35)
[2018-08-10] MEDS: PANTOPRAZOLE 40MG INJ (PROTONIX) (C9113) IV SCH (09:35)
[2018-08-10] MEDS: CLOPIDOGREL 75 MG TAB PO SCH (09:36)
[2018-08-10] MEDS: GABAPENTIN 100 MG CAP PO SCH (09:36)
[2018-08-10] MEDS: predniSONE 20 MG TAB PEG SCH (09:36)
[2018-08-10 09:39] VITALS: BP 182/60
[2018-08-10] MEDS: amLODIPine 10 MG TAB PO SCH (09:39)
[2018-08-10] MEDS: CARVedilol 6.25 MG TAB PO SCH (09:39)
--- NOTE | 2018-08-10 15:07 | IPN ---
DATE: 08/08/2018 SUBJECTIVE: Suha is seen and examined this morning in the bedside and granddaughter is present, interprets for Suha. Suha is only able to give very short answers in her sun'aq tongue. Denies shortness of breath at rest, tolerated dialysis yesterday with 1200 mL of fluid removed. VITAL SIGNS: Temperature 97.8, pulse 88, respiratory rate 20, blood pressure 162/58, saturating 95% on room air. INTAKE AND OUTPUT: Intake yesterday was not fully recorded. Dialysis yesterday removed 1200 mL. Weight on the bed scale today is not recorded. GENERAL: Patient is seen lying in bed. Elderly female in no acute distress. HEENT: Extraocular muscles are intact. She makes eye contact. NECK: Supple. The tunneled hemodialysis catheter in the right chest wall has a dressing. Jugular veins are not significantly elevated. CARDIAC: Heart sounds are irregular. LUNGS: Show diminished breath sounds at the base, but otherwise clear. ABDOMEN: Soft. There is a PEG tube present. Tube feeding is in process. EXTREMITIES: Lower extremities have no edema. There is muscle wasting. Her right upper extremity is mildly edematous. NEUROLOGIC: She is minimally communicative but she makes eye contact and lifts her left hand on command. LABORATORY DATA: White count 5.2, hemoglobin 11.3, platelets 67. Sodium 136, potassium 3.5, CRP 4.2. INPATIENT MEDICATIONS: Reviewed by myself and no change from prior. She continues on vancomycin via the feeding tube. PROBLEMS: 1. End-stage renal disease, on hemodialysis on Saturday, , Saturday schedule. She was dialyzed yesterday. The maximum fluid removal she could tolerate was 1200 mL. She will require fluid removal with hemodialysis going forward. I have increased her treatment time to 3 hours. I have discussed fluid removal goals with the outpatient hemodialysis charge nurse as well as with the patient's family. Intradialytic hypotension does complicate some ability to remove fluid, but her volume status is fairly acceptable at present. 2. C. difficile colitis. Symptomatically improving on oral vancomycin. 3. Protein calorie malnutrition. Patient continues on Nepro tube feeds. Albumin is less than 2. 4. Hypertension. Blood pressures have been acceptable. She is hypertensive predialysis and on nondialysis days; however, she has intradialytic hypotension. She continues on amlodipine and carvedilol. Blood pressures do with fluid removal. 5. Recurrent anemia related to chronic renal failure and gastrointestinal (GI) bleed. She continues on weekly Aranesp. She has received a total of 6 units of packed red blood cells over the course of this admission. Hemoglobin is currently at goal. She continues on dual antiplatelet therapy in view of her recent stroke. Chronic thrombocytopenia also complicates the picture. 6. 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 As per neurology, she has multiple neurologic deficits now. Her overall prognosis is poor. She continues on dual antiplatelets therapy She is now PEG feed dependent.
--- NOTE | 2018-08-10 16:46 | DSES ---
DATE OF ADMISSION: 07/14/2018 DATE OF DISCHARGE: 08/10/2018 PRIMARY CARE PROVIDER/ARCHITECTURE INTERNSHIP: Patricia Pineda MD NEUROLOGIST: Dione Valdivia MD AEROSPACE STRESS ENGINEER: Marlena Candelario MD GASTROENTEROLOGY (GI): Lucas Roger DO FINAL DIAGNOSES: Acute CVA, embolic in nature, global aphasia, new left-sided weakness, baseline right-sided hemiparesis due to stroke, hypertensive urgencies, aspiration pneumonia, Clostridium (C) difficile colitis, end-stage renal disease on dialysis, diabetes mellitus, Escherichia (E) coli bacteremia, hypothyroidism, protein calorie malnutrition, pancytopenia, upper gastrointestinal (GI) bleed, acute on chronic anemia. HISTORY OF PRESENT ILLNESS: This is an 87-year-old female patient with underlying medical history of end-stage renal disease on dialysis Saturday, , Saturday, history of CVA with right-sided hemiparesis, hypertension, diabetes, hypothyroidism, presented to the emergency room from dialysis due to right arm pain. In the emergency room, patient had a vascular ultrasound showing no evidence of deep venous thrombosis (DVT). X-ray shows no evidence of fracture. However, patient was noted to have blood pressure of 245/107. Patient did complete her dialysis prior to coming to the emergency department (ED). Patient did take her Coreg in the morning. Given Lopressor, additional Coreg with mild improvement of blood pressure. No chest pain, shortness of breath. No visual disturbances or headache noted. Subsequently, patient was admitted for further blood pressure management. On 07/13/2018, patient was noted to be having aphasia with new right-sided tongue deviation, new onset left-sided weakness. MRI was done showing new stroke. Neurology was consulted. Patient is placed on aspirin and Plavix and statin. Physical therapy (PT), occupational therapy (OT), speech and swallow evaluation was called. Telemetry monitoring was done. Percutaneous endoscopic gastrostomy (PEG) tube was inserted. PEG feeding was started given patient is a huge aspiration risk. Blood pressure medication was adjusted during the hospital course. Hospital course was further complicated with E. coli bacteremia unknown source. Subsequently, infectious diseases was consulted. Patient completed course of antibiotics. Furthermore, following which patient developed aspiration pneumonia when diet was advanced. Subsequently, antibiotic was restarted and later switched to Augmentin, completing course of antibiotics. Following which, patient developed diarrhea, was found to have C. difficile colitis. Patient was treated with vancomycin with improvement. Insulin was given for diabetes. Patient currently is bed bound, tube feeding, minimal verbal, but family is able to provide [id number] care. Subsequently, patient is discharged home for further care by primary care provider, restorative care technician, and family. Discussion was held, family is aware of the poor long-term prognosis. VITAL SIGNS: Temperature 97.4, pulse 85, respiratory rate 22, blood pressure 178/54, pulse oximetry 97% on room air. LABORATORY DATA: WBC 4.3, hemoglobin and hematocrit 10.6/31.3, platelets 74. Chemistry: Sodium 136, potassium 4.5, chloride 101, bicarbonate 27, BUN 41, creatinine 2.6. PHYSICAL EXAMINATION: GENERAL: Patient comfortable, in no acute distress. HEENT: Moist mucous membranes. Neck supple. CARDIAC: Regular, S1, S2. PULMONARY: Bilateral clear to auscultation. Diminished breath sounds bilateral base. ABDOMEN: Soft, PEG tube in place. EXTREMITIES: No clubbing, cyanosis, or edema. NEUROLOGIC: Right-sided facial droop. Left upper and lower extremities 4/5 strength. Dysarthria, expressive aphasia. Right-sided hemiparesis. Left lower extremity 4/5 strength. DISCHARGE MEDICATIONS: - Norvasc 10 mg via PEG daily - Plavix 75 mg via PEG daily - pravastatin 80 mg via PEG nightly - vancomycin 125 mg via PEG four times a day - Nepro tube feedings 35 units/hour with 50 mL free water flushes every 6 hours - nystatin powder topical daily - acetaminophen 650 mg via PEG every 6 hours as needed - aspirin 81 mg via PEG daily - Coreg 6.25 mg via PEG twice a day - Colace 500 mg via PEG twice a day - fenofibrate 145 mg via PEG nightly - Neurontin 100 mg via PEG twice a day - Lantus 12 units subcutaneous twice a day - Synthroid 25 mcg via PEG daily - Protonix 40 mg via PEG daily - vitamin D 50,000 units via PEG weekly DISCHARGE INSTRUCTIONS: Please followup with restorative care technician in 3-5 days. Continue dialysis Saturday, Saturday, . Frequent turning. Pressure ulcer precaution. Please see primary care provider in 5 days. Further blood pressure control and glucose control as per primary care provider. Please see neurologist in 14 days, adjust patient's aspirin and Plavix as per neurologist. Most likely patient will be placed on aspirin only after 3 months but further management as per neurologist. Return to hospital if symptoms worsen. Further care as per family.
== END 2018-08-10 11:30 | disposition home health service (06) | DRG 64 ==
LOC: M ED 10:11 → EDBD 10:11 → M ED INP 17:38 → M PCU 21:47 → OBSVTOIN 07-14 16:34 → M MSPAV 07-19 15:30
PROVIDERS: ADMIT Internal Medicine; ATTEND Hospitalist
PROC: 5A1D70Z Performance of Urinary Filtration, Intermittent, Less than 6 Hours Per Day (ICD-10-PCS; 2018-07-14)
PROC: 30233N1 Transfusion of Nonautologous Red Blood Cells into Peripheral Vein, Percutaneous Approach (ICD-10-PCS; 2018-07-17)
PROC: 0DH64UZ Insertion of Feeding Device into Stomach, Percutaneous Endoscopic Approach (ICD-10-PCS; principal; 2018-07-17 11:30)
DX: I63.442 Cerebral infarction due to embolism of left cerebellar artery (principal); N18.6 End stage renal disease; J69.0 Pneumonitis due to inhalation of food and vomit; I69.351 Hemiplegia and hemiparesis following cerebral infarction affecting right dominant side; A04.72 Enterocolitis due to Clostridium difficile, not specified as recurrent; E46 Unspecified protein-calorie malnutrition; R78.81 Bacteremia; D61.818 Other pancytopenia; K92.2 Gastrointestinal hemorrhage, unspecified; E87.2 Acidosis; E87.1 Hypo-osmolality and hyponatremia; I16.0 Hypertensive urgency; I69.320 Aphasia following cerebral infarction; E03.9 Hypothyroidism, unspecified; E11.649 Type 2 diabetes mellitus with hypoglycemia without coma; B96.29 Other Escherichia coli [E. coli] as the cause of diseases classified elsewhere; Z99.2 Dependence on renal dialysis; Z88.5 Allergy status to narcotic agent; Z88.7 Allergy status to serum and vaccine; Z79.82 Long term (current) use of aspirin; Z79.899 Other long term (current) drug therapy; Z87.891 Personal history of nicotine dependence; E11.40 Type 2 diabetes mellitus with diabetic neuropathy, unspecified; N28.81 Hypertrophy of kidney; Z91.018 Allergy to other foods; Z66 Do not resuscitate; D63.1 Anemia in chronic kidney disease

== ENCOUNTER 2018-08-19 22:04 | Inpatient (IN) | payer MEDICARE ==
[~2018-08-19] VITALS: Ht 157.5 cm; Wt 47.7 kg
[~2018-08-19 22:04] MED LIST changes: +ACET1TAB55 PEG; +AMLO10TA5 PEG; +ASPI81CH PEG; +CARV6.25 PEG; +DRIS50003 PEG; +FENO145T13 PEG; +LEVO25TA5 PEG; +NEPRLIQ3 PEG; +NEUR100C PEG; +PANT40TA3 PEG; +POLY1POW38 PO; +PRAV1TAB39 PEG; +SODI15SS PO; +STOO100C PEG; +STOO100C PO; +VANC125C2 PEG
[2018-08-19 23:30] LABS: BASO % 0.4 % (0.0-1.0); EOS % 0.2 % (0.0-3.0); HEMATOCRIT 25.9 % (36.0-47.0); HEMOGLOBIN 8.4 g/dl (12.0-15.5); LYMPH # 0.4 10^3/uL (1.5-4.5); LYMPH % 7.2 % (24.0-44.0); MEAN CORPUSCULAR HGB CONC 32.4 g/dl (32.0-36.5); MEAN CORPUSCULAR VOLUME 92.5 fl (80.0-96.0); MONO # 0.3 10^3/uL (0.0-0.8); MONO % 5.4 % (0.0-5.0); NEUTROPHILS # 4.8 10^3/uL (1.8-7.7); NEUTROPHILS % 84.7 % (36.0-66.0); WHITE BLOOD COUNT 5.7 10^3/uL (4.0-10.0)
[2018-08-20 00:01] LABS: ERYTHROCYTE SEDIMENTATION RATE 129 mm/hr (0-42)
[2018-08-20 00:04] LABS: ALBUMIN 1.9 GM/DL (3.2-5.2); ALT/SGPT 17 U/L (12-78); BILIRUBIN,DIRECT 0.4 MG/DL (0.0-0.2); BILIRUBIN,TOTAL 0.6 MG/DL (0.2-1.0); BLOOD UREA NITROGEN 25 MG/DL (7-18); CALCIUM LEVEL 8.7 MG/DL (8.8-10.2); CARBON DIOXIDE LEVEL 27 MEQ/L (21-32); CHLORIDE LEVEL 103 MEQ/L (98-107); CK-MB VALUE MASS < 1.0 NG/ML (<3.6); CPK CREATINE PHOSPHOKINASE 83 U/L (26-192); CREATININE FOR GFR 2.37 MG/DL (0.55-1.30); GLOMERULAR FILTRATION RATE 20.7 (>32); GLUCOSE, FASTING 119 MG/DL (70-100); PLATELET COUNT, AUTOMATED 85 10^3/uL (150-450); POTASSIUM SERUM 3.7 MEQ/L (3.5-5.1); SODIUM LEVEL 138 MEQ/L (136-145); TROPONIN I 0.03 NG/ML (< 0.10)
[2018-08-20] MEDS ORDERED: PIPERACILLIN/TAZOBACTAM SOD 3.375 GM in D5W MINI-BAG PLUS 50 ML IV ONE (00:15)
[2018-08-20] MEDS ORDERED: ACETAMINOPHEN 325 MG/10.15 ML UDC PEG ONE (00:15)
[2018-08-20] MEDS ORDERED: AMLO10TA5 PEG (00:54)
[2018-08-20] MEDS ORDERED: CLOP75TA2 PEG (00:54)
[2018-08-20] MEDS ORDERED: CARV6.25 PEG (00:54)
[2018-08-20] MEDS ORDERED: LANTINJ4 SC (00:54)
[2018-08-20] MEDS ORDERED: FENO145T13 PEG (00:54)
[2018-08-20] MEDS ORDERED: VITA50005 PEG (00:54)
[2018-08-20] MEDS ORDERED: ACET1TAB55 PEG (00:54)
[2018-08-20] MEDS ORDERED: DOCU100C16 PEG (00:54)
[2018-08-20] MEDS ORDERED: GABA-1171 PEG (00:54)
[2018-08-20] MEDS ORDERED: PRAV20TA2 PEG (00:54)
[2018-08-20] MEDS ORDERED: PANT-23 PEG (00:54)
[2018-08-20] MEDS ORDERED: ASPI81CH PEG (00:54)
[2018-08-20] MEDS: FENOFIBRATE 145 MG TAB (TRICOR) PEG SCH ×2 (03:39→05:56)
[2018-08-20] MEDS: PRAVASTATIN 20 MG TAB PEG SCH ×3 (03:40→21:14)
[2018-08-20] MEDS ORDERED: DOCUSATE SODIUM 100 MG CAP PO PRN (03:45)
[2018-08-20] MEDS ORDERED: GLUCAGON FOR INJ 1 MG VIAL (J1610) SC PRN (04:15)
[2018-08-20] MEDS ORDERED: GLUCOSE 4 GM CHEW TABLET PO PRN (04:15)
[2018-08-20] MEDS ORDERED: DEXTROSE 50% 50 ML SYRINGE IV PRN (04:15)
[2018-08-20 04:48] VITALS: BP 132/51
--- NOTE | 2018-08-20 06:50 | REP ---
Clinical: Chest pain . Comparison: 07/30/2018 . Findings: The mediastinum and cardiac silhouette are stable. Double-lumen dialysis catheter with tip in the SVC. Lung crespo demonstrate chronic interstitial changes. No acute consolidation, effusion, or pneumothorax. Skeletal structures stable. Impression: Chronic interstitial changes. No acute cardiopulmonary process appreciated. Electronically Signed by Jewel Patton MD 08/20/2018 06:41 A
[2018-08-20] MEDS: HumaLOG INSULIN (NovoLOG) PER UNIT SC SCH ×4 (07:30→21:00)
[2018-08-20 08:00] VITALS: BP 153/61
--- NOTE | 2018-08-20 08:10 | REP ---
Clinical: Aspiration pneumonia. Technique: Axial noncontrast images from the thoracic inlet to the upper abdomen with coronal and sagittal re-formations. Comparison: 08/02/2018. Findings: Chronic age-related interstitial changes with elements of scattered scarring and mild bronchiectasis remains stable. Small residual left basilar atelectasis has improved from prior examination. No new areas of consolidation are appreciated. No significant effusion. No pneumothorax. Mediastinum is relatively stable. Evaluation for underlying adenopathy is limited due to the lack of contrast. Atherosclerotic changes to the thoracic aorta and coronary arteries noted. Musculoskeletal structures are stable. Limited upper abdomen unchanged. Impression: 1. Previously noted left lower lobe consolidation/atelectasis has decreased. 2. No new acute process identified. Electronically Signed by Jewel Patton MD 08/20/2018 08:01 A
[2018-08-20] MEDS: LEVEMIR (INSULIN DETEMIR) 1 UNITS/0.01ML SC SCH ×2 (08:44→21:00)
[2018-08-20] MEDS: CARVedilol 6.25 MG TAB PEG SCH ×2 (08:57→21:14)
[2018-08-20] MEDS: amLODIPine 10 MG TAB PEG SCH (08:57)
[2018-08-20] MEDS: CLOPIDOGREL 75 MG TAB PEG SCH (08:57)
[2018-08-20] MEDS: PIPERACILLIN/TAZOBACTAM SOD 2.25 GM in D5W MINI-BAG PLUS 50 ML IV SCH ×3 (08:58→21:14)
[2018-08-20] MEDS ORDERED: GABAPENTIN 100 MG CAP PEG SCH (09:00)
[2018-08-20 10:42] LABS: HEMATOCRIT 21.1 % (36.0-47.0); MEAN CORPUSCULAR HEMOGLOBIN 29.8 pg (27.0-33.0); MEAN CORPUSCULAR HGB CONC 32.2 g/dl (32.0-36.5); MEAN CORPUSCULAR VOLUME 92.5 fl (80.0-96.0); RED BLOOD COUNT 2.28 10^6/uL (4.00-5.40); WHITE BLOOD COUNT 5.3 10^3/uL (4.0-10.0)
[2018-08-20 10:46] LABS: HEMOGLOBIN 6.8 g/dl (12.0-15.5); PLATELET COUNT, AUTOMATED 72 10^3/uL (150-450)
[2018-08-20 11:16] LABS: ALBUMIN 1.6 GM/DL (3.2-5.2); ALT/SGPT 13 U/L (12-78); BILIRUBIN,TOTAL 0.8 MG/DL (0.2-1.0); BLOOD UREA NITROGEN 30 MG/DL (7-18); CARBON DIOXIDE LEVEL 29 MEQ/L (21-32); CHLORIDE LEVEL 103 MEQ/L (98-107); CK-MB VALUE MASS < 1.0 NG/ML (<3.6); CPK CREATINE PHOSPHOKINASE 43 U/L (26-192); CREATININE FOR GFR 2.83 MG/DL (0.55-1.30); GLOMERULAR FILTRATION RATE 16.8 (>32); GLUCOSE, FASTING 134 MG/DL (70-100); MB/CK RELATIVE INDEX 2.33 (< OR =4); POTASSIUM SERUM 3.6 MEQ/L (3.5-5.1); SODIUM LEVEL 139 MEQ/L (136-145); TOTAL PROTEIN 6.1 GM/DL (6.4-8.2); TROPONIN I 0.04 NG/ML (< 0.10)
[2018-08-20 11:21] LABS: LYMPHOCYTES 8 % (16-52); MONOCYTES 4 % (0-8); NEUTROPHILS 80 % (35-75)
[2018-08-20 11:22] LABS: HYPOCHROMASIA 3+
[2018-08-20 11:23] LABS: PLATELET ESTIMATE DECREASED (NORMAL)
[2018-08-20 12:00] VITALS: BP 141/63
[2018-08-20 12:35] VITALS: BP 167/74
--- NOTE | 2018-08-20 12:52 | CR ---
DATE OF SERVICE: 08/20/2018 REQUESTING PHYSICIAN: Dr. Jasmeet Palmer CONSULTING PHYSICIAN: Dr. Aleman REASON FOR CONSULTATION: Management of end-stage renal disease and hemodialysis. CHIEF COMPLAINT: Patient presented to the hospital last night with shortness of breath, vomiting, aspiration, and fever. HISTORY OF PRESENT ILLNESS: Suha Tran is an 87-year-old female with past medical history of end-stage renal disease on hemodialysis every Saturday, , and Saturday, history of multiple strokes with quadriplegia, nonverbal, chronically bedridden, status post percutaneous endoscopic gastrostomy (PEG) tube, currently on PEG tube feeds. She was dialyzed yesterday as per her regular schedule as outpatient; however, after dialysis, when she came home she started having a lot of vomiting and, as per family members, she was throwing up her tube feeds and it was coming out of her mouth and her nose as well. She was short of breath, and they think probably she aspirated some of the tube feeds as well. She was also having fever spikes. As reported by family member, temperature at home was 102.3 degrees Fahrenheit. Patient was brought to the emergency room. She was admitted under the hospitalist's service, and she was started on intravenous (IV) antibiotics. Nephrology service was called for further help in the management of end-stage renal disease and hemodialysis. I saw and evaluated the patient today morning at the bedside in the emergency room. She is nonverbal and unable to provide any history. Her two daughters were present at the bedside who provide most of the history. PAST MEDICAL HISTORY: Past medical history of end-stage renal disease on hemodialysis every Saturday, , Saturday. Hypertension. Diabetes mellitus type 2. Hypothyroidism. Multiple CVAs with quadriplegia now. Hyperlipidemia. Diabetic neuropathy. Secondary hyperparathyroidism. PAST SURGICAL HISTORY: Status post PEG tube placement. Status post right internal jugular (IJ) tunneled hemodialysis catheter placement. Status post bladder surgery. History of tubal ligation in the past. History of failed arteriovenous (AV) fistula surgeries in the past. ALLERGIES: Patient is ALLERGIC to CODEINE, HEPARIN, STRAWBERRIES, and TETANUS TOXOID. FAMILY HISTORY: No significant family history of end-stage renal disease on hemodialysis. A brother had liver cancer. SOCIAL HISTORY: Patient lives at home. Her daughters take care of her. No history of illicit drug abuse or alcohol abuse. REVIEW OF SYSTEMS: She is unable to provide any reliable review of systems because she is nonverbal at this point. PHYSICAL EXAM: GENERAL: Patient is awake, nonverbal, in mild respiratory distress, wearing nasal cannula. VITAL SIGNS: Temperature is 98.5 degrees Fahrenheit, blood pressure 153/62, pulse is 96, respiratory rate of 18, saturating 98%. HEAD AND NECK EXAM: Patient's eyes are open. Pupils are equally round and reactive to light. Mucous membranes are moist. Neck is supple. She has a right IJ tunneled hemodialysis catheter. CARDIOVASCULAR: S1, S2. No edema of the bilateral lower extremities. RESPIRATORY: Decreased breath sounds of the bases with mild inspiratory crackles. ABDOMEN: Is soft. Positive PEG tube in the epigastrium. No organomegaly was noted. GENITOURINARY: Bladder is nonpalpable. No hernia noted. MUSCULOSKELETAL: She has muscle wasting in bilateral upper and lower extremities. No clubbing or cyanosis was noted. CENTRAL NERVOUS SYSTEM (BUILDING CLEANER): Patient has 0/5 power in bilateral lower extremities and right upper extremity, and power is about 3/5 in the left upper extremity. LAB REVIEW: CBC showed a WBC of 5.3, hemoglobin 6.8, platelets are 72. BMP showed sodium 139, potassium 3.6, chloride 103, bicarbonate 29, BUN 30, creatinine is 2.8, albumin is 1.6. MICROBIOLOGY: Respiratory viral panel is positive for human metapneumovirus. Cultures are negative. IMAGING: A CAT scan of the chest was done today morning. It showed left lower lobe consolidation is decreasing, no new acute process was identified. CURRENT INPATIENT MEDICATIONS: Patient's medications at this point include: - Zosyn 3.375 one dose and then 2.25 gram every 6 hours - Tylenol one dose - amlodipine 10 mg via the PEG - Coreg 6.25 mg twice a day - Plavix 75 mg daily - Tricor 145 mg, which I have stopped because of renal failure - She was on gabapentin 100 mg by mouth twice a day, which has been stopped. - She is on insulin, Levemir 12 units subcu twice a day, insulin sliding scale - pravastatin 20 mg via PEG nightly ASSESSMENT: 87-year-old female with a history of end-stage renal disease on hemodialysis, history of multiple CVAs in the past, hypertension, quadriparesis, chronically bedridden, percutaneous endoscopic gastrostomy (PEG) tube feed dependent, admitted this time with vomiting, possible aspiration pneumonitis. PLAN: 1. End-stage renal disease on hemodialysis. Patient's regular dialysis days are Saturday, , Saturday. She was dialyzed yesterday according to her regular schedule. No urgent need of hemodialysis today. She will be dialyzed tomorrow as per her regular schedule. 2. Vomiting and possible aspiration pneumonitis. Patient has been started on intravenous (IV) Zosyn, which should adequately cover for aspiration pneumonia. Continue the current dose at this point. 3. Hypertension with hypertensive heart disease. Continue current dose of Coreg and amlodipine. 4. Hyperlipidemia. I am going to stop the Tricor because of renal failure. Okay to continue pravastatin 20 mg daily. 5. Diabetes mellitus type 2, insulin dependent. Continue current dose of insulin Levemir and insulin sliding scale. 6. Protein calorie malnutrition. Patient is percutaneous endoscopic gastrostomy (PEG) feed dependent. Albumin level is very low at 1.6. She was having aspirations. If tube feeds are started, they should be started at a lower dose. 6. Anemia. Patient's hemoglobin has dropped from 8.4 to 6.8. I am going to order 1 unit of packed red blood cells (PRBCs) transfusion. She has history of anemia and bleeding from the PEG tube in the past as well. Thank you for involving me in the care of this patient. I shall be happy to follow the patient along with you tomorrow morning.
--- NOTE | 2018-08-20 16:22 | HPE ---
DATE OF ADMISSION: 08/20/2016 CHIEF COMPLAINT: Fever, cough. This is an 87-year-old female who was recently discharged after having had an acute cerebrovascular accident (CVA), embolic in nature, global aphasia, left-sided weakness, right-sided hemiparesis due to stroke, history of aspiration pneumonia, history of Clostridium (C) difficile colitis, history of end-stage renal disease, diabetes, hypothyroidism, chronic anemia who was discharged on 08/10/2018. She had been home with her family. Today, she had dialysis. She has been complaining of cough and coughing to, the family says, where she is almost losing her breath. She was coughing to the point where she was almost vomiting. She was having fever. Cough and fever has been going on for two days with productive sputum, creamy yellowish. Upon arrival in the emergency room, blood pressure was 187/79, pulse 107, respirations 11, oxygen saturation was 100% on room air. LABORATORY STUDIES: Were done. White count was 5.7, hemoglobin 8.4, hematocrit 25.9, platelets were 85. Sodium was 138, potassium 3.7, chloride 103, CO2 was 27, BUN 28, creatinine was 2.37, lactic acid was 1.2, calcium was 8.7, C-reactive protein was 26.9, troponin was 0.03. Respiratory panel showed human metapneumovirus. Chest x-ray showed chronic interstitial changed, double lumen dialysis catheter tip in the SVC. The patient received Zosyn and Tylenol in the emergency room. Assessment was done. The patient was coughing thin mucus. Sputum will be sent. Question of aspiration. The patient will be admitted to the medical floor for further treatment, workup for pneumonia. Consult nephrology. ALLERGIES: CODEINE, HEPARIN, STRAWBERRY, TETANUS TOXOID. SOCIAL HISTORY: She used to be a pack a day smoker for many years. She quit in 1993. She does not drink alcohol. She does not use recreational drugs. PAST MEDICAL HISTORY: 1. Recent cerebrovascular accident (CVA). 2. History of hypertension. 3. History of end-stage renal disease. 4. History of diabetes. 5. Hypothyroidism. 6. History of cerebrovascular accident (CVA) with right hemiparesis. PAST SURGICAL HISTORY: 1. Bladder surgery. 2. Tubal ligation. FAMILY HISTORY: Noncontributory. HOME MEDICATIONS: - Tylenol 650 mg by mouth every six hours as needed via percutaneous endoscopic gastrostomy (PEG) tube - vitamin D 50,000 units once a week - nystatin powder as needed - aspirin 81 mg by mouth daily - Nepro with Carb Steady one dose daily - pantoprazole 40 mg daily - amlodipine 10 mg daily - Coreg 6.25 mg twice a day - Plavix 75 mg daily - Colace 100 mg twice a day as needed for constipation - fenofibrate 145 at bedtime - gabapentin 100 twice a day - Lantus 12 units subcutaneously twice a day - pravastatin 20 mg at bedtime REVIEW OF SYSTEMS: 10 systems review was done and was unremarkable other than the cough, sputum production, fever and chills. PHYSICAL EXAMINATION: An 87-year-old cooperative female in no acute distress. Blood pressure 124/58, pulse 90, temperature 99.3, respirations 18, oxygen saturation 95% on room air. The patient is aphasic, does nod head, opens eyes. Pupils are equal and react to light. Pharynx, tongue and gums pink and moist. Tongue is midline. Neck is supple without lymphadenopathy. No thyromegaly. No goiter. Chest has coarse breath sounds, scattered rhonchi. No wheeze or retraction. Heart is regular. Abdomen is benign. Bowel sounds positive. Genitourinary ()/Rectal: Not done. Extremities: Decreased strength right arm and leg, not new. Peripheral pulses equal and palpable bilaterally. Skin is warm and dry. IMPRESSION AND PLAN: The patient will be admitted to the hospitalist service for aspiration pneumonia. 1. Aspiration pneumonia: Antibiotics, pulmonary treatment. 2. End-stage renal disease. Consult nephrology. 3. Low platelets. Continue to monitor. May need to stop aspirin if they continue to decrease. 4. Insulin-dependent diabetes. Continue Lantus. Monitor blood sugars. Humalog sliding scale as needed. 5. Hypercholesterolemia. Continue pravastatin. The patient will be admitted to medical floor.
[2018-08-20] MEDS: SANTYL OINT 30GM TOP SCH (17:56)
[2018-08-20 18:00] VITALS: BP 159/70
[2018-08-20 19:56] LABS: CK-MB VALUE MASS < 1.0 NG/ML (<3.6); CPK CREATINE PHOSPHOKINASE 41 U/L (26-192); MB/CK RELATIVE INDEX 2.44 (< OR =4); TROPONIN I 0.04 NG/ML (< 0.10)
--- NOTE | 2018-08-20 20:52 | ECGEPIP ---
Stationary ECG Study [facility] - ED Test Date: 2018-08-19 Pat Name: DONA ZAIDI Department: Room: [place] [address] Gender: F Service Consultant: AIDEN : [id number] Requested By: ANJEL Vasquez Order Number: [id number] Reading MD: Deb Dsouza Measurements Intervals [place] Rate: 109 P: AK: 0 QRS: 48 QRSD: 81 T: 51 QT: 314 QTc: 423 Interpretive Statements SUPRAVENTRICULAR TACHYCARDIA MODERATE ST DEPRESSION INCREASED RATE 07/12/18 Electronically Signed On 08-20-2018 20:52:43 EST by Deb Dsouza
[2018-08-20 22:00] VITALS: BP 155/68
[2018-08-21] MEDS: PIPERACILLIN/TAZOBACTAM SOD 2.25 GM in D5W MINI-BAG PLUS 50 ML IV SCH ×4 (01:40→21:05)
[2018-08-21 02:00] VITALS: BP 131/54
[2018-08-21] MEDS: amLODIPine 10 MG TAB PEG SCH (05:53)
[2018-08-21] MEDS: CLOPIDOGREL 75 MG TAB PEG SCH (05:53)
[2018-08-21] MEDS: CARVedilol 6.25 MG TAB PEG SCH ×2 (05:54→21:05)
[2018-08-21 06:00] VITALS: BP 134/63
[2018-08-21] MEDS: HumaLOG INSULIN (NovoLOG) PER UNIT SC SCH ×4 (07:30→21:00)
[2018-08-21] MEDS: LEVEMIR (INSULIN DETEMIR) 1 UNITS/0.01ML SC SCH ×2 (07:46→21:00)
[2018-08-21] MEDS: SANTYL OINT 30GM TOP SCH (08:11)
[2018-08-21 10:00] VITALS: BP 134/55
--- NOTE | 2018-08-21 11:19 | IPN ---
DATE OF SERVICE: 08/21/2018 SUBJECTIVE: The patient was seen and examined at the bedside today morning. Her granddaughter was present at the bedside. The patient is still nothing by mouth (n.p.o.). Her tube feeds have not been resumed. She was hypoglycemic today morning and needed dextrose 50% IV injection. Today is patient's regular day of dialysis. She continues to be nonverbal and unable to provide any review of systems. OBJECTIVE: VITAL SIGNS: Temperature is 97.8 degrees Fahrenheit, blood pressure 134/63, pulse is 75, respiratory rate of 20, saturating 96% on room air. INTAKE AND OUTPUT: Urine output recorded from yesterday is 100 mL, weight on the bed scale was 47.73 yesterday. PHYSICAL EXAMINATION: GENERAL: The patient is awake, eyes open, nonverbal. Utters a few sounds. Unable to communicate. HEAD AND NECK EXAM: Pupils are equally round and reactive to light. Mucous membranes are moist. Neck is supple. There is no jugular venous distention (JVD). Right internal jugular (IJ) tunneled hemodialysis catheter. CARDIOVASCULAR: S1 and S2. No edema of the bilateral lower extremities. RESPIRATORY: Decreased breath sounds at the bases with mild inspiratory crackles. ABDOMEN: Soft. PEG tube in the epigastrium. No organomegaly. GENITOURINARY: Bladder is nonpalpable. No hernia noted. MUSCULOSKELETAL: She has muscle wasting of bilateral lower extremities, however, has no clubbing or cyanosis. CENTRAL NERVOUS SYSTEM (ELEMENTARY EDUCATION TUTOR): Power is 0/5 in bilateral lower extremities and right upper extremity and about 3/5 in the left upper extremity. SKIN: Patient has an unstagable eschar and sacral decubitus ulcer in the sacral region covered with a dressing. LAB REVIEW: There is no renal profile or CBC available from today. CURRENT INPATIENT MEDICATIONS: Patient's medications were all reviewed by me. She continues to be on IV Zosyn. There is no change in the medications today as compared with yesterday. ASSESSMENT AND PLAN: 1. End-stage renal disease on hemodialysis. Today is patient's regular day of dialysis as per her Saturday, , Saturday schedule. She will be dialyzed today. I will try to remove at least 1 liter of fluid as tolerated by her blood pressure. 2. Possible aspiration pneumonitis and vomiting. Her tube feeds are on hold. She is currently on IV Zosyn. She is fever free at this time. Tube feeds will be restarted at a lower rate. 3. Hypertension with hypertensive heart disease. Continue current dose of Coreg and amlodipine. Hemodialysis and ultrafiltration will also help improve the blood pressure. 4. Diabetes mellitus type 2. She has insulin dependent diabetes, but because of holding the tube feeds she was actually hypoglycemic and needed a dose of dextrose today morning. 5. Protein calorie malnutrition. Her tube feeds are on hold. Albumin is very low. Tube feeds will be restarted today. 6. Anemia. She was given 1 unit of packed red blood cells (PRBCs) transfusion yesterday. Another CBC will be checked during dialysis. If needed, patient will get another unit of PRBC transfusion if hemoglobin is below 8. 7. Sacral decubitus ulcer. The patient is getting wound care. She is getting Santyl ointment at the wound site and wound site is covered with a dressing. The rest of the management is as per wound care nursing. The patient is chronically bedridden and has quadriplegia so it could be very difficult for her wound to heal. 8. Disposition. I discussed again with the family members, including her granddaughter and her daughters at the bedside that patient has a very poor prognosis overall. However, patient is unable to make any final decision about the goals of care. I would continue to offer hemodialysis at this point.
[2018-08-21 14:00] VITALS: BP 166/74
[2018-08-21] MEDS ORDERED: NYSTATIN 100,000 UNITS/GM TOPICAL PWD 15 GM TOP PRN (15:00)
--- NOTE | 2018-08-21 15:07 | IPNPDOC ---
Text Note Date of Service The patient was seen on 08/21/18. 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 diff, ESRD on HD (TTS), DM2, Hypothyroidi sm, Chronic anemia, who presented to the ER with fever and cough. In the ER patient had a respiratory panel positive for human metapneumovirus. Patient was admitted to hospitalist service for suspected aspiration pneumonia. Patient was seen and examined at the bedside. Patient remains nonverbal. Does not appear to be in any distress. Patient's family members were present at bedside including healthcare proxy. I described to them that the patient's condition of aspiration pneumonia will likely continue to recur despite best efforts given the patient's or mentation and cognitive because. Patient is bedridden and a phasic at baseline. I described to the family that the patient does not have a very good quality of life and her focus at this point should be comfort measures only. Patient's healthcare proxy, Lesley Howell, and her daughter were present at the bedside. They have expressed their understanding for comfort measures, however they would like to discuss it with another daughter of the patient. Objective: Vitals (See below) General: Lying in bed, no acute distress, comfortable, Awake HEENT: NC, AT CVS: RRR, +S1S2 Lungs: Poor inspiratory effort, no appreciable rhonchi, wheezing or rales Abdomen: Soft, ND, NT, + PEG Extremities: - Edema, - Calf tenderness Skin: Unstageable sacral decubitus ulcers Assessment and plan: Fever / Cough - possibly 2/2 aspiration pneumonia - Presented to the ER with complaints of cough and fever of 103 measures as an outpatient - Upon arrival to the emergency room, patient was found to be febrile - Lab work without any significant leukocytosis or lactic acidosis - UA without evidence of infection - Blood cultures 08/19: No growth at 24 hours; Respiratory panel 08/19: human metapneumovirus - CXR 08/19: Chronic interstitial changes. No acute cardiopulmonary process appreciated. - CT chest 08/20: 1. Previously noted left lower lobe consolidation/atelectasis has decreased. 2. No new acute process identified. 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 diff - Patient has been experiencing loose stools while inpatient - Will sent stool for PCR ESRD on HD (TTS) - Will go for HD today - Nephrology on consultation; appreciate their input DM2 - c/w ISS and Levemir DLP - c/w Pravastatin; will resume ASA Hypothyroidism - TSH within normal limitis - Currently not on any medications Acute on Chronic anemia - Patient had an acute drop of her hemoglobin on the subsequent day of arrival - s/p 1 unit PRBC - Will f/u repeat lab work GERD - will resume Protonix DVT prophylaxis - c/w SCDs / TEDs Code status: - DNR / DNI Disposition: - Discussing with family about SOUND EFFECTS PERSON VS,Fishbone, I+O VS, Fishbone, I+O Vital Signs Date Time Temp Pulse Resp B/P (MAP) Pulse Ox O2 Delivery O2 Flow Rate FiO2 08/21/18 10:00 96.8 75 20 134/55 (81 94 08/20/18 04:15 Room Air I&O- Last 24 Hours up to 6 AM 08/21/18 05:59 Intake Total 400 ml Output Total 100 ml Balance 300 ml BOSTON COCHRAN MD Aug 21, 2018 15:07
[2018-08-21 15:36] LABS: BASO % 0.5 % (0.0-1.0); HEMATOCRIT 26.8 % (36.0-47.0); LYMPH # 0.6 10^3/uL (1.5-4.5); LYMPH % 9.9 % (24.0-44.0); MEAN CORPUSCULAR HEMOGLOBIN 30.5 pg (27.0-33.0); MEAN CORPUSCULAR HGB CONC 33.6 g/dl (32.0-36.5); MEAN CORPUSCULAR VOLUME 90.8 fl (80.0-96.0); MONO # 0.4 10^3/uL (0.0-0.8); MONO % 5.8 % (0.0-5.0); NEUTROPHILS % 82.5 % (36.0-66.0); RED BLOOD COUNT 2.95 10^6/uL (4.00-5.40); WHITE BLOOD COUNT 6.1 10^3/uL (4.0-10.0)
[2018-08-21 15:40] LABS: PLATELET COUNT, AUTOMATED 69 10^3/uL (150-450)
[2018-08-21 16:11] LABS: CALCIUM LEVEL 8.3 MG/DL (8.8-10.2); CREATININE FOR GFR 3.76 MG/DL (0.55-1.30); GLOMERULAR FILTRATION RATE 12.1 (>32); POTASSIUM SERUM 3.3 MEQ/L (3.5-5.1)
[2018-08-21 18:00] VITALS: BP 192/84
[2018-08-21] MEDS: ASPIRIN 81 MG CHEW TABLET PEG SCH (18:33)
[2018-08-21] MEDS: LANSOPRAZOLE SUSPENSION 30 MG/10 ML ORAL SYRINGE (FIRST-LANSOPRAZOLE) PEG SCH (18:34)
[2018-08-21] MEDS: PRAVASTATIN 20 MG TAB PEG SCH (21:06)
[2018-08-21 22:00] VITALS: BP 162/60
[2018-08-22 02:00] VITALS: BP 177/78
[2018-08-22] MEDS: PIPERACILLIN/TAZOBACTAM SOD 2.25 GM in D5W MINI-BAG PLUS 50 ML IV SCH (03:51)
[2018-08-22 06:00] VITALS: BP 192/84
[2018-08-22 06:49] LABS: BASO % 0.5 % (0.0-1.0); EOS % 0.2 % (0.0-3.0); HEMATOCRIT 28.9 % (36.0-47.0); HEMOGLOBIN 9.8 g/dl (12.0-15.5); LYMPH # 0.5 10^3/uL (1.5-4.5); LYMPH % 8.3 % (24.0-44.0); MEAN CORPUSCULAR HEMOGLOBIN 29.9 pg (27.0-33.0); MEAN CORPUSCULAR HGB CONC 33.9 g/dl (32.0-36.5); MEAN CORPUSCULAR VOLUME 88.1 fl (80.0-96.0); MONO # 0.3 10^3/uL (0.0-0.8); MONO % 6.1 % (0.0-5.0); NEUTROPHILS # 4.6 10^3/uL (1.8-7.7); NEUTROPHILS % 83.6 % (36.0-66.0); RED BLOOD COUNT 3.28 10^6/uL (4.00-5.40); WHITE BLOOD COUNT 5.5 10^3/uL (4.0-10.0)
[2018-08-22 06:51] LABS: PLATELET COUNT, AUTOMATED 67 10^3/uL (150-450)
[2018-08-22 07:16] LABS: CALCIUM LEVEL 8.5 MG/DL (8.8-10.2); CREATININE FOR GFR 2.24 MG/DL (0.55-1.30); GLOMERULAR FILTRATION RATE 22.1 (>32); POTASSIUM SERUM 3.5 MEQ/L (3.5-5.1)
[2018-08-22] MEDS: HumaLOG INSULIN (NovoLOG) PER UNIT SC SCH ×4 (07:30→21:00)
[2018-08-22] MEDS ORDERED: PANTOPRAZOLE 40MG TAB (PROTONIX) XX SCH (09:00)
[2018-08-22] MEDS: LEVEMIR (INSULIN DETEMIR) 1 UNITS/0.01ML SC SCH ×2 (09:00→21:34)
[2018-08-22 10:00] VITALS: BP 180/75
[2018-08-22] MEDS ORDERED: SANT250O8 TOP (11:10)
[2018-08-22] MEDS: amLODIPine 10 MG TAB PEG SCH (12:00)
[2018-08-22] MEDS: ASPIRIN 81 MG CHEW TABLET PEG SCH (12:00)
[2018-08-22] MEDS: SANTYL OINT 30GM TOP SCH (12:00)
[2018-08-22] MEDS: LANSOPRAZOLE SUSPENSION 30 MG/10 ML ORAL SYRINGE (FIRST-LANSOPRAZOLE) PEG SCH (12:24)
[2018-08-22] MEDS: CLOPIDOGREL 75 MG TAB PEG SCH (12:25)
[2018-08-22] MEDS: CARVedilol 6.25 MG TAB PEG SCH ×2 (12:26→21:36)
[2018-08-22] MEDS: ACETAMINOPHEN TAB 650MG DOSE (2X325MG) PO PRN ×2 (12:51→17:14)
--- NOTE | 2018-08-22 13:23 | IPNPDOC ---
Text Note Date of Service The patient was seen on 08/22/18. 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 diff, ESRD on HD (TTS), DM2, Hypothyroidism, Chronic anemia, who presented to the ER with fever and cough. In the ER patient had a respiratory panel positive for human metapneumovirus. Patient was admitted to hospitalist service for suspected aspiration pneumonia. Patient was seen and examined at the bedside. Patient remains nonverbal. Again family's present at the bedside. After a long discussion with all the family members yesterday about goals of care and quality of life; patient is still not comfort measures. I reiterated to the family that at some point, the patient will have a very bad infection and a decision will have to be made then about g oals of care. Objective: Vitals (See below) General: Lying in bed, no acute distress, comfortable, Awake HEENT: NC, AT CVS: RRR, +S1S2 Lungs: Poor inspiratory effort, no appreciable rhonchi, wheezing or rales Abdomen: Soft, ND, NT, + PEG Extremities: - Edema, - Calf tenderness Skin: Unstageable sacral decubitus ulcers Assessment and plan: Fever / Cough - possibly 2/2 human metapneumonvirus, less likely 2/2 aspiration pneumonia - Presented to the ER with complaints of cough and fever of 103 measures as an outpatient - Upon arrival to the emergency room, patient was found to be febrile - Patient remained saturating well on room air - Lab work without any significant leukocytosis or lactic acidosis - UA without evidence of infection - Blood cultures 08/19: No growth at 24 hours; Respiratory panel 08/19: human metapneumovirus - CXR 08/19: Chronic interstitial changes. No acute cardiopulmonary process appreciated. - CT chest 08/20: 1. Previously noted left lower lobe consolidation/atelectasis has decreased. 2. No new acute process identified. 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 diff - Patient has been experiencing loose stools; however they are not watery - Will hold off on sending stool for C. diff analysis ESRD on HD (TTS) - s/p HD yesterday - Nephrology on consultation; appreciate their input DM2 - c/w ISS and Levemir DLP - c/w Pravastatin; will resume ASA Hypothyroidism - TSH within normal limits - Currently not on any medications Acute on Chronic anemia - Patient had an acute drop of her hemoglobin on the subsequent day of arrival - s/p 1 unit PRBC - Hg has remained stable since then GERD - c/w PPI DVT prophylaxis - c/w SCDs / TEDs Code status: - DNR / DNI Disposition: - Family does not want to transition to comfort measures at this time; they do acknowledge patient's poor quality of life and poor prognosis VS,Mary, I+O VS, Mary, I+O Laboratory Tests 08/21/18 15:00 Red Blood Count 2.95 L, Mean Corpuscular Volume 90.8, Mean Corpuscular Hemoglobin 30.5, Mean Corpuscular Hemoglobin Concent 33.6, Red Cell Distribution Width 16.7 H, Neutrophils (%) (Auto) 82.5 H, Lymphocytes (%) (Auto) 9.9 L, Monocytes (%) (Auto) 5.8 H, Eosinophils (%) (Auto) 0.0, Basophils (%) (Auto) 0.5, Neutrophils # (Auto) 5.0, Lymphocytes # (Auto) 0.6 L, Monocytes # (Auto) 0.4, Eosinophils # (Auto) 0.0, Basophils # (Auto) 0.0, Calcium Level 8.3 L 08/22/18 06:36 Red Blood Count 3.28 L, Mean Corpuscular Volume 88.1, Mean Corpuscular Hemog lobin 29.9, Mean Corpuscular Hemoglobin Concent 33.9, Red Cell Distribution Width 16.2 H, Neutrophils (%) (Auto) 83.6 H, Lymphocytes (%) (Auto) 8.3 L, Monocytes (%) (Auto) 6.1 H, Eosinophils (%) (Auto) 0.2, Basophils (%) (Auto) 0.5, Neutrophils # (Auto) 4.6, Lymphocytes # (Auto) 0.5 L, Monocytes # (Auto) 0.3, Eosinophils # (Auto) 0.0, Basophils # (Auto) 0.0, Calcium Level 8.5 L Vital Signs Date Time Temp Pulse Resp B/P (MAP) Pulse Ox O2 Delivery O2 Flow Rate FiO2 08/22/18 12:26 170/90 08/22/18 10:00 97.7 87 20 97 08/20/18 04:15 Room Air I&O- Last 24 Hours up to 6 AM 08/22/18 06:00 Intake Total 150 ml Output Total 750 ml Balance -600 ml BOSTON COCHRAN MD Aug 22, 2018 13:23
[2018-08-22 14:00] VITALS: BP 146/54
--- NOTE | 2018-08-22 14:53 | IPN ---
DATE: 08/22/2018 SUBJECTIVE: The patient was seen and examined at the bedside today morning. She was dialyzed yesterday, about 750 mL of fluid was removed yesterday. The patient is more awake and alert today. She is nonverbal but smiling. Her tube feeds were started yesterday at a lower rate. No more episodes of hypoglycemia at this time. The patient is unable to communicate or provide any review of systems. OBJECTIVE: VITAL SIGNS: Temperature is 97.7 degrees Fahrenheit, blood pressure 180/75, pulse is 87, respiratory rate of 20, saturating 97% on room air. INTAKE AND OUTPUT: Urine output was not recorded. Ultrafiltration with hemodialysis was 750 mL yesterday. The patient has incontinent voids. Bed scale weight is not available. PHYSICAL EXAMINATION: GENERAL: The patient is awake, eyes are open. She is not able to communicate, but she smiles. HEAD AND NECK EXAM: Pupils are equally round and reactive to light. Mucous membranes are moist. Neck is supple. There is no jugular venous distention (JVD). She has a right internal jugular (IJ) tunneled hemodialysis catheter. CARDIOVASCULAR: S1 and S2. Regular rate. No edema of the bilateral lower extremities. RESPIRATORY: Decreased breath sounds at the bases, otherwise, no active rales or rhonchi. ABDOMEN: Soft. Percutaneous endoscopic gastrostomy (PEG) tube in the epigastrium is being used. The patient is getting tube feeds. MUSCULOSKELETAL: Muscle wasting of bilateral lower extremities. Otherwise, no clubbing or cyanosis. CENTRAL NERVOUS SYSTEM (KENO WRITER): Power is 0.5 in bilateral lower extremities and right upper extremity and about 3.5 in the left upper extremity. SKIN: The patient has a non stageable decubitus ulcer in the sacral area covered with a dressing. LAB REVIEW: CBC showed a WBC of 5.5, hemoglobin 9.8, platelets are 67. BMP showed sodium 139, potassium 3.5, chloride 103, bicarbonate 27, BUN 24, creatinine is 2.2. Calcium is 8.5. CURRENT INPATIENT MEDICATIONS: Patient's medications were all reviewed by me. Her IV Zosyn has been stopped now. No other change in the medications today as compared with yesterday. ASSESSMENT AND PLAN: 1. End-stage renal disease on hemodialysis. The patient's regular dialysis days are Saturday, , Saturday. She was dialyzed yesterday and 750 mL of fluid was removed. Next hemodialysis will be tomorrow. 2. Hypertension with hypertensive heart disease. Continue current dose of Coreg and amlodipine. With aggressive control of blood pressure, the patient cannot tolerate hemodialysis. 3. Protein calorie malnutrition. The patient is dependent on PEG tube feeds, they have been restarted at a lower rate today at 20 mL an hour. 4. Anemia and end stage renal disease. The patient got 1 unit of packed red blood cells (PRBCs) transfusion. Hemoglobin has nicely improved to 9.8.
[2018-08-22 18:00] VITALS: BP 154/60
[2018-08-22] MEDS: PRAVASTATIN 20 MG TAB PEG SCH (21:35)
[2018-08-22 22:00] VITALS: BP 145/62
[2018-08-23 02:00] VITALS: BP 158/68
[2018-08-23 06:00] VITALS: BP 138/60
[2018-08-23] MEDS: CLOPIDOGREL 75 MG TAB PEG SCH (06:12)
[2018-08-23] MEDS: LANSOPRAZOLE SUSPENSION 30 MG/10 ML ORAL SYRINGE (FIRST-LANSOPRAZOLE) PEG SCH (06:12)
[2018-08-23] MEDS: ASPIRIN 81 MG CHEW TABLET PEG SCH (06:12)
[2018-08-23] MEDS: amLODIPine 10 MG TAB PEG SCH (06:13)
[2018-08-23] MEDS: SANTYL OINT 30GM TOP SCH (06:13)
[2018-08-23] MEDS: CARVedilol 6.25 MG TAB PEG SCH ×2 (06:15→21:50)
[2018-08-23] MEDS: HumaLOG INSULIN (NovoLOG) PER UNIT SC SCH ×4 (06:26→21:00)
[2018-08-23 06:54] LABS: BASO % 0.2 % (0.0-1.0); EOS % 0.4 % (0.0-3.0); HEMATOCRIT 30.4 % (36.0-47.0); HEMOGLOBIN 10.2 g/dl (12.0-15.5); LYMPH # 0.5 10^3/uL (1.5-4.5); MEAN CORPUSCULAR HEMOGLOBIN 30.2 pg (27.0-33.0); MEAN CORPUSCULAR HGB CONC 33.6 g/dl (32.0-36.5); MEAN CORPUSCULAR VOLUME 89.9 fl (80.0-96.0); MONO # 0.4 10^3/uL (0.0-0.8); MONO % 8.4 % (0.0-5.0); NEUTROPHILS # 3.5 10^3/uL (1.8-7.7); NEUTROPHILS % 78.2 % (36.0-66.0); RED BLOOD COUNT 3.38 10^6/uL (4.00-5.40); WHITE BLOOD COUNT 4.5 10^3/uL (4.0-10.0)
[2018-08-23 06:55] LABS: PLATELET COUNT, AUTOMATED 67 10^3/uL (150-450)
[2018-08-23 07:24] LABS: CALCIUM LEVEL 8.5 MG/DL (8.8-10.2); CREATININE FOR GFR 3.18 MG/DL (0.55-1.30); GLOMERULAR FILTRATION RATE 14.7 (>32); POTASSIUM SERUM 3.5 MEQ/L (3.5-5.1)
[2018-08-23] MEDS: LEVEMIR (INSULIN DETEMIR) 1 UNITS/0.01ML SC SCH ×2 (08:01→21:00)
[2018-08-23 08:34] LABS: C REACTIVE PROTEIN QUANTITATIV 19.7 MG/DL (0.00-0.30)
[2018-08-23 10:00] VITALS: BP 176/72
[2018-08-23] MEDS: ACETAMINOPHEN TAB 650MG DOSE (2X325MG) PO PRN ×2 (10:00→18:53)
[2018-08-23] MEDS ORDERED: HEPARIN 1,000 UNITS/ML 10ML VIAL (FOR RADIOLOGY& DIALYSIS ONLY) XX ONE (11:15)
[2018-08-23] MEDS: guaiFENesin SYRUP 200 MG/10 ML UDC PO PRN ×2 (12:42→18:53)
--- NOTE | 2018-08-23 13:04 | IPNPDOC ---
Text Note Date of Service The patient was seen on 08/23/18. 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 diff, ESRD on HD (TTS), DM2, Hypothyroidism, Chronic anemia, who presented to the ER with fever and cough. In the ER patient had a respiratory panel positive for human metapneumovirus. Patient was admitted to hospitalist service for suspected aspiration pneumonia. Patient was seen and examined at the bedside. Currently patient is able to smile and wave. Does not appear to be in any distress. Patient's family is present at bedside. Has no complaints, as per family Objective: Vitals (See below) General: Lying in bed, no acute distress, comfortable, Awake / Alert HEENT: NC, AT CVS: RRR, +S1S2 Lungs: Poor inspiratory effort, no appreciable rhonchi, wheezing or rales Abdomen: Soft, ND, NT, + PEG Extremities: - Edema, - Calf tenderness Skin: Unstageable sacral decubitus ulcers Assessment and plan: Fever / Cough - likely 2/2 human metapneumonvirus, less likely 2/2 aspiration pneumonia - Presented to the ER with complaints of cough and fever of 103 measures as an outpatient - Upon arrival to the emergency room, patient was found to be febrile - has remained afebrile for >72 hours - Patient remained saturating well on room air - Lab work without any significant leukocytosis or lactic acidosis; CRP trending down - UA without evidence of infection - Blood cultures 08/19: No growth at 72 hours; Respiratory panel 08/19: human metapneumovirus - CXR 08/19: Chronic interstitial changes. No acute cardiopulmonary process appreciated. - CT chest 08/20: 1. Previously noted left lower lobe consolidation/atelectasis has decreased. 2. No new acute process identified. 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 diff - Patient has been experiencing loose stools; however they are not watery - Will hold off on sending stool for C. diff analysis ESRD on HD (TTS) - s/p HD yesterday - Nephrology on consultation; appreciate their input DM2 - c/w ISS and Levemir DLP - c/w Pravastatin; will resume ASA Hypothyroidism - TSH within normal limits - Currently not on any medications Acute on Chronic anemia - Patient had an acute drop of her hemoglobin on the subsequent day of arrival - s/p 1 unit PRBC - Hg has remained stable since then GERD - c/w PPI DVT prophylaxis - c/w SCDs / TEDs Medical Equipment: - The beneficiary requires positioning of the body in weight, is not feasible with an ordinary bed in order to alleviate pain / provide dressing changes / progression of sacral decubitus ulcers / promote healing of sacral decubitus ulcer - The beneficiary requires frequent changes in body position and or has an i mmediate need for change in body position Code status: - DNR / DNI Disposition: - Family does not want to transition to comfort measures at this time; they do acknowledge patient's poor quality of life and poor prognosis - Patient will be going home on 08/24/2018 once transported is established VS,Mary, I+O VS, Mary, I+O Laboratory Tests 08/23/18 06:09 Red Blood Count 3.38 L, Mean Corpuscular Volume 89.9, Mean Corpuscular Hemoglobin 30.2, Mean Corpuscular Hemoglobin Concent 33.6, Red Cell Distribution Width 16.2 H, Neutrophils (%) (Auto) 78.2 H, Lymphocytes (%) (Auto) 11.0 L, Monocytes (%) (Auto) 8.4 H, Eosinophils (%) (Auto) 0.4, Basophils (%) (Auto) 0.2, Neutrophils # (Auto) 3.5, Lymphocytes # (Auto) 0.5 L, Monocytes # (Auto) 0.4, Eosinophils # (Auto) 0.0, Basophils # (Auto) 0.0, Calcium Level 8.5 L Vital Signs Date Time Temp Pulse Resp B/P (MAP) Pulse Ox O2 Delivery O2 Flow Rate FiO2 08/23/18 06:15 82 138/60 08/23/18 06:00 98.3 20 96 08/20/18 04:15 Room Air I&O- Last 24 Hours up to 6 AM 08/23/18 06:00 Intake Total 360 ml Output Total 0 ml Balance 360 ml BOSTON COCHRAN MD Aug 23, 2018 13:04
[2018-08-23 18:00] VITALS: BP 184/50
[2018-08-23] MEDS: PRAVASTATIN 20 MG TAB PEG SCH (21:49)
[2018-08-23 22:00] VITALS: BP 135/85
[2018-08-24 02:00] VITALS: BP 130/70
[2018-08-24 06:00] VITALS: BP 134/77
[2018-08-24 07:04] LABS: BASO % 0.2 % (0.0-1.0); EOS % 0.7 % (0.0-3.0); HEMATOCRIT 29.2 % (36.0-47.0); HEMOGLOBIN 9.7 g/dl (12.0-15.5); LYMPH # 0.7 10^3/uL (1.5-4.5); LYMPH % 15.3 % (24.0-44.0); MEAN CORPUSCULAR HEMOGLOBIN 29.6 pg (27.0-33.0); MEAN CORPUSCULAR HGB CONC 33.2 g/dl (32.0-36.5); MONO # 0.5 10^3/uL (0.0-0.8); NEUTROPHILS # 3.1 10^3/uL (1.8-7.7); NEUTROPHILS % 70.5 % (36.0-66.0); RED BLOOD COUNT 3.28 10^6/uL (4.00-5.40); WHITE BLOOD COUNT 4.4 10^3/uL (4.0-10.0)
[2018-08-24 07:13] LABS: PLATELET COUNT, AUTOMATED 61 10^3/uL (150-450)
[2018-08-24 07:29] LABS: C REACTIVE PROTEIN QUANTITATIV 15.2 MG/DL (0.00-0.30); CALCIUM LEVEL 8.5 MG/DL (8.8-10.2); CREATININE FOR GFR 1.96 MG/DL (0.55-1.30); GLOMERULAR FILTRATION RATE 25.7 (>32); MAGNESIUM LEVEL 1.9 MG/DL (1.8-2.4); POTASSIUM SERUM 4.2 MEQ/L (3.5-5.1)
[2018-08-24] MEDS: HumaLOG INSULIN (NovoLOG) PER UNIT SC SCH ×5 (07:30→22:07)
--- NOTE | 2018-08-24 07:40 | IPN ---
DATE OF SERVICE: 08/23/2018 SUBJECTIVE: The patient was seen and examined at the bedside today morning. Her daughter was also present at the bedside. The patient is unable to provide any history. She just is awake and smiles. She is unable to communicate. Today is patient's regular day of dialysis. She continues to be on tube feeds at 20 mL/hr. OBJECTIVE: VITAL SIGNS: Temperature is 98.3 degrees Fahrenheit, blood pressure 138/60, pulse is 82, respiratory rate of 20, saturating 96% on room air. INTAKE AND OUTPUT: There is no urine output recorded. Weight on the bed scale weight is not available. PHYSICAL EXAMINATION: GENERAL: The patient is awake, nonverbal, eyes are open. Unable to communicate. HEAD AND NECK EXAM: Pupils are equally round and reactive to light. Mucous membranes are moist. Neck is supple. She has a right internal jugular (IJ) tunneled hemodialysis catheter. CARDIOVASCULAR: S1 and S2. Regular rate. No edema of the bilateral lower extremities. RESPIRATORY: Decreased breath sounds at the bases, otherwise, no active rales or rhonchi. ABDOMEN: Soft. Positive bowel sounds. Percutaneous endoscopic gastrostomy (PEG) tube in the epigastrium being used for tube feeds. MUSCULOSKELETAL: Muscle wasting of bilateral lower extremities. CENTRAL NERVOUS SYSTEM (TOBACCO CLASSER): Power is 0/5 in bilateral lower extremities and 0/5 power in the right upper extremity and 3/5 in the left upper extremity. SKIN: She has a non stageable decubitus ulcer covered with a dressing. LAB REVIEW: CBC showed a WBC of 4.5, hemoglobin 10.2, platelets are 67. BMP showed sodium 141, potassium 3.5, chloride 105, bicarbonate 27, BUN 40, creatinine is 3.1. C-reactive protein 19.7. CURRENT INPATIENT MEDICATIONS: Patient's medications were all reviewed by me. There is no change in the medications today as compared with yesterday. ASSESSMENT AND PLAN: 1. End-stage renal disease on hemodialysis. The patient's regular dialysis days are Saturday, , Saturday. She will be dialyzed today as per her regular schedule and I will try to remove at least 1 liter of fluid as tolerated by her blood pressure. 2. Hypertension with hypertensive heart disease. Continue current dose of Coreg and amlodipine. Blood pressure is better after optimization of the fluid status. 3. Protein calorie malnutrition. The patient is unable to take oral diet. She is dependent on PEG tube feeds. Rate was decreased during this hospitalization because of recurrent vomiting and possible aspiration pneumonitis. 4. Anemia and end stage renal disease. Hemoglobin is 10.2, which is optimal. Continue the monitoring for now. She is status post packed red blood cells (PRBCs) transfusion. 5. Sacral decubitus ulcer. Patient is chronically better. She is getting wound care. It will be very difficult for this wound to heal because of her chronic bedridden status and protein calorie malnutrition. 6. Disposition. Patient overall has a very poor prognosis. However, patient's family members do not have an insight into the patient's current clinical status. It has been explained to them multiple times by nephrology service and the medical team, however, they want to continue full care at this point, including the feeding and hemodialysis. The patient is DO NOT RESUSCITATE/DO NOT INTUBATE (DNR/DNI) at this point.
[2018-08-24] MEDS: LEVEMIR (INSULIN DETEMIR) 1 UNITS/0.01ML SC SCH ×2 (09:00→22:07)
[2018-08-24] MEDS: LANSOPRAZOLE SUSPENSION 30 MG/10 ML ORAL SYRINGE (FIRST-LANSOPRAZOLE) PEG SCH (09:45)
[2018-08-24] MEDS: SANTYL OINT 30GM TOP SCH (09:45)
[2018-08-24] MEDS: ASPIRIN 81 MG CHEW TABLET PEG SCH (09:46)
[2018-08-24] MEDS: CARVedilol 6.25 MG TAB PEG SCH ×2 (09:46→22:07)
[2018-08-24] MEDS: CLOPIDOGREL 75 MG TAB PEG SCH (09:46)
[2018-08-24] MEDS: amLODIPine 10 MG TAB PEG SCH (09:46)
[2018-08-24] MEDS: guaiFENesin SYRUP 200 MG/10 ML UDC PO PRN (10:03)
[2018-08-24] MEDS ORDERED: SANT250O8 TOP (10:16)
--- NOTE | 2018-08-24 12:28 | DS.PDOC ---
Discharge Summary General Date of Admission Aug 20, 2018 at 03:22 Date of Discharge 08/24/2018 Discharge Summary PROCEDURES PERFORMED DURING STAY: [None]. 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 diff, ESRD on HD (TTS), DM2, Hypothyroidism, Chronic anemia, who presented to the ER with fever and cough. In the ER patient had a respiratory panel positive for human metapneumovirus. Patient was admitted to hospitalist service for suspected aspiration pneumonia. HOSPITAL COURSE: Fever / Cough - likely 2/2 human metapneumonvirus, less likely 2/2 aspiration pneumonia - Patient is awake and alert, is able to respond still experience is a very mild cough - Saturating well on room air alone - There been no fevers over the last several days - Lab work without any significant leukocytosis or lactic acidosis; CRP continues to improve while off antibiotics - UA without evidence of infection - Blood cultures 08/19: No growth at 72 hours; Respiratory panel 08/19: human metapneumovirus - CXR 08/19: Chronic interstitial changes. No acute cardiopulmonary process appreciated. - CT chest 08/20: 1. Previously noted left lower lobe consolidation/atelectasis has decreased. 2. No new acute process identified. 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 diff - Patient has been experiencing loose stools; however they are not watery - Will hold off on sending stool for C. diff analysis ESRD on HD (TTS) - s/p HD yesterday - Nephrology on consultation; appreciate their input DM2 - c/w ISS and Levemir DLP - c/w Pravastatin; will resume ASA Hypothyroidism - TSH within normal limits - Currently not on any medications Acute on Chronic anemia - Patient had an acute drop of her hemoglobin on the subsequent day of arrival - s/p 1 unit PRBC - Hg has remained stable since then GERD - c/w PPI DVT prophylaxis - c/w SCDs / TEDs DISCHARGE MEDICATIONS: Please see below. ALLERGIES: Please see below. PHYSICAL EXAMINATION ON DISCHARGE: Vitals (See below) General: Lying in bed, no acute distress, comfortable, Awake / Alert HEENT: NC, AT CVS: RRR, +S1S2 Lungs: Poor inspiratory effort, does not appear to be auscultated evidence of rhonchi, wheezing or rales Abdomen: Soft, nondistended, without tenderness, + PEG Extremities: No evidence of lower extremity edema, - Calf tenderness Skin: Unstageable sacral decubitus ulcers LABORATORY DATA: Please see below. ACTIVITY: [As tolerated]. DISCHARGE PLAN: Follow-up with Dr. Pineda within 7 days Remain compliant with treatment plan and medications Return to the ER if you experience any problems DISPOSITION: Home w/ services DISCHARGE CONDITION: [Stable]. TIME SPENT ON DISCHARGE: Greater than [35] minutes. Vital Signs/I&Os Vital Signs Date Time Temp Pulse Resp B/P (MAP) Pulse Ox O2 Delivery O2 Flow Rate FiO2 08/24/18 09:46 130/72 08/24/18 06:00 98.0 92 16 97 08/20/18 04:15 Room Air I&O- Last 24 Hours up to 6 AM 08/24/18 06:00 Intake Total 360 ml Output Total 1000 ml Balance -640 ml Laboratory Data Labs 24H Laboratory Tests 2 08/23/18 12:45: Bedside Glucose (Misc Panel) 93 08/23/18 18:01: Bedside Glucose (Misc Panel) 99 08/23/18 20:24: Bedside Glucose (Misc Panel) 126H 08/24/18 06:17: Immature Granulocyte % (Auto) 2.3, White Blood Count 4.4, Red Blood Count 3.28L, Hemoglobin 9.7L, Hematocrit 29.2L, Mean Corpuscular Volume 89.0, Mean Corpuscular Hemoglobin 29.6, Mean Corpuscular Hemoglobin Concent 33.2, Red Cell Distribution Width 16.2H, Platelet Count 61L, Neutrophils (%) (Auto) 70.5H, Lymphocytes (%) (Auto) 15.3L, Monocytes (%) (Auto) 11.0H, Eosinophils (%) (Auto) 0.7, Basophils (%) (Auto) 0.2, Neutrophils # (Auto) 3.1, Lymphocytes # (Auto) 0.7L, Monocytes # (Auto) 0.5, Eosinophils # (Auto) 0.0, Basophils # (Auto) 0.0, Nucleated Red Blood Cells % (auto) 0.0, Immature Platelet Fraction 6.3, Anion Gap 8, Glomerular Filtration Rate 25.7L, Blood Urea Nitrogen 23H, Creatinine 1.96H, Sodium Level 138, Potassium Level 4.2, Chloride Level 103, Carbon Dioxide Level 27, Calcium Level 8.5L, Magnesium Level 1.9, C-Reactive Protein, Quantitative 15.20H 08/24/18 12:02: Bedside Glucose (Misc Panel) 197H CBC/BMP Laboratory Tests 08/24/18 06:17 Red Blood Count 3.28 L, Mean Corpuscular Volume 89.0, Mean Corpuscular Hemoglobin 29.6, Mean Corpuscular Hemoglobin Concent 33.2, Red Cell Distribution Width 16.2 H, Neutrophils (%) (Auto) 70.5 H, Lymphocytes (%) (Auto) 15.3 L, Monocytes (%) (Auto) 11.0 H, Eosinophils (%) (Auto) 0.7, Basophils (%) (Auto) 0.2, Neutrophils # (Auto) 3.1, Lymphocytes # (Auto) 0.7 L, Monocytes # (Auto) 0.5, Eosinophils # (Auto) 0.0, Basophils # (Auto) 0.0, Calcium Level 8.5 L FSBS Laboratory Tests Test 08/23/18 12:45 08/23/18 18:01 08/23/18 20:24 08/24/18 12:02 Range/Units Bedside Glucose (Misc Panel) 93 99 126 197 83-110 MG/DL Microbiology Microbiology 08/19/18 Blood Culture - Preliminary, Resulted No Growth after 72 hours. All specime... 08/19/18 Blood Culture - Preliminary, Resulted No Growth after 72 hours. All specime... 08/19/18 Respiratory Virus Panel (PCR) (JACK) - Final, Complete Human Metapneumovirus 08/20/18 Urine Culture - Final, Complete Discharge Medications Scheduled (Nepro with Carb Steady) 1 Liq Liq, 1 DOSE PEG ASDIRECTED, (Reported) TAKES BETWEEN MEALS. (Aspirin) 81 Mg Chw, 81 MG PEG DAILY, (Reported) Amlodipine Besylate (Amlodipine Besylate) 10 Mg Tab, 10 MG PEG DAILY, (Reported) Carvedilol (Carvedilol) 6.25 Mg Tab, 6.25 MG PEG BID, (Reported) Clopidogrel Bisulfate (Clopidogrel) 75 Mg Tab, 75 MG PEG DAILY, (Reported) Collagenase (Santyl) 250 Unit/Gm Oin, 1 DOSE TOP DAILY Ergocalciferol (Vitamin D) 50,000 Unit Cap, 50,000 UNIT PEG 1XWK, (Reported) USES ON THURSDAYS AROUND NOON Fenofibrate (Fenofibrate) 145 Mg Tab, 145 MG PEG QHS, (Reported) Gabapentin (Gabapentin) 100 Mg Cap, 100 MG PEG BID, (Reported) Insulin Glargine (Lantus Solostar) 100 Unit/Ml Inj, 12 UNITS SC BID, (Reported) Nystatin (Nystatin Powder) 100,000 Unit/Gm Pow, 1 DOSE TOP ASDIRECTED, (Rep orted) USES AFTER EVERY CHANGING. USES ON UPPER INTERGLUTEAL CLEFT. Pantoprazole Sodium Sesquihydr (Pantoprazole Sodium Dr) 40 Mg Tab, 40 MG PEG DAILY, (Reported) Pravastatin Sodium (Pravastatin Sodium) 20 Mg Tab, 20 MG PEG QHS, (Reported) Scheduled PRN Acetaminophen (Acetaminophen) 325 Mg Tab, 650 MG PEG Q6H PRN for PAIN / FEVER, (Reported) Docusate Sodium (Docusate Sodium) 100 Mg Cap, 100 MG PEG BID PRN for CONSTIPATION, (Reported) Allergies Coded Allergies: Codeine (Verified Allergy, Intermediate, HIVES, 04/20/17) [place] (Verified Allergy, Unknown, 04/20/17) Tetanus Toxoid (Verified Allergy, Unknown, 04/20/17) Heparin (Verified Adverse Reaction, Severe, HIT, 07/29/18) BOSTON COCHRAN MD Aug 24, 2018 12:28
[2018-08-24 14:00] VITALS: BP 194/64
[2018-08-24] MEDS ORDERED: DARBEPOETIN 100 MCG/0.5 ML *DIALYSIS* SYRINGE (J0882) IV SCH (17:15)
[2018-08-24 22:00] VITALS: BP 130/70
[2018-08-24] MEDS: PRAVASTATIN 20 MG TAB PEG SCH (22:06)
[2018-08-25 06:00] VITALS: BP 132/83
[2018-08-25 07:21] LABS: C REACTIVE PROTEIN QUANTITATIV 14.1 MG/DL (0.00-0.30); CALCIUM LEVEL 8.3 MG/DL (8.8-10.2); CREATININE FOR GFR 3.05 MG/DL (0.55-1.30); GLOMERULAR FILTRATION RATE 15.5 (>32); MAGNESIUM LEVEL 2.2 MG/DL (1.8-2.4); POTASSIUM SERUM 4.6 MEQ/L (3.5-5.1)
[2018-08-25] MEDS: SANTYL OINT 30GM TOP SCH (09:00)
[2018-08-25] MEDS: LANSOPRAZOLE SUSPENSION 30 MG/10 ML ORAL SYRINGE (FIRST-LANSOPRAZOLE) PEG SCH (09:00)
[2018-08-25] MEDS: ASPIRIN 81 MG CHEW TABLET PEG SCH (11:23)
[2018-08-25] MEDS: guaiFENesin SYRUP 200 MG/10 ML UDC PO PRN (11:23)
[2018-08-25 11:27] VITALS: BP 172/68
[2018-08-25] MEDS: CARVedilol 6.25 MG TAB PEG SCH (11:27)
[2018-08-25] MEDS: CLOPIDOGREL 75 MG TAB PEG SCH (11:27)
[2018-08-25] MEDS: amLODIPine 10 MG TAB PEG SCH (11:27)
[2018-08-25] MEDS: LEVEMIR (INSULIN DETEMIR) 1 UNITS/0.01ML SC SCH (11:28)
[2018-08-25] MEDS: HumaLOG INSULIN (NovoLOG) PER UNIT SC SCH (12:26)
--- NOTE | 2018-08-25 12:36 | IPN ---
DATE OF SERVICE: 08/24/2018 SUBJECTIVE: The patient is seen and examined this morning at the bedside. She is nonverbal, unable to provider history. She is awake. She smiles. She continues on tube feeds. She had dialysis yesterday with 1 liter of fluid removed. Family denies any new concerns today. They report that she continues to cough. VITAL SIGNS: Temperature 98.0, pulse 92, respiratory rate 16, blood pressure 134/77, saturating 97% on room air. Intake yesterday 360. Dialysis yesterday removed 1 liter. Net negative 644. Bowel movements were recorded yesterday and three incontinent voids. PHYSICAL EXAMINATION: GENERAL: The patient is seen lying in bed, awake, eyes are open, makes eye contact, smile, in no acute distress. Occasional cough is noted. Frail, elderly female. NECK: Supple, right IJ tunneled hemodialysis catheter. CARDIAC: S1, S2, regular rate, no edema in the lower extremities or in the dependent area. RESPIRATORY: Decreased breath sounds at the bases. No rales or rhonchi. Occasional cough noted. ABDOMEN: Soft, there are bowel sounds, there is a PEG tube with ongoing tube feeds. MUSCULOSKELETAL: There is diminished lean muscle mass and muscle wasting prominence. She only moves her left extremity for me. SKIN: Her sacral decubitus ulcers not examined. There is normal turgor and temperature. LABORATORY DATA: White count 4.4, hemoglobin 9.7, platelet 61, sodium 138, potassium 4.2. INPATIENT MEDICATIONS: Reviewed by myself and no change from prior. PROBLEMS: 1. End-stage renal disease on hemodialysis on Saturday, , Saturday schedule. Patient is tolerating her treatments with ultrafiltration of about 1 liter of fluid with each session. Her next dialysis will be on Saturday as per her regular schedule. Her volume status and electrolytes are accetable and her intake is not a whole lot. 2. Hypertension with hypertensive heart disease. Blood pressures are accetable. Systolic in the 130s. She continues on Amlodipine and carvedilol and no changes are being made to her regimen. 3. Protein calorie malnutrition. Patient receives Nepro tube feeds. She is unable to take oral diet due to recurrent vomiting and concern of aspiration she is on a fairly low rate of feeds. 4. Anemia of end-stage renal disease. Hemoglobin is slightly suboptimal and she will continue on Aranesp. She receives heparin free dialysis. 5. Global aphasia, history of multiple strokes, limited mobility and deconditioning, history of recurrent aspiration pneumonia, all of the above complicates her care. Family wishes to continue with the full support and they do not want to transition to comfort measures, they understand that she had a poor prognosis and is likely to have recurrent decompensations and recurrent hospitalizations.
[2018-08-25 14:00] VITALS: BP 179/82
--- NOTE | 2018-08-25 14:36 | DS.PDOC ---
Discharge Summary General Date of Admission Aug 20, 2018 at 03:22 Date of Discharge 08/25/2018 Discharge Summary Subjective: Patient was seen and examined at the bedside. I discussed with the family about the delay in the discharge, which was attributed to transportation being canceled without any other ancillary staff being informed. Currently patient has no new complaints and has done well overnight. Objective: Vitals (See below) General: Lying in bed, no acute distress, comfortable, Awake / Alert HEENT: NC, AT CVS: RRR, +S1S2 Lungs: Fair air entry b/l, -w/r/r Abdomen: Soft, ND, NT, +PEG Extremities: - Edema, - Calf tenderness Assessment and plan: Patient remained in the hospital for one additional day in order to establish transportation to get home. There have been no changes to the plan and patient will be continuing to follow-up as scheduled with nephrology and her primary care provider. Please refer to discharge summary from 08/24/2018. New date of discharge of 08/25/2018. Vital Signs/I&Os Vital Signs Date Time Temp Pulse Resp B/P (MAP) Pulse Ox O2 Delivery O2 Flow Rate FiO2 08/25/18 11:27 97 172/68 08/25/18 06:00 98.3 18 97 08/20/18 04:15 Room Air I&O- Last 24 Hours up to 6 AM 08/25/18 06:00 Intake Total 0 ml Balance 0 ml Laboratory Data Labs 24H Laboratory Tests 2 08/24/18 17:40: Bedside Glucose (Misc Panel) 197H 08/24/18 20:37: Bedside Glucose (Misc Panel) 205H 08/25/18 06:32: Anion Gap 7L, Glomerular Filtration Rate 15.5L, Blood Urea Nitrogen 41#H, Creatinine 3.05#H, Sodium Level 142, Potassium Level 4.6, Chloride Level 106, Carbon Dioxide Level 29, Calcium Level 8.3L, Magnesium Level 2.2, C-Reactive Protein, Quantitative 14.10H CBC/BMP Laboratory Tests 08/25/18 06:32 Calcium Level 8.3 L FSBS Laboratory Tests Test 08/24/18 17:40 08/24/18 20:37 Range/Units Bedside Glucose (Misc Panel) 197 205 83-110 MG/DL Microbiology Microbiology 08/19/18 Blood Culture - Final, Complete NO GROWTH AFTER 5 DAYS 08/19/18 Blood Culture - Final, Complete NO GROWTH AFTER 5 DAYS 08/19/18 Respiratory Virus Panel (PCR) (JACK) - Final, Complete Human Metapneumovirus 08/20/18 Urine Culture - Final, Complete Discharge Medications Scheduled (Nepro with Carb Steady) 1 Liq Liq, 1 DOSE PEG ASDIRECTED, (Reported) TAKES BETWEEN MEALS. (Aspirin) 81 Mg Chw, 81 MG PEG DAILY, (Reported) Amlodipine Besylate (Amlodipine Besylate) 10 Mg Tab, 10 MG PEG DAILY, (Reported) Carvedilol (Carvedilol) 6.25 Mg Tab, 6.25 MG PEG BID, (Reported) Clopidogrel Bisulfate (Clopidogrel) 75 Mg Tab, 75 MG PEG DAILY, (Reported) Collagenase (Santyl) 250 Unit/Gm Oin, 1 DOSE TOP DAILY Ergocalciferol (Vitamin D) 50,000 Unit Cap, 50,000 UNIT PEG 1XWK, (Reported) USES ON THURSDAYS AROUND NOON Fenofibrate (Fenofibrate) 145 Mg Tab, 145 MG PEG QHS, (Reported) Gabapentin (Gabapentin) 100 Mg Cap, 100 MG PEG BID, (Reported) Insulin Glargine (Lantus Solostar) 100 Unit/Ml Inj, 12 UNITS SC BID, (Reported) Nystatin (Nystatin Powder) 100,000 Unit/Gm Pow, 1 DOSE TOP ASDIRECTED, (Reported) USES AFTER EVERY CHANGING. USES ON UPPER INTERGLUTEAL CLEFT. Pantoprazole Sodium Sesquihydr (Pantoprazole Sodium Dr) 40 Mg Tab, 40 MG PEG DAILY, (Reported) Pravastatin Sodium (Pravastatin Sodium) 20 Mg Tab, 20 MG PEG QHS, (Reported) Scheduled PRN Acetaminophen (Acetaminophen) 325 Mg Tab, 650 MG PEG Q6H PRN for PAIN / FEVER, (Reported) Docusate Sodium (Docusate Sodium) 100 Mg Cap, 100 MG PEG BID PRN for CONSTIPATION, (Reported) Allergies Coded Allergies: Codeine (Verified Allergy, Intermediate, HIVES, 04/20/17) [place] (Verified Allergy, Unknown, 04/20/17) Tetanus Toxoid (Verified Allergy, Unknown, 04/20/17) Heparin (Verified Adverse Reaction, Severe, HIT, 07/29/18) BOSTON COCHRAN MD Aug 25, 2018 14:36
--- NOTE | 2018-08-26 06:59 | IPN ---
DATE OF SERVICE: 08/25/2018 SUBJECTIVE: The patient is seen and examined this morning at the bedside. Granddaughter is present. She is discharge pending. No new overnight events are reported. The family understands that the patient is due for dialysis tomorrow. Temperature 98.9, pulse 89, respiratory rate 16, blood pressure 172/68. Intake and output are not recorded. Weight on the bed scale is not recorded. General: Patient is seen lying in bed, elderly female, frail, makes eye contact and is in no acute distress. Neck shows a tunneled right internal jugular (IJ) hemodialysis catheter. Cardiac: S1 and S2. Regular rate. No edema in the peripheries or in the dependent area. Respiratory: Symmetric air entry bilaterally. No rales or rhonchi. Abdomen: Soft. There are bowel sounds. There is a percutaneous endoscopic gastrostomy (PEG) tube with ongoing seeds. Musculoskeletal: There is muscle wasting prominently. She only moves her left extremity for me. Neurologic: Patient is nonverbal and has minimal use of 3 out of her 4 extremities. LABS: White count 4.4, hemoglobin 9.7, platelets 61. Sodium 142, potassium 4.6, bicarbonate 29, CRP 14. INPATIENT MEDICATIONS: Reviewed by myself and no change from prior. PROBLEMS: 1. End stage renal disease on hemodialysis on Saturday, and Saturday schedule. She is due for dialysis tomorrow. She has been tolerating her treatments with gentle ultrafiltration and volume removal. Her treatment time has been extended to 3 hours in view of ultrafiltration. Her electrolytes and volume status are acceptable. No change is being made to her chronic prescription. 2. Hypertension. The patient continues on amlodipine and carvedilol. Blood pressures do tend to improve on dialysis days. 3. Anemia of end stage renal disease. Hemoglobins are stable and the patient continues on anemia protocol of end stage renal disease with Aranesp and iron as indicated. 4. Aphasia, history of multiple strokes, deconditioning, history of recurrent aspiration pneumonia, protein calorie malnutrition, tube feed dependence. All the above complicates her care. The family wishes to continue with full support, although they do understand that her overall prognosis is poor.
== END 2018-08-25 15:20 | disposition home or self-care (01) | DRG 865 ==
LOC: M ED 22:04 → M ED INP 08-20 03:22 → M MSPAV 08-20 12:44
PROVIDERS: ADMIT Internal Medicine; ATTEND Internal Medicine
PROC: 30233N1 Transfusion of Nonautologous Red Blood Cells into Peripheral Vein, Percutaneous Approach (ICD-10-PCS; principal; 2018-08-20)
PROC: 5A1D70Z Performance of Urinary Filtration, Intermittent, Less than 6 Hours Per Day (ICD-10-PCS; 2018-08-21)
DX: B34.8 Other viral infections of unspecified site (principal); N18.6 End stage renal disease; I69.951 Hemiplegia and hemiparesis following unspecified cerebrovascular disease affecting right dominant side; I69.954 Hemiplegia and hemiparesis following unspecified cerebrovascular disease affecting left non-dominant side; E46 Unspecified protein-calorie malnutrition; I69.920 Aphasia following unspecified cerebrovascular disease; K21.9 Gastro-esophageal reflux disease without esophagitis; D63.1 Anemia in chronic kidney disease; E03.9 Hypothyroidism, unspecified; L89.150 Pressure ulcer of sacral region, unstageable; Z79.899 Other long term (current) drug therapy; Z79.82 Long term (current) use of aspirin; Z79.4 Long term (current) use of insulin; Z88.5 Allergy status to narcotic agent; Z88.7 Allergy status to serum and vaccine; Z91.018 Allergy to other foods; E11.9 Type 2 diabetes mellitus without complications; E78.00 Pure hypercholesterolemia, unspecified; I11.9 Hypertensive heart disease without heart failure; Z93.1 Gastrostomy status; Z66 Do not resuscitate; B97.81 Human metapneumovirus as the cause of diseases classified elsewhere